=== PATIENT | male | born 1950 | race Caucasian/White ===

== ENCOUNTER → 2016-07-16 | Outpatient (CLI) | payer OTHER ==
[2016-07-16 09:22] LABS: Basophils % (A) 1 %; CH 25.8; CHCM 31.4; Eosinophils # (A) 0.1 k/uL (0-0.7); Eosinophils % (A) 2 %; HDW 3.46; HGB 12.8 gm/dL (13.0-17.5); Hypochromasia Moderate; Luc # (Auto) 0.13; Luc % (Auto) 2; Lymphocytes # (A) 1.3 k/uL (1.0-4.8); Lymphocytes % (A) 25 %; MCH 26.2 pg (25.0-35.0); MCHC 31.9 g/dL (31.0-37.0); MCV 82.2 fL (80.0-100.0); Mean Platelet Volume 7.1; Monocytes # (A) 0.4 k/uL (0-1.0); Monocytes % (A) 8 %; Neutrophils # (A) 3.3 k/uL (1.3-7.7); Neutrophils % (A) 63 %; Poikilocytosis Slight; RBC 4.87 m/uL (4.30-5.90); RDW 13.7 % (11.5-15.5); WBC 5.3 k/uL (3.8-10.6); WBC (Perox) 5.42
[2016-07-16 11:02] LABS: Manual Review Performed
== END | disposition home or self-care (01) ==
LOC: LABWHC1 08:17
PROVIDERS: ATTEND Internal Medicine Gastroenterology
DX: B18.2 Chronic viral hepatitis C (principal)
CPT/HCPCS: 36415; 85025

== ENCOUNTER → 2016-07-23 | Outpatient (CLI) | payer OTHER ==
[2016-07-23 09:00] LABS: ALT 45 U/L (21-72); AST 23 U/L (17-59); Alkaline Phosphatase 80 U/L (38-126); Bilirubin, Delta 0.1 mg/dL (0.0-0.2); Non-African American GFR(MDRD) >60 (>60 ml/min/1.73 sqM); Total Bilirubin 0.6 mg/dL (0.2-1.3); Total Protein 7.1 g/dL (6.3-8.2)
[2016-07-23 09:01] LABS: Basophils % (A) 0 %; CH 25.6; CHCM 31.3; Eosinophils # (A) 0.1 k/uL (0-0.7); Eosinophils % (A) 2 %; HCT 40.2 % (39.0-53.0); HDW 3.36; HGB 12.4 gm/dL (13.0-17.5); Hypochromasia Moderate; Luc # (Auto) 0.19; Luc % (Auto) 4; Lymphocytes # (A) 1.1 k/uL (1.0-4.8); Lymphocytes % (A) 22 %; MCH 25.2 pg (25.0-35.0); MCHC 30.8 g/dL (31.0-37.0); Mean Platelet Volume 6.8; Monocytes # (A) 0.4 k/uL (0-1.0); Monocytes % (A) 8 %; Neutrophils # (A) 3.3 k/uL (1.3-7.7); Neutrophils % (A) 64 %; RDW 13.7 % (11.5-15.5); WBC 5.2 k/uL (3.8-10.6); WBC (Perox) 5.27
[2016-07-24 14:39] LABS: LOG HCV IU/mL 4.34 (<1.08)
== END | disposition home or self-care (01) ==
LOC: LABWHC1 07:53
PROVIDERS: ATTEND Internal Medicine Gastroenterology
DX: B18.2 Chronic viral hepatitis C (principal)
CPT/HCPCS: 36415; 80076; 82565; 85025; 87522

== ENCOUNTER → 2016-07-30 | Outpatient (CLI) | payer OTHER ==
[2016-07-30 08:42] LABS: Basophils % (A) 1 %; CH 25.6; CHCM 31.3; Eosinophils # (A) 0.1 k/uL (0-0.7); Eosinophils % (A) 2 %; HCT 40.4 % (39.0-53.0); HDW 3.29; HGB 12.5 gm/dL (13.0-17.5); Hypochromasia Moderate; Luc # (Auto) 0.25; Luc % (Auto) 4; Lymphocytes # (A) 1.3 k/uL (1.0-4.8); Lymphocytes % (A) 23 %; MCH 25.3 pg (25.0-35.0); MCV 81.6 fL (80.0-100.0); Mean Platelet Volume 6.5; Monocytes # (A) 0.5 k/uL (0-1.0); Monocytes % (A) 9 %; Neutrophils # (A) 3.5 k/uL (1.3-7.7); Neutrophils % (A) 61 %; RBC 4.95 m/uL (4.30-5.90); RDW 14.1 % (11.5-15.5); WBC 5.8 k/uL (3.8-10.6)
== END | disposition home or self-care (01) ==
LOC: LABWHC1 07:33
PROVIDERS: ATTEND Internal Medicine Gastroenterology
DX: B18.2 Chronic viral hepatitis C (principal)
CPT/HCPCS: 36415; 85025

== ENCOUNTER → 2016-08-06 | Outpatient (CLI) | payer OTHER ==
[2016-08-06 08:26] LABS: Basophils % (A) 0 %; CH 26.2; CHCM 31.7; Eosinophils # (A) 0.1 k/uL (0-0.7); Eosinophils % (A) 2 %; HCT 38.7 % (39.0-53.0); HDW 3.06; HGB 12.1 gm/dL (13.0-17.5); Hypochromasia Slight; Luc # (Auto) 0.19; Luc % (Auto) 4; Lymphocytes # (A) 0.9 k/uL (1.0-4.8); Lymphocytes % (A) 20 %; MCH 25.8 pg (25.0-35.0); MCHC 31.2 g/dL (31.0-37.0); MCV 82.9 fL (80.0-100.0); Mean Platelet Volume 7.7; Monocytes # (A) 0.4 k/uL (0-1.0); Monocytes % (A) 9 %; Neutrophils % (A) 64 %; RBC 4.67 m/uL (4.30-5.90); RDW 14.6 % (11.5-15.5); WBC 4.6 k/uL (3.8-10.6); WBC (Perox) 5.24
[2016-08-06 08:47] LABS: ALT 28 U/L (21-72); AST 21 U/L (17-59); Alkaline Phosphatase 81 U/L (38-126); Anion Gap 8 mmol/L; Bilirubin, Delta 0.3 mg/dL (0.0-0.2); Blood Urea Nitrogen 15 mg/dL (9-20); Calcium 8.7 mg/dL (8.4-10.2); Carbon Dioxide 29 mmol/L (22-30); Chloride 106 mmol/L (98-107); Cholesterol 194 mg/dL (<200); Glucose 128 mg/dL (74-99); HDL Cholesterol 46 mg/dL (40-60); Magnesium 1.9 mg/dL (1.6-2.3); Non-African American GFR(MDRD) >60 (>60 ml/min/1.73 sqM); Potassium 4.5 mmol/L (3.5-5.1); Sodium 143 mmol/L (137-145); Total Bilirubin 0.6 mg/dL (0.2-1.3); Triglycerides 148 mg/dL (<150)
[2016-08-07 14:28] LABS: Tacrolimus (FK506) 5.1 ng/mL (5.0-20.0)
[2016-08-08 08:47] LABS: LOG HCV IU/mL 4.02 (<1.08)
[2016-08-09 07:25] LABS: Mis test requested (Blood) Everolimus Level
== END | disposition home or self-care (01) ==
LOC: LABWHC1 07:43
PROVIDERS: ATTEND Internal Medicine Gastroenterology
DX: C22.0 Liver cell carcinoma (principal); B18.2 Chronic viral hepatitis C; B19.20 Unspecified viral hepatitis C without hepatic coma; Z94.4 Liver transplant status
CPT/HCPCS: 36415; 80048; 80061; 80076; 80169; 80197; 82105; 83735; 85025; 87522

== ENCOUNTER → 2016-12-03 | Outpatient (CLI) | payer OTHER | END | disposition home or self-care (01) | LOC: LABWHC1 07:52 | PROVIDERS: ATTEND Internal Medicine | DX: Z48.23 Encounter for aftercare following liver transplant (principal) | CPT/HCPCS: 36415; 87045; 87046; 87497 ==

== ENCOUNTER → 2017-05-01 | Outpatient (CLI) | payer MEDICARE, OTHER ==
[2017-05-01 13:33] LABS: ALT 27 U/L (21-72); AST 18 U/L (17-59); Alkaline Phosphatase 75 U/L (38-126); Anion Gap 7 mmol/L; Blood Urea Nitrogen 18 mg/dL (9-20); Calcium 9.2 mg/dL (8.4-10.2); Carbon Dioxide 29 mmol/L (22-30); Chloride 103 mmol/L (98-107); Glucose 106 mg/dL (74-99); Non-African American GFR(MDRD) >60 (>60 ml/min/1.73 sqM); Potassium 4.5 mmol/L (3.5-5.1); Sodium 139 mmol/L (137-145); Total Bilirubin 0.5 mg/dL (0.2-1.3); Total Protein 7.2 g/dL (6.3-8.2)
[2017-05-01 20:21] LABS: Hepatitis B Surface Antibody Reactive (Non-Reactive)
[2017-05-03 09:28] LABS: Hepatits C Virus RNA, Quant <12 IU/mL (<12); LOG HCV IU/mL <1.08 (<1.08)
== END | disposition home or self-care (01) ==
LOC: LABWHC1 12:39
PROVIDERS: ATTEND Internal Medicine Gastroenterology
DX: Z48.23 Encounter for aftercare following liver transplant (principal); R75 Inconclusive laboratory evidence of human immunodeficiency virus [HIV]; Z94.4 Liver transplant status
CPT/HCPCS: 36415; 80053; 86704; 86706; 87340; 87390; 87522

== ENCOUNTER → 2017-05-08 | Outpatient (CLI) | payer MEDICARE, OTHER ==
--- NOTE | 2017-05-08 18:03 | CT ---
EXAMINATION TYPE: CT abdomen w con DATE OF EXAM: 05/08/2017 COMPARISON: 08/09/2014 HISTORY: Follow-up for liver transplant. CT DLP: 1342.07 mGycm Automated exposure control for dose reduction was used. TECHNIQUE: Helical acquisition of images was performed from the lung bases through the top of iliac crest to include entire abdomen. CONTRAST: Performed with Oral Contrast and with IV Contrast, patient injected with 100 mL of Omnipaque 300. FINDINGS: Lung bases are clear. There is no pleural effusion. Heart size is normal. There is a 5 mm cyst in the left lobe of the liver. Bile ducts are not dilated. Spleen shows no focal defect. There is no sign of pancreatic mass. There is no adrenal mass. Kidneys show satisfactory contrast opacification. There is no hydronephrosi s. There is no retroperitoneal adenopathy. There is no ascites. I see no intestinal wall thickening. There are no dilated loops. I see no bony destructive process. There is slight depression of the supe rior endplate of T12 and T11 without significant loss of height. Gallbladder is absent. IMPRESSION: SMALL CYST IN THE LEFT LOBE OF THE LIVER. I SEE NO COMPLICATING PROCESS OF THE LIVER TRANSPLANT. NO A DVERSE CHANGE COMPARED TO OLD EXAM.
--- NOTE | 2017-05-08 18:06 | CT ---
EXAMINATION TYPE: CT chest wo con DATE OF EXAM: 05/08/2017 COMPARISON: NONE HISTORY: Follow-up for liver transplant. Some chest congestion. CT DLP: 714.39 mGycm. Automated Exposure Control for Dose Reduction was Utilized. TECHNIQUE: CT scan of the thorax is performed without IV contrast. FINDINGS: The lungs are clear of infiltrate. There is no evidence of a pulmonary mass. There is no pleural effu lavelle. There is mild subpleural 1 cm area of interstitial density in the lateral left lower lobe. There is no evidence of aortic aneurysm. There are no hilar masses. There is no pericardial effusion. There are a few mediastinal lymph nodes that measure up to 1 cm. I see no bony destructive process. IMPRESSION: Negative CT scan of the chest. No evidence of metastatic disease.
== END | disposition home or self-care (01) ==
LOC: RADCTMAIN 16:28
DX: K76.89 Other specified diseases of liver (principal); Z85.05 Personal history of malignant neoplasm of liver; Z94.4 Liver transplant status
CPT/HCPCS: 71250; 74160; Q9967

== ENCOUNTER → 2017-08-19 | Outpatient (CLI) | payer MEDICARE, OTHER ==
[2017-08-19 08:12] LABS: Basophils % (A) 0 %; Eosinophils # (A) 0.2 k/uL (0-0.7); Eosinophils % (A) 2 %; HCT 38.8 % (39.0-53.0); HGB 12.8 gm/dL (13.0-17.5); Lymphocytes # (A) 1.5 k/uL (1.0-4.8); Lymphocytes % (A) 20 %; MCH 25.6 pg (25.0-35.0); MCV 77.5 fL (80.0-100.0); Mean Platelet Volume 7.1; Monocytes # (A) 0.6 k/uL (0-1.0); Monocytes % (A) 8 %; Neutrophils % (A) 67 %; Platelet Count 128 k/uL (150-450); RDW 13.6 % (11.5-15.5); WBC 7.4 k/uL (3.8-10.6)
[2017-08-19 08:42] LABS: ALT 26 U/L (21-72); AST 17 U/L (17-59); Albumin 3.8 g/dL (3.5-5.0); Alkaline Phosphatase 70 U/L (38-126); Anion Gap 9 mmol/L; Bilirubin, Delta 0.3 mg/dL (0.0-0.2); Bilirubin,Unconjugated 0.2 mg/dL (0.0-1.1); Blood Urea Nitrogen 22 mg/dL (9-20); Calcium 8.7 mg/dL (8.4-10.2); Carbon Dioxide 29 mmol/L (22-30); Chloride 106 mmol/L (98-107); Cholesterol 151 mg/dL (<200); Glucose 107 mg/dL (74-99); Sodium 144 mmol/L (137-145); Total Bilirubin 0.5 mg/dL (0.2-1.3); Total Protein 6.6 g/dL (6.3-8.2)
== END | disposition home or self-care (01) ==
LOC: LABWHC1 07:44
PROVIDERS: ATTEND Internal Medicine
DX: C22.0 Liver cell carcinoma (principal); I10 Essential (primary) hypertension; E78.5 Hyperlipidemia, unspecified; B18.2 Chronic viral hepatitis C; D89.9 Disorder involving the immune mechanism, unspecified; Z94.4 Liver transplant status
CPT/HCPCS: 36415; 80048; 80076; 80197; 82465; 83735; 85025

== ENCOUNTER → 2017-09-08 | Outpatient (CLI) | payer MEDICARE, OTHER ==
[2017-09-08 09:05] LABS: Basophils % (A) 0 %; Eosinophils # (A) 0.2 k/uL (0-0.7); Eosinophils % (A) 3 %; HCT 36.3 % (39.0-53.0); HGB 12.3 gm/dL (13.0-17.5); Lymphocytes # (A) 1.1 k/uL (1.0-4.8); Lymphocytes % (A) 18 %; MCHC 33.8 g/dL (31.0-37.0); MCV 76.9 fL (80.0-100.0); Mean Platelet Volume 7.1; Monocytes # (A) 0.4 k/uL (0-1.0); Monocytes % (A) 7 %; Neutrophils # (A) 4.3 k/uL (1.3-7.7); Neutrophils % (A) 69 %; Platelet Count 134 k/uL (150-450); RBC 4.72 m/uL (4.30-5.90); RDW 13.8 % (11.5-15.5); WBC 6.3 k/uL (3.8-10.6)
[2017-09-08 09:14] LABS: ALT 20 U/L (21-72); AST 17 U/L (17-59); Albumin 3.7 g/dL (3.5-5.0); Alkaline Phosphatase 72 U/L (38-126); Anion Gap 11 mmol/L; Bilirubin, Delta 0.3 mg/dL (0.0-0.2); Bilirubin,Unconjugated 0.1 mg/dL (0.0-1.1); Blood Urea Nitrogen 20 mg/dL (9-20); Calcium 8.5 mg/dL (8.4-10.2); Carbon Dioxide 27 mmol/L (22-30); Chloride 105 mmol/L (98-107); Cholesterol 141 mg/dL (<200); Glucose 139 mg/dL (74-99); HDL Cholesterol 37 mg/dL (40-60); LDL Cholesterol,Calculated 61 mg/dL (0-99); Magnesium 2.1 mg/dL (1.6-2.3); Potassium 3.9 mmol/L (3.5-5.1); Sodium 143 mmol/L (137-145); Total Bilirubin 0.4 mg/dL (0.2-1.3); Total Protein 6.4 g/dL (6.3-8.2); Triglycerides 213 mg/dL (<150)
== END | disposition home or self-care (01) ==
LOC: LABWHC1 08:20
PROVIDERS: ATTEND Internal Medicine
DX: C22.0 Liver cell carcinoma (principal); D89.9 Disorder involving the immune mechanism, unspecified; I10 Essential (primary) hypertension; E78.1 Pure hyperglyceridemia; R10.9 Unspecified abdominal pain; Z94.4 Liver transplant status
CPT/HCPCS: 36415; 80048; 80061; 80076; 80169; 80197; 82105; 83735; 85025

== ENCOUNTER → 2017-10-12 | Outpatient (CLI) | payer MEDICARE, OTHER ==
--- NOTE | 2017-10-12 22:39 | CT ---
EXAMINATION TYPE: CT chest w con DATE OF EXAM: 10/12/2017 COMPARISON: 05/08/2017 HISTORY: 67-year-old male Hepatocellular carcinoma follow up after liver transplant. Right upper ches t lump marked by BB. TECHNIQUE: Contiguous axial scanning of the chest after the administration of 100 mL of Isovue 300. Coronal/sagittal reconstructions performed. CT DLP: 761.5mGycm. Automatic exposure control utilized for a dose reduction. FINDINGS: Heart is normal size without pericardial effusion. Ectatic ascending aorta 3.8 cm with conventional branching anatomy. Ectatic upper descending thoracic aorta 3.2 cm. Mild diffuse bronchial wall thickening. There may be some subtle centrilobular nodularity in the righ t greater than left upper lobes. Some minimal patchy groundglass at the peripheral left lower lobe is stable, probable scarring. A palpable marker is present along the superior right chest wall. No underlying mass is identified. N o consolidation or pleural effusion. Abdomen reported separately. Bones: Endplate spondylosis lower thoracic spine. No osseous destructive process. Superior endplate S chmorl's node at T11 and T12 are unchanged. IMPRESSION: 1. Palpable marker along the superior right chest wall. No underlying mass or abnormal fluid collecti on is seen to explain the clinically palpable abnormality. 2. Suggestion of some subtle centrilobular nodularity in the right greater than left upper lobes. Sonny e possible considerations include respiratory bronchiolitis and subacute hypersensitivity pneumonitis . 3. Abdomen reported separately.
--- NOTE | 2017-10-12 22:47 | CT ---
EXAMINATION TYPE: CT abdomen wo/w con DATE OF EXAM: 10/12/2017 COMPARISON: 05/08/2017 HISTORY: 67-year-old male Hepatocellular carcinoma follow up after liver transplantation. TECHNIQUE: Contiguous axial scanning of the abdomen before and after administration of 100 ml Isovue 300 IV contrast. Delayed images through the kidneys and coronal/sagittal reconstructions performed. CT DLP: 2499.9 mGycm Automated exposure control for dose reduction was used. FINDINGS: Heart is normal size without pericardial effusion. Strandy atelectasis inferior lingula and posterior left base. No pleural effusion. There are postsurgical changes of liver transplantation. Portal venous system is patent. No biliary d uctal dilatation. Two tiny hypodense lesions in the left liver lobe, largest measuring 7 mm are unch anged from 05/08/2017, refer to axial images 15 and 17 of series 10. No new focal liver lesion identi fied. Adrenal glands, kidneys, spleen, and pancreas appear within normal limits. No dilated small bowel, free fluid, or free air. Tiny periumbilical hernia. Mild to moderate stool burden. No pericolonic mesentery change. Bones: Stable T11 and T12 superior endplate Schmorl's nodes. No osseous destructive process. IMPRESSION: 1. TWO TINY HYPODENSE LESIONS IN THE LEFT LIVER LOBE, LARGEST MEASURING 7 MM. THESE REMAIN UNCHANGED FROM 05/08/2017 AND TINY BENIGN CYSTS ARE SUSPECTED. ADDITIONAL FOLLOW-UP CLINICALLY INDICATED. 2. POSTSURGICAL CHANGES OF LIVER TRANSPLANTATION. NO EVIDENT COMPLICATION.
== END | disposition home or self-care (01) ==
LOC: RADCTMAIN 18:32
DX: C22.0 Liver cell carcinoma (principal); K76.9 Liver disease, unspecified; I10 Essential (primary) hypertension; E78.1 Pure hyperglyceridemia; R91.8 Other nonspecific abnormal finding of lung field; Z94.4 Liver transplant status
CPT/HCPCS: 71260; 74170; Q9967

== ENCOUNTER → 2017-11-11 | Outpatient (CLI) | payer MEDICARE, OTHER | END | disposition home or self-care (01) | LOC: LABWHC1 15:06 | PROVIDERS: ATTEND Family Medicine | DX: Z12.5 Encounter for screening for malignant neoplasm of prostate (principal) | CPT/HCPCS: 36415; 84153 ==

== ENCOUNTER → 2018-03-27 | Outpatient (CLI) | payer MEDICARE, OTHER ==
[2018-03-27 10:17] LABS: Basophils % (A) 0 %; Eosinophils # (A) 0.1 k/uL (0-0.7); Eosinophils % (A) 2 %; HCT 39.7 % (39.0-53.0); HGB 12.8 gm/dL (13.0-17.5); Lymphocytes # (A) 1.3 k/uL (1.0-4.8); Lymphocytes % (A) 21 %; MCH 25.2 pg (25.0-35.0); MCHC 32.1 g/dL (31.0-37.0); MCV 78.3 fL (80.0-100.0); Mean Platelet Volume 7.1; Monocytes # (A) 0.4 k/uL (0-1.0); Monocytes % (A) 6 %; Neutrophils # (A) 4.2 k/uL (1.3-7.7); Neutrophils % (A) 68 %; Platelet Count 143 k/uL (150-450); RBC 5.07 m/uL (4.30-5.90); RDW 14.9 % (11.5-15.5); WBC 6.2 k/uL (3.8-10.6)
[2018-03-27 10:36] LABS: Bilirubin, Delta 0.2 mg/dL (0.0-0.2); Bilirubin,Unconjugated 0.4 mg/dL (0.0-1.1); Calcium 9.2 mg/dL (8.4-10.2); Magnesium 2.1 mg/dL (1.6-2.3); Potassium 4.2 mmol/L (3.5-5.1); Total Bilirubin 0.6 mg/dL (0.2-1.3)
== END | disposition home or self-care (01) ==
LOC: LABWHC1 08:07
PROVIDERS: ATTEND Internal Medicine
DX: Z48.23 Encounter for aftercare following liver transplant (principal); D89.9 Disorder involving the immune mechanism, unspecified; B18.2 Chronic viral hepatitis C; C22.0 Liver cell carcinoma; I10 Essential (primary) hypertension; E78.5 Hyperlipidemia, unspecified; Z94.4 Liver transplant status
CPT/HCPCS: 36415; 80048; 80061; 80076; 80169; 80197; 83735; 85025

== ENCOUNTER → 2018-03-30 | Outpatient (CLI) | payer MEDICARE, OTHER ==
--- NOTE | 2018-03-30 11:38 | CT ---
EXAMINATION TYPE: CT abdomen wo con, CT chest abdomen w con DATE OF EXAM: 03/30/2018 COMPARISON: CT chest and abdomen 10/12/2017 HISTORY: Follow up to liver transplant, history of liver cell carcinoma CT DLP: 612.57 (accession [id number]), 1731.7 (accession [id number]) mGycm Automated exposure control for dose reduction was used. TECHNIQUE: Helical acquisition of images was performed from the lung bases through the top of iliac crest to include entire abdomen pre- and postadministration of intravenous contrast. CT of the chest performed following intravenous contrast CONTRAST: Performed with Oral Contrast and without IV contrast. FINDINGS: Anterior abdominal wall hernia contains fat as on prior. Small umbilical hernia contains fa t as on prior. No evident mediastinal, axillar, or hilar adenopathy. Aorta shows normal caliber. No endobronchial le lavelle, pleural or pericardial effusion. LUNGS: Interstitial changes at the apices show similar appearance, some apical emphysematous change a lso present on the right as on prior, left basilar scarring is noted and stable. LIVER/GB: Patient is post cholecystectomy. Hypodensities within the left lobe of the liver are stable and subcentimeter in size. Surgical clips compatible with patient's history noted at the level of th e intrahepatic portion of the inferior vena cava and nancy. PANCREAS: No significant interval change is seen. SPLEEN: No significant abnormality is seen. ADRENALS: No significant abnormality is seen. KIDNEYS: No significant abnormality is seen. BOWEL: No significant abnormality is seen. LYMPH NODES: No significant abnormality is appreciated. OSSEOUS STRUCTURES: No significant abnormality is seen. FREE AIR: No Free Air visible ASCITES: None visible. RETROPERITONEAL ADENOPATHY: No Retroperitoneal Adenopathy visible. OTHER: Aorta shows atheromatous change as on prior. No aneurysm. IMPRESSION: STABLE EXAM, NO SIGNIFICANT INTERVAL CHANGE. POSTOP CHANGES.
== END | disposition home or self-care (01) ==
LOC: RADCTMAIN 08:40
DX: Z08 Encounter for follow-up examination after completed treatment for malignant neoplasm (principal); Z85.05 Personal history of malignant neoplasm of liver; Z94.4 Liver transplant status
CPT/HCPCS: 71260; 74150; 74160; Q9967

== ENCOUNTER → 2018-07-02 | Outpatient (CLI) | payer MEDICARE, OTHER ==
[2018-07-02 10:36] LABS: Basophils % (A) 0 %; Eosinophils # (A) 0.2 k/uL (0-0.7); Eosinophils % (A) 3 %; HCT 39.8 % (39.0-53.0); HGB 12.9 gm/dL (13.0-17.5); Lymphocytes # (A) 1.2 k/uL (1.0-4.8); Lymphocytes % (A) 22 %; MCHC 32.5 g/dL (31.0-37.0); Mean Platelet Volume 7.8; Monocytes # (A) 0.4 k/uL (0-1.0); Monocytes % (A) 6 %; Neutrophils # (A) 3.7 k/uL (1.3-7.7); Neutrophils % (A) 65 %; Platelet Count 105 k/uL (150-450); RBC 4.62 m/uL (4.30-5.90); RDW 15.8 % (11.5-15.5); WBC 5.7 k/uL (3.8-10.6)
[2018-07-02 16:30] LABS: Albumin 4.3 g/dL (3.80-4.90); Albumin/Globulin Ratio 2.26 (1.20-2.10); Anion Gap 5.9 mmol/L (4.00-12.00); Bilirubin, Conjugated 0.2 mg/dL (0.20-0.40); Bilirubin,Unconjugated 0.5 mg/dL; Calcium 8.8 mg/dL (8.7-10.3); Carbon Dioxide 31.1 mmol/L (21.6-31.8); Globulin 1.9 g/dL (1.6-3.3); LDL Cholesterol,Calculated 64.4 mg/dL (0.0-131.0); Magnesium 1.7 mg/dL (1.5-2.4); Potassium 4.3 mmol/L (3.5-5.5); Total Bilirubin 0.7 mg/dL (0.3-1.2); Total Protein 6.2 g/dL (6.2-8.2); VLDL Calculation 16.6 mg/dL (5.00-40.00)
== END | disposition home or self-care (01) ==
LOC: LABWHC1 09:54
PROVIDERS: ATTEND Internal Medicine Gastroenterology
DX: C22.0 Liver cell carcinoma (principal); Z94.4 Liver transplant status
CPT/HCPCS: 36415; 80048; 80061; 80076; 80169; 80197; 82105; 83735; 85025

== ENCOUNTER 2018-07-07 10:33 | Emergency (ER) | payer MEDICARE, OTHER ==
[2018-07-07 10:41] VITALS: RESP 18; TEMP 97.9
--- NOTE | 2018-07-07 11:21 | ED ---
General Adult HPI - General Chief complaint: Urogenital Stated complaint: Urinating blood Time Seen by Provider: 07/07/18 11:03 Source: patient, family, RN notes reviewed Mode of arrival: ambulatory Limitations: no limitations - History of Present Illness Initial comments: Patient is a pleasant 68-year-old male presenting to the emergency Department with hematuria. Onset was last night. Symptoms have been waxing and waning. Patient has had some blood clots. Hematuria has been painless. No history of similar symptoms previously. Patient has mild discomfort through his upper flank somewhat anteriorly. Patient states discomfort has been extremely mild. No nausea vomiting. No fever. No history of similar symptoms previously. Patient does have history of hernia repair around 1 month ago. Patient also has history of liver transplant. - Related Data Home Medications Medication Instructions Recorded Confirmed Aspirin EC [Ecotrin Low Dose] 81 mg PO DAILY 07/07/18 07/07/18 Atorvastatin [Lipitor] 10 mg PO HS 07/07/18 07/07/18 Everolimus [Zortress] 3 mg PO BID 07/07/18 07/07/18 Furosemide [Lasix] 40 mg PO DAILY 07/07/18 07/07/18 Magnesium Oxide 400 mg PO DAILY 07/07/18 07/07/18 Metoprolol Tartrate [Lopressor] 25 mg PO BID 07/07/18 07/07/18 NIFEdipine [NIFEdipine ER] 30 mg PO DAILY 07/07/18 07/07/18 Tacrolimus [Prograf] 2 mg PO Q12H 07/07/18 07/07/18 Tamsulosin [Flomax] 0.4 mg PO DAILY 07/07/18 07/07/18 Previous Rx's Medication Instructions Recorded Cephalexin [Keflex] 500 mg PO QID #40 cap 07/07/18 Allergies Allergy/AdvReac Type Severity Reaction Status Date / Time No Known Allergies Allergy Verified 07/07/18 10:51 Review of Systems ROS Statement: Those systems with pertinent positive or pertinent negative responses have been documented in the HPI. ROS Other: All systems not noted in ROS Statement are negative. Constitutional: Denies: fever Eyes: Denies: eye pain ENT: Denies: ear pain Respiratory: Denies: cough Cardiovascular: Denies: chest pain Endocrine: Denies: fatigue Gastrointestinal: Reports: as per HPI Genitourinary: Reports: hematuria. 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,hx 2015 liver ca(chemo embolization x 2:Jul), History of Any Multi-Drug Resistant Organisms: None Reported Past Surgical History: Hernia Repair Additional Past Surgical History / Comment(s): cyst removed from rt rib area, liver trasnplant Past Anesthesia/Blood Transfusion Reactions: No Reported Reaction Past Psychological History: No Psychological Hx Reported Smoking Status: Former smoker Past Alcohol Use History: None Reported Past Drug Use History: None Reported - Past Family History Mother Family Medical History: Osteoarthritis (OA) Additional Family Medical History / Comment(s): living in 80's Father Family Medical History: Cancer Additional Family Medical History / Comment(s): prostate,heart problems,living at 91 General Exam Limitations: no limitations General appearance: alert, in no apparent distress Head exam: Present: atraumatic Eye exam: Present: normal appearance, PERRL ENT exam: Present: normal oropharynx Neck exam: Present: normal inspection Respiratory exam: Present: normal lung sounds bilaterally Cardiovascular Exam: Present: regular rate, normal rhythm GI/Abdominal exam: Present: soft, normal bowel sounds. Absent: distended, tenderness, guarding, rebound, rigid, pulsatile mass exam: Present: normal inspection. Absent: testicular tenderness, urethral discharge, scrotal swelling Extremities exam: Present: normal inspection Back exam: Present: normal inspection Neurological exam: Present: alert Psychiatric exam: Present: normal affect, normal mood Skin exam: Present: normal color Course Vital Signs 07/07/18 10:36 Temperature 97.9 F Pulse Rate 65 Respiratory 18 Rate Blood Pressure 133/82 O2 Sat by Pulse 98 Oximetry EKG Findings - EKG Comments: EKG Findings:: Sinus tachycardia 104. [place] 124. QRS 100. QT 302. QTC 397. Left axis. Normal QRS. No acute ST change. Medical Decision Making - Medical Decision Making Patient reevaluated and resting comfortably in bed. Abdomen soft and nontender. Patient has no clinical signs of postoperative infection. Abdomen is soft and nontender, no fever. Patient does look well. Patient states there is surgical clinic at [facility] tomorrow that he can and will follow- up with. Patient is made a copy of the computed tomography scan to bring with him. Patient was placed on antibiotics for hematuria with questionable urinary tract infection. Patient will also need to follow-up with urology for this. - Lab Data Result diagrams: 07/07/18 11:29 07/07/18 11:29 Lab Results 07/07/18 07/07/18 07/07/18 Range/Units 10:55 11:29 11:29 WBC 5.7 (3.8-10.6) k/uL RBC 4.79 (4.30-5.90) m/uL Hgb 12.7 L (13.0-17.5) gm/dL Hct 39.9 (39.0-53.0) % MCV 83.3 (80.0-100.0) fL MCH 26.5 (25.0-35.0) pg MCHC 31.8 (31.0-37.0) g/dL RDW 15.4 (11.5-15.5) % Plt Count 123 L (150-450) k/uL Neutrophils % 57 % Lymphocytes % 28 % Monocytes % 8 % Eosinophils % 4 % Basophils % 0 % Neutrophils # 3.2 (1.3-7.7) k/uL Lymphocytes # 1.6 (1.0-4.8) k/uL Monocytes # 0.5 (0-1.0) k/uL Eosinophils # 0.2 (0-0.7) k/uL Basophils # 0.0 (0-0.2) k/uL PT (9.0-12.0) sec INR (<1.2) APTT (22.0-30.0) sec Sodium 141 (137-145) mmol/L Potassium 4.3 (3.5-5.1) mmol/L Chloride 105 (98-107) mmol/L Carbon Dioxide 27 (22-30) mmol/L Anion Gap 9 mmol/L BUN 21 H (9-20) mg/dL Creatinine 0.96 (0.66-1.25) mg/dL Est GFR (CKD-EPI)AfAm >90 (>60 ml/min/1.73 sqM) Est GFR (CKD-EPI)NonAf 83 (>60 ml/min/1.73 sqM) Glucose 103 H (74-99) mg/dL Calcium 9.0 (8.4-10.2) mg/dL Total Bilirubin 0.7 (0.2-1.3) mg/dL AST 19 (17-59) U/L ALT 24 (21-72) U/L Alkaline Phosphatase 45 (38-126) U/L Total Protein 7.2 (6.3-8.2) g/dL Albumin 4.4 (3.5-5.0) g/dL Urine Color Yellow Urine Appearance Clear (Clear) Urine pH 6.0 (5.0-8.0) Ur Specific [place] 1.006 (1.001-1.035) Urine Protein Negative (Negative) Urine Glucose (UA) Negative (Negative) Urine Ketones Negative (Negative) Urine Blood Large H (Negative) Urine Nitrite Negative (Negative) Urine Bilirubin Negative (Negative) Urine Urobilinogen <2.0 (<2.0) mg/dL Ur Leukocyte Esterase Negative (Negative) Urine RBC >182 H (0-5) /hpf Urine WBC 21 H (0-5) /hpf Urine Bacteria Rare H (None) /hpf 07/07/18 Range/Units 11:29 WBC (3.8-10.6) k/uL RBC (4.30-5.90) m/uL Hgb (13.0-17.5) gm/dL Hct (39.0-53.0) % MCV (80.0-100.0) fL MCH (25.0-35.0) pg MCHC (31.0-37.0) g/dL RDW (11.5-15.5) % Plt Count (150-450) k/uL Neutrophils % % Lymphocytes % % Monocytes % % Eosinophils % % Basophils % % Neutrophils # (1.3-7.7) k/uL Lymphocytes # (1.0-4.8) k/uL Monocytes # (0-1.0) k/uL Eosinophils # (0-0.7) k/uL Basophils # (0-0.2) k/uL PT 9.5 (9.0-12.0) sec INR 0.9 (<1.2) APTT 26.9 (22.0-30.0) sec Sodium (137-145) mmol/L Potassium (3.5-5.1) mmol/L Chloride (98-107) mmol/L Carbon Dioxide (22-30) mmol/L Anion Gap mmol/L BUN (9-20) mg/dL Creatinine (0.66-1.25) mg/dL Est GFR (CKD-EPI)AfAm (>60 ml/min/1.73 sqM) Est GFR (CKD-EPI)NonAf (>60 ml/min/1.73 sqM) Glucose (74-99) mg/dL Calcium (8.4-10.2) mg/dL Total Bilirubin (0.2-1.3) mg/dL AST (17-59) U/L ALT (21-72) U/L Alkaline Phosphatase (38-126) U/L Total Protein (6.3-8.2) g/dL Albumin (3.5-5.0) g/dL Urine Color Urine Appearance (Clear) Urine pH (5.0-8.0) Ur Specific [place] (1.001-1.035) Urine Protein (Negative) Urine Glucose (UA) (Negative) Urine Ketones (Negative) Urine Blood (Negative) Urine Nitrite (Negative) Urine Bilirubin (Negative) Urine Urobilinogen (<2.0) mg/dL Ur Leukocyte Esterase (Negative) Urine RBC (0-5) /hpf Urine WBC (0-5) /hpf Urine Bacteria (None) /hpf - Radiology Data Radiology results: report reviewed (Computed tomography scan of the abdomen pelvis does have is an area of soft tissue thickening which could be from scarring from recent hernia repair. There is some fluid which could represent postoperative fluid or seroma, cannot exclude an abscess. Second area similarly near the umbilicus.) Disposition Clinical Impression: Hematuria Disposition: HOME SELF-CARE Condition: Stable Instructions (If sedation given, give patient instructions): Hematuria (ED) Additional Instructions: Please follow-up tomorrow with your surgeon at [facility]. Please bring copy of her computed tomography scan with you. Please follow-up sooner or return for abdominal pain, fevers, abdominal distention, vomiting, worsening symptoms or other concerns. You will also need to follow-up with urology, number provided, within the next few days. Prescriptions: Cephalexin [Keflex] 500 mg PO QID #40 cap Is patient prescribed a controlled substance at d/c from ED?: No Referrals: Ac Sharif MD [Primary Care Provider] - 1-2 days Time of Disposition: 12:50
[2018-07-07 11:41] LABS: Appearance,Urine Clear (Clear); Bacteria,Urine Rare /hpf; Bilirubin,Urine Negative (Negative); Blood,Urine Large (Negative); Color,Urine Yellow; Glucose,Urine (UA) Negative (Negative); Ketones,Urine Negative (Negative); Leukocyte Esterase,Urine Negative (Negative); Nitrite,Urine Negative (Negative); Protein,Urine Negative (Negative); RBC,Urine >182 /hpf (0-5); Specific Gravity,Urine 1.006 (1.001-1.035); Urobilinogen,Urine <2.0 mg/dL (<2.0); WBC,Urine 21 /hpf (0-5)
[2018-07-07 12:11] LABS: Basophils % (A) 0 %; Eosinophils # (A) 0.2 k/uL (0-0.7); Eosinophils % (A) 4 %; HCT 39.9 % (39.0-53.0); HGB 12.7 gm/dL (13.0-17.5); Lymphocytes # (A) 1.6 k/uL (1.0-4.8); Lymphocytes % (A) 28 %; MCH 26.5 pg (25.0-35.0); MCHC 31.8 g/dL (31.0-37.0); MCV 83.3 fL (80.0-100.0); Mean Platelet Volume 6.7; Monocytes # (A) 0.5 k/uL (0-1.0); Monocytes % (A) 8 %; Neutrophils # (A) 3.2 k/uL (1.3-7.7); Neutrophils % (A) 57 %; Platelet Count 123 k/uL (150-450); RBC 4.79 m/uL (4.30-5.90); RDW 15.4 % (11.5-15.5); WBC 5.7 k/uL (3.8-10.6)
--- NOTE | 2018-07-07 12:12 | CT ---
EXAMINATION TYPE: CT abdomen pelvis wo con DATE OF EXAM: 07/07/2018 COMPARISON: 03/30/2018 HISTORY: 68-year-old male postop Hematuria. Hernia repair on 05/28/2018. Liver transplant [address] DLP: 807.3 mGycm. Automated exposure control for dose reduction was used. TECHNIQUE: Contiguous axial scanning of the abdomen and pelvis without IV contrast. Coronal and sagit cole reconstructions performed. FINDINGS: Heart normal size without pericardial effusion. Ectatic lower descending thoracic aorta at 2.9 cm. So me mild subpleural groundglass peripherally in the lower lungs could represent atelectasis. Some of t his was present on patient's prior exam. No pleural effusion. Interval surgical repair of patient's ventral epigastric abdominal wall hernia. There is extensive soft tissue thickening and fat stranding in this region platelike fluid overlies t he abdominal wall fascia over the site of repair measuring 3.5 cm wide by 5 mm thick and 4.7 cm crani ocaudal, refer to axial image 27 and sagittal image 70. Additional platelike fluid is present deep to the abdominal wall musculature at the site of repair along the mesh measuring 5.0 cm wide and 5.4 cm craniocaudal, referred to axial image 36 and sagittal image 68. Additional scar an postsurgical material relating to patient's hepatic transplant. Subcentimeter hypodensity left liver lobe unchanged, likely cyst. Gallbladder surgically absent. Adrenal glands, kidneys, spleen, pancreas appear within normal limits. No mesenteric or retroperitoneal lymphadenopathy seen. There is additional extensive soft tissue thickening and fat stranding along the region of the umbili cus with some subtle fluid measuring 1 cm just superficial to the abdominal wall musculature, axial i mage 95. Fat stranding extends to the skin surface. No dilated small bowel, free fluid, or free air. Appendix is normal. Scattered moderate stool. No pericolonic inflammatory change. Latter urine distended. Pelvic phleboliths. No abnormal fluid collection in the pelvis or pelvic lymp hadenopathy. Bones: Mild degenerative changes at the hips and mild endplate spondylosis lower thoracic spine. Superior en dplate small nodes are noted at T11 and T12 levels. IMPRESSION: 1. Prominent soft tissue stranding and thickening along both the ventral epigastric region and at the umbilicus. Correlate for any focal symptoms at these sites to exclude cellulitis. Given patient's hi story of hernia repair, extensive scarring is possible. 2. However, there is suggestion of platelike fluid both superficial and deep to the epigastric abdomi nal wall repair. This could represent residual postoperative fluid/seroma. Again, correlation to excl ude any infectious signs/symptoms to include possibility of thin abscess. 3. Similarly, there is suggestion of a 9 mm focus of fluid interposed within the extensive soft tissu e thickening at the umbilicus. 4. No nephrolithiasis or hydronephrosis.
[2018-07-07 12:19] LABS: INR 0.9 (<1.2); Partial Thromboplastin Time 26.9 sec (22.0-30.0); Prothrombin Time 9.5 sec (9.0-12.0)
[2018-07-07 12:20] LABS: ALT 24 U/L (21-72); AST 19 U/L (17-59); Albumin 4.4 g/dL (3.5-5.0); Alkaline Phosphatase 45 U/L (38-126); Anion Gap 9 mmol/L; Blood Urea Nitrogen 21 mg/dL (9-20); Carbon Dioxide 27 mmol/L (22-30); Chloride 105 mmol/L (98-107); Glucose 103 mg/dL (74-99); Potassium 4.3 mmol/L (3.5-5.1); Sodium 141 mmol/L (137-145); Total Bilirubin 0.7 mg/dL (0.2-1.3); Total Protein 7.2 g/dL (6.3-8.2)
--- NOTE | 2018-07-07 13:18 | ED ---
Medical Decision Making - Medical Decision Making Case was discussed with Dr. Bradley from transplant team at [facility] who is in agreement with the plan. - Lab Data Result diagrams: 07/07/18 11:29 07/07/18 11:29 Lab Results 07/07/18 07/07/18 07/07/18 Range/Units 10:55 11:29 11:29 WBC 5.7 (3.8-10.6) k/uL RBC 4.79 (4.30-5.90) m/uL Hgb 12.7 L (13.0-17.5) gm/dL Hct 39.9 (39.0-53.0) % MCV 83.3 (80.0-100.0) fL MCH 26.5 (25.0-35.0) pg MCHC 31.8 (31.0-37.0) g/dL RDW 15.4 (11.5-15.5) % Plt Count 123 L (150-450) k/uL Neutrophils % 57 % Lymphocytes % 28 % Monocytes % 8 % Eosinophils % 4 % Basophils % 0 % Neutrophils # 3.2 (1.3-7.7) k/uL Lymphocytes # 1.6 (1.0-4.8) k/uL Monocytes # 0.5 (0-1.0) k/uL Eosinophils # 0.2 (0-0.7) k/uL Basophils # 0.0 (0-0.2) k/uL PT (9.0-12.0) sec INR (<1.2) APTT (22.0-30.0) sec Sodium 141 (137-145) mmol/L Potassium 4.3 (3.5-5.1) mmol/L Chloride 105 (98-107) mmol/L Carbon Dioxide 27 (22-30) mmol/L Anion Gap 9 mmol/L BUN 21 H (9-20) mg/dL Creatinine 0.96 (0.66-1.25) mg/dL Est GFR (CKD-EPI)AfAm >90 (>60 ml/min/1.73 sqM) Est GFR (CKD-EPI)NonAf 83 (>60 ml/min/1.73 sqM) Glucose 103 H (74-99) mg/dL Calcium 9.0 (8.4-10.2) mg/dL Total Bilirubin 0.7 (0.2-1.3) mg/dL AST 19 (17-59) U/L ALT 24 (21-72) U/L Alkaline Phosphatase 45 (38-126) U/L Total Protein 7.2 (6.3-8.2) g/dL Albumin 4.4 (3.5-5.0) g/dL Urine Color Yellow Urine Appearance Clear (Clear) Urine pH 6.0 (5.0-8.0) Ur Specific Sod 1.006 (1.001-1.035) Urine Protein Negative (Negative) Urine Glucose (UA) Negative (Negative) Urine Ketones Negative (Negative) Urine Blood Large H (Negative) Urine Nitrite Negative (Negative) Urine Bilirubin Negative (Negative) Urine Urobilinogen <2.0 (<2.0) mg/dL Ur Leukocyte Esterase Negative (Negative) Urine RBC >182 H (0-5) /hpf Urine WBC 21 H (0-5) /hpf Urine Bacteria Rare H (None) /hpf 07/07/18 Range/Units 11:29 WBC (3.8-10.6) k/uL RBC (4.30-5.90) m/uL Hgb (13.0-17.5) gm/dL Hct (39.0-53.0) % MCV (80.0-100.0) fL MCH (25.0-35.0) pg MCHC (31.0-37.0) g/dL RDW (11.5-15.5) % Plt Count (150-450) k/uL Neutrophils % % Lymphocytes % % Monocytes % % Eosinophils % % Basophils % % Neutrophils # (1.3-7.7) k/uL Lymphocytes # (1.0-4.8) k/uL Monocytes # (0-1.0) k/uL Eosinophils # (0-0.7) k/uL Basophils # (0-0.2) k/uL PT 9.5 (9.0-12.0) sec INR 0.9 (<1.2) APTT 26.9 (22.0-30.0) sec Sodium (137-145) mmol/L Potassium (3.5-5.1) mmol/L Chloride (98-107) mmol/L Carbon Dioxide (22-30) mmol/L Anion Gap mmol/L BUN (9-20) mg/dL Creatinine (0.66-1.25) mg/dL Est GFR (CKD-EPI)AfAm (>60 ml/min/1.73 sqM) Est GFR (CKD-EPI)NonAf (>60 ml/min/1.73 sqM) Glucose (74-99) mg/dL Calcium (8.4-10.2) mg/dL Total Bilirubin (0.2-1.3) mg/dL AST (17-59) U/L ALT (21-72) U/L Alkaline Phosphatase (38-126) U/L Total Protein (6.3-8.2) g/dL Albumin (3.5-5.0) g/dL Urine Color Urine Appearance (Clear) Urine pH (5.0-8.0) Ur Specific Sod (1.001-1.035) Urine Protein (Negative) Urine Glucose (UA) (Negative) Urine Ketones (Negative) Urine Blood (Negative) Urine Nitrite (Negative) Urine Bilirubin (Negative) Urine Urobilinogen (<2.0) mg/dL Ur Leukocyte Esterase (Negative) Urine RBC (0-5) /hpf Urine WBC (0-5) /hpf Urine Bacteria (None) /hpf Disposition Clinical Impression: Hematuria Disposition: HOME SELF-CARE Condition: Stable Instructions (If sedation given, give patient instructions): Hematuria (ED) Additional Instructions: Please follow-up tomorrow with your surgeon at [facility]. Please bring copy of her computed tomography scan with you. Please follow-up sooner or return for abdominal pain, fevers, abdominal distention, vomiting, worsening symptoms or other concerns. You will also need to follow-up with urology, number provided, within the next few days. Prescriptions: Cephalexin [Keflex] 500 mg PO QID #40 cap Is patient prescribed a controlled substance at d/c from ED?: No Referrals: Ac Sharif MD [Primary Care Provider] - 1-2 days Tapan Tracy MD [STAFF PHYSICIAN] - 1-2 days
[2018-07-07 13:31] VITALS: BP 138/90; PULSE 71
== END 2018-07-07 13:29 | disposition home or self-care (01) ==
LOC: EC 10:33
DX: R31.9 Hematuria, unspecified (principal); Z79.82 Long term (current) use of aspirin; Z79.899 Other long term (current) drug therapy; Z85.05 Personal history of malignant neoplasm of liver; Z94.4 Liver transplant status; Z87.891 Personal history of nicotine dependence
CPT/HCPCS: 36415; 74176; 80053; 81001; 85025; 85610; 85730; 87086; 99284

== ENCOUNTER → 2018-11-29 | Outpatient (CLI) | payer MEDICARE, OTHER ==
[2018-11-29 09:18] LABS: Basophils % (A) 0 %; Eosinophils # (A) 0.2 k/uL (0-0.7); Eosinophils % (A) 3 %; HCT 40.7 % (39.0-53.0); HGB 13.1 gm/dL (13.0-17.5); Lymphocytes # (A) 1.3 k/uL (1.0-4.8); Lymphocytes % (A) 19 %; MCH 26.8 pg (25.0-35.0); MCHC 32.1 g/dL (31.0-37.0); MCV 83.5 fL (80.0-100.0); Mean Platelet Volume 7.3; Monocytes # (A) 0.4 k/uL (0-1.0); Monocytes % (A) 6 %; Neutrophils # (A) 4.7 k/uL (1.3-7.7); Neutrophils % (A) 69 %; Platelet Count 130 k/uL (150-450); RBC 4.88 m/uL (4.30-5.90); WBC 6.8 k/uL (3.8-10.6)
[2018-11-29 16:36] LABS: African American GFR (CKD) 102.8 (60.0-200.0); Albumin 4.1 g/dL (3.80-4.90); Albumin/Globulin Ratio 1.64 (1.60-3.17); Anion Gap 4.9 mmol/L (4.00-12.00); BUN/Creat Ratio 21.11 Ratio (12.00-20.00); Bilirubin, Conjugated 0.2 mg/dL (0.20-0.40); Bilirubin,Unconjugated 0.3 mg/dL; Calcium 8.9 mg/dL (8.7-10.3); Carbon Dioxide 29.1 mmol/L (21.6-31.8); Globulin 2.5 g/dL (1.6-3.3); LDL Cholesterol,Calculated 69.2 mg/dL (0.0-131.0); Magnesium 1.6 mg/dL (1.5-2.4); Potassium 4.1 mmol/L (3.5-5.5); Total Bilirubin 0.5 mg/dL (0.3-1.2); Total Protein 6.6 g/dL (6.2-8.2); VLDL Calculation 16.8 mg/dL (5.00-40.00)
== END | disposition home or self-care (01) ==
LOC: LABWHC1 08:14
PROVIDERS: ATTEND Internal Medicine Gastroenterology
DX: C22.0 Liver cell carcinoma (principal); Z94.4 Liver transplant status
CPT/HCPCS: 36415; 80048; 80061; 80076; 80169; 80197; 82105; 83735; 85025

== ENCOUNTER → 2019-02-15 | Outpatient (CLI) | payer MEDICARE, OTHER ==
[2019-02-15 10:41] LABS: Basophils % (A) 0 %; Eosinophils # (A) 0.2 k/uL (0-0.7); Eosinophils % (A) 3 %; HGB 13.6 gm/dL (13.0-17.5); Lymphocytes # (A) 1.9 k/uL (1.0-4.8); Lymphocytes % (A) 27 %; MCH 27.9 pg (25.0-35.0); MCHC 33.3 g/dL (31.0-37.0); MCV 83.8 fL (80.0-100.0); Mean Platelet Volume 7.7; Monocytes # (A) 0.5 k/uL (0-1.0); Monocytes % (A) 6 %; Neutrophils # (A) 4.4 k/uL (1.3-7.7); Neutrophils % (A) 62 %; Platelet Count 134 k/uL (150-450); RBC 4.89 m/uL (4.30-5.90); RDW 15.1 % (11.5-15.5); WBC 7.1 k/uL (3.8-10.6)
[2019-02-15 16:46] LABS: African American GFR (CKD) 90.5 (60.0-200.0); Albumin 4.2 g/dL (3.80-4.90); Albumin/Globulin Ratio 1.91 (1.60-3.17); Anion Gap 2.7 mmol/L (4.00-12.00); Bilirubin, Conjugated 0.3 mg/dL (0.20-0.40); Bilirubin,Unconjugated 0.5 mg/dL; Carbon Dioxide 28.3 mmol/L (21.6-31.8); Chol/HDL Ratio 3.15; Globulin 2.2 g/dL (1.6-3.3); Magnesium 1.6 mg/dL (1.5-2.4); Potassium 4.6 mmol/L (3.5-5.5); Total Bilirubin 0.8 mg/dL (0.3-1.2); Total Protein 6.4 g/dL (6.2-8.2)
== END ==
LOC: LABWHC1 09:42
PROVIDERS: ATTEND Internal Medicine Gastroenterology
DX: C22.0 Liver cell carcinoma (principal); Z94.4 Liver transplant status
CPT/HCPCS: 36415; 80048; 80061; 80076; 80169; 80197; 82105; 83735; 85025

== ENCOUNTER → 2019-11-30 | Outpatient (CLI) | payer MEDICARE, OTHER ==
[2019-11-30 10:31] LABS: Basophils % (A) 1 %; Eosinophils # (A) 0.3 k/uL (0-0.7); Eosinophils % (A) 4 %; HCT 44.1 % (39.0-53.0); HGB 14.7 gm/dL (13.0-17.5); Lymphocytes # (A) 1.9 k/uL (1.0-4.8); Lymphocytes % (A) 26 %; MCH 29.8 pg (25.0-35.0); MCHC 33.3 g/dL (31.0-37.0); MCV 89.3 fL (80.0-100.0); Mean Platelet Volume 8.1; Monocytes # (A) 0.5 k/uL (0-1.0); Monocytes % (A) 7 %; Neutrophils # (A) 4.4 k/uL (1.3-7.7); Neutrophils % (A) 61 %; Platelet Count 146 k/uL (150-450); RBC 4.94 m/uL (4.30-5.90); RDW 13.5 % (11.5-15.5); WBC 7.2 k/uL (3.8-10.6)
[2019-11-30 18:31] LABS: African American GFR (CKD) 89.9 (60.0-200.0); Albumin 4.4 g/dL (3.80-4.90); Albumin/Globulin Ratio 1.83 (1.60-3.17); Anion Gap 7.4 mmol/L (4.00-12.00); Carbon Dioxide 29.6 mmol/L (21.6-31.8); Globulin 2.4 g/dL (1.6-3.3); Non-African American GFR(CKD) 77.5 (60.0-200.0); Potassium 4.3 mmol/L (3.5-5.5); Total Bilirubin 0.9 mg/dL (0.2-1.2); Total Protein 6.8 g/dL (6.2-8.2)
== END | disposition home or self-care (01) ==
LOC: LABWHC1 09:17
PROVIDERS: ATTEND Family Medicine
DX: I10 Essential (primary) hypertension (principal); Z12.5 Encounter for screening for malignant neoplasm of prostate
CPT/HCPCS: 36415; 80053; 84153; 85025

== ENCOUNTER → 2019-12-06 | Outpatient (CLI) | payer MEDICARE, OTHER ==
[2019-12-06 10:30] LABS: Basophils % (A) 1 %; Eosinophils # (A) 0.3 k/uL (0-0.7); Eosinophils % (A) 4 %; HCT 43.8 % (39.0-53.0); HGB 14.3 gm/dL (13.0-17.5); Lymphocytes # (A) 1.9 k/uL (1.0-4.8); Lymphocytes % (A) 26 %; MCHC 32.6 g/dL (31.0-37.0); Mean Platelet Volume 7.9; Monocytes # (A) 0.5 k/uL (0-1.0); Monocytes % (A) 6 %; Neutrophils # (A) 4.5 k/uL (1.3-7.7); Neutrophils % (A) 61 %; Platelet Count 147 k/uL (150-450); RBC 4.92 m/uL (4.30-5.90); RDW 13.3 % (11.5-15.5); WBC 7.4 k/uL (3.8-10.6)
[2019-12-06 16:26] LABS: African American GFR (CKD) 102.1 (60.0-200.0); Albumin 4.3 g/dL (3.80-4.90); Albumin/Globulin Ratio 1.87 (1.60-3.17); Anion Gap 5.7 mmol/L (4.00-12.00); BUN/Creat Ratio 14.44 Ratio (12.00-20.00); Bilirubin, Conjugated 0.3 mg/dL (0.20-0.40); Bilirubin,Unconjugated 0.7 mg/dL; Calcium 9.1 mg/dL (8.7-10.3); Carbon Dioxide 28.3 mmol/L (21.6-31.8); Globulin 2.3 g/dL (1.6-3.3); Magnesium 1.7 mg/dL (1.5-2.4); Non-African American GFR(CKD) 88.1 (60.0-200.0); Potassium 4.1 mmol/L (3.5-5.5); Total Protein 6.6 g/dL (6.2-8.2)
== END | disposition home or self-care (01) ==
LOC: LABWHC1 09:28
PROVIDERS: ATTEND Internal Medicine Gastroenterology
DX: D89.9 Disorder involving the immune mechanism, unspecified (principal); Z94.4 Liver transplant status
CPT/HCPCS: 36415; 80048; 80076; 80197; 82465; 83735; 85025

== ENCOUNTER 2020-04-02 08:55 | Day surgery (SDC) | payer MEDICARE, OTHER ==
[2020-03-29 09:46] VITALS: BMI 32.1
[2020-04-02] MEDS ORDERED: LACTATED RINGERS 1,000 ML IV SCH (09:06)
[2020-04-02 09:11] VITALS: TEMP 98.2
[2020-04-02] MEDS ORDERED: LIDOCAINE 1% (10MG/ML) FOR IV START INTRADERMA ONE (09:20)
[2020-04-02] MEDS ORDERED: PROPOFOL 10 MG/ML 20 ML VIAL IV ONE (10:07)
--- NOTE | 2020-04-02 10:51 | P.PCN ---
Date of Procedure: 04/02/20 Description of Procedure: BRIEF HISTORY: Patient is a 70-year-old male presenting for outpatient colonoscopy for screening for blood and neoplasm of the colon. The patient believes last colonoscopy was prior to 2016 before his liver transplant. Change in bowel habits, blood per rectum or abdominal pain. No family history of colon cancer. PROCEDURE PERFORMED: Colonoscopy with polypectomy. PREOPERATIVE DIAGNOSIS: Screening for malignant neoplasm of the colon, last colonoscopy in 2016 per patient report. ESTIMATED BLOOD LOSS: Minimal. IV sedation per Anesthesia. PROCEDURE: After informed consent was obtained, the patient, was brought into the endoscopy unit. IV sedation was administered by Anesthesia under continuous monitoring. Digital rectal examination was normal. Initially the Olympus CF-190 flexible video colonoscope was then inserted in the rectum, gradually advanced into the cecum without any difficulty. Careful examination was performed as the scope was gradually being withdrawn. Ileocecal valve and the appendiceal orifice were visualized and appeared normal. Prep was excellent. Mucosa of the cecum, ascending colon, transverse colon, descending colon, sigmoid colon, and rectum appeared normal. 2 diminutive polyps measuring 2-3 mm in size removed with cold forceps polypectomy from the ascending colon and hepatic flexure. Large pedunculated 12 mm transverse colon polyp removed with hot snare polypectomy. 4 mm descending colon polyp removed with cold snare polypectomy. Retroflexion was performed in the rectum and no lesions were seen. The patient tolerated the procedure well. IMPRESSION: Pedunculated transverse colon polyp removed with hot snare polypectomy. Flat descending colon polyp removed with cold snare polypectomy. 2 diminutive polyps removed from the ascending colon and hepatic flexure with cold forcep polypectomy. RECOMMENDATIONS: Findings of this examination were discussed with the patient . Okay to resume diet. Okay to resume medications. Await pathology from polypectomy. Would recommend repeat colonoscopy in 3 years for high risk colon polyps pending pathology from polypectomies.
[2020-04-02 10:53] VITALS: RESP 18
[2020-04-02 11:13] VITALS: BP 119/84; PULSE 53
== END 2020-04-02 12:07 | disposition home or self-care (01) ==
LOC: ORWHC2ENDO 08:55
PROVIDERS: ATTEND Internal Medicine
DX: Z12.11 Encounter for screening for malignant neoplasm of colon (principal); D12.3 Benign neoplasm of transverse colon; D12.4 Benign neoplasm of descending colon; I10 Essential (primary) hypertension; E78.5 Hyperlipidemia, unspecified; N40.0 Benign prostatic hyperplasia without lower urinary tract symptoms; Z85.05 Personal history of malignant neoplasm of liver; Z79.899 Other long term (current) drug therapy; Z87.891 Personal history of nicotine dependence; Z94.4 Liver transplant status
CPT/HCPCS: 88305; 45380; 45385; J2704

== ENCOUNTER 2021-04-02 07:40 | Inpatient (IN) | payer MEDICARE, OTHER ==
[2021-04-02 07:50] LABS: Glucose,Whole Blood 184 mg/dL (75-99)
[2021-04-02 07:59] LABS: Basophils % (A) 0 %; Eosinophils % (A) 1 %; HCT 36.5 % (39.0-53.0); HGB 12.4 gm/dL (13.0-17.5); Lymphocytes # (A) 1.9 k/uL (1.0-4.8); Lymphocytes % (A) 29 %; MCH 29.1 pg (25.0-35.0); MCHC 34.1 g/dL (31.0-37.0); MCV 85.2 fL (80.0-100.0); Mean Platelet Volume 8.1; Monocytes # (A) 0.1 k/uL (0-1.0); Monocytes % (A) 1 %; Neutrophils # (A) 4.5 k/uL (1.3-7.7); Neutrophils % (A) 68 %; Platelet Count 111 k/uL (150-450); RBC 4.28 m/uL (4.30-5.90); RDW 12.7 % (11.5-15.5); WBC 6.6 k/uL (3.8-10.6)
--- NOTE | 2021-04-02 08:01 | ED ---
General Adult HPI - General Chief complaint: Altered Mental Status Stated complaint: AMS Time Seen by Provider: 04/02/21 07:46 Source: patient Mode of arrival: EMS Limitations: no limitations - History of Present Illness Initial comments: Dictation was produced using ME911 dictation software. please excuse any grammatical, word or spelling errors. Chief Complaint: 71-year-old male with past medical history of liver disease, status post liver transplant several years ago presents to the emergency department for episode of altered mental status. History of Present Illness: It is a 71-year-old male who is brought in by EMS. Patient states he's fine and has no complaints. He does not feel like he needs to be in emergency department. According to EMS who provides most of the history of present illness he was brought to the emergency department after noticed that patient had episodes of altered mental status. Allegedly he was having sonorous respirations and diaphoretic with brief episode of respiratory distress. EMS reports that allegedly attempted cardiopulmonary resuscitation. According to EMS during that time patient was breathing and responsive. EMS arrival they report that patient was a little altered and having difficulty answering questions. Is unclear when patient's last known normal was. Patient reports taking immunosuppressive medications. He has no pain complaints. Denies any numbness and paresthesias in the arms or legs. The ROS documented in this emergency department record has been reviewed and confirmed by me. Those systems with pertinent positive or negative responses have been documented in the HPI. All other systems are other negative and/or noncontributory. PHYSICAL EXAM: General Impression: Alert and oriented x3, not in acute distress HEENT: Normocephalic atraumatic, extra-ocular movements intact, pupils equal and reactive to light bilaterally, mucous membranes moist. Cardiovascular: Heart regular rate and rhythm Chest: Able to complete full sentences, no retractions, no tachypnea Abdomen: abdomen soft, non-tender, non-distended, no organomegaly Musculoskeletal: Pulses present and equal in all extremities, no peripheral edema Motor: no focal deficits noted Neurological: CN II-XII grossly intact, no focal motor or sensory deficits noted, NIH 0 Skin: Intact with no visualized rashes Psych: Normal affect and mood ED course: 71-year-old well-appearing male presents to the emergency department after episode of altered mental status. Signs upon arrival are within acceptable limits. Patient's well-appearing at bedside. His physical examination is benign. Patient is alert and oriented. He is not showing any signs of focal neurologic deficits. No signs respiratory distress. More history was obtained from the who is currently at the bedside. She reports that patient had 2 such episodes were he was having sonorous respirations and was unresponsive for several minutes. She did not notice any tonic-clonic activity. According to patient is undergoing chemotherapy for prevention of lung cancer. He has history of elevated lactic acid levels. Given patient's clinical presentation patient be admitted for medical monitoring. Cardiology consulted for elevated troponin. Oncology be consulted for recent chemotherapy. EKG interpretation: Ventricular rate 84, normal sinus rhythm,. Interval 150, QRS 94, QTC 444. No NH prolongation, no QTC prolongation, no ST or T-wave changes noted. No old EKG for comparison.. Overall, this EKG is nonspecific - Related Data Home Medications Medication Instructions Recorded Confirmed Atorvastatin [Lipitor] 10 mg PO HS 07/07/18 04/02/21 Furosemide [Lasix] 40 mg PO DAILY 07/07/18 04/02/21 Metoprolol Tartrate [Lopressor] 25 mg PO BID 07/07/18 04/02/21 NIFEdipine [NIFEdipine ER] 30 mg PO DAILY 07/07/18 04/02/21 Tamsulosin [Flomax] 0.4 mg PO DAILY 07/07/18 04/02/21 Mycophenolate Mofetil [Cellcept] 250 mg PO SUMOTUWETHSA 03/29/20 04/02/21 Tacrolimus [Prograf] 2 mg PO BID@0900,2100 03/29/20 04/02/21 Allergies Allergy/AdvReac Type Severity Reaction Status Date / Time No Known Allergies Allergy Verified 04/02/21 08:59 Review of Systems ROS Statement: Those systems with pertinent positive or pertinent negative responses have been documented in the HPI. ROS Other: All systems not noted in ROS Statement are negative. 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 Liver transplant 04/2016 Past Anesthesia/Blood Transfusion Reactions: No Reported Reaction Past Psychological History: No Psychological Hx Reported Smoking Status: Former smoker Past Alcohol Use History: None Reported Past Drug Use History: Marijuana - Past Family History Mother Family Medical History: Osteoarthritis (OA) Additional Family Medical History / Comment(s): living in 80's Father Family Medical History: Cancer Additional Family Medical History / Comment(s): prostate,heart problems,living at 91 General Exam Limitations: no limitations Course Vital Signs 04/02/21 07:42 Temperature 97.8 F Pulse Rate 84 Respiratory 18 Rate Blood Pressure 141/92 O2 Sat by Pulse 95 Oximetry Medical Decision Making - Lab Data Result diagrams: 04/02/21 07:55 04/02/21 07:54 Lab Results 04/02/21 04/02/21 04/02/21 Range/Units 07:48 07:54 07:54 WBC (3.8-10.6) k/uL RBC (4.30-5.90) m/uL Hgb (13.0-17.5) gm/dL Hct (39.0-53.0) % MCV (80.0-100.0) fL MCH (25.0-35.0) pg MCHC (31.0-37.0) g/dL RDW (11.5-15.5) % Plt Count (150-450) k/uL MPV Neutrophils % % Lymphocytes % % Monocytes % % Eosinophils % % Basophils % % Neutrophils # (1.3-7.7) k/uL Lymphocytes # (1.0-4.8) k/uL Monocytes # (0-1.0) k/uL Eosinophils # (0-0.7) k/uL Basophils # (0-0.2) k/uL PT 9.8 (9.0-12.0) sec INR 0.9 (<1.2) APTT 20.0 L (22.0-30.0) sec Sodium (137-145) mmol/L Potassium (3.5-5.1) mmol/L Chloride (98-107) mmol/L Carbon Dioxide (22-30) mmol/L Anion Gap mmol/L BUN (9-20) mg/dL Creatinine (0.66-1.25) mg/dL Est GFR (CKD-EPI)AfAm (>60 ml/min/1.73 sqM) Est GFR (CKD-EPI)NonAf (>60 ml/min/1.73 sqM) Glucose (74-99) mg/dL POC Glucose (mg/dL) 184 H (75-99) mg/dL POC Glu Drying Room Operator ID Lizzette Barraza Plasma Lactic Acid Joey 5.6 H* (0.7-2.0) mmol/L Calcium (8.4-10.2) mg/dL Ionized Calcium Jsoe Maria (4.5-5.3) mg/dL Magnesium (1.6-2.3) mg/dL Total Bilirubin (0.2-1.3) mg/dL AST (17-59) U/L ALT (4-49) U/L Alkaline Phosphatase (38-126) U/L Ammonia <9 (<30) umol/L Troponin I (0.000-0.034) ng/mL Total Protein (6.3-8.2) g/dL Albumin (3.5-5.0) g/dL Lipase (23-300) U/L Serum Alcohol mg/dL 04/02/21 04/02/21 04/02/21 Range/Units 07:54 07:54 07:55 WBC 6.6 (3.8-10.6) k/uL RBC 4.28 L (4.30-5.90) m/uL Hgb 12.4 L (13.0-17.5) gm/dL Hct 36.5 L (39.0-53.0) % MCV 85.2 (80.0-100.0) fL MCH 29.1 (25.0-35.0) pg MCHC 34.1 (31.0-37.0) g/dL RDW 12.7 (11.5-15.5) % Plt Count 111 L (150-450) k/uL MPV 8.1 Neutrophils % 68 % Lymphocytes % 29 % Monocytes % 1 % Eosinophils % 1 % Basophils % 0 % Neutrophils # 4.5 (1.3-7.7) k/uL Lymphocytes # 1.9 (1.0-4.8) k/uL Monocytes # 0.1 (0-1.0) k/uL Eosinophils # 0.0 (0-0.7) k/uL Basophils # 0.0 (0-0.2) k/uL PT (9.0-12.0) sec INR (<1.2) APTT (22.0-30.0) sec Sodium 138 (137-145) mmol/L Potassium 4.1 (3.5-5.1) mmol/L Chloride 103 (98-107) mmol/L Carbon Dioxide 23 (22-30) mmol/L Anion Gap 12 mmol/L BUN 18 (9-20) mg/dL Creatinine 0.87 (0.66-1.25) mg/dL Est GFR (CKD-EPI)AfAm >90 (>60 ml/min/1.73 sqM) Est GFR (CKD-EPI)NonAf 88 (>60 ml/min/1.73 sqM) Glucose 166 H (74-99) mg/dL POC Glucose (mg/dL) (75-99) mg/dL POC Glu Drying Room Operator ID Plasma Lactic Acid Joey (0.7-2.0) mmol/L Calcium 8.8 (8.4-10.2) mg/dL Ionized Calcium Jose Maria 4.8 (4.5-5.3) mg/dL Magnesium 1.4 L (1.6-2.3) mg/dL Total Bilirubin 0.6 (0.2-1.3) mg/dL AST 25 (17-59) U/L ALT 19 (4-49) U/L Alkaline Phosphatase 67 (38-126) U/L Ammonia (<30) umol/L Troponin I 0.102 H* (0.000-0.034) ng/mL Total Protein 6.9 (6.3-8.2) g/dL Albumin 3.9 (3.5-5.0) g/dL Lipase 145 (23-300) U/L Serum Alcohol <10 mg/dL Critical Care Time Critical Care Time: Yes Total Critical Care Time: 33 Disposition Clinical Impression: Elevated troponin, Lactic acidosis Disposition: ADMITTED IP TO THIS [facility] Condition: Fair Referrals: Ac Sharif MD [Primary Care Provider] - 1-2 days
[2021-04-02 08:13] LABS: Ionized Calcium 4.8 mg/dL (4.5-5.3)
[2021-04-02 08:18] LABS: INR 0.9 (<1.2); Prothrombin Time 9.8 sec (9.0-12.0)
--- NOTE | 2021-04-02 08:19 | CT ---
EXAMINATION TYPE: CT brain wo con DATE OF EXAM: 04/02/2021 COMPARISON: None HISTORY: altered mental status CT DLP: 1099.4 mGycm Automated exposure control for dose reduction was used. Helical imaging through the brain. FINDINGS: There is no hemorrhage or hydrocephalus. Cerebral vascular calcifications are present. Vague white ma tter low-attenuation is scattered within the deep white matter. Minimal inflammatory change present i n the right maxillary sinus. IMPRESSION: NONSPECIFIC WHITE MATTER DEMYELINATION. MRI MAY BE OF BENEFIT.
[2021-04-02 08:22] LABS: ALT 19 U/L (4-49); AST 25 U/L (17-59); African American GFR (CKD) >90 (>60 ml/min/1.73 sqM); Albumin 3.9 g/dL (3.5-5.0); Alcohol <10 mg/dL; Alkaline Phosphatase 67 U/L (38-126); Anion Gap 12 mmol/L; Blood Urea Nitrogen 18 mg/dL (9-20); Calcium 8.8 mg/dL (8.4-10.2); Carbon Dioxide 23 mmol/L (22-30); Chloride 103 mmol/L (98-107); Glucose 166 mg/dL (74-99); Lipase 145 U/L (23-300); Magnesium 1.4 mg/dL (1.6-2.3); Non-African American GFR(CKD) 88 (>60 ml/min/1.73 sqM); Potassium 4.1 mmol/L (3.5-5.1); Sodium 138 mmol/L (137-145); Total Bilirubin 0.6 mg/dL (0.2-1.3); Total Protein 6.9 g/dL (6.3-8.2)
--- NOTE | 2021-04-02 08:26 | XR ---
EXAMINATION TYPE: XR chest 1V portable DATE OF EXAM: 04/02/2021 Comparison: 10/29/2015 Clinical History: 71-year-old male confusion, altered mental status Findings: There is worsening opacity at the left mid and lower lung with some corresponding mild volume loss. P ossible trace left pleural effusion. Heart normal size. Impression: Increasing opacity left mid and lower lung with some corresponding volume loss and possible trace eff usion. Clinical correlation recommended to exclude underlying pneumonia. Follow-up after treatment to ensure clearance.
[2021-04-02 08:34] LABS: Lactic Acid, Venous 5.6 mmol/L (0.7-2.0)
[2021-04-02] MEDS: MAGNESIUM SULFATE-D5W PMX 1 GM in DEXTROSE/WATER 1 100ML.BAG IVPB SCH ×2 (08:35→10:06)
[2021-04-02] MEDS ORDERED: CEFEPIME 2 GM in SODIUM CHLORIDE 0.9% 100 ML IVPB STA (09:20)
[2021-04-02] MEDS: ASPIRIN 81 MG PO STA ×2 (10:06→10:56)
[2021-04-02] MEDS ORDERED: levETIRAcetam IV 1,000 MG in SALINE 1 100ML.BAG IVPB STA (10:29)
[2021-04-02] MEDS: LORazepam 2 MG/ML INJ IV PRN ×2 (10:30→22:43)
--- NOTE | 2021-04-02 10:31 | P.HPIM ---
History of Present Illness This is a pleasant 71 years old male with past medical history of liver cirrhosis, liver cancer in 2015 status post chemoembolization, status post liver transplant In 2016. Presents because of altered mental status. Vitas looks stable. He is slightly tachypneic with a breathing rate 21-22. He is saturating 95% on room air. CBC is unremarkable. INR is 0.9. BMP is unremarkable. Glucose 166 and 184. Plasma lactic acid elevated at 5.6 Serum alcohol is less than 10. Elevated troponin 0.102. EKG showed normal sinus rhythm at [address]-T changes. QTC 447. Chest x-ray: Increasing opacity left mid and lower lung with some corresponding volume loss and possible trace effusion. Cannot exclude underlying pneumonia CT of the brain nonspecific acute event. In the emergency room patient was started on cefepime 1, aspirin 3251. Review of Systems CONSTITUTIONAL: No fever, no malaise, no fatigue. HEENT: No recent visual problems or hearing problems. Denied any sore throat. CARDIOVASCULAR: No orthopnea, PND, no palpitations, no syncope. PULMONARY: No shortness of breath, no cough, no hemoptysis. GASTROINTESTINAL: No diarrhea, no nausea, no vomiting, no abdominal pain. Normoactive bowel sounds. NEUROLOGICAL: No headaches, no weakness, no numbness. HEMATOLOGICAL: Denies any bleeding or petechiae. GENITOURINARY: Denies any burning micturition, frequency, or urgency. MUSCULOSKELETAL/RHEUMATOLOGICAL: Denies any joint pain, swelling, or any muscle pain. ENDOCRINE: Denies any polyuria or polydipsia. 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 Liver transplant 04/2016 Past Anesthesia/Blood Transfusion Reactions: No Reported Reaction Past Psychological History: No Psychological Hx Reported Smoking Status: Former smoker Past Alcohol Use History: None Reported Past Drug Use History: Marijuana - Past Family History Mother Family Medical History: Osteoarthritis (OA) Additional Family Medical History / Comment(s): living in 80's Father Family Medical History: Cancer Additional Family Medical History / Comment(s): prostate,heart problems,living at 91 Medications and Allergies Home Medications Medication Instructions Recorded Confirmed Type Atorvastatin [Lipitor] 10 mg PO HS 07/07/18 04/02/21 History Furosemide [Lasix] 40 mg PO DAILY 07/07/18 04/02/21 History Metoprolol Tartrate [Lopressor] 25 mg PO BID 07/07/18 04/02/21 History NIFEdipine [NIFEdipine ER] 30 mg PO DAILY 07/07/18 04/02/21 History Tamsulosin [Flomax] 0.4 mg PO DAILY 07/07/18 04/02/21 History Mycophenolate Mofetil [Cellcept] 250 mg PO SUMOTUWETHSA 03/29/20 04/02/21 History Tacrolimus [Prograf] 2 mg PO BID@0900,2100 03/29/20 04/02/21 History Allergies Allergy/AdvReac Type Severity Reaction Status Date / Time No Known Allergies Allergy Verified 04/02/21 08:59 Physical Exam Vitals: Vital Signs Temp Pulse Resp BP Pulse Ox 04/02/21 09:30 86 76 H 124/46 99 04/02/21 08:30 70 21 123/79 99 04/02/21 08:00 70 22 141/92 98 04/02/21 07:42 97.8 F 84 18 141/92 95 Intake and Output 04/01/21 04/02/21 04/02/21 22:59 06:59 14:59 Other: Weight 102.965 kg GENERAL: The patient is alert and oriented x3, not in any acute distress. Well developed, well nourished. HEENT: Pupils are round and equally reacting to light. EOMI. No scleral icterus. No conjunctival pallor. Normocephalic, atraumatic. No pharyngeal erythema. No thyromegaly. CARDIOVASCULAR: S1 and S2 present. No murmurs, rubs, or gallops. PULMONARY: Chest is clear to auscultation, no wheezing or crackles. ABDOMEN: Soft, nontender, nondistended, normoactive bowel sounds. No palpable organomegaly. MUSCULOSKELETAL: No joint swelling or deformity. EXTREMITIES: No cyanosis, clubbing, or pedal edema. NEUROLOGICAL: Gross neurological examination did not reveal any focal deficits. SKIN: No rashes. No petechiae Results CBC & Chem 7: 04/02/21 07:55 04/02/21 07:54 Labs: Abnormal Lab Results - Last 24 Hours (Table) 04/02/21 04/02/21 04/02/21 Range/Units 07:48 07:54 07:54 RBC (4.30-5.90) m/uL Hgb (13.0-17.5) gm/dL Hct (39.0-53.0) % Plt Count (150-450) k/uL APTT 20.0 L (22.0-30.0) sec Glucose (74-99) mg/dL POC Glucose (mg/dL) 184 H (75-99) mg/dL Plasma Lactic Acid Joey 5.6 H* (0.7-2.0) mmol/L Magnesium (1.6-2.3) mg/dL Troponin I (0.000-0.034) ng/mL 04/02/21 04/02/21 04/02/21 Range/Units 07:54 07:54 07:55 RBC 4.28 L (4.30-5.90) m/uL Hgb 12.4 L (13.0-17.5) gm/dL Hct 36.5 L (39.0-53.0) % Plt Count 111 L (150-450) k/uL APTT (22.0-30.0) sec Glucose 166 H (74-99) mg/dL POC Glucose (mg/dL) (75-99) mg/dL Plasma Lactic Acid Joey (0.7-2.0) mmol/L Magnesium 1.4 L (1.6-2.3) mg/dL Troponin I 0.102 H* (0.000-0.034) ng/mL Assessment and Plan Assessment: Left lower lobe pneumonia is suspected Altered mental status most likely metabolic encephalopathy Elevated troponin, rule out cardiac causes Elevated lactic acid History of liver cirrhosis and liver transplant in 2016 History of liver cancer status post chemo-embolization 2014. Plan: This is a pleasant 71 years old male who presents with AMS and possible pneumonia. Elevated troponin. Continue with antibiotics, cefepime.Check BNP And procalcitonin. check ammonia level continue with aspirin, ehco , serial troponin, cardiology consult start normal saline Labs and medication were reviewed.. Continue same treatment. Continue with symptomatic treatment. Resume home medication. Monitor lytes and vitals. DVT and GI prophylaxis. Further recommendations depends on the clinical course of the patient DVT prophylaxis: Subcutaneous heparin GI Prophylaxis: Pepcid PT/OT: Pending Prognosis is guarded
--- NOTE | 2021-04-02 10:42 | P.CRDCN ---
History of Present Illness Consult date: 04/02/21 Chief complaint: Change in mental status History of present illness: This is a 71-year-old gentleman with extensive history consistent off liver cirrhosis and status post liver transplant in 2016, lung cancer and status post left lobectomy, as well as multiple comorbid conditions was brought by his to the emergency department because of change in mental status. Currently the patient is agitated with some change in mental status and the history was taken from the patient's was bedside. The patient currently on chemotherapy for history of lung cancer and he is in remission. He was in his usual state according to his told last night when he woke up from sleep not feeling well. He was sitting on the edge of the bed and told his that he is not feeling well but he did not experience any symptoms of chest pain or chest discomfort. His decided to bring the patient to the hospital. In the hospital, in the ER he developed seizure and subsequently change in mental status. We consulted to see the patient mainly because of elevated troponin. The first set of troponin came in to be elevated and below 1. The EKG showed sinus rhythm and without any significant ST or T-wave abnormalities concerning for ischemia. Lactic acid is elevated at 5.6. Serum alcohol level is less than 10. The chest x-ray showed possible pneumonia. Computed tomography scan of the brain was nonspecific but apparently did not show any acute abnormalities. The INR is 0.9. Glucose is 166. Troponin 0.102. No prior history of coronary artery disease or congestive heart failure or cardiac arrhythmia and the patient never seen any craft superintendent before. On examination he does have regular rhythm with distant heart sounds and diminished breathing sounds bilaterally but overall the patient is very difficult to examine because he was extremely agitated. 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 Liver transplant 04/2016 Past Anesthesia/Blood Transfusion Reactions: No Reported Reaction Past Psychological History: No Psychological Hx Reported Smoking Status: Former smoker Past Alcohol Use History: None Reported Past Drug Use History: Marijuana - Past Family History Mother Family Medical History: Osteoarthritis (OA) Additional Family Medical History / Comment(s): living in 80's Father Family Medical History: Cancer Additional Family Medical History / Comment(s): prostate,heart problems,living at 91 Medications and Allergies Home Medications Medication Instructions Recorded Confirmed Type Atorvastatin [Lipitor] 10 mg PO HS 07/07/18 04/02/21 History Furosemide [Lasix] 40 mg PO DAILY 07/07/18 04/02/21 History Metoprolol Tartrate [Lopressor] 25 mg PO BID 07/07/18 04/02/21 History NIFEdipine [NIFEdipine ER] 30 mg PO DAILY 07/07/18 04/02/21 History Tamsulosin [Flomax] 0.4 mg PO DAILY 07/07/18 04/02/21 History Mycophenolate Mofetil [Cellcept] 250 mg PO SUMOTUWETHSA 03/29/20 04/02/21 History Tacrolimus [Prograf] 2 mg PO BID@0900,2100 03/29/20 04/02/21 History Allergies Allergy/AdvReac Type Severity Reaction Status Date / Time No Known Allergies Allergy Verified 04/02/21 08:59 Physical Exam Vitals: Vital Signs Temp Pulse Resp BP Pulse Ox 04/02/21 09:30 86 76 H 124/46 99 04/02/21 08:30 70 21 123/79 99 04/02/21 08:00 70 22 141/92 98 04/02/21 07:42 97.8 F 84 18 141/92 95 Intake and Output 04/01/21 04/02/21 04/02/21 22:59 06:59 14:59 Other: Weight 102.965 kg - Constitutional General appearance: no acute distress - Respiratory Respiratory: bilateral: diminished - Cardiovascular Rhythm: regular Results 04/02/21 07:55 04/02/21 07:54 Cardiac Enzymes 04/02/21 04/02/21 Range/Units 07:54 07:54 AST 25 (17-59) U/L Troponin I 0.102 H* (0.000-0.034) ng/mL Coagulation 04/02/21 Range/Units 07:54 PT 9.8 (9.0-12.0) sec APTT 20.0 L (22.0-30.0) sec CBC 04/02/21 Range/Units 07:55 WBC 6.6 (3.8-10.6) k/uL RBC 4.28 L (4.30-5.90) m/uL Hgb 12.4 L (13.0-17.5) gm/dL Hct 36.5 L (39.0-53.0) % Plt Count 111 L (150-450) k/uL Comprehensive Metabolic Panel 04/02/21 Range/Units 07:54 Sodium 138 (137-145) mmol/L Potassium 4.1 (3.5-5.1) mmol/L Chloride 103 (98-107) mmol/L Carbon Dioxide 23 (22-30) mmol/L BUN 18 (9-20) mg/dL Creatinine 0.87 (0.66-1.25) mg/dL Glucose 166 H (74-99) mg/dL Calcium 8.8 (8.4-10.2) mg/dL AST 25 (17-59) U/L ALT 19 (4-49) U/L Alkaline Phosphatase 67 (38-126) U/L Total Protein 6.9 (6.3-8.2) g/dL Albumin 3.9 (3.5-5.0) g/dL Current Medications Generic Name Dose Route Start Last Admin Trade Name Freq PRN Reason Stop Dose Admin Atorvastatin Calcium 10 mg 04/02/21 21:00 Atorvastatin 10 Mg Tab PO HS CRESENCIO Cefepime HCl 1 gm/ Sodium 50 mls @ 12.5 mls/hr 04/02/21 21:00 Chloride IVPB Q12H CRESENCIO Sodium Chloride 1,000 mls @ 75 mls/hr 04/02/21 10:30 Saline 0.9% IV .[id number] CRESENCIO Levetiracetam 1,000 mg/ IV 100 mls @ 400 mls/hr 04/02/21 10:29 Solution IVPB 04/02/21 10:43 ONCE STA Lorazepam 1 mg 04/02/21 10:28 Lorazepam 2 Mg/Ml Inj IV Q6HR PRN Anxiety Metoprolol Tartrate 25 mg 04/02/21 21:00 Metoprolol Tartrate 25 Mg Tab PO BID CRESENCIO Mycophenolate Mofetil 250 mg 04/02/21 10:30 Mycophenolate Mofetil 250 Mg Cap PO SUMOTUWETHSA CRESENCIO Nifedipine 30 mg 04/03/21 09:00 Nifedipine Xl 30 Mg Tab.Er.24 PO DAILY CRESENCIO Nitroglycerin 0.4 mg 04/02/21 09:06 Nitroglycerin Sl Tabs 0.4 Mg Tab SUBLINGUAL Q5M PRN Chest Pain Tacrolimus 2 mg 04/02/21 21:00 Tacrolimus 1 Mg Cap PO BID@0900,2100 CRESENCIO Tamsulosin HCl 0.4 mg 04/03/21 09:00 Tamsulosin 0.4 Mg Cap.Er.24h PO DAILY CRESENCIO Intake and Output 04/01/21 04/02/21 04/02/21 22:59 06:59 14:59 Other: Weight 102.965 kg Patient Weight 04/03/21 06:59 Weight 102.965 kg 04/02/21 07:55 04/02/21 07:54 Assessment and Plan Assessment: Assessment #1 change in mental status of unknown etiology at this point #2 seizure which seems to be new #3 history of liver transplant #4 lung cancer currently on chemotherapy #5 evidence of myocardial injury without evidence of ischemia clinically or by EKG #5 multiple comorbid conditions Plan #1 follow-up with the serial cardiac enzymes #2 obtain an echocardiogram was Doppler #3 rule out CVA #4 consider conservative medical approach at this point #5 follow-up with the patient
[2021-04-02] MEDS: SODIUM CHLORIDE 0.9% 1,000 ML IV SCH ×2 (11:06→21:56)
[2021-04-02 12:04] LABS: Lactic Acid, Venous 3.5 mmol/L (0.7-2.0)
--- NOTE | 2021-04-02 13:03 | P.CNNES ---
History of Present Illness Consult date: 04/02/21 Requesting physician: Arcadio Moss Reason for Consult: Altered mental status/new onset seizure History of Present Illness: Patient is a 71-year-old male came to the hospital by ambulance early this morning at 7:40 AM for altered mental status and possible seizure-like activity. Patient is severely encephalopathic at this time, not able to provide any history. According to patient's , patient had undergone liver transplant for liver cancer in 2016. It has been in remission. Patient also was diagnosed with left lung cancer for which he underwent left lobectomy in November 2020. He has received 2 sessions of chemotherapy, and two more to go. He follows up with Dr. Andrade. Patient did have an MRI of the brain performed in November 2020 which was normal. No signs of metastasis. Patient's states that last night he was feeling cold. He went to bed at 11:30 PM as usual and was feeling fine. At around 2:30 AM, patient's woke up to patient's breathing snoring, gurgling sounds. She asked him if he was all right, and he could not answer. She asked him if he would like to go to the hospital, as he was foaming from the mouth. When patient made a big sigh, rolled over and put covers on his face. She went to sleep. At 7 AM patient's notices that his feet were dangling on the side of the bed. His legs were stiff. He was foaming from the lips, breathing funny, has not a good color, therefore she called the ambulance and patient was brought to the hospital. He did not complain of any chest pain, vomiting, no temperature and his blood pressure was fine. EMS flow sheet not available in the chart. Patient's vitals on arrival was blood pressure 141/92, pulse rate 84, temperature 97.8. CT head showed nonspecific white matter demyelination. MRI may be of benefit. Chest x-ray reveals increasing opacity left mid and lower lung with some corresponding volume loss and possible trace effusion. Clinical correlation recommended to exclude underlying pneumonia. EKG shows normal sinus rhythm. Inferior infarct, age indeterminate. Patient's blood test shows normal WBC, hemoglobin 12.4, platelets 111. PT/PTT normal, Chem-7 normal. Hepatic panel normal, CPK 94, troponin is borderline 0.102. Blood alcohol level less than 10. At 10:20 AM this morning, patient had an episode of tonic-clonic activity followed by post ictal state. Patient placed on nonrebreather. Seizure-like activity lasted for about 20-30 seconds, witnessed by emergency medicine technicians. Patient was given 1 g of Keppra IV. Patient at present is in post ictal state, very restless. Patient is laying prone, face down in the bed. He would not roll over in the bed to be examined. Patient has been on immune suppressive medication for liver transplant therefore he has not received coronavirus vaccine. Patient has some memory issues going on for last 1-2 years. He was seen by her physician, who did some testing and was fine. He was recommended to see a neurologist. Patient has smoked half p ack per day for 30 years, quit in 2014 when he was diagnosed with liver cancer. He used to be a social drinker, never a heavy drinker. Does not do any drugs. Denies diabetes. Has hypertension. Patient lives with his . They have no children. Patient at baseline does not use any assistive device. Review of Systems Patient complains of whole body hurting. At one time he complained of chest hurting, but later he said "no" for chest pain. Patient denies headache. Rest of the review of systems cannot be obtained. 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 Liver transplant 04/2016 Past Anesthesia/Blood Transfusion Reactions: No Reported Reaction Past Psychological History: No Psychological Hx Reported Smoking Status: Former smoker Past Alcohol Use History: None Reported Past Drug Use History: Marijuana - Past Family History Mother Family Medical History: Osteoarthritis (OA) Additional Family Medical History / Comment(s): living in 80's Father Family Medical History: Cancer Additional Family Medical History / Comment(s): prostate,heart problems,living at 91 Medications and Allergies Home Medications Medication Instructions Recorded Confirmed Type Atorvastatin [Lipitor] 10 mg PO HS 07/07/18 04/02/21 History Furosemide [Lasix] 40 mg PO DAILY 07/07/18 04/02/21 History Metoprolol Tartrate [Lopressor] 25 mg PO BID 07/07/18 04/02/21 History NIFEdipine [NIFEdipine ER] 30 mg PO DAILY 07/07/18 04/02/21 History Tamsulosin [Flomax] 0.4 mg PO DAILY 07/07/18 04/02/21 History Mycophenolate Mofetil [Cellcept] 250 mg PO SUMOTUWETHSA 03/29/20 04/02/21 History Tacrolimus [Prograf] 2 mg PO BID@0900,2100 03/29/20 04/02/21 History Allergies Allergy/AdvReac Type Severity Reaction Status Date / Time No Known Allergies Allergy Verified 04/02/21 08:59 Physical Examination - Vital Signs Vital Signs: Vital Signs Temp Pulse Resp BP Pulse Ox 04/02/21 09:30 86 76 H 124/46 99 04/02/21 08:30 70 21 123/79 99 04/02/21 08:00 70 22 141/92 98 04/02/21 07:42 97.8 F 84 18 141/92 95 Intake and Output 04/01/21 04/02/21 04/02/21 22:59 06:59 14:59 Other: Weight 102.965 kg Patient is an elderly male, who is obviously encephalopathic, delirious, restless, possibly in post ictal state. Patient is delirious. Patient speaks slightly, but mumbles. No obvious aphasia or dysarthria although exam is limited. Attention, concentration and fund of knowledge is very limited due to acute encephalopathy/post ictal state. Patient is laying prone, face down on the bed. I tried multiple times for him to go supine position, but patient would not cooperate. On cranial examination, pupils are round and reacting to light, visual singleton cannot be tested, extraocular muscles are intact with no nystagmus. Face is symmetric, tongue protrudes to the midline. Palatal elevation and sensation normal could not be tested, hearing and shoulder shrug could not be tested. On muscle strength testing, exam was limited because patient was laying face down. His pattern worker was very equal bilaterally. Patient was moving his arms equally. Patient wiggles his feet equally. No obvious focal weakness. Deep tendon reflexes are 1+ to 2 at the knees, absent ankles and plantars are flat. Sensory to touch could not be assessed. Cerebellar function cannot be assessed. Gait not checked. On general examination, there is no carotid bruit or murmur, S1-S2 audible. Abdomen is soft nontender. No edema. Results - Laboratory Findings CBC and BMP: 04/02/21 07:55 04/02/21 07:54 Abnormal Lab Findings: Abnormal Labs 04/02/21 04/02/21 04/02/21 07:48 07:54 07:54 RBC Hgb Hct Plt Count APTT 20.0 L Glucose POC Glucose (mg/dL) 184 H Plasma Lactic Acid Joey 5.6 H* Magnesium Troponin I 04/02/21 04/02/21 04/02/21 07:54 07:54 07:55 RBC 4.28 L Hgb 12.4 L Hct 36.5 L Plt Count 111 L APTT Glucose 166 H POC Glucose (mg/dL) Plasma Lactic Acid Joey Magnesium 1.4 L Troponin I 0.102 H* Assessment and Plan Assessment: * New onset seizure, unclear etiology. * Altered mental status, likely due to postictal state. * History of liver cancer, status post liver transplant in April 2016, currently in remission. * History of lung cancer, currently undergoing chemotherapy. * X tobacco use * Hypertension Plan: * Patient has been started on Keppra. * Await EEG * MRI of the brain with and without contrast. * We will follow clinically. * Discussed with patient's in detail.
--- NOTE | 2021-04-02 17:27 | EEG ---
ELECTROENCEPHALOGRAM REPORT DATE OF SERVICE: 04/02/2021 PREAMBLE: This is a 71-year-old male with altered mental status. This study is performed to evaluate for any epileptiform activity. EEG FINDINGS: This is a 21 channel portable digital EEG recorded with review component, utilizing 10/20 international system with referential and bipolar montages. Background consists of well-developed, poorly regulated, mixed frequencies of alpha, and intermixed moderate to high amplitude generalized theta and delta activity seen in bihemispheric region. The background does not seem to be reactive to eye opening and closing. A lot of movement and myogenic activity was seen during this study. Different stages of sleep were not seen. No focal or generalized epileptiform activity was seen. IMPRESSION: This is an abnormal EEG due to background slowing of at least moderate degree. This is suggestive of generalized cerebral dysfunction as can be seen with toxic metabolic encephalopathy or due to diffuse structural brain abnormality. No epileptiform activity was seen. MMODL / IJN: [id number] /
--- NOTE | 2021-04-02 18:42 | P.CONS ---
History of Present Illness - Reason for Consult Consult date: 04/02/21 On chemo Requesting physician: Jewel Hammond - Chief Complaint AMS - History of Present Illness Mr. Watts is a very pleasant male pt of Dr. 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 He was found to have elevated liver enzymes during routine blood work done on 02/17/14 which revealed AST of 216,ALT of 191,ALK of 135. 02/28/14 hepatitis C antibodies were positive. 03/15/14 liver U/S revealed multiple liver lesions suggestive of possible metastasis. 04/01/[address] CAP 04/06/14 revealed multiple large liver lesions and borderline enlarged mediastinal nodes. U/S guided liver biopsy done on 04/19/14 was positive for hepatocellular carcinoma. Liver MRI done on 05/30/14 revealed multiple liver lesions. He had BED-TACE at [facility] for 3 liver lesions, subsequenly, had a liver transplant at [facility] in 2015 without recurrence of HCC, on transplant antirejection medications tacrolimus and cellcept. August [address] scan for his liver identified a 2.2 cm LLL lung lesion, PET at [facility] showed there was no evidence of disease elsewhere, attempted biopsy was non diagnostic. 11/23/20 he underwent LLL wedge resection and regional nodes biopsy, pathology revealed 5.5 cm invasive squamous cell carcinoma, negative marigins and negative nodes. djuvant chemotherapy was offered, he is s/p cycle 2 days 1 & 8 of adjuvant cisplatin and gemar on 03/29. His reported unusual breathing last night x 2, this resolved spontaneously so she watched him. This AM he was turned sideways in the bed, was not responsive with eyes open and some foam at the corner of his mouth. She called EMS. He has CT head without contrast with no acute finding, pt did have a witnessed seizure, he is on keppra, Neuro has seen and and begun work up, MRI brain pending. After some louder questions pt responded to me, he cannot recall the events of the last day, he denied nausea, chest pain, DENIS, abd pain or needing to go to the bathroom. Review of Systems Most info obtained by at bedside Past Medical History Past Medical History: Cancer, Liver Disease Additional Past Medical History / Comment(s): liver cirrhosis,enlarged vein in esophagus and stomach,hx 2014 liver ca(chemo embolization x 2:Jul),liver transplant History of Any Multi-Drug Resistant Organisms: None Reported Past Surgical History: Hernia Repair Additional Past Surgical History / Comment(s): cyst removed from rt rib area, liver trasnplant. Liver transplant 04/2016 Past Anesthesia/Blood Transfusion Reactions: No Reported Reaction Past Psychological History: No Psychological Hx Reported Smoking Status: Former smoker Past Alcohol Use History: None Reported Past Drug Use History: Marijuana - Past Family History Mother Family Medical History: Osteoarthritis (OA) Additional Family Medical History / Comment(s): living in 80's Father Family Medical History: Cancer Additional Family Medical History / Comment(s): prostate,heart problems,living at 91 Medications and Allergies Home Medications Medication Instructions Recorded Confirmed Type Atorvastatin [Lipitor] 10 mg PO HS 07/07/18 04/02/21 History Furosemide [Lasix] 40 mg PO DAILY 07/07/18 04/02/21 History Metoprolol Tartrate [Lopressor] 25 mg PO BID 07/07/18 04/02/21 History NIFEdipine [NIFEdipine ER] 30 mg PO DAILY 07/07/18 04/02/21 History Tamsulosin [Flomax] 0.4 mg PO DAILY 07/07/18 04/02/21 History Mycophenolate Mofetil [Cellcept] 250 mg PO SUMOTUWETHSA 03/29/20 04/02/21 History Tacrolimus [Prograf] 2 mg PO BID@0900,2100 03/29/20 04/02/21 History Allergies Allergy/AdvReac Type Severity Reaction Status Date / Time No Known Allergies Allergy Verified 04/02/21 08:59 Physical Exam Vitals: Vital Signs Temp Pulse Resp BP Pulse Ox 04/02/21 11:00 91 18 125/90 92 L 04/02/21 09:30 86 76 H 124/46 99 04/02/21 08:30 70 21 123/79 99 04/02/21 08:00 70 22 141/92 98 04/02/21 07:42 97.8 F 84 18 141/92 95 Intake and Output 04/01/21 04/02/21 04/02/21 22:59 06:59 14:59 Other: Weight 102.965 kg - Constitutional laying on stomach, sleeping with heavy breathing, when awake he does answer questions, he does not remember the last day. General appearance: average body habitus, no acute distress - EENT Eyes: anicteric sclerae ENT: hearing grossly normal - Respiratory Respiratory: bilateral: CTA - Cardiovascular Rhythm: regular Heart sounds: normal: S1, S2 Abnormal Heart Sounds: no systolic murmur, no diastolic murmur, no rub, no S3 Gallop, no S4 Gallop, no click, no other - Gastrointestinal General gastrointestinal: normal bowel sounds, soft - Integumentary Integumentary: normal - Neurologic Pt is able to move himself on the bed, no gross motor deficits appreciated - Psychiatric Drifts off to sleep easily, irritable when awake Results CBC & Chem 7: 04/02/21 07:55 04/02/21 07:54 Labs: Abnormal Lab Results - Last 24 Hours (Table) 04/02/21 04/02/21 04/02/21 Range/Units 07:48 07:54 07:54 RBC (4.30-5.90) m/uL Hgb (13.0-17.5) gm/dL Hct (39.0-53.0) % Plt Count (150-450) k/uL APTT 20.0 L (22.0-30.0) sec Glucose (74-99) mg/dL POC Glucose (mg/dL) 184 H (75-99) mg/dL Plasma Lactic Acid Joey 5.6 H* (0.7-2.0) mmol/L Magnesium (1.6-2.3) mg/dL Troponin I (0.000-0.034) ng/mL 04/02/21 04/02/21 04/02/21 Range/Units 07:54 07:54 07:55 RBC 4.28 L (4.30-5.90) m/uL Hgb 12.4 L (13.0-17.5) gm/dL Hct 36.5 L (39.0-53.0) % Plt Count 111 L (150-450) k/uL APTT (22.0-30.0) sec Glucose 166 H (74-99) mg/dL POC Glucose (mg/dL) (75-99) mg/dL Plasma Lactic Acid Joey (0.7-2.0) mmol/L Magnesium 1.4 L (1.6-2.3) mg/dL Troponin I 0.102 H* (0.000-0.034) ng/mL 04/02/21 04/02/21 Range/Units 11:25 11:30 RBC (4.30-5.90) m/uL Hgb (13.0-17.5) gm/dL Hct (39.0-53.0) % Plt Count (150-450) k/uL APTT (22.0-30.0) sec Glucose (74-99) mg/dL POC Glucose (mg/dL) (75-99) mg/dL Plasma Lactic Acid Joey 3.5 H* (0.7-2.0) mmol/L Magnesium (1.6-2.3) mg/dL Troponin I 0.074 H* (0.000-0.034) ng/mL Chest x-ray: report reviewed CT Scan - head: report reviewed (without contrast, no acute changes) Assessment and Plan (1) Non-small cell lung cancer Narrative/Plan: Stage IIB, on adjuvant cisplatin and gemzar, s/p 2/4 cycles. This is his week off of treatment. CBC and CMP look good, cont to monitor while inpt. Cisplatin can interfere with metabolism of tacrolimus-tacrolimus level ordered Current Visit: Yes Status: Acute Priority: High Code(s): C34.90 - MALIGNANT NEOPLASM OF UNSP PART OF UNSP BRONCHUS OR LUNG SNOMED Code(s): 167109264 (2) Hepatocellular carcinoma Narrative/Plan: Stage IIIA, treated with RFA, JULISSA. Current Visit: No Status: Chronic Priority: Low Code(s): C22.0 - LIVER CELL CARCINOMA SNOMED Code(s): 545553827 (3) Seizure Narrative/Plan: Pt has been started on keppra After Neuro evaluation, EEG and MRI results, if non-diagnostic, recommend LP with CSF cytology and infection work up. Ammonia level was <9 Panculture and empiric abx for elevated lactic acid ordered Current Visit: Yes Status: Acute Code(s): R56.9 - UNSPECIFIED CONVULSIONS SNOMED Code(s): 99866039
[2021-04-02] MEDS: TACROLIMUS 1 MG CAP PO SCH (20:27)
[2021-04-02] MEDS: ATORVASTATIN 10 MG TAB PO SCH (20:28)
[2021-04-02] MEDS ORDERED: Magnesium Replacement Protocol 1 EACH MISC MISCELLANE PRN (21:12)
[2021-04-02] MEDS ORDERED: LORazepam 2 MG/ML INJ IV PRN (21:17)
[2021-04-02] MEDS: CEFEPIME 1 GM in SODIUM CHLORIDE 0.9% 50 ML IVPB SCH (21:55)
[2021-04-02] MEDS: levETIRAcetam IV 500 MG in SODIUM CHLORIDE 0.9% 100 ML IVPB SCH (21:55)
[2021-04-02] MEDS: METOPROLOL TARTRATE 25 MG TAB PO SCH (21:55)
[2021-04-02] MEDS: HYDROcodone/APAP 5-325MG 1 EACH TAB PO PRN (22:32)
[2021-04-03] MEDS ORDERED: HYDROmorphone 0.5 MG/0.5 ML SYRINGE IVP ONE (04:32)
[2021-04-03] MEDS: HYDROcodone/APAP 5-325MG 1 EACH TAB PO PRN ×3 (06:08→18:29)
[2021-04-03] MEDS ORDERED: Magnesium Replacement Protocol 1 EACH MISC MISCELLANE PRN (07:13)
[2021-04-03] MEDS ORDERED: MAGNESIUM SULFATE-D5W PMX 1 GM in DEXTROSE/WATER 1 100ML.BAG IVPB SCH (07:15)
--- NOTE | 2021-04-03 08:09 | XR ---
EXAMINATION TYPE: XR chest 1V DATE OF EXAM: 04/03/2021 COMPARISON: 04/02/2021 HISTORY: Shortness of breath TECHNIQUE: Single frontal view of the chest is obtained. FINDINGS: Left lower lobe areas of consolidation are noted with pleural thickening or tiny effusion. Underlying COPD is biapical pleural thickening. Heart size normal. Arthropathy of the shoulders. IMPRESSION: Left-sided area of infiltrate is stable. Correlate for underlying COPD and chronic inter stitial lung disease.
[2021-04-03] MEDS: NIFEdipine XL 30 MG TAB.ER.24 PO SCH (08:38)
[2021-04-03] MEDS: METOPROLOL TARTRATE 25 MG TAB PO SCH ×2 (08:38→19:59)
[2021-04-03] MEDS: levETIRAcetam IV 500 MG in SODIUM CHLORIDE 0.9% 100 ML IVPB SCH (08:38)
[2021-04-03] MEDS: CEFEPIME 1 GM in SODIUM CHLORIDE 0.9% 50 ML IVPB SCH ×2 (08:38→20:00)
[2021-04-03] MEDS: TAMSULOSIN 0.4 MG CAP.ER.24H PO SCH (08:38)
[2021-04-03] MEDS: SODIUM CHLORIDE 0.9% 1,000 ML IV SCH ×2 (10:04→20:00)
[2021-04-03] MEDS: TACROLIMUS 1 MG CAP PO SCH ×2 (10:04→19:59)
--- NOTE | 2021-04-03 10:08 | P.PN ---
Subjective This is a pleasant 71 years old male with multiple medical problems were taken from at bedside as patient is confused and poor historian, as per he had 2 episodes. The morning where he has snoring, frozen his mouth and he was confused not answering questions appropriately, first one was at 3:00 after which he rolled over and covered himself up so was left him, the other episode was 7:00 in the morning and then she decided to bring him to emergency room for confusion. Patient currently awake and answers questions stating that he is in the hospital but he could not say which hospital. He is disoriented to time person. He denies any weakness or numbness, no headache or any specific problem. Patient refused to cooperate more. As per patient has been recently diagnosed with left lower lobe cancer status post lobectomy last joint. He is getting second round of chemotherapy 4. His international recruiter and oncologist Dr. Daigle, are at [facility] at [address] Patient never smoked, occasional alcohol, no illicit drugs. Also on the emergency room patient had witnessed seizure for 30 seconds and patient was started on Keppra. 04/03/2021 Patient is more awake today. He is alert awake and oriented [address] and person[address] However he still confused partially. He denies headache or weakness or numbness. No chest pain or dyspnea. Over he complains from left sided abdominal pain which started last night, patient states is Of Severe However His Abdomen Is Soft. His Pain Is Nonspecific in Character. Patient States He Has No Nausea Vomiting, Able to Eat but No Bowel Movement or Passing Gas. He is hemodynamically stable. Labs from today are pending His EEG is negative. Chest x-ray shows stable left lower lobe infiltrate and COPD and chronic interstitial. Hemoglobin A1c is 6.7 which is only mildly elevated at 3 diabetes. TSH is normal at 2.8. Patient remains on cefepime however may consider stop it if further workup is negative. This procalcitonin is normal at 0.04. He is also normal sinus 75 mm/h. Also he is on Keppra 500 mg IV twice a day. Patient also with elevated lactic acid, he is immunocompromised therefore packed culture is ordered We will await for creatinine today and then consider CT of the abdomen w. Review of systems CONSTITUTIONAL: No fever, no malaise, no fatigue. HEENT: No recent visual problems or hearing problems. Denied any sore throat. CARDIOVASCULAR: No orthopnea, PND, no palpitations, no syncope. PULMONARY: No shortness of breath, no cough, no hemoptysis. GASTROINTESTINAL: No diarrhea, no nausea, no vomiting, no abdominal pain. Normoactive bowel sounds. NEUROLOGICAL: No headaches, no weakness, no numbness. or polydipsia. Active Medications Generic Name Dose Route Start Last Admin Trade Name Freq PRN Reason Stop Dose Admin Hydrocodone Bitart/Acetaminophen 1 each 04/02/21 22:27 04/03/21 06:08 Hydrocodone/Apap 5-325mg 1 Each Tab PO 1 each Q6HR PRN Administration Pain Atorvastatin Calcium 10 mg 04/02/21 21:00 04/02/21 20:28 Atorvastatin 10 Mg Tab PO 10 mg HS CRESENCIO Administration Cefepime HCl 1 gm/ Sodium 50 mls @ 12.5 mls/hr 04/02/21 22:00 04/03/21 08:38 Chloride IVPB 12.5 mls/hr Q12H CRESENCIO Administration Sodium Chloride 1,000 mls @ 75 mls/hr 04/02/21 10:30 04/03/21 10:04 Saline 0.9% IV Not Given .[id number] CRESENCIO Levetiracetam 500 mg/ Sodium 105 mls @ 400 mls/hr 04/02/21 21:30 04/03/21 08:38 Chloride IVPB 400 mls/hr BID CRESENCIO Administration Lorazepam 1 mg 04/02/21 10:28 04/02/21 22:43 Lorazepam 2 Mg/Ml Inj IV 1 mg Q6HR PRN Administration Anxiety Metoprolol Tartrate 25 mg 04/02/21 21:00 04/03/21 08:38 Metoprolol Tartrate 25 Mg Tab PO 25 mg BID CRESENCIO Administration Miscellaneous Information 1 each 04/02/21 21:12 Magnesium Replacement Protocol 1 Each [facility] [place]ISCELLANE DAILY PRN Per Protocol Protocol Miscellaneous Information 1 each 04/03/21 07:13 Magnesium Replacement Protocol 1 Each Mis MISCELLANE DAILY PRN Per Protocol Protocol Mycophenolate Mofetil 250 mg 04/02/21 10:30 04/02/21 20:29 Mycophenolate Mofetil 250 Mg Cap PO 250 mg SUMOTUWETHSA CRESENCIO Administration Nifedipine 30 mg 04/03/21 09:00 04/03/21 08:38 Nifedipine Xl 30 Mg Tab.Er.24 PO 30 mg DAILY CRESENCIO Administration Nitroglycerin 0.4 mg 04/02/21 09:06 Nitroglycerin Sl Tabs 0.4 Mg Tab SUBLINGUAL Q5M PRN Chest Pain Tacrolimus 2 mg 04/02/21 21:00 04/03/21 10:04 Tacrolimus 1 Mg Cap PO Not Given BID@0900,2100 CRESENCIO Tamsulosin HCl 0.4 mg 04/03/21 09:00 04/03/21 08:38 Tamsulosin 0.4 Mg Cap.Er.24h PO 0.4 mg DAILY CRESENCIO Administration Objective - Vital Signs Vital signs: Vital Signs Temp 97.7 F 04/03/21 08:00 Pulse 68 04/03/21 08:00 Resp 18 04/03/21 08:00 BP 132/84 04/03/21 08:00 Pulse Ox 97 04/03/21 08:00 Intake & Output 04/02/21 04/03/21 04/03/21 18:59 06:59 18:59 Output Total 300 Balance -300 Weight 102.965 kg Output: Urine 300 Other: Voiding Method Urinal # Voids 1 - Exam -GENERAL: The patient is alert and oriented x3, somewhat confused, not in any acute distress. Well developed, well nourished. HEENT: Pupils are round and equally reacting to light. EOMI. No scleral icterus. No conjunctival pallor. Normocephalic, atraumatic. No pharyngeal erythema. No thyromegaly. CARDIOVASCULAR: S1 and S2 present. No murmurs, rubs, or gallops. PULMONARY: Chest is clear to auscultation, no wheezing or crackles. -ABDOMEN: SofMild left sided tenderness, no rebound tenderness nondistended, normoactive bowel sounds. No palpable organomegaly. MUSCULOSKELETAL: No joint swelling or deformity. EXTREMITIES: No cyanosis, clubbing, or pedal edema. NEUROLOGICAL: Gross neurological examination did not reveal any focal deficits. SKIN: No rashes. No petechiae - Labs CBC & Chem 7: 04/02/21 07:55 04/02/21 07:54 Labs: Abnormal Lab Results - Last 24 Hours (Table) 04/02/21 04/02/21 04/02/21 Range/Units 11:25 11:30 11:30 Hemoglobin A1c 6.7 H (4.0-6.0) % Plasma Lactic Acid Joey 3.5 H* (0.7-2.0) mmol/L Troponin I 0.074 H* (0.000-0.034) ng/mL 04/02/21 Range/Units 14:55 Hemoglobin A1c (4.0-6.0) % Plasma Lactic Acid Joey (0.7-2.0) mmol/L Troponin I 0.071 H* (0.000-0.034) ng/mL Assessment and Plan Assessment: New-onset seizure Left lower lobeinfiltrate mostly related to his history of lung cancer status post lobectomy in the same area Altered mental status most likely metabolic encephalopathy, Improving Elevated troponin, rule out cardiac causes Elevated lactic acid History of liver cirrhosis and liver transplant in 2015 History of liver cancer status post chemo-embolization 2014. Plan: This is a pleasant 71 years old male who presents with AMS and possible pneumonia. Elevated troponin. Consider discontinuing antibiotics. Monitor creatinine , cefepime.Check BNP And procalcitonin. check ammonia level continue with aspirin, ehco , serial troponin, cardiology consult Continue with normal saline Labs and medication were reviewed.. Continue same treatment. Continue with symptomatic treatment. Resume home medication. Monitor lytes and vitals. DVT and GI prophylaxis. Further recommendations depends on the clinical course of the patient DVT prophylaxis: Subcutaneous heparin GI Prophylaxis: Pepcid Prognosis is guarded
[2021-04-03 10:35] LABS: African American GFR (CKD) >90 (>60 ml/min/1.73 sqM); Anion Gap 4 mmol/L; Blood Urea Nitrogen 18 mg/dL (9-20); Calcium 8.3 mg/dL (8.4-10.2); Carbon Dioxide 30 mmol/L (22-30); Chloride 104 mmol/L (98-107); Glucose 115 mg/dL (74-99); Magnesium 1.7 mg/dL (1.6-2.3); Non-African American GFR(CKD) 89 (>60 ml/min/1.73 sqM); Potassium 3.7 mmol/L (3.5-5.1); Sodium 138 mmol/L (137-145)
[2021-04-03 10:45] LABS: Basophils % (A) 0 %; Eosinophils % (A) 0 %; HCT 33.4 % (39.0-53.0); HGB 11.7 gm/dL (13.0-17.5); Lymphocytes # (A) 0.8 k/uL (1.0-4.8); Lymphocytes % (A) 16 %; MCH 29.2 pg (25.0-35.0); MCHC 35.1 g/dL (31.0-37.0); MCV 83.2 fL (80.0-100.0); Mean Platelet Volume 7.9; Monocytes # (A) 0.1 k/uL (0-1.0); Monocytes % (A) 1 %; Neutrophils # (A) 4.2 k/uL (1.3-7.7); Neutrophils % (A) 82 %; RBC 4.02 m/uL (4.30-5.90); RDW 13.3 % (11.5-15.5); WBC 5.1 k/uL (3.8-10.6)
[2021-04-03 10:55] LABS: Creatine Kinase 3037 U/L (55-170)
--- NOTE | 2021-04-03 13:00 | ECHOF ---
Referral Reason:Rule out heart disease MEASUREMENTS -------- HEIGHT: 180.3 cm WEIGHT: 103.0 kg BP: IVSd: 1.1 cm (0.6 - 1.1) LVIDd: 5.5 cm (3.9 - 5.3) LVPWd: 1.1 cm (0.6 - 1.1) EDV(Teich): 145 ml IVSs: 1.6 cm LVIDs: 3.5 cm LVPWs: 1.3 cm %IVS Thck: 50 % ESV(Teich): 50 ml EF(Teich): 65 % %FS: 36 % SV(Teich): 94 ml MV E Nathaniel: 0.81 m/s MV DecT: 198 ms MV Dec Waldo: 4.1 m/s MV A Nathaniel: 1.15 m/s MV E/A Ratio: 0.71 MV PHT: 58 ms MR Vmax: 1.18 m/s MR maxP.57 mmHg AV Vmax: 1.47 m/s AV maxP.69 mmHg AR Vmax: 1.56 m/s AR maxP.78 mmHg AR PHT: 874 ms AR Dec Time: 3015 ms AR Dec Waldo: 0.5 m/s TR Vmax: 1.28 m/s TR maxP.51 mmHg RAP: 5.00 mmHg RVSP: 11.51 mmHg FINDINGS -------- This was a technically difficult study with suboptimal views. The left ventricular size is normal. Left ventricular wall thickness is normal. Overall left vent ricular systolic function is normal with, an EF between 55 - 60 %. The right ventricle is normal in size. The left atrial size is normal. The right atrial size is normal. Lumason used The aortic valve was not well visualized. Trace amount of aortic regurgitation. The mitral valve is normal. There is trace mitral regurgitation. The tricuspid valve appears structurally normal. Trace tricuspid regurgitation present. Right clara tricular systolic pressure is normal at < 35 mmHg. The pulmonic valve was not well visualized. The aortic root size is normal. There is no pericardial effusion. CONCLUSIONS -------- 1. The left ventricular size is normal. 2. Left ventricular wall thickness is normal. 3. Overall left ventricular systolic function is normal with, an EF between 55 - 60 %. 4. Trace amount of aortic regurgitation. 5. There is trace mitral regurgitation. 6. Trace tricuspid regurgitation present. 7. There is no pericardial effusion. BOX CUTTER: Lalita Kirby RDCS
[2021-04-03 13:28] LABS: Platelet Count 85 k/uL (150-450)
--- NOTE | 2021-04-03 13:28 | P.PN ---
Subjective This is a 71-year-old male with a past medical history of hypertension, liver cirrhosis, liver transplant 2016, lung cancer status post left lobectomy, tobacco use. He does not follow with a special education case manager. We will consult for elevated troponin. Patient was brought to the emergency department because of change of mental status. In the hospital, in the ER he developed seizure and subsequently change in mental status. Lactic acid was elevated at 5.6. Troponin 0.102, 0.07, 0.07. No prior history of coronary artery disease or congestive heart failure or cardiac arrhythmia and the patient never seen any special education case manager before. EKG showed sinus rhythm and without any significant ST or T-wave abnormalities concerning for ischemia. Echocardiogram revealed an EF of 5560%, trace amount of aortic regurgitation, trace mitral regurgitation, trace tr icuspid regurgitation. Patient seen and examined at bedside, no acute distress. He states he is fe eling better compared to yesterday. He denies any chest pain or shortness of breath. He underwent an EEG which showed slowing of at least moderate degree, sugestive of generalized cerebral dysfunction seen with toxic metabolic encephalopathy due to diffuse structural brain abnormality. No epileptiform activity seen. Chest x-ray report revealed left-sided area of infiltrate is stable. Correlate for underlying COPD and chronic interstitial lung disease. Blood pressure 128/50, heart rate 60, afebrile, maintaining oxygen saturation is on room air. GENERAL: Well-appearing, well-nourished and in no acute distress. NECK: Supple without JVD or thyromegaly. LUNGS: Breath sounds clear to auscultation bilaterally. Respiration equal and unlabored. No wheezes, rales or rhonchi. HEART: Regular rate and rhythm without murmurs, rubs or gallops. S1 and S2 heard. EXTREMITIES: Normal range of motion, no edema. No clubbing or cyanosis. Peripheral pulses intact. ASSESSMENT: Alerted mental status Seizure Elevated troponin, not indicative of acute coronary syndrome History of liver cirrhosis History of lung transplant History of lung cancer History of left lobectomy History of hypertension PLAN: -From a cardiology perspective, no further testing indicated at this time EKG showed sinus rhythm and without any significant ST or T-wave abnormalities concerning for ischemia. Echocardiogram revealed an EF of 5560%, with no significant wall motion abnormalities. We will follow the patient as needed. Please reach out with further questions or concerns. Objective - Vital Signs Vital signs: Vital Signs Temp 97.6 F 04/03/21 11:20 Pulse 60 04/03/21 11:20 Resp 18 04/03/21 11:20 BP 128/50 04/03/21 11:20 Pulse Ox 98 04/03/21 11:20 Intake & Output 04/02/21 04/03/21 04/03/21 18:59 06:59 18:59 Output Total 300 Balance -300 Weight 102.965 kg Output: Urine 300 Other: Voiding Method Urinal # Voids 1 - Labs CBC & Chem 7: 04/03/21 08:58 04/03/21 08:58 Labs: Abnormal Lab Results - Last 24 Hours (Table) 04/02/21 04/02/21 04/02/21 Range/Units 11:25 11:30 11:30 RBC (4.30-5.90) m/uL Hgb (13.0-17.5) gm/dL Hct (39.0-53.0) % Glucose (74-99) mg/dL Hemoglobin A1c 6.7 H (4.0-6.0) % Plasma Lactic Acid Joey 3.5 H* (0.7-2.0) mmol/L Calcium (8.4-10.2) mg/dL Creatine Kinase (55-170) U/L Troponin I 0.074 H* (0.000-0.034) ng/mL 04/02/21 04/03/21 04/03/21 Range/Units 14:55 08:58 08:58 RBC 4.02 L (4.30-5.90) m/uL Hgb 11.7 L (13.0-17.5) gm/dL Hct 33.4 L (39.0-53.0) % Glucose 115 H (74-99) mg/dL Hemoglobin A1c (4.0-6.0) % Plasma Lactic Acid Joey (0.7-2.0) mmol/L Calcium 8.3 L (8.4-10.2) mg/dL Creatine Kinase 3037 H* (55-170) U/L Troponin I 0.071 H* (0.000-0.034) ng/mL
--- NOTE | 2021-04-03 13:48 | P.PN ---
Subjective Progress Note Date: 04/03/21 Principal diagnosis: AMS, seizure On f/u pt is a little more alert today then on admit but, he is not able to recite his home address, c/o pain "all over", is not able to qualify it, he had flank pain but that is gone today. Objective - Vital Signs Vital signs: Vital Signs Temp 97.6 F 04/03/21 11:20 Pulse 60 04/03/21 11:20 Resp 18 04/03/21 11:47 BP 128/50 04/03/21 11:20 Pulse Ox 98 04/03/21 11:20 Intake & Output 04/02/21 04/03/21 04/03/21 18:59 06:59 18:59 Output Total 300 Balance -300 Weight 102.965 kg Output: Urine 300 Other: Voiding Method Urinal # Voids 1 - Constitutional General appearance: Present: average body habitus, cooperative, mild distress - EENT Eyes: Present: EOMI ENT: Present: hearing grossly normal - Cardiovascular Rhythm: regular Heart sounds: normal: S1, S2 Abnormal Heart Sounds: Absent: systolic murmur, diastolic murmur, rub, S3 Gallop, S4 Gallop, click, other - Peripheral edema leg Peripheral Edema: bilateral: None - Gastrointestinal General gastrointestinal: Present: normal bowel sounds, soft. Absent: absent bowel sounds, decreased bowel sounds, distended, hepatomegaly, hyperactive bowel sounds, organomegaly, rigid, scaphoid, splenomegaly, tenderness, umbilical hernia, ventral hernia - Psychiatric Psychiatric Comment(s): Alert, oriented to self, place, does not remember events of yesterday, is not able recall his address - Labs CBC & Chem 7: 04/03/21 08:58 04/03/21 08:58 Labs: Abnormal Lab Results - Last 24 Hours (Table) 04/02/21 04/02/21 04/03/21 Range/Units 11:30 14:55 08:58 RBC (4.30-5.90) m/uL Hgb (13.0-17.5) gm/dL Hct (39.0-53.0) % Glucose 115 H (74-99) mg/dL Hemoglobin A1c 6.7 H (4.0-6.0) % Calcium 8.3 L (8.4-10.2) mg/dL Creatine Kinase 3037 H* (55-170) U/L Troponin I 0.071 H* (0.000-0.034) ng/mL 04/03/21 Range/Units 08:58 RBC 4.02 L (4.30-5.90) m/uL Hgb 11.7 L (13.0-17.5) gm/dL Hct 33.4 L (39.0-53.0) % Glucose (74-99) mg/dL Hemoglobin A1c (4.0-6.0) % Calcium (8.4-10.2) mg/dL Creatine Kinase (55-170) U/L Troponin I (0.000-0.034) ng/mL Assessment and Plan (1) Non-small cell lung cancer Narrative/Plan: Stage IIB, on adjuvant cisplatin and gemzar, s/p 2/4 cycles. This is his week off of treatment. CBC and CMP cont to be stable. Cont to monitor while inpt. Cisplatin can interfere with metabolism of tacrolimus-tacrolimus level ordered, still pending Current Visit: Yes Status: Acute Priority: High Code(s): C34.90 - MALIGNANT NEOPLASM OF UNSP PART OF UNSP BRONCHUS OR LUNG SNOMED Code(s): 481917832 (2) Hepatocellular carcinoma Narrative/Plan: Stage IIIA, treated with RFA, JULISSA. Current Visit: No Status: Chronic Priority: Low Code(s): C22.0 - LIVER CELL CARCINOMA SNOMED Code(s): 402453354 (3) Seizure Narrative/Plan: Pt has been started on keppra After Neuro evaluation, EEG and MRI results, if non-diagnostic, recommend LP with CSF cytology and infection work up. Ammonia level was <9 Panculture and empiric abx for elevated lactic acid ordered Current Visit: Yes Status: Acute Code(s): R56.9 - UNSPECIFIED CONVULSIONS SNOMED Code(s): 62383026 Plan: After Neuro evaluation, EEG and MRI results, if non-diagnostic, recommend LP with CSF cytology and infection work up attests: I have seen and examined pt, performed H&P, developed impression and plan of care. Discussed with dictator. Agree with documentation, documented as a scribe.
--- NOTE | 2021-04-03 15:11 | P.PN ---
Subjective Progress Note Date: 04/03/21 Patient was seen for a follow-up. Patient denies headache. States his body hurts, pointing to the sides the trunk. Continues to be somnolent. Denies any numbness tingling or any weakness or visual problems. No headache. Objective - Vital Signs Vital signs: Vital Signs Temp 97.6 F 04/03/21 11:20 Pulse 60 04/03/21 11:20 Resp 18 04/03/21 11:47 BP 128/50 04/03/21 11:20 Pulse Ox 98 04/03/21 11:20 Intake & Output 04/02/21 04/03/21 04/03/21 18:59 06:59 18:59 Output Total 300 Balance -300 Weight 102.965 kg Output: Urine 300 Other: Voiding Method Urinal # Voids 1 - Exam Patient is laying comfortably in the bed. He knows he is in [facility] in [facility]. He states it is April and the year is 2020. Knows name of the current president. Cranial nerves are normal. Muscle strength is normal. - Labs CBC & Chem 7: 04/03/21 08:58 04/03/21 08:58 Labs: Abnormal Lab Results - Last 24 Hours (Table) 04/02/21 04/02/21 04/03/21 Range/Units 11:30 14:55 08:58 RBC (4.30-5.90) m/uL Hgb (13.0-17.5) gm/dL Hct (39.0-53.0) % Plt Count (150-450) k/uL Lymphocytes # (1.0-4.8) k/uL Glucose 115 H (74-99) mg/dL Hemoglobin A1c 6.7 H (4.0-6.0) % Calcium 8.3 L (8.4-10.2) mg/dL Creatine Kinase 3037 H* (55-170) U/L Troponin I 0.071 H* (0.000-0.034) ng/mL 04/03/21 Range/Units 08:58 RBC 4.02 L (4.30-5.90) m/uL Hgb 11.7 L (13.0-17.5) gm/dL Hct 33.4 L (39.0-53.0) % Plt Count 85 L (150-450) k/uL Lymphocytes # 0.8 L (1.0-4.8) k/uL Glucose (74-99) mg/dL Hemoglobin A1c (4.0-6.0) % Calcium (8.4-10.2) mg/dL Creatine Kinase (55-170) U/L Troponin I (0.000-0.034) ng/mL Microbiology - Last 24 Hours (Table) 04/02/21 11:18 Blood Culture - Preliminary Blood No Growth after 24 hours Assessment and Plan Assessment: * Multiple small areas of acute ischemic infarction involving bilateral cerebral and cerebellar hemispheres, suggestive of embolic event. Metastasis is appears less likely. * New onset seizure, probably due to above. * Altered mental status, likely due to postictal state. * History of liver cancer, status post liver transplant in April 2016, currently in remission. * History of lung cancer, currently undergoing chemotherapy. * X tobacco use * Hypertension Plan: * MRI of the brain with and without contrast revealed severely limited exam due to extreme motion artifact. There appears to be multiple subcentimeter areas of abnormal signal involving the left frontal, frontal parietal junction, right parietal lobe, bilateral cerebellar hemispheres, suspicious for ADLs of small acute ischemia. No definite enhancement. Therefore, tiny foci of intraparenchymal metastasis, although not excluded, are less likely. I would suggest repeating MRI of the brain with and without contrast in 2-3 months to rule out metastasis. * EEG was abnormal due to background slowing of at least moderate degree. This is suggestive of generalized cerebral dysfunction as can be seen with toxic metabolic encephalopathy or due to diffuse structural brain abnormality. No epileptiform activity was seen. * Continue Keppra 500 mg twice a day. * 2-D echo shows normal left-ventricular size. Normal left ventricular wall thickness. EF is between 55-60%. Trace AR. Trace MR. * Start dual antiplatelet medications with Plavix 75 mg and aspirin 81 mg for 21 days, then maintain on aspirin 81 mg daily. * Check carotid Doppler. * Hemoglobin A1c 6.7, probable new onset diabetes. IM to address. * Lipid panel with cholesterol 140, LDL 60, HDL 35 and triglycerides 1 and 13. Continue Lipitor 10 mg daily. * B12 is low 258. We will start B12 replacement. * Telemetry monitoring showing sinus rhythm, no other arrhythmia. * PT and OT. * Continue neuro checks.
--- NOTE | 2021-04-03 15:46 | MR ---
EXAMINATION TYPE: MR brain wo/w con DATE OF EXAM: 04/03/2021 COMPARISON: 04/02/2021 HISTORY: New onset seizure, rule out metastasis TECHNIQUE: Multiplanar, multisequence images of the brain and brainstem is performed without and with IV contras t, utilizing 10 mL intravenous Gadavist . FINDINGS: Exam severely limited due to extreme motion artifact. Extreme limitations of the exam due to motion artifact. There does appear to be a small focal areas o f abnormal signal on diffusion within bilateral cerebellar hemisphere left frontal and frontal pariet al junction and right parietal lobe compatible small focal areas of acute ischemia. Mild generalized degenerative change. No midline shift or mass effect. Areas of abnormal signal in th e white matter are nonspecific but suggestive of remote white matter ischemia. Grossly the cranial cervical junction is maintained in the sella turcica is intact. Assessment on pos tcontrast images is nondiagnostic. Grossly the visualized venous structures of the dural sinuses enha nce. No obvious area of mass enhancement is seen. IMPRESSION: 1. Severely limited exam due to extreme motion artifact. There appear to be multiple subcentimeter ar eas of abnormal signal involving the left frontal, frontal parietal junction, right parietal lobe, bi lateral cerebellar hemisphere suspicious for areas of small acute ischemia. No definite enhancement. Therefore, tiny foci of intraparenchymal metastases, although not excluded, are less likely. Report c alled to the patient's nurse 2:49 PM 04/03/2021
[2021-04-03] MEDS: CLOPIDOGREL 75 MG TAB PO SCH (16:03)
[2021-04-03] MEDS: ASPIRIN 325 MG TAB PO SCH (16:03)
--- NOTE | 2021-04-03 16:11 | US ---
EXAMINATION TYPE: US carotid duplex BILAT DATE OF EXAM: 04/03/2021 COMPARISON: NONE CLINICAL HISTORY: CVA. EXAM MEASUREMENTS: RIGHT: Peak Systolic Velocity (PSV) cm/sec ----- Right CCA: 69.0 ----- Right ICA: 85.9 ----- Right ECA: 36.6 ICA/CCA ratio: 1.2 RIGHT: End Diastole cm/sec ----- Right CCA: 12.9 ----- Right ICA: 33.1 ----- Right ECA: 0.0 LEFT: Peak Systolic Velocity (PSV) cm/sec ----- Left CCA: 59.0 ----- Left ICA: 40.7 ----- Left ECA: 41.5 ICA/CCA ratio: 0.7 LEFT: End Diastole cm/sec ----- Left CCA: 16.3 ----- Left ICA: 16.2 ----- Left ECA: 8.4 VERTEBRALS (direction of flow): Right Vertebral: Antegrade Left Vertebral: Antegrade Rhythm: Normal Technically difficult. Patient very uncomfortable and had trouble holding still for examiner. No significant velocities seen bilaterally. IMPRESSION: No significant hemodynamic stenosis as visualized. Criteria for Assigning % of Stenosis / Diameter reduction (Estimation based on the indirect measurements of the internal carotid artery velocities (ICA PSV). 1. Normal (no stenosis)=ICA PSV < 125 cm/s: ratio < 2.0: ICA EDV<40 cm/s. 2. Less than 50% stenosis=ICA PSV < 125 cm/s: ratio < 2.0: ICA EDV<40 cm/s. 3. 50 to 69% stenosis=ICA PSV of 125 to 230 cm/s: ration 2.0 ? 4.0: ICA EDV 40-100 cm/s. 4. Greater than 70% stenosis to near occlusion= ICA PSV > 230 cm/s: ratio > 4.0: ICA EDV > 100 cm/s. 5. Near occlusion= ICA PSV velocities may be low or undetectable: variable ratio and ICA EDV. 6. Total occlusion=unable to detect flow.
[2021-04-03 17:33] LABS: Chol/HDL Ratio 2.36 Ratio; LDL Cholesterol,Calculated 58.1 mg/dL (0.0-131.0); VLDL Calculation 17.48 mg/dL (5.00-40.00)
[2021-04-03] MEDS: CYANOCOBALAMIN 1,000 MCG/ML 1 ML VIAL IM SCH (18:30)
[2021-04-03] MEDS: ATORVASTATIN 10 MG TAB PO SCH (19:59)
[2021-04-03] MEDS: levETIRAcetam 500 MG TAB PO SCH (19:59)
[2021-04-03] MEDS: HEPARIN SODIUM,PORCINE/PF 5,000 UNIT/0.5 ML SYRINGE SQ SCH (19:59)
[2021-04-03] MEDS: FAMOTIDINE 20 MG/2 ML VIAL IV SCH (19:59)
[2021-04-03] MEDS ORDERED: CALCIUM CARBONATE 500 MG CHEWABLE PO PRN (21:50)
[2021-04-04] MEDS: HYDROcodone/APAP 5-325MG 1 EACH TAB PO PRN ×2 (00:32→06:33)
[2021-04-04] MEDS: SODIUM CHLORIDE 0.9% 1,000 ML IV SCH ×3 (04:54→11:57)
[2021-04-04 08:52] LABS: Basophils % (A) 0 %; Eosinophils % (A) 0 %; HCT 33.3 % (39.0-53.0); HGB 11.8 gm/dL (13.0-17.5); Lymphocytes # (A) 0.8 k/uL (1.0-4.8); Lymphocytes % (A) 33 %; MCH 29.1 pg (25.0-35.0); MCHC 35.3 g/dL (31.0-37.0); MCV 82.6 fL (80.0-100.0); Mean Platelet Volume 8.5; Monocytes # (A) 0.1 k/uL (0-1.0); Monocytes % (A) 3 %; Neutrophils # (A) 1.5 k/uL (1.3-7.7); Neutrophils % (A) 63 %; RBC 4.04 m/uL (4.30-5.90); RDW 13.3 % (11.5-15.5); WBC 2.4 k/uL (3.8-10.6)
[2021-04-04 08:56] LABS: Platelet Count 68 k/uL (150-450)
[2021-04-04 09:10] LABS: African American GFR (CKD) >90 (>60 ml/min/1.73 sqM); Anion Gap 7 mmol/L; Blood Urea Nitrogen 19 mg/dL (9-20); Calcium 8.9 mg/dL (8.4-10.2); Carbon Dioxide 29 mmol/L (22-30); Chloride 102 mmol/L (98-107); Glucose 142 mg/dL (74-99); Magnesium 1.4 mg/dL (1.6-2.3); Non-African American GFR(CKD) >90 (>60 ml/min/1.73 sqM); Phosphorus 2.5 mg/dL (2.5-4.5); Potassium 4.1 mmol/L (3.5-5.1); Sodium 138 mmol/L (137-145)
[2021-04-04] MEDS: CEFEPIME 1 GM in SODIUM CHLORIDE 0.9% 50 ML IVPB SCH (09:20)
[2021-04-04] MEDS: TACROLIMUS 1 MG CAP PO SCH ×2 (09:20→19:49)
[2021-04-04] MEDS: FAMOTIDINE 20 MG/2 ML VIAL IV SCH (09:21)
[2021-04-04] MEDS: ASPIRIN 325 MG TAB PO SCH (09:21)
[2021-04-04] MEDS: TAMSULOSIN 0.4 MG CAP.ER.24H PO SCH (09:21)
[2021-04-04] MEDS: NIFEdipine XL 30 MG TAB.ER.24 PO SCH (09:21)
[2021-04-04] MEDS: levETIRAcetam 500 MG TAB PO SCH ×2 (09:21→19:50)
[2021-04-04] MEDS: CYANOCOBALAMIN 1,000 MCG/ML 1 ML VIAL IM SCH (09:21)
[2021-04-04] MEDS: HEPARIN SODIUM,PORCINE/PF 5,000 UNIT/0.5 ML SYRINGE SQ SCH ×2 (09:21→19:50)
[2021-04-04] MEDS: METOPROLOL TARTRATE 25 MG TAB PO SCH ×2 (09:21→19:50)
[2021-04-04] MEDS: CLOPIDOGREL 75 MG TAB PO SCH (09:21)
[2021-04-04 09:48] LABS: Creatine Kinase 6698 U/L (55-170)
[2021-04-04] MEDS ORDERED: Magnesium Replacement Protocol 1 EACH MISC MISCELLANE PRN (10:34)
[2021-04-04] MEDS ORDERED: HYDROmorphone 0.5 MG/0.5 ML SYRINGE IVP PRN (10:44)
[2021-04-04] MEDS: MAGNESIUM SULFATE-D5W PMX 1 GM in DEXTROSE/WATER 1 100ML.BAG IVPB SCH ×3 (12:01→14:53)
--- NOTE | 2021-04-04 12:51 | P.PN ---
Subjective This is a pleasant 71 years old male with multiple medical problems were taken from at bedside as patient is confused and poor historian, as per he had 2 episodes. The morning where he has snoring, frozen his mouth and he was confused not answering questions appropriately, first one was at 3:00 after which he rolled over and covered himself up so was left him, the other episode was 7:00 in the morning and then she decided to bring him to emergency room for confusion. Patient currently awake and answers questions stating that he is in the hospital but he could not say which hospital. He is disoriented to time person. He denies any weakness or numbness, no headache or any specific problem. Patient refused to cooperate more. As per patient has been recently diagnosed with left lower lobe cancer status post lobectomy last joint. He is getting second round of chemotherapy 4. His ostrich farmer and oncologist Dr. Daigle, [facility] [address] Patient never smoked, occasional alcohol, no illicit drugs. Also on the emergency room patient had witnessed seizure for 30 seconds and patient was started on Keppra. 04/03/2021 Patient is more awake today. He is alert awake and oriented [address] and person[address] However he still confused partially. He denies headache or weakness or numbness. No chest pain or dyspnea. Over he complains from left sided abdominal pain which started last night, patient states is Of Severe However His Abdomen Is Soft. His Pain Is Nonspecific in Character. Patient States He Has No Nausea Vomiting, Able to Eat but No Bowel Movement or Passing Gas. He is hemodynamically stable. Labs from today are pending His EEG is negative. Chest x-ray shows stable left lower lobe infiltrate and COPD and chronic interstitial. Hemoglobin A1c is 6.7 which is only mildly elevated at 3 diabetes. TSH is normal at 2.8. Patient remains on cefepime however may consider stop it if further workup is negative. This procalcitonin is normal at 0.04. He is also normal sinus 75 mm/h. Also he is on Keppra 500 mg IV twice a day. Patient also with elevated lactic acid, he is immunocompromised therefore packed culture is ordered We will await for creatinine today and then consider CT of the abdomen w. 04/04/2021 Patient mentation significantly improved [facility] he could recognize his and new the date partially but he could not remember the name of the president, as per at bedside he is mentation is significantly improved. He denies headache and he can moves all his extremities. However he complains from trunk pain of the back and on the sides most likely to elevated creatinine kinase from his seizure. He is already on n ormal saline. Other vitals are stable and patient has been afebrile. Labs looks stable, mild hyperglycemia replaced per protocol. His creatinine kinase increased to 6698. As the [place] down to 2.4, normal hemoglobin and low platelet count and 68. MRI of the brain showing mostly small high signal area suspicious for ischemia less likely metastasis as there is no enhancement however neurologist re commended to repeat MRI of the brain in 2-3 weeks, patient and informed and they agree. However they are refusing the lumbar puncture recommended by oncology team. Risks and benefits are explained. Echocardiogram showed ejection fraction of 55-60%. Carotid Doppler is negative. Aspirin and Plavix were resumed. Also he is on heparin for DVT prophylaxis. He is currently kept on Keppra 500 mg, vitamin B12 been replaced intramuscularly. Objective - Vital Signs Vital signs: Vital Signs Temp 98.0 F 04/04/21 08:45 Pulse 55 L 04/04/21 12:00 Resp 18 04/04/21 12:00 BP 135/74 04/04/21 12:00 Pulse Ox 97 04/04/21 12:00 Intake & Output 04/03/21 04/04/21 04/04/21 18:59 06:59 18:59 Intake Total 200 10 Output Total 200 275 Balance 0 -265 Intake: IV 10 Invasive Line 3 10 Oral 200 0 Output: Urine 200 275 Other: Voiding Method Urinal # Voids 1 - Exam -GENERAL: The patient is alert and oriented x3, somewhat confused, not in any acute distress. Well developed, well nourished. HEENT: Pupils are round and equally reacting to light. EOMI. No scleral icterus. No conjunctival pallor. Normocephalic, atraumatic. No pharyngeal erythema. No thyromegaly. CARDIOVASCULAR: S1 and S2 present. No murmurs, rubs, or gallops. PULMONARY: Chest is clear to auscultation, no wheezing or crackles. -ABDOMEN: SofMild left sided tenderness, no rebound tenderness nondistended, normoactive bowel sounds. No palpable organomegaly. MUSCULOSKELETAL: No joint swelling or deformity. EXTREMITIES: No cyanosis, clubbing, or pedal edema. NEUROLOGICAL: Gross neurological examination did not reveal any focal deficits. SKIN: No rashes. No petechiae - Labs CBC & Chem 7: 04/04/21 08:27 04/04/21 08:27 Labs: Abnormal Lab Results - Last 24 Hours (Table) 04/03/21 04/04/21 04/04/21 Range/Units 08:58 08:27 08:27 WBC 2.4 L (3.8-10.6) k/uL RBC 4.04 L (4.30-5.90) m/uL Hgb 11.8 L (13.0-17.5) gm/dL Hct 33.3 L (39.0-53.0) % Plt Count 85 L 68 L (150-450) k/uL Lymphocytes # 0.8 L 0.8 L (1.0-4.8) k/uL Glucose 142 H (74-99) mg/dL Magnesium 1.4 L (1.6-2.3) mg/dL Creatine Kinase 6698 H* (55-170) U/L Microbiology - Last 24 Hours (Table) 04/02/21 11:18 Blood Culture - Preliminary Blood No Growth after 24 hours Assessment and Plan Assessment: New-onset seizure Rhabdomyolysis Left lower lobe infiltrate mostly related to his history of lung cancer status post lobectomy in the same area Altered mental status most likely metabolic encephalopathy, Improving Elevated troponin, rule out cardiac causes Elevated lactic acid History of liver cirrhosis and liver transplant in 2016 History of liver cancer status post chemo-embolization 2014. Plan: This is a pleasant 71 years old male who presents with AMS and possible pneumonia. Elevated troponin. Consider discontinuing antibiotics. Monitor creatinine , cefepime.Check BNP And procalcitonin. check ammonia level continue with aspirin, ehco , serial troponin, cardiology consult Continue with normal saline Labs and medication were reviewed.. Continue same treatment. Continue with symptomatic treatment. Resume home medication. Monitor lytes and vitals. DVT and GI prophylaxis. Further recommendations depends on the clinical course of the patient DVT prophylaxis: Subcutaneous heparin GI Prophylaxis: Pepcid Prognosis is guarded
[2021-04-04] MEDS: LORazepam 2 MG/ML INJ IV PRN (13:01)
[2021-04-04] MEDS: HYDROmorphone 1 MG/ML 1 ML SYRINGE IVP PRN (14:50)
--- NOTE | 2021-04-04 16:51 | P.PN ---
Subjective Progress Note Date: 04/04/21 Principal diagnosis: AMS, seizure On f/u pt is more alert and oriented, agitated and irritable. Still has c/o pain, now mostly localized to lower back, worse when moving, thinks he may be r/t pt history of sciatica. No reports of another seizure. Objective - Vital Signs Vital signs: Vital Signs Temp 97.6 F 04/04/21 15:13 Pulse 60 04/04/21 15:13 Resp 18 04/04/21 15:13 BP 139/78 04/04/21 15:13 Pulse Ox 95 04/04/21 15:13 Intake & Output 04/03/21 04/04/21 04/04/21 18:59 06:59 18:59 Intake Total 200 20 Output Total 200 275 Balance 0 -255 Intake: IV 20 Invasive Line 3 20 Oral 200 0 Output: Urine 200 275 Stool 0 Other: Voiding Method Urinal # Voids 1 0 # Bowel Movements 0 - Constitutional General appearance: Present: average body habitus, no acute distress - EENT Eyes: Present: anicteric sclerae, EOMI ENT: Present: hearing grossly normal - Respiratory Respiratory: bilateral: CTA - Cardiovascular Rhythm: regular Heart sounds: normal: S1, S2 - Peripheral edema leg Peripheral Edema: bilateral: None - Gastrointestinal General gastrointestinal: Present: normal bowel sounds, soft - Musculoskeletal Musculoskeletal: Present: strength equal bilaterally - Psychiatric Psychiatric: Present: A&O x's 3 - Labs CBC & Chem 7: 04/04/21 08:27 04/04/21 08:27 Labs: Abnormal Lab Results - Last 24 Hours (Table) 04/02/21 04/04/21 04/04/21 Range/Units 07:55 08:27 08:27 WBC 2.4 L (3.8-10.6) k/uL RBC 4.04 L (4.30-5.90) m/uL Hgb 11.8 L (13.0-17.5) gm/dL Hct 33.3 L (39.0-53.0) % Plt Count 68 L (150-450) k/uL Lymphocytes # 0.8 L (1.0-4.8) k/uL Glucose 142 H (74-99) mg/dL Magnesium 1.4 L (1.6-2.3) mg/dL Creatine Kinase 6698 H* (55-170) U/L Tacrolimus 3.0 L (5.0-20.0) ng/mL Microbiology - Last 24 Hours (Table) 04/02/21 11:18 Blood Culture - Preliminary Blood No Growth after 48 hours - Imaging and Cardiology MRI - head: report reviewed (difficult read due to pt movement) Assessment and Plan (1) Non-small cell lung cancer Narrative/Plan: Stage IIB, on adjuvant cisplatin and gemzar, s/p 2/4 cycles. This is his week off of treatment. Plt down to 68,000, ok to cont asa and anticoagulation for now, Hgb stable. WBC down but ANC adequate at 1.5. CMP cont be stable. Cont to monitor while inpt. Cisplatin can interfere with metabolism of tacrolimus-tacrolimus level ordered, still pending Current Visit: Yes Status: Acute Priority: High Code(s): C34.90 - MALIGNANT NEOPLASM OF UNSP PART OF UNSP BRONCHUS OR LUNG SNOMED Code(s): 320401797 (2) Hepatocellular carcinoma Narrative/Plan: Stage IIIA, treated with RFA, JULISSA. Current Visit: No Status: Chronic Priority: Low Code(s): C22.0 - LIVER CELL CARCINOMA SNOMED Code(s): 502359111 (3) Seizure Narrative/Plan: Pt has been started on keppra MRI report reads: severely limited evaluation due to motion artifact, multi- subcentimeter areas of abnormal signal in lt frontal, frontal parietal, rt parietal and bilateral cerebellar suspicious for acute ischemia, tiny foci of intraparenchymal metastasis not excluded, repeat in 3 months. Awaiting Neuro recs after MRI reviewed. May need LP with CSF cytology and infection work up if symptoms persist without other explanation. Panculture and empiric abx for elevated lactic acid ordered Current Visit: Yes Status: Acute Code(s): R56.9 - UNSPECIFIED CONVULSIONS SNOMED Code(s): 18426910
[2021-04-04] MEDS: ATORVASTATIN 10 MG TAB PO SCH (19:49)
[2021-04-04] MEDS: FAMOTIDINE 20 MG TAB PO SCH (19:50)
[2021-04-04] MEDS: CEFEPIME 2 GM in SODIUM CHLORIDE 0.9% 100 ML IVPB SCH (19:50)
--- NOTE | 2021-04-04 21:58 | P.PN ---
Subjective Progress Note Date: 04/04/21 Patient was seen for a follow-up. Patient's was also present today. Patient denies headache. Patient is much more alert and awake, fully oriented. Wants to go home. Objective - Vital Signs Vital signs: Vital Signs Temp 97.6 F 04/04/21 15:13 Pulse 60 04/04/21 15:13 Resp 18 04/04/21 15:13 BP 139/78 04/04/21 15:13 Pulse Ox 95 04/04/21 15:13 Intake & Output 04/03/21 04/04/21 04/04/21 18:59 06:59 18:59 Intake Total 200 20 Output Total 200 275 Balance 0 -255 Intake: IV 20 Invasive Line 3 20 Oral 200 0 Output: Urine 200 275 Stool 0 Other: Voiding Method Urinal # Voids 1 0 # Bowel Movements 0 - Exam Patient is laying comfortably in the bed. H patient is alert and awake, fully oriented. He knows it is March 2021 and that he is in [facility], in [facility]. Speech and language functions are normal. Attention, concentration, fund of knowledge is adequate. On cranial exertion pupils are round and reacting, visual singleton are full on confrontation with no neglect. Extraocular muscles reveal some right exotropia, slight decreased left eye adduction. Patient has lazy eye since . Face is symmetric and tongue protrudes the midline. Muscle strength is not drift and the strength is normal in arms and legs. No ataxia. Sensations are equal. Gait deferred. - Labs CBC & Chem 7: 04/04/21 08:27 04/04/21 08:27 Labs: Abnormal Lab Results - Last 24 Hours (Table) 04/02/21 04/04/21 04/04/21 Range/Units 07:55 08:27 08:27 WBC 2.4 L (3.8-10.6) k/uL RBC 4.04 L (4.30-5.90) m/uL Hgb 11.8 L (13.0-17.5) gm/dL Hct 33.3 L (39.0-53.0) % Plt Count 68 L (150-450) k/uL Lymphocytes # 0.8 L (1.0-4.8) k/uL Glucose 142 H (74-99) mg/dL Magnesium 1.4 L (1.6-2.3) mg/dL Creatine Kinase 6698 H* (55-170) U/L Tacrolimus 3.0 L (5.0-20.0) ng/mL Microbiology - Last 24 Hours (Table) 04/02/21 11:18 Blood Culture - Preliminary Blood No Growth after 48 hours Assessment and Plan Assessment: * Multiple small areas of acute ischemic infarction involving bilateral cerebral and cerebellar hemispheres, suggestive of embolic event. Metastasis is appears less likely. * New onset seizure, probably due to above. * Altered mental status, likely due to postictal state. * History of liver cancer, status post liver transplant in April 2016, currently in remission. * History of lung cancer, currently undergoing chemotherapy. * X tobacco use * Hypertension Plan: * MRI of the brain with and without contrast revealed severely limited exam due to extreme motion artifact. There appears to be multiple subcentimeter areas of abnormal signal involving the left frontal, frontal parietal junction, right parietal lobe, bilateral cerebellar hemispheres, suspicious for ADLs of small acute ischemia. No definite enhancement. Therefore, tiny foci of intraparenchymal metastasis, although not excluded, are less likely. I would suggest repeating MRI of the brain with and without contrast in 2-3 months to rule out metastasis. * EEG was abnormal due to background slowing of at least moderate degree. This is suggestive of generalized cerebral dysfunction as can be seen with toxic metabolic encephalopathy or due to diffuse structural brain abnormality. No epileptiform activity was seen. * Continue Keppra 500 mg twice a day. * 2-D echo shows normal left-ventricular size. Normal left ventricular wall thickness. EF is between 55-60%. Trace AR. Trace MR. * Start dual antiplatelet medications with Plavix 75 mg and aspirin 81 mg for 21 days, then maintain on aspirin 81 mg daily. * Carotid Doppler showed no carotid stenosis. Antegrade flow in both vertebral arteries. * Hemoglobin A1c 6.7, probable new onset diabetes. IM to address. * Lipid panel with cholesterol 140, LDL 60, HDL 35 and triglycerides 113. Continue Lipitor 10 mg daily. * B12 is low 258. We will start B12 replacement. * Telemetry monitoring showing sinus rhythm, sinus bradycardia in the 50s, with some PVC.. * PT and OT. * Consider Holter or an event monitor placement rule out paroxysmal atrial fibrillation. * Recommend follow-up with neurologist as outpatient in 2-4 weeks. * Neurologically clear, if cleared by PT and OT.
[2021-04-05] MEDS: HYDROcodone/APAP 5-325MG 1 EACH TAB PO PRN ×2 (01:40→22:28)
[2021-04-05] MEDS: HYDROmorphone 1 MG/ML 1 ML SYRINGE IVP PRN ×4 (01:41→22:39)
[2021-04-05] MEDS: LORazepam 2 MG/ML INJ IV PRN ×3 (03:18→21:06)
[2021-04-05] MEDS: SODIUM CHLORIDE 0.9% 1,000 ML IV SCH ×6 (04:19→21:21)
[2021-04-05 07:25] LABS: African American GFR (CKD) >90 (>60 ml/min/1.73 sqM); Blood Urea Nitrogen 12 mg/dL (9-20); Calcium 8.5 mg/dL (8.4-10.2); Carbon Dioxide 25 mmol/L (22-30); Glucose 120 mg/dL (74-99); Non-African American GFR(CKD) >90 (>60 ml/min/1.73 sqM); Potassium 3.6 mmol/L (3.5-5.1); Sodium 135 mmol/L (137-145)
[2021-04-05 07:35] LABS: Anion Gap 6 mmol/L; Chloride 104 mmol/L (98-107)
[2021-04-05 07:45] LABS: Basophils % (A) 0 %; Eosinophils % (A) 0 %; HCT 31.8 % (39.0-53.0); HGB 11.2 gm/dL (13.0-17.5); Lymphocytes # (A) 0.7 k/uL (1.0-4.8); Lymphocytes % (A) 28 %; MCH 28.8 pg (25.0-35.0); MCHC 35.2 g/dL (31.0-37.0); MCV 81.9 fL (80.0-100.0); Mean Platelet Volume 7.5; Monocytes # (A) 0.1 k/uL (0-1.0); Monocytes % (A) 4 %; Neutrophils # (A) 1.7 k/uL (1.3-7.7); Neutrophils % (A) 65 %; RBC 3.89 m/uL (4.30-5.90); RDW 13.2 % (11.5-15.5); WBC 2.6 k/uL (3.8-10.6)
[2021-04-05 07:46] LABS: Platelet Count 58 k/uL (150-450)
[2021-04-05 07:59] LABS: Magnesium 1.3 mg/dL (1.6-2.3)
[2021-04-05] MEDS: ASPIRIN 325 MG TAB PO SCH (09:41)
[2021-04-05] MEDS: HEPARIN SODIUM,PORCINE/PF 5,000 UNIT/0.5 ML SYRINGE SQ SCH ×2 (09:41→21:06)
[2021-04-05] MEDS: TACROLIMUS 1 MG CAP PO SCH ×2 (09:42→22:40)
[2021-04-05] MEDS: TAMSULOSIN 0.4 MG CAP.ER.24H PO SCH (09:42)
[2021-04-05] MEDS: METOPROLOL TARTRATE 25 MG TAB PO SCH ×2 (09:42→21:20)
[2021-04-05] MEDS: ISOSORBIDE MONONITRATE ER 30 MG TAB.ER.24H PO SCH (09:42)
[2021-04-05] MEDS: CYANOCOBALAMIN 1,000 MCG/ML 1 ML VIAL IM SCH (09:42)
[2021-04-05] MEDS: NIFEdipine XL 30 MG TAB.ER.24 PO SCH (09:42)
[2021-04-05] MEDS: CLOPIDOGREL 75 MG TAB PO SCH (09:42)
[2021-04-05] MEDS: levETIRAcetam 500 MG TAB PO SCH ×2 (09:42→21:06)
[2021-04-05] MEDS: FAMOTIDINE 20 MG TAB PO SCH ×2 (09:42→21:06)
[2021-04-05] MEDS: CEFEPIME 2 GM in SODIUM CHLORIDE 0.9% 100 ML IVPB SCH ×2 (09:43→21:05)
[2021-04-05] MEDS: MAGNESIUM SULFATE-D5W PMX 1 GM in DEXTROSE/WATER 1 100ML.BAG IVPB SCH ×3 (09:43→13:23)
[2021-04-05 11:07] LABS: APTT 50 Sec(s) (<43); APTT 1:1 Mix 42 Sec(s) (<43); Dilute Russell Viper Venom 43 Sec(s) (<44)
--- NOTE | 2021-04-05 11:50 | P.PN ---
Subjective This is a 71-year-old male with a past medical history of hypertension, liver cirrhosis, liver transplant 2016, lung cancer status post left lobectomy, tobacco use. He does not follow with a glazier helper. We will consult for elevated troponin. Patient was brought to the emergency department because of change of mental status. In the hospital, in the ER he developed seizure and subsequently change in mental status. Lactic acid was elevated at 5.6. Troponin 0.102, 0.07, 0.07. No prior history of coronary artery disease or congestive heart failure or cardiac arrhythmia and the patient never seen any glazier helper before. EKG showed sinus rhythm and without any significant ST or T-wave abnormalities concerning for ischemia. Echocardiogram revealed an EF of 5560%, trace amount of aortic regurgitation, trace mitral regurgitation, trace tr icuspid regurgitation. Patient seen and examined at bedside, no acute distress. Patient had an episode of chest pain yesterday. He describes it as an aching pain. His pain was non- radiating non exertional. It is aggravated by taking a deep breath. His chest pain was relieved with IV Dilaudid. He has had 2 repeat EKGs are reveal normal sinus rhythm no evidence of acute myocardial ischemia. His troponin was repeated and negative. He currently does not have any chest pain. He states he is feeling better compared to yesterday. Laboratory data reviewed sodium 135, potassium 3.6, BUN 12, serum creatinine 0.6, CK 10,328, troponin negative 1, proBNP 72. Blood pressure 135/77, heart rate 71, afebrile, maintaining oxygen saturation is on room air. GENERAL: Well-appearing, well-nourished and in no acute distress. NECK: Supple without JVD or thyromegaly. LUNGS: Breath sounds clear to auscultation bilaterally. Respiration equal and unlabored. No wheezes, rales or rhonchi. HEART: Regular rate and rhythm without murmurs, rubs or gallops. S1 and S2 heard. EXTREMITIES: Normal range of motion, no edema. No clubbing or cyanosis. Peripheral pulses intact. ASSESSMENT: Chest pain, atypical Alerted mental status Seizure Rhabdomyolysis Elevated troponin, trend not indicative of acute coronary syndrome History of liver cirrhosis History of lung transplant History of lung cancer History of left lobectomy History of hypertension PLAN: -From a cardiology perspective, EKG showed sinus rhythm and without any significant ST or T-wave abnormalities concerning for ischemia. Echocardiogram revealed an EF of 5560%, with no significant wall motion abnormalities. His repeat troponin is negative. -We will add Imdur 30mg daily -Continue to monitor patient's chest pain -Recommend a stress test eventually in the future, however, do not believe this is the appropriate time to complete during this admission -Further recommendations based on clinical course Objective - Vital Signs Vital signs: Vital Signs Temp 97.9 F 04/04/21 20:00 Pulse 69 04/05/21 00:00 Resp 16 04/05/21 00:00 BP 137/74 04/05/21 00:00 Pulse Ox 93 L 04/05/21 00:00 Intake & Output 04/04/21 04/05/21 04/05/21 18:59 06:59 18:59 Intake Total 2050 Output Total 1125 110 250 Balance 925 -110 -250 Intake: IV 1870 Cefepime 1 gm In Sodium 50 Chloride 0.9% 50 ml @ 12. 5 mls/hr IVPB Q12H [facility] Rx #:[id number] Invasive Line 3 20 Magnesium Sulfate-D5w Pmx 300 1 gm In Dextrose/Water 1 100ml.bag @ 100 mls/hr IVPB Q1H [facility] Rx#: [id number] Sodium Chloride 0.9% 1, 1500 000 ml @ 150 mls/hr IV . Q6H40M [facility] Rx#:[id number] Oral 180 Output: Urine 1125 110 250 Stool 0 Other: Voiding Method Urinal # Voids 0 1 # Bowel Movements 0 - Labs CBC & Chem 7: 04/05/21 06:51 04/05/21 06:51 Labs: Abnormal Lab Results - Last 24 Hours (Table) 04/02/21 04/04/21 04/04/21 Range/Units 07:55 08:27 08:27 WBC 2.4 L (3.8-10.6) k/uL RBC 4.04 L (4.30-5.90) m/uL Hgb 11.8 L (13.0-17.5) gm/dL Hct 33.3 L (39.0-53.0) % Plt Count 68 L (150-450) k/uL Lymphocytes # 0.8 L (1.0-4.8) k/uL Sodium (137-145) mmol/L Glucose 142 H (74-99) mg/dL Magnesium 1.4 L (1.6-2.3) mg/dL Creatine Kinase 6698 H* (55-170) U/L Tacrolimus 3.0 L (5.0-20.0) ng/mL 04/05/21 04/05/21 Range/Units 06:51 06:51 WBC 2.6 L (3.8-10.6) k/uL RBC 3.89 L (4.30-5.90) m/uL Hgb 11.2 L (13.0-17.5) gm/dL Hct 31.8 L (39.0-53.0) % Plt Count 58 L (150-450) k/uL Lymphocytes # 0.7 L (1.0-4.8) k/uL Sodium 135 L (137-145) mmol/L Glucose 120 H (74-99) mg/dL Magnesium (1.6-2.3) mg/dL Creatine Kinase (55-170) U/L Tacrolimus (5.0-20.0) ng/mL Microbiology - Last 24 Hours (Table) 04/02/21 11:18 Blood Culture - Preliminary Blood No Growth after 48 hours
[2021-04-05 12:04] LABS: Appearance,Urine Clear (Clear); Bilirubin,Urine Negative (Negative); Blood,Urine Large (Negative); Color,Urine Yellow; Glucose,Urine (UA) Negative (Negative); Hyaline Casts,Urine 1 /lpf (0-2); Ketones,Urine 1+ (Negative); Leukocyte Esterase,Urine Negative (Negative); Mucus,Urine Rare /hpf; Nitrite,Urine Negative (Negative); PH, Urine 6.5 (5.0-8.0); Protein,Urine Trace (Negative); RBC,Urine 42 /hpf (0-5); Specific Gravity,Urine 1.018 (1.001-1.035); Squamous Epithelial Cell,Urine <1 /hpf (0-4); WBC,Urine 2 /hpf (0-5)
[2021-04-05] MEDS: NICOTINE 21MG/24HR PATCH TRANSDERM SCH (12:26)
--- NOTE | 2021-04-05 12:29 | P.PN ---
Subjective This is a pleasant 71 years old male with multiple medical problems were taken from at bedside as patient is confused and poor historian, as per he had 2 episodes. The morning where he has snoring, frozen his mouth and he was confused not answering questions appropriately, first one was at 3:00 after which he rolled over and covered himself up so was left him, the other episode was 7:00 in the morning and then she decided to bring him to emergency room for confusion. Patient currently awake and answers questions stating that he is in the hospital but he could not say which hospital. He is disoriented to time person. He denies any weakness or numbness, no headache or any specific problem. Patient refused to cooperate more. As per patient has been recently diagnosed with left lower lobe cancer status post lobectomy last joint. He is getting second round of chemotherapy 4. 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 Patient never smoked, occasional alcohol, no illicit drugs. Also on the emergency room patient had witnessed seizure for 30 seconds and patient was started on Keppra. 04/03/2021 Patient is more awake today. He is alert awake and oriented [address] person[address] However he still confused partially. He denies headache or weakness or numbness. No chest pain or dyspnea. Over he complains from left sided abdominal pain which started last night, patient states is Of Severe However His Abdomen Is Soft. His Pain Is Nonspecific in Character. Patient States He Has No Nausea Vomiting, Able to Eat but No Bowel Movement or Passing Gas. He is hemodynamically stable. Labs from today are pending His EEG is negative. Chest x-ray shows stable left lower lobe infiltrate and COPD and chronic interstitial. Hemoglobin A1c is 6.7 which is only mildly elevated at 3 diabetes. TSH is normal at 2.8. Patient remains on cefepime however may consider stop it if further workup is negative. This procalcitonin is normal at 0.04. He is also normal sinus 75 mm/h. Also he is on Keppra 500 mg IV twice a day. Patient also with elevated lactic acid, he is immunocompromised therefore packed culture is ordered We will await for creatinine today and then consider CT of the abdomen w. 04/04/2021 Patient mentation significantly improved [facility] he could recognize his and new the date partially but he could not remember the name of the president, as per at bedside he is mentation is significantly improved. He denies headache and he can moves all his extremities. However he complains from trunk pain of the back and on the sides most likely to elevated creatinine kinase from his seizure. He is already on n ormal saline. Other vitals are stable and patient has been afebrile. Labs looks stable, mild hyperglycemia replaced per protocol. His creatinine kinase increased to 6698. As the Flaco down to 2.4, normal hemoglobin and low platelet count and 68. MRI of the brain showing mostly small high signal area suspicious for ischemia less likely metastasis as there is no enhancement however neurologist re commended to repeat MRI of the brain in 2-3 weeks, patient and informed and they agree. However they are refusing the lumbar puncture recommended by oncology team. Risks and benefits are explained. Echocardiogram showed ejection fraction of 55-60%. Carotid Doppler is negative. Aspirin and Plavix were resumed. Also he is on heparin for DVT prophylaxis. He is currently kept on Keppra 500 mg, vitamin B12 been replaced intramuscularly. 04/05/2021 Patient awake but per is still off and little confused. Patient states that he has been struggling with memory problem over a year. 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 And possible intracranial lesion. Other than that he looks comfortable, he wants to go home, however I explained for him he is not ready yet. Patient and agree. Hemodynamically he is stable. labs showing pancytopenia most likely from his chemotherapy. He has generalized body aches related to his rhabdomyolysis, his creatinine kinase [place] increased 56770, so we will increase his IV fluids to 200 mL per hour. Nephrology input is appreciated and they recommended to stop his Lipitor as well. He remains on cefepime for oncology team recommendation, we will discussed with oncology team whether to continue or stop antibiotic. Lactic acid back to normal at 1.3. Blood culture showing no growth in 48 hours. He is on Keppra, vitamin B12 replacement. He is on aspirin 81 mg and Plavix. Today dose of aspirin lower down to 81 mg Objective - Vital Signs Vital signs: Vital Signs Temp 98.2 F 04/05/21 08:00 Pulse 71 04/05/21 08:00 Resp 16 04/05/21 08:00 BP 135/77 04/05/21 08:00 Pulse Ox 92 L 04/05/21 08:00 Intake & Output 04/04/21 04/05/21 04/05/21 18:59 06:59 18:59 Intake Total 2050 210 Output Total 1125 110 250 Balance 925 -110 -40 Intake: IV 1870 10 Cefepime 1 gm In Sodium 50 Chloride 0.9% 50 ml @ 12. 5 mls/hr IVPB Q12H [facility] Rx #:[id number] Invasive Line 3 20 10 Magnesium Sulfate-D5w Pmx 300 1 gm In Dextrose/Water 1 100ml.bag @ 100 mls/hr IVPB Q1H [facility] Rx#: [id number] Sodium Chloride 0.9% 1, 1500 000 ml @ 150 mls/hr IV . Q6H40M [facility] Rx#:[id number] Oral 180 200 Output: Urine 1125 110 250 Stool 0 Other: Voiding Method Urinal Urinal # Voids 0 1 # Bowel Movements 0 - Exam -GENERAL: The patient is alert and oriented x3, somewhat confused, not in any acute distress. Well developed, well nourished. HEENT: Pupils are round and equally reacting to light. EOMI. No scleral icterus. No conjunctival pallor. Normocephalic, atraumatic. No pharyngeal erythema. No thyromegaly. CARDIOVASCULAR: S1 and S2 present. No murmurs, rubs, or gallops. PULMONARY: Chest is clear to auscultation, no wheezing or crackles. -ABDOMEN: SofMild left sided tenderness, no rebound tenderness nondistended, normoactive bowel sounds. No palpable organomegaly. MUSCULOSKELETAL: No joint swelling or deformity. EXTREMITIES: No cyanosis, clubbing, or pedal edema. NEUROLOGICAL: Gross neurological examination did not reveal any focal deficits. SKIN: No rashes. No petechiae - Labs CBC & Chem 7: 04/05/21 06:51 04/05/21 06:51 Labs: Abnormal Lab Results - Last 24 Hours (Table) 04/02/21 04/04/21 04/05/21 Range/Units 07:55 12:30 06:51 WBC 2.6 L (3.8-10.6) k/uL RBC 3.89 L (4.30-5.90) m/uL Hgb 11.2 L (13.0-17.5) gm/dL Hct 31.8 L (39.0-53.0) % Plt Count 58 L (150-450) k/uL Lymphocytes # 0.7 L (1.0-4.8) k/uL Lupus Anticoag aPTT 50 H (<43) Sec(s) Sodium (137-145) mmol/L Glucose (74-99) mg/dL Magnesium (1.6-2.3) mg/dL Creatine Kinase (55-170) U/L Urine Protein (Negative) Urine Ketones (Negative) Urine Blood (Negative) Urine RBC (0-5) /hpf Urine Mucus (None) /hpf Tacrolimus 3.0 L (5.0-20.0) ng/mL 04/05/21 04/05/21 04/05/21 Range/Units 06:51 06:51 11:29 WBC (3.8-10.6) k/uL RBC (4.30-5.90) m/uL Hgb (13.0-17.5) gm/dL Hct (39.0-53.0) % Plt Count (150-450) k/uL Lymphocytes # (1.0-4.8) k/uL Lupus Anticoag aPTT (<43) Sec(s) Sodium 135 L (137-145) mmol/L Glucose 120 H (74-99) mg/dL Magnesium 1.3 L (1.6-2.3) mg/dL Creatine Kinase 27927 H* (55-170) U/L Urine Protein Trace H (Negative) Urine Ketones 1+ H (Negative) Urine Blood Large H (Negative) Urine RBC 42 H (0-5) /hpf Urine Mucus Rare H (None) /hpf Tacrolimus (5.0-20.0) ng/mL Microbiology - Last 24 Hours (Table) 04/02/21 11:18 Blood Culture - Preliminary Blood No Growth after 48 hours Assessment and Plan Assessment: New-onset seizure Rhabdomyolysis Left lower lobe infiltrate mostly related to his history of lung cancer status post lobectomy in the same area Altered mental status most likely metabolic encephalopathy, also on the top of memory problem 3-year-old memory problems, mostly Alzheimer dementia Elevated troponin, rule out cardiac causes Elevated lactic acid History of liver cirrhosis and liver transplant in 2016 History of liver cancer status post chemo-embolization 2014. Plan: This is a pleasant 71 years old male who presents with AMS and possible pneumonia. Elevated troponin. Currently on cefepime Monitor creatinine , Continue with Keppra Continue with aspirin and Plavix Neurology, cardiology, oncology and nephrology team on the case Continue with aggressive hydration and monitor creatinine kinase Labs and medication were reviewed.. Continue same treatment. Continue with symptomatic treatment. Resume home medication. Monitor lytes and vitals. DVT and GI prophylaxis. Further recommendations depends on the clinical course of the patient DVT prophylaxis: Subcutaneous heparin GI Prophylaxis: Pepcid Prognosis is guarded
--- NOTE | 2021-04-05 14:32 | CONS ---
CONSULTATION REASON FOR CONSULTATION: Rhabdomyolysis. HISTORY OF PRESENT ILLNESS: Patient is a 71-year-old male who was admitted to the hospital on 04/02/2021 with a history of seizures which is new onset. He has a history of liver transplant about 5 years ago and has had lung cancer, status post left lobectomy, currently receiving chemotherapy. Patient started complaining of increased pain in his legs and back and he was noted to have a CK of 3037, which increased from 94 post admission. There is no history of fall during his hospitalization. Patient has been maintained on Lipitor. His creatinine has been 0.8 mg/dL. Today it is 0.6. Patient was started on IV fluids after his hospitalization; it looks like it was one day after. He is currently maintained on saline, which has been increased to 200 mL/hour. UA shows large blood. PAST MEDICAL HISTORY: Significant for liver cirrhosis, status post liver transplant, history of liver cancer, status post chemoembolization. PAST SURGICAL HISTORY: Liver transplant, removal of cyst from rib area, multiple biopsies, lobectomy. SOCIAL HISTORY: Patient is a former smoker. He does have a history of marijuana use. MEDICATIONS: Medications prior to admission include Lipitor, Lasix, Lopressor, nifedipine, Flomax, CellCept, Prograf. ALLERGIES: NONE. PHYSICAL EXAMINATION: Patient is comfortable. He is complaining of pain in his legs and back area. Examination shows blood pressure 135/77, heart rate 71 per minute. He is afebrile. EXAMINATION OF THE HEART: S1 and S2. EXAMINATION OF LUNGS: Bilateral breath sounds are heard. Abdomen is soft, non-tender. Examination of lower extremities shows no significant edema. PATIENT FLOW COORDINATOR EXAM: Grossly intact. LABS: Sodium 135, potassium 3.6, BUN 12, serum [place] 0[place] [address]. ASSESSMENT: 1. Rhabdomyolysis. Patient's Lipitor is discontinued. I will check a TSH level. His CK levels are currently increasing. Patient will be maintained on IV fluids, which have been appropriately increased. No documented history of fall post admission. Consideration for polymyositis, given his underlying history of malignancy. 2. History of liver cirrhosis, status post liver transplant. 3. History of liver cancer and [id number] lung cancer. PLAN: Continue aggressive IV hydration. Repeat labs in a.m. Discontinue Lipitor. Check TSH levels. Consider underlying polymyositis, given his history of malignancy. CK levels started to increase post hospitalization. Possible side effect of another medication. Thank you for this consultation. Will continue to follow the patient with you during his hospitalization. ROCCO / SHERLYN: [id number] /
--- NOTE | 2021-04-05 18:22 | P.PN ---
Subjective Progress Note Date: 04/05/21 Patient was seen for a follow-up. Patient's was also present today. Patient denies headache. Patient is much more alert and awake, fully oriented. Wants to go home. Patient has developed rhabdomyolysis. Possible due to seizure versus related to side effects of chemotherapy. Telemetry monitoring showing sinus rhythm, sinus bradycardia in the 50s, PACs and PVCs. Objective - Vital Signs Vital signs: Vital Signs Temp 98.6 F 04/05/21 16:00 Pulse 68 04/05/21 16:00 Resp 16 04/05/21 16:00 BP 107/63 04/05/21 16:00 Pulse Ox 93 L 04/05/21 16:00 Intake & Output 04/04/21 04/05/21 04/05/21 18:59 06:59 18:59 Intake Total 2050 3120 Output Total 7113 802 1526 Balance 925 -110 1470 Intake: IV 1870 2720 Cefepime 1 gm In Sodium 50 Chloride 0.9% 50 ml @ 12. 5 mls/hr IVPB Q12H [facility] Rx #:[id number] Invasive Line 3 20 20 Magnesium Sulfate-D5w Pmx 300 300 1 gm In Dextrose/Water 1 100ml.bag @ 100 mls/hr IVPB Q1H [facility] Rx#: [id number] Sodium Chloride 0.9% 1, 1500 2400 000 ml @ 200 mls/hr IV . Q5H [facility] Rx#:[id number] Oral 180 400 Output: Urine 4769 173 8776 Stool 0 Other: Voiding Method Urinal Urinal # Voids 0 1 # Bowel Movements 0 - Exam Patient is laying comfortably in the bed. Patient is alert and awake, fully oriented. He knows it is March 2021 and that he is in [facility], in [facility]. Speech and language functions are normal. Attention, concentration, fund of knowledge is adequate. On cranial exertion pupils are round and reacting, visual singleton are full on confrontation with no neglect. Extraocular muscles reveal some right exotropia, slight decreased left eye adduction. Patient has lazy eye since . Face is symmetric and tongue protrudes the midline. Muscle strength not checked because of rhabdomyolysis - Labs CBC & Chem 7: 04/05/21 06:51 04/05/21 06:51 Labs: Abnormal Lab Results - Last 24 Hours (Table) 04/04/21 04/05/21 04/05/21 Range/Units 12:30 06:51 06:51 WBC 2.6 L (3.8-10.6) k/uL RBC 3.89 L (4.30-5.90) m/uL Hgb 11.2 L (13.0-17.5) gm/dL Hct 31.8 L (39.0-53.0) % Plt Count 58 L (150-450) k/uL Lymphocytes # 0.7 L (1.0-4.8) k/uL Lupus Anticoag aPTT 50 H (<43) Sec(s) Sodium 135 L (137-145) mmol/L Glucose 120 H (74-99) mg/dL Magnesium (1.6-2.3) mg/dL Creatine Kinase (55-170) U/L Urine Protein (Negative) Urine Ketones (Negative) Urine Blood (Negative) Urine RBC (0-5) /hpf Urine Mucus (None) /hpf 04/05/21 04/05/21 Range/Units 06:51 11:29 WBC (3.8-10.6) k/uL RBC (4.30-5.90) m/uL Hgb (13.0-17.5) gm/dL Hct (39.0-53.0) % Plt Count (150-450) k/uL Lymphocytes # (1.0-4.8) k/uL Lupus Anticoag aPTT (<43) Sec(s) Sodium (137-145) mmol/L Glucose (74-99) mg/dL Magnesium 1.3 L (1.6-2.3) mg/dL Creatine Kinase 36950 H* (55-170) U/L Urine Protein Trace H (Negative) Urine Ketones 1+ H (Negative) Urine Blood Large H (Negative) Urine RBC 42 H (0-5) /hpf Urine Mucus Rare H (None) /hpf Microbiology - Last 24 Hours (Table) 04/02/21 11:18 Blood Culture - Preliminary Blood No Growth after 72 hours Assessment and Plan Assessment: * Multiple small areas of acute ischemic infarction involving bilateral cerebral and cerebellar hemispheres, suggestive of embolic event. Metastasis appears m uch less likely. * New onset seizure, probably due to above. * Altered mental status, likely due to postictal state. Mentation back to normal. * Rhabdomyolysis with CPK rising up to 10,238. * Thrombocytopenia likely due to recent chemotherapy. * History of liver cancer, status post liver transplant in April 2016, currently in remission. * History of lung cancer, currently undergoing chemotherapy. * X tobacco use * Hypertension Plan: * MRI of the brain with and without contrast revealed severely limited exam due to extreme motion artifact. There appears to be multiple subcentimeter areas of abnormal signal involving the left frontal, frontal parietal junction, right parietal lobe, bilateral cerebellar hemispheres, suspicious for ADLs of small acute ischemia. No definite enhancement. Therefore, tiny foci of intraparenchymal metastasis, although not excluded, are less likely. I would suggest repeating MRI of the brain with and without contrast in 2-3 months to rule out metastasis. * Continue dual antiplatelet medications with Plavix 75 mg and aspirin 81 mg for 21 days, then maintain on aspirin 81 mg daily. Discussed with oncology, no need to stop Plavix, as platelets are > 50,000 and hemoglobin is stable. Hold off on lumbar puncture because of recent multiple strokes. Repeat MRI of the brain in 2-3 months, earlier if develops any new neurological symptoms in the interim. * EEG was abnormal due to background slowing of at least moderate degree. This is suggestive of generalized cerebral dysfunction as can be seen with toxic metabolic encephalopathy or due to diffuse structural brain abnormality. No epileptiform activity was seen. * Continue Keppra 500 mg twice a day. * 2-D echo shows normal left-ventricular size. Normal left ventricular wall thickness. EF is between 55-60%. Trace AR. Trace MR. * Carotid Doppler showed no carotid stenosis. Antegrade flow in both vertebral arteries. * Hemoglobin A1c 6.7, probable new onset diabetes. IM to address. * Lipid panel with cholesterol 140, LDL 60, HDL 35 and triglycerides 113. Lipitor on hold because of rhabdomyolysis. Follow CPKs closely. Hydration. * B12 is low 258. We will start B12 replacement. * Telemetry monitoring showing sinus rhythm, sinus bradycardia in the 50s, with some PVC.. * PT and OT. * Consider Holter or an event monitor placement rule out paroxysmal atrial fibrillation. * Recommend follow-up with neurologist as outpatient in 2-4 weeks.
[2021-04-05] MEDS: NITROGLYCERIN SL TABS 0.4 MG TAB SUBLINGUAL PRN ×4 (18:42→22:41)
--- NOTE | 2021-04-05 19:59 | P.PN ---
Subjective Progress Note Date: 04/05/21 Principal diagnosis: Mental Status Changes He is more alert today, anxious as he states he is in pain. at bedside. Platelets continue to decrease, 58K today. Heparin antibodies are in progress. DIC work-up ordered as well. Recheck liver function and coags. Objective - Vital Signs Vital signs: Vital Signs Temp 98.3 F 04/05/21 12:00 Pulse 72 04/05/21 12:00 Resp 16 04/05/21 12:00 BP 120/65 04/05/21 12:00 Pulse Ox 92 L 04/05/21 12:00 Intake & Output 04/04/21 04/05/21 04/05/21 18:59 06:59 18:59 Intake Total 2050 220 Output Total 1125 110 250 Balance 925 -110 -30 Intake: IV 1870 20 Cefepime 1 gm In Sodium 50 Chloride 0.9% 50 ml @ 12. 5 mls/hr IVPB Q12H [facility] Rx #:[id number] Invasive Line 3 20 20 Magnesium Sulfate-D5w Pmx 300 1 gm In Dextrose/Water 1 100ml.bag @ 100 mls/hr IVPB Q1H [facility] Rx#: [id number] Sodium Chloride 0.9% 1, 1500 000 ml @ 150 mls/hr IV . Q6H40M [facility] Rx#:[id number] Oral 180 200 Output: Urine 1125 110 250 Stool 0 Other: Voiding Method Urinal Urinal # Voids 0 1 # Bowel Movements 0 - Exam - Constitutional General appearance: Present: average body habitus, no acute distress - EENT Eyes: Present: anicteric sclerae, EOMI ENT: Present: hearing grossly normal - Respiratory Respiratory: bilateral: Rales at bases. - Cardiovascular Rhythm: regular Heart sounds: normal: S1, S2 - Peripheral edema leg Peripheral Edema: bilateral: None - Gastrointestinal General gastrointestinal: Present: normal bowel sounds, soft - Musculoskeletal Musculoskeletal: Present: strength equal bilaterally - Psychiatric Psychiatric: Present: A&O x's 3 today, anxious and more alert - Labs CBC & Chem 7: 04/05/21 06:51 04/05/21 06:51 Labs: Abnormal Lab Results - Last 24 Hours (Table) 04/02/21 04/04/21 04/05/21 Range/Units 07:55 12:30 06:51 WBC 2.6 L (3.8-10.6) k/uL RBC 3.89 L (4.30-5.90) m/uL Hgb 11.2 L (13.0-17.5) gm/dL Hct 31.8 L (39.0-53.0) % Plt Count 58 L (150-450) k/uL Lymphocytes # 0.7 L (1.0-4.8) k/uL Lupus Anticoag aPTT 50 H (<43) Sec(s) Sodium (137-145) mmol/L Glucose (74-99) mg/dL Magnesium (1.6-2.3) mg/dL Creatine Kinase (55-170) U/L Urine Protein (Negative) Urine Ketones (Negative) Urine Blood (Negative) Urine RBC (0-5) /hpf Urine Mucus (None) /hpf Tacrolimus 3.0 L (5.0-20.0) ng/mL 04/05/21 04/05/21 04/05/21 Range/Units 06:51 06:51 11:29 WBC (3.8-10.6) k/uL RBC (4.30-5.90) m/uL Hgb (13.0-17.5) gm/dL Hct (39.0-53.0) % Plt Count (150-450) k/uL Lymphocytes # (1.0-4.8) k/uL Lupus Anticoag aPTT (<43) Sec(s) Sodium 135 L (137-145) mmol/L Glucose 120 H (74-99) mg/dL Magnesium 1.3 L (1.6-2.3) mg/dL Creatine Kinase 12232 H* (55-170) U/L Urine Protein Trace H (Negative) Urine Ketones 1+ H (Negative) Urine Blood Large H (Negative) Urine RBC 42 H (0-5) /hpf Urine Mucus Rare H (None) /hpf Tacrolimus (5.0-20.0) ng/mL Microbiology - Last 24 Hours (Table) 04/02/21 11:18 Blood Culture - Preliminary Blood No Growth after 48 hours Assessment and Plan Assessment: MRI Brain: severely limited evaluation due to motion artifact, multi- subcentimeter areas of abnormal signal in lt frontal, frontal parietal, rt parietal and bilateral cerebellar suspicious for acute ischemia, tiny foci of intraparenchymal metastasis not excluded, repeat in 3 months. Awaiting Neuro recs after MRI reviewed. Plan: - Imaging and Cardiology MRI - head: report reviewed (difficult read due to pt movement) Assessment and Plan Non-small cell lung cancer - Stage IIB, on adjuvant cisplatin and gemzar, s/p 2/4 cycles. - This is his week off of treatment. Pancytopenia: - Multifactorial from chemotherapy, acute inflammation/infectious process, and/or medications - Plt down to 58K Today - Hgb stable. WBC continues to mildly decrease, however within safe range as ANC is >1. - Daily CBC with Differential - Monitoring of Tacrolimus levels due to potential absorption increase with recent cisplatin Current Visit: Yes Status: Acute Priority: High Code(s): C34.90 - MALIGNANT NEOPLASM OF UNSP PART OF UNSP BRONCHUS OR LUNG SNOMED Code(s): 532715045 Hepatocellular carcinoma - Stage IIIA, treated with RFA, JULISSA. Current Visit: No Status: Chronic Priority: Low Code(s): C22.0 - LIVER CELL CARCINOMA SNOMED Code(s): 596550259 Seizure - Continues on Keppra - Consideration of LP with CSF cytology if was not improved, although he ap pears much more alert - Potential - Panculture and empiric abx for elevated lactic acid ordered initially, this has improved and cefepime has been discontinued today (04/05). - Review of MRI of brain does reveal multiple small areas of acute ischemia, neurology is following and patient was started on plavix. Current Visit: Yes Status: Acute Code(s): R56.9 - UNSPECIFIED CONVULSIONS SNOMED Code(s): 96512423 Overall PLan: - Hold anticoagulation id platelets are less than 50K - DIC and HIT studies with thrombocytopenia - Discussed above in detail with Primary team today and cefepime has been discontinuedf - Chest Xray for increased rales at bases and oxygen need (3L from RA) - If worsens will need to assess PE with CTA - Recheck Liver Function and coags Physician Attest: I have completed the full history an dphysical and agree with above dictation, dictated as a scribe
--- NOTE | 2021-04-05 20:08 | XR ---
EXAMINATION TYPE: XR chest 1V portable DATE OF EXAM: 04/05/2021 HISTORY: Shortness of breath. COMPARISON: 04/03/2021 TECHNIQUE: Single view of the chest is submitted. FINDINGS: Demonstrated are scattered senescent parenchymal change. There is no evidence for focal infiltrate. The heart is stable. Pulmonary venous congestion without overt failure. Hilar and mediastinal structures are within normal limits. Degenerative changes are seen of the dorsal spine. IMPRESSION: 1. Chronic changes without evidence for acute pulmonary disease.
[2021-04-05 20:51] LABS: ALT 67 U/L (4-49); AST 125 U/L (17-59); African American GFR (CKD) >90 (>60 ml/min/1.73 sqM); Albumin 3.4 g/dL (3.5-5.0); Alkaline Phosphatase 112 U/L (38-126); Anion Gap 7 mmol/L; Blood Urea Nitrogen 10 mg/dL (9-20); Calcium 8.3 mg/dL (8.4-10.2); Carbon Dioxide 24 mmol/L (22-30); Chloride 104 mmol/L (98-107); Glucose 117 mg/dL (74-99); Magnesium 1.6 mg/dL (1.6-2.3); Non-African American GFR(CKD) >90 (>60 ml/min/1.73 sqM); Potassium 3.4 mmol/L (3.5-5.1); Sodium 135 mmol/L (137-145); Total Bilirubin 0.8 mg/dL (0.2-1.3); Total Protein 6.4 g/dL (6.3-8.2)
[2021-04-05 21:01] LABS: INR 0.9 (<1.2)
[2021-04-05 21:23] LABS: Partial Thromboplastin Time 19.9 sec (22.0-30.0)
[2021-04-05 21:45] LABS: Cardiolipin Ab IgG Interp NEGATIVE (NEGATIVE); Cardiolipin Ab IgM Interp NEGATIVE (NEGATIVE); Cardiolipin IgA Antibody <2.0 U/mL; Cardiolipin IgM Antibody <1.5 U/mL
[2021-04-06] MEDS: LORazepam 2 MG/ML INJ IV PRN ×3 (01:14→19:42)
[2021-04-06] MEDS: HYDROmorphone 1 MG/ML 1 ML SYRINGE IVP PRN ×6 (01:14→22:24)
[2021-04-06] MEDS: SODIUM CHLORIDE 0.9% 1,000 ML IV SCH ×4 (06:11→23:50)
[2021-04-06] MEDS ORDERED: HEPARIN SODIUM,PORCINE 10,000 UNIT in SODIUM CHLORIDE 0.9% 1,000 ML IRRIGATION PRN (07:00)
[2021-04-06] MEDS ORDERED: HEPARIN SODIUM,PORCINE 2,500 UNIT in SODIUM CHLORIDE 0.9% 250 ML IRRIGATION PRN (07:00)
[2021-04-06 08:10] LABS: Basophils % (A) 0 %; Eosinophils % (A) 1 %; HCT 31.1 % (39.0-53.0); HGB 10.7 gm/dL (13.0-17.5); Lymphocytes # (A) 0.9 k/uL (1.0-4.8); Lymphocytes % (A) 24 %; MCH 28.7 pg (25.0-35.0); MCHC 34.3 g/dL (31.0-37.0); MCV 83.8 fL (80.0-100.0); Mean Platelet Volume 8.1; Monocytes # (A) 0.2 k/uL (0-1.0); Monocytes % (A) 4 %; Neutrophils # (A) 2.7 k/uL (1.3-7.7); Neutrophils % (A) 69 %; RBC 3.71 m/uL (4.30-5.90); WBC 3.9 k/uL (3.8-10.6)
[2021-04-06] MEDS: NITROGLYCERIN SL TABS 0.4 MG TAB SUBLINGUAL PRN ×3 (08:21→17:53)
[2021-04-06 08:22] LABS: Platelet Count 52 k/uL (150-450)
[2021-04-06] MEDS: CLOPIDOGREL 75 MG TAB PO SCH (08:22)
[2021-04-06] MEDS: ISOSORBIDE MONONITRATE ER 30 MG TAB.ER.24H PO SCH (08:22)
[2021-04-06] MEDS: FAMOTIDINE 20 MG TAB PO SCH ×2 (08:22→19:42)
[2021-04-06] MEDS: levETIRAcetam 500 MG TAB PO SCH ×2 (08:22→19:42)
[2021-04-06] MEDS: TAMSULOSIN 0.4 MG CAP.ER.24H PO SCH (08:22)
[2021-04-06] MEDS: METOPROLOL TARTRATE 25 MG TAB PO SCH ×2 (08:22→19:43)
[2021-04-06] MEDS: NIFEdipine XL 30 MG TAB.ER.24 PO SCH (08:22)
[2021-04-06] MEDS: NICOTINE 21MG/24HR PATCH TRANSDERM SCH (08:23)
[2021-04-06] MEDS: HEPARIN SODIUM,PORCINE/PF 5,000 UNIT/0.5 ML SYRINGE SQ SCH ×2 (08:23→19:43)
[2021-04-06] MEDS: TACROLIMUS 1 MG CAP PO SCH ×2 (08:27→19:42)
[2021-04-06] MEDS: CYANOCOBALAMIN 1,000 MCG/ML 1 ML VIAL IM SCH (08:27)
--- NOTE | 2021-04-06 08:36 | P.PN ---
Subjective Progress Note Date: 04/06/21 Principal diagnosis: Chest discomfort The patient was seen this morning. Unfortunately he developed another episode of chest discomfort resolved with nitroglycerin sublingual. This is the second time. He did have another episode later on as well. I am concerned about severe underlying coronary artery disease and I recommended proceeding with coronary angiogram for further clarification. The patient and his are in full agreement with that. Otherwise hemodynamically he is stable. His mentation has improved significantly. Objective - Vital Signs Vital signs: Vital Signs Temp 98.0 F 04/06/21 07:58 Pulse 73 04/06/21 08:08 Resp 20 04/06/21 07:58 BP 127/79 04/06/21 08:29 Pulse Ox 95 04/06/21 07:58 Intake & Output 04/05/21 04/06/21 04/06/21 18:59 06:59 18:59 Intake Total 3120 10 Output Total 1650 Balance 1470 10 Intake: IV 2720 10 Invasive Line 3 20 10 Magnesium Sulfate-D5w Pmx 300 1 gm In Dextrose/Water 1 100ml.bag @ 100 mls/hr IVPB Q1H [facility] Rx#: [id number] Sodium Chloride 0.9% 1, 2400 000 ml @ 200 mls/hr IV . Q5H [facility] Rx#:[id number] Oral 400 Output: Urine 1650 Other: Voiding Method Urinal Urinal - Constitutional General appearance: Present: no acute distress - Respiratory Respiratory: bilateral: CTA - Cardiovascular Rhythm: regular Heart sounds: normal: S1, S2 - Labs CBC & Chem 7: 04/06/21 07:37 04/05/21 20:16 Labs: Abnormal Lab Results - Last 24 Hours (Table) 04/04/21 04/05/21 04/05/21 Range/Units 12:30 11:29 20:16 RBC (4.30-5.90) m/uL Hgb (13.0-17.5) gm/dL Hct (39.0-53.0) % Plt Count (150-450) k/uL Lymphocytes # (1.0-4.8) k/uL APTT 19.9 L (22.0-30.0) sec Lupus Anticoag aPTT 50 H (<43) Sec(s) Sodium (137-145) mmol/L Potassium (3.5-5.1) mmol/L Glucose (74-99) mg/dL Calcium (8.4-10.2) mg/dL AST (17-59) U/L ALT (4-49) U/L Albumin (3.5-5.0) g/dL Urine Protein Trace H (Negative) Urine Ketones 1+ H (Negative) Urine Blood Large H (Negative) Urine RBC 42 H (0-5) /hpf Urine Mucus Rare H (None) /hpf 04/05/21 04/06/21 Range/Units 20:16 07:37 RBC 3.71 L (4.30-5.90) m/uL Hgb 10.7 L (13.0-17.5) gm/dL Hct 31.1 L (39.0-53.0) % Plt Count 52 L (150-450) k/uL Lymphocytes # 0.9 L (1.0-4.8) k/uL APTT (22.0-30.0) sec Lupus Anticoag aPTT (<43) Sec(s) Sodium 135 L (137-145) mmol/L Potassium 3.4 L (3.5-5.1) mmol/L Glucose 117 H (74-99) mg/dL Calcium 8.3 L (8.4-10.2) mg/dL AST 125 H (17-59) U/L ALT 67 H (4-49) U/L Albumin 3.4 L (3.5-5.0) g/dL Urine Protein (Negative) Urine Ketones (Negative) Urine Blood (Negative) Urine RBC (0-5) /hpf Urine Mucus (None) /hpf Microbiology - Last 24 Hours (Table) 04/02/21 11:18 Blood Culture - Preliminary Blood No Growth after 72 hours Assessment and Plan Assessment: Assessment #1 change in mental status of unknown etiology at this point #2 seizure which seems to be new #3 history of liver transplant #4 lung cancer currently on chemotherapy #5 abnormal cardiac enzymes Plan #1 I recommended proceeding with coronary angiogram #2 further recommendation to follow that
[2021-04-06 08:39] LABS: ALT 59 U/L (4-49); AST 113 U/L (17-59); African American GFR (CKD) >90 (>60 ml/min/1.73 sqM); Albumin 3.2 g/dL (3.5-5.0); Alkaline Phosphatase 102 U/L (38-126); Anion Gap 5 mmol/L; Blood Urea Nitrogen 10 mg/dL (9-20); Calcium 8.3 mg/dL (8.4-10.2); Carbon Dioxide 25 mmol/L (22-30); Chloride 107 mmol/L (98-107); Glucose 117 mg/dL (74-99); Magnesium 1.4 mg/dL (1.6-2.3); Non-African American GFR(CKD) >90 (>60 ml/min/1.73 sqM); Potassium 3.6 mmol/L (3.5-5.1); Sodium 137 mmol/L (137-145); Total Bilirubin 0.7 mg/dL (0.2-1.3); Total Protein 6.2 g/dL (6.3-8.2)
[2021-04-06] MEDS ORDERED: ATORVASTATIN 80 MG TAB PO STA (08:56)
[2021-04-06] MEDS ORDERED: ASPIRIN 325 MG TAB PO STA (08:56)
[2021-04-06] MEDS ORDERED: ASPIRIN 81 MG PO SCH (09:00)
[2021-04-06 09:32] LABS: Creatine Kinase 6925 U/L (55-170)
[2021-04-06] MEDS ORDERED: VERAPAMIL 2.5 MG/ML 2 ML AMP ONE (09:52)
[2021-04-06] MEDS ORDERED: LIDOCAINE 1% INJ 10MG/ML (20 ML MDV) ONE (09:52)
[2021-04-06] MEDS ORDERED: HYDROmorphone 1 MG/ML 1 ML SYRINGE ONE (09:52)
[2021-04-06] MEDS ORDERED: HEPARIN SODIUM 1,000 UN/ML (10ML VL) ONE (09:52)
[2021-04-06] MEDS ORDERED: IV FLUID CONTINUATION 800 ML IV ONE (10:10)
[2021-04-06] MEDS ORDERED: HYDROmorphone 1 MG/ML 1 ML SYRINGE IVP ONE (10:10)
[2021-04-06] MEDS: MIDAZOLAM 2 MG/2 ML VIAL IV ONE ×2 (10:10→10:35)
[2021-04-06] MEDS ORDERED: LIDOCAINE 1% INJ 10MG/ML (20 ML MDV) SQ ONE (10:25)
[2021-04-06] MEDS ORDERED: VERAPAMIL SYRINGE (5 MG/10 ML) INTRAARTER ONE (10:27)
[2021-04-06] MEDS ORDERED: HYDROmorphone 0.5 MG/0.5 ML SYRINGE IVP ONE (10:37)
[2021-04-06] MEDS ORDERED: IOPAMIDOL-370 125ML BTL INJ ONE (10:39)
[2021-04-06] MEDS ORDERED: RX INFO: IV CONTRAST WAS GIVEN 1 EACH MISC MISCELLANE PRN (10:44)
[2021-04-06] MEDS ORDERED: SODIUM CHLORIDE 0.9% 1,000 ML IV SCH (10:45)
--- NOTE | 2021-04-06 11:26 | CC ---
CARDIAC CATHETERIZATION REPORT DATE OF SERVICE: 04/06/2021. PERFORMING PHYSICIAN: Kp Reddy MD. PROCEDURE PERFORMED: Selective right and left coronary angiogram. INDICATIONS: Intermittent episodes of chest discomfort resolved with nitroglycerin percent. The patient was admitted initially with change in mental status. The troponin came in to be abnormal. Initially, he was treated medically but because he continued to have chest discomfort as a result with nitroglycerin, a heart catheterization was advised. APPROACH: Right radial artery. COMPLICATIONS: None. LEVEL OF SEDATION: Moderate with a sedation length of 15 minutes. PROCEDURE DESCRIPTION: After obtaining informed consent, the patient was brought to the cardiac company laborer. The right radial artery was cannulated using micropuncture technique, the micropuncture wire passed easily then I placed a 6-Tajik sheath in the right radial artery. I gave the patient 2 mg of verapamil IA and 5000 units of heparin IV. Selective right and left coronary angiogram were performed using JR4 and JL3.5 catheters. Left heart catheterization was not performed. SELECTIVE CORONARY ANGIOGRAM: 1. The right coronary artery is a medium caliber vessel. It is a nondominant vessel and appeared to be angiographically normal. 2. The left main is angiographically normal. It bifurcates into left circumflex and left anterior descending artery. 3. The left circumflex is a large caliber vessel and is a dominant vessel. The left circumflex is angiographically normal. It gives rise into a large first obtuse marginal branch worked as ramus intermedius. The left circumflex in the midportion has mild disease only and gives rise into a second OM branch which appeared to be angiographically normal and distally bifurcates into PDA and PLV branches, both appeared to be angiographically normal. 4. The LAD is a large caliber vessel. The LAD is angiographically normal. The LAD gives rise into a large diagonal branch which seems to be angiographically normal. CONCLUSION: 1. Mild nonobstructive coronary artery disease. POSTPROCEDURE MANAGEMENT: Medical treatment and follow up with the patient. MMODL / IJN: [id number] /
[2021-04-06] MEDS: SODIUM CHLORIDE 0.9% 1,000 ML in EMPTY BAG 1 BAG IV SCH ×2 (11:29→19:49)
--- NOTE | 2021-04-06 12:48 | P.PN ---
Subjective This is a pleasant 71 years old male with multiple medical problems were taken from at bedside as patient is confused and poor historian, as per he had 2 episodes. The morning where he has snoring, frozen his mouth and he was confused not answering questions appropriately, first one was at 3:00 after which he rolled over and covered himself up so was left him, the other episode was 7:00 in the morning and then she decided to bring him to emergency room for confusion. Patient currently awake and answers questions stating that he is in the hospital but he could not say which hospital. He is disoriented to time person. He denies any weakness or numbness, no headache or any specific problem. Patient refused to cooperate more. As per patient has been recently diagnosed with left lower lobe cancer status post lobectomy last joint. He is getting second round of chemotherapy 4. His principal network engineer and oncologist Dr. Daigle, are at [facility] at [address] Patient never smoked, occasional alcohol, no illicit drugs. Also on the emergency room patient had witnessed seizure for 30 seconds and patient was started on Keppra. 04/03/2021 Patient is more awake today. He is alert awake and oriented [address] and person[address] However he still confused partially. He denies headache or weakness or numbness. No chest pain or dyspnea. Over he complains from left sided abdominal pain which started last night, patient states is Of Severe However His Abdomen Is Soft. His Pain Is Nonspecific in Character. Patient States He Has No Nausea Vomiting, Able to Eat but No Bowel Movement or Passing Gas. He is hemodynamically stable. Labs from today are pending His EEG is negative. Chest x-ray shows stable left lower lobe infiltrate and COPD and chronic interstitial. Hemoglobin A1c is 6.7 which is only mildly elevated at 3 diabetes. TSH is normal at 2.8. Patient remains on cefepime however may consider stop it if further workup is negative. This procalcitonin is normal at 0.04. He is also normal sinus 75 mm/h. Also he is on Keppra 500 mg IV twice a day. Patient also with elevated lactic acid, he is immunocompromised therefore packed culture is ordered We will await for creatinine today and then consider CT of the abdomen w. 04/04/2021 Patient mentation significantly improved in all he isn't [facility], he could recognize his and new the date partially but he could not remember the name of the president, as per at bedside he is mentation is significantly improved. He denies headache and he can moves all his extremities. However he complains from trunk pain of the back and on the sides most likely to elevated creatinine kinase from his seizure. He is already on n ormal saline. Other vitals are stable and patient has been afebrile. Labs looks stable, mild hyperglycemia replaced per protocol. His creatinine kinase increased to 6698. As the [place] down to 2.4, normal hemoglobin and low platelet count and 68. MRI of the brain showing mostly small high signal area suspicious for ischemia less likely metastasis as there is no enhancement however neurologist re commended to repeat MRI of the brain in 2-3 weeks, patient and informed and they agree. However they are refusing the lumbar puncture recommended by oncology team. Risks and benefits are explained. Echocardiogram showed ejection fraction of 55-60%. Carotid Doppler is negative. Aspirin and Plavix were resumed. Also he is on heparin for DVT prophylaxis. He is currently kept on Keppra 500 mg, vitamin B12 been replaced intramuscularly. 04/05/2021 Patient awake but per is still off and little confused. Patient states that he has been struggling with memory problem over a year. 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 And possible intracranial lesion. Other than that he looks comfortable, he wants to go home, however I explained for him he is not ready yet. Patient and agree. Hemodynamically he is stable. labs showing pancytopenia most likely from his chemotherapy. He has generalized body aches related to his rhabdomyolysis, [place] [address], so we will increase his IV fluids to 200 mL per hour. Nephrology input is appreciated and they recommended to stop his Lipitor as well. He remains on cefepime for oncology team recommendation, we will discussed with oncology team whether to continue or stop antibiotic. Lactic acid back to normal at 1.3. Blood culture showing no growth in 48 hours. He is on Keppra, vitamin B12 replacement. He is on aspirin 81 mg and Plavix. Today dose of aspirin lower down to 81 mg 04/06/2021 Patient looks somewhat confused and complaining of from generalized body aches and also he had 3 episodes of chest pain so bank manager are planning for cardiac cath today. Showed mild nonobstructive coronary artery disease Patient hemodynamically stable. CBC and BMP are unremarkable. Low magnesium to be replaced per protocol. Creatinine kinase trending down 6925 Case was discussed with oncology team and their input appreciated. We can stop cefepime as culture are negative and lactic acid back to normal and patient with no fevers over. Patient continued on aspirin 81 mg daily. Continue with Plavix. Continue with normal saline and aggressive hydration. Continue with pain management. Continue with Keppra Objective - Vital Signs Vital signs: Vital Signs Temp 98.0 F 04/06/21 07:58 Pulse 62 04/06/21 11:59 Resp 16 04/06/21 11:59 BP 150/87 04/06/21 11:59 Pulse Ox 97 04/06/21 11:59 Intake & Output 04/05/21 04/06/21 04/06/21 18:59 06:59 18:59 Intake Total 3120 10 400 Output Total 1650 425 Balance 1470 10 -25 Intake: IV 2720 10 400 Invasive Line 3 20 10 Magnesium Sulfate-D5w Pmx 300 1 gm In Dextrose/Water 1 100ml.bag @ 100 mls/hr IVPB Q1H [facility] Rx#: [id number] Sodium Chloride 0.9% 1, 2400 000 ml @ 200 mls/hr IV . Q5H [facility] Rx#:[id number] Oral 400 0 Output: Urine 1650 425 Stool 0 Other: Voiding Method Urinal Urinal Urinal - Exam -GENERAL: The patient is alert and oriented x3, somewhat confused, not in any acute distress. Well developed, well nourished. HEENT: Pupils are round and equally reacting to light. EOMI. No scleral icterus. No conjunctival pallor. Normocephalic, atraumatic. No pharyngeal erythema. No thyromegaly. CARDIOVASCULAR: S1 and S2 present. No murmurs, rubs, or gallops. PULMONARY: Chest is clear to auscultation, no wheezing or crackles. -ABDOMEN: SofMild left sided tenderness, no rebound tenderness nondistended, normoactive bowel sounds. No palpable organomegaly. MUSCULOSKELETAL: No joint swelling or deformity. EXTREMITIES: No cyanosis, clubbing, or pedal edema. NEUROLOGICAL: Gross neurological examination did not reveal any focal deficits. SKIN: No rashes. No petechiae - Labs CBC & Chem 7: 04/06/21 07:37 04/06/21 07:37 Labs: Abnormal Lab Results - Last 24 Hours (Table) 04/05/21 04/05/21 04/06/21 Range/Units 20:16 20:16 07:37 RBC 3.71 L (4.30-5.90) m/uL Hgb 10.7 L (13.0-17.5) gm/dL Hct 31.1 L (39.0-53.0) % Plt Count 52 L (150-450) k/uL Lymphocytes # 0.9 L (1.0-4.8) k/uL APTT 19.9 L (22.0-30.0) sec Sodium 135 L (137-145) mmol/L Potassium 3.4 L (3.5-5.1) mmol/L Creatinine (0.66-1.25) mg/dL Glucose 117 H (74-99) mg/dL Calcium 8.3 L (8.4-10.2) mg/dL Magnesium (1.6-2.3) mg/dL AST 125 H (17-59) U/L ALT 67 H (4-49) U/L Creatine Kinase (55-170) U/L Total Protein (6.3-8.2) g/dL Albumin 3.4 L (3.5-5.0) g/dL 04/06/21 Range/Units 07:37 RBC (4.30-5.90) m/uL Hgb (13.0-17.5) gm/dL Hct (39.0-53.0) % Plt Count (150-450) k/uL Lymphocytes # (1.0-4.8) k/uL APTT (22.0-30.0) sec Sodium (137-145) mmol/L Potassium (3.5-5.1) mmol/L Creatinine 0.65 L (0.66-1.25) mg/dL Glucose 117 H (74-99) mg/dL Calcium 8.3 L (8.4-10.2) mg/dL Magnesium 1.4 L (1.6-2.3) mg/dL AST 113 H (17-59) U/L ALT 59 H (4-49) U/L Creatine Kinase 6925 H* (55-170) U/L Total Protein 6.2 L (6.3-8.2) g/dL Albumin 3.2 L (3.5-5.0) g/dL Microbiology - Last 24 Hours (Table) 04/02/21 11:18 Blood Culture - Preliminary Blood No Growth after 72 hours Assessment and Plan Assessment: New-onset seizure Rhabdomyolysis Left lower lobe infiltrate mostly related to his history of lung cancer status post lobectomy in the same area Altered mental status most likely metabolic encephalopathy, also on the top of memory problem 3-year-old memory problems, mostly Alzheimer dementia Elevated troponin, rule out cardiac causes Elevated lactic acid History of liver cirrhosis and liver transplant in 2016 History of liver cancer status post chemo-embolization 2014. Plan: This is a pleasant 71 years old male who presents with AMS and possible pneumonia. Elevated troponin. Currently on cefepime Monitor creatinine , Continue with Keppra Continue with aspirin and Plavix Neurology, cardiology, oncology and nephrology team on the case Continue with aggressive hydration and monitor creatinine kinase Labs and medication were reviewed.. Continue same treatment. Continue with symptomatic treatment. Resume home medication. Monitor lytes and vitals. DVT and GI prophylaxis. Further recommendations depends on the clinical course of the patient DVT prophylaxis: Subcutaneous heparin GI Prophylaxis: Pepcid Prognosis is guarded
[2021-04-06] MEDS ORDERED: CEFEPIME 2 GM in SODIUM CHLORIDE 0.9% 100 ML IVPB SCH ×2 (13:00→14:00)
--- NOTE | 2021-04-06 14:44 | P.PN ---
Subjective Progress Note Date: 04/06/21 Follow-up for rhabdomyolysis. Patient angry and agitated. Objective - Vital Signs Vital signs: Vital Signs Temp 98.0 F 04/06/21 07:58 Pulse 65 04/06/21 13:29 Resp 16 04/06/21 13:29 BP 154/87 04/06/21 13:29 Pulse Ox 96 04/06/21 13:29 Intake & Output 04/05/21 04/06/21 04/06/21 18:59 06:59 18:59 Intake Total 3120 10 400 Output Total 1650 875 Balance 1470 10 -475 Intake: IV 2720 10 400 Invasive Line 3 20 10 Magnesium Sulfate-D5w Pmx 300 1 gm In Dextrose/Water 1 100ml.bag @ 100 mls/hr IVPB Q1H [facility] Rx#: [id number] Sodium Chloride 0.9% 1, 2400 000 ml @ 200 mls/hr IV . Q5H [facility] Rx#:[id number] Oral 400 0 Output: Urine 1650 875 Stool 0 Other: Voiding Method Urinal Urinal Urinal - Exam No acute distress S1-S2 heard Decreased breath sounds No edema - Labs CBC & Chem 7: 04/06/21 07:37 04/06/21 07:37 Labs: Abnormal Lab Results - Last 24 Hours (Table) 04/05/21 04/05/21 04/06/21 Range/Units 20:16 20:16 07:37 RBC 3.71 L (4.30-5.90) m/uL Hgb 10.7 L (13.0-17.5) gm/dL Hct 31.1 L (39.0-53.0) % Plt Count 52 L (150-450) k/uL Lymphocytes # 0.9 L (1.0-4.8) k/uL APTT 19.9 L (22.0-30.0) sec Sodium 135 L (137-145) mmol/L Potassium 3.4 L (3.5-5.1) mmol/L Creatinine (0.66-1.25) mg/dL Glucose 117 H (74-99) mg/dL Calcium 8.3 L (8.4-10.2) mg/dL Magnesium (1.6-2.3) mg/dL AST 125 H (17-59) U/L ALT 67 H (4-49) U/L Creatine Kinase (55-170) U/L Total Protein (6.3-8.2) g/dL Albumin 3.4 L (3.5-5.0) g/dL 04/06/21 Range/Units 07:37 RBC (4.30-5.90) m/uL Hgb (13.0-17.5) gm/dL Hct (39.0-53.0) % Plt Count (150-450) k/uL Lymphocytes # (1.0-4.8) k/uL APTT (22.0-30.0) sec Sodium (137-145) mmol/L Potassium (3.5-5.1) mmol/L Creatinine 0.65 L (0.66-1.25) mg/dL Glucose 117 H (74-99) mg/dL Calcium 8.3 L (8.4-10.2) mg/dL Magnesium 1.4 L (1.6-2.3) mg/dL AST 113 H (17-59) U/L ALT 59 H (4-49) U/L Creatine Kinase 6925 H* (55-170) U/L Total Protein 6.2 L (6.3-8.2) g/dL Albumin 3.2 L (3.5-5.0) g/dL Microbiology - Last 24 Hours (Table) 04/02/21 11:18 Blood Culture - Preliminary Blood No Growth after 96 hours Assessment and Plan Assessment: #1 nontraumatic rhabdomyolysis. #2 cirrhosis status post liver transplant #3 non-small cell lung cancer Plan: #1 continue with IV fluids, CPK improving. #2 renal function stable. #3 avoid nephrotoxic agents and hypotensive episodes. #4 on Prograf 2 mg twice a day, repeat labs on Thursday
[2021-04-06] MEDS: HYDROcodone/APAP 5-325MG 1 EACH TAB PO PRN (17:52)
[2021-04-06 22:16] LABS: African American GFR (CKD) >90 (>60 ml/min/1.73 sqM); Blood Urea Nitrogen 8 mg/dL (9-20); Non-African American GFR(CKD) >90 (>60 ml/min/1.73 sqM)
--- NOTE | 2021-04-06 23:13 | CT ---
EXAMINATION TYPE: CT chest abdomen w con DATE OF EXAM: 04/06/2021 COMPARISON: CT scan 07/07/2018 and 03/30/2018 HISTORY: pain CT DLP: 2057.3 mGycm Automated exposure control for dose reduction was used. CONTRAST: Performed with IV Contrast, patient injected with 80 mL of Isovue 300. There is patchy infiltrate and atelectasis in the mid and lower lung singleton. There is left pleural ef fusion. Heart size is normal. There is no pericardial effusion. Liver spleen stomach pancreas appear intact. The bile ducts are not dilated. There are clips from cholecystectomy. There is no adrenal mass. Kidneys show satisfactory contrast opacification. There is no hydronephrosi s. Ureters are not dilated. There is no retroperitoneal adenopathy. There is no sign of ascites. There is no evidence of free air. There is no mesenteric edema. I see no sign of a bowel obstruction. There is compression fractures of L1 and T12 and T11 up to 25%. There is degenerative spurring in the thoracic spine. There is compression fracture of T5 vertebra 30%. IMPRESSION: There is left pleural effusion. There is bilateral lower lobe patchy pulmonary infiltrates and atelec tasis. Pulmonary abnormalities are mostly new compared to CT scan of 07/07/2018. There is a new compression fracture of L1 compared to 07/07/2018. There is a new compression fracture of T5 compared to 03/30/2018 exam.
[2021-04-07] MEDS: LORazepam 2 MG/ML INJ IV PRN ×2 (01:04→06:13)
[2021-04-07] MEDS: HYDROmorphone 1 MG/ML 1 ML SYRINGE IVP PRN ×5 (01:04→21:36)
[2021-04-07] MEDS: SODIUM CHLORIDE 0.9% 1,000 ML in EMPTY BAG 1 BAG IV SCH ×2 (03:38→15:57)
[2021-04-07] MEDS: SODIUM CHLORIDE 0.9% 1,000 ML IV SCH ×4 (03:38→21:43)
[2021-04-07] MEDS: ASPIRIN 81 MG PO SCH (07:59)
[2021-04-07] MEDS: METOPROLOL TARTRATE 25 MG TAB PO SCH ×2 (07:59→21:35)
[2021-04-07] MEDS: FAMOTIDINE 20 MG TAB PO SCH ×2 (07:59→21:35)
[2021-04-07] MEDS: CLOPIDOGREL 75 MG TAB PO SCH (07:59)
[2021-04-07] MEDS: NIFEdipine XL 30 MG TAB.ER.24 PO SCH (08:00)
[2021-04-07] MEDS: HYDROcodone/APAP 5-325MG 1 EACH TAB PO PRN ×2 (08:00→16:18)
[2021-04-07] MEDS: TAMSULOSIN 0.4 MG CAP.ER.24H PO SCH (08:00)
[2021-04-07] MEDS: levETIRAcetam 500 MG TAB PO SCH ×2 (08:00→21:35)
[2021-04-07] MEDS: ISOSORBIDE MONONITRATE ER 30 MG TAB.ER.24H PO SCH (08:00)
[2021-04-07] MEDS: HEPARIN SODIUM,PORCINE/PF 5,000 UNIT/0.5 ML SYRINGE SQ SCH ×2 (08:02→21:35)
[2021-04-07] MEDS: TACROLIMUS 1 MG CAP PO SCH ×2 (08:05→21:35)
[2021-04-07] MEDS: NICOTINE 21MG/24HR PATCH TRANSDERM SCH (08:39)
[2021-04-07] MEDS ORDERED: SENNOSIDES 8.6 MG TAB PO PRN (09:02)
[2021-04-07] MEDS ORDERED: polyethylene glycoL 3350 17 GM POWD.PACK PO PRN (09:02)
--- NOTE | 2021-04-07 09:34 | P.PN ---
Subjective Progress Note Date: 04/07/21 Follow-up for rhabdomyolysis. Family at bedside. Objective - Vital Signs Vital signs: Vital Signs Temp 99.8 F H 04/07/21 07:56 Pulse 100 04/07/21 07:56 Resp 18 04/07/21 07:56 BP 143/83 04/07/21 07:56 Pulse Ox 93 L 04/07/21 07:56 Intake & Output 04/06/21 04/07/21 04/07/21 18:59 06:59 18:59 Intake Total 400 Output Total 1400 900 Balance -1000 -900 Intake: IV 400 Oral 0 Output: Urine 1400 900 Stool 0 Other: Voiding Method Urinal Urinal # Voids 2 - Exam No acute distress S1-S2 heard Decreased breath sounds No edema - Labs CBC & Chem 7: 04/06/21 07:37 04/06/21 21:19 Labs: Abnormal Lab Results - Last 24 Hours (Table) 04/06/21 Range/Units 21:19 BUN 8 L (9-20) mg/dL Creatinine 0.60 L (0.66-1.25) mg/dL Microbiology - Last 24 Hours (Table) 04/02/21 11:18 Blood Culture - Preliminary Blood No Growth after 96 hours Assessment and Plan Assessment: #1 nontraumatic rhabdomyolysis. #2 cirrhosis status post liver transplant #3 non-small cell lung cancer Plan: #1 continue with IV fluids, CPK improving. Repeat CPK in the morning #2 renal function stable. #3 avoid nephrotoxic agents and hypotensive episodes. #4 on Prograf 2 mg twice a day, repeat labs on Thursday
--- NOTE | 2021-04-07 09:59 | P.PN ---
Subjective Progress Note Date: 04/06/21 This is a Tele-neurology follow-up performed today on 04/06/2021. Patient was seen for a follow-up. Patient's was also present today. Patient apparently had 3 episodes of chest pain last night. The chest pain was radiating to the back. He was also agitated, pulling on the cords. He underwent cardiac catheterization today, which came back negative for any significant coronary artery disease. No blockages was identified. No seizures reported. Patient still complains of chest pain. Patient denies any nausea or vomiting. Patient is sleeping at this time. Objective - Vital Signs Vital signs: Vital Signs Temp 98.0 F 04/06/21 07:58 Pulse 65 04/06/21 13:29 Resp 16 04/06/21 13:29 BP 154/87 04/06/21 13:29 Pulse Ox 96 04/06/21 13:29 Intake & Output 04/05/21 04/06/21 04/06/21 18:59 06:59 18:59 Intake Total 3120 10 400 Output Total 1650 875 Balance 1470 10 -475 Intake: IV 2720 10 400 Invasive Line 3 20 10 Magnesium Sulfate-D5w Pmx 300 1 gm In Dextrose/Water 1 100ml.bag @ 100 mls/hr IVPB Q1H CRESENCIO Rx#: [id number] Sodium Chloride 0.9% 1, 2400 000 ml @ 200 mls/hr IV . Q5H CRESENCIO Rx#:[id number] Oral 400 0 Output: Urine 1650 875 Stool 0 Other: Voiding Method Urinal Urinal Urinal - Exam Patient is laying comfortably in the bed. Detailed testing deferred, as he is asleep. Did not sleep well last night. - Labs CBC & Chem 7: 04/06/21 07:37 04/06/21 21:19 Labs: Abnormal Lab Results - Last 24 Hours (Table) 04/05/21 04/05/21 04/06/21 Range/Units 20:16 20:16 07:37 RBC 3.71 L (4.30-5.90) m/uL Hgb 10.7 L (13.0-17.5) gm/dL Hct 31.1 L (39.0-53.0) % Plt Count 52 L (150-450) k/uL Lymphocytes # 0.9 L (1.0-4.8) k/uL APTT 19.9 L (22.0-30.0) sec Sodium 135 L (137-145) mmol/L Potassium 3.4 L (3.5-5.1) mmol/L Creatinine (0.66-1.25) mg/dL Glucose 117 H (74-99) mg/dL Calcium 8.3 L (8.4-10.2) mg/dL Magnesium (1.6-2.3) mg/dL AST 125 H (17-59) U/L ALT 67 H (4-49) U/L Creatine Kinase (55-170) U/L Total Protein (6.3-8.2) g/dL Albumin 3.4 L (3.5-5.0) g/dL 04/06/21 Range/Units 07:37 RBC (4.30-5.90) m/uL Hgb (13.0-17.5) gm/dL Hct (39.0-53.0) % Plt Count (150-450) k/uL Lymphocytes # (1.0-4.8) k/uL APTT (22.0-30.0) sec Sodium (137-145) mmol/L Potassium (3.5-5.1) mmol/L Creatinine 0.65 L (0.66-1.25) mg/dL Glucose 117 H (74-99) mg/dL Calcium 8.3 L (8.4-10.2) mg/dL Magnesium 1.4 L (1.6-2.3) mg/dL AST 113 H (17-59) U/L ALT 59 H (4-49) U/L Creatine Kinase 6925 H* (55-170) U/L Total Protein 6.2 L (6.3-8.2) g/dL Albumin 3.2 L (3.5-5.0) g/dL Microbiology - Last 24 Hours (Table) 04/02/21 11:18 Blood Culture - Preliminary Blood No Growth after 96 hours Assessment and Plan Assessment: * Multiple small areas of acute ischemic infarction involving bilateral cerebral and cerebellar hemispheres, suggestive of embolic event. Metastasis appears much less likely. * New onset seizure, probably due to above. * Altered mental status, likely due to postictal state. Mentation back to normal. * Rhabdomyolysis with CPK rising up to 10,238 yesterday, today much improved 6925. * Thrombocytopenia likely due to recent chemotherapy. Today the platelets are 52,000. * History of liver cancer, status post liver transplant in April 2016, currently in remission. * History of lung cancer, currently undergoing chemotherapy. * X tobacco use * Hypertension Plan: * MRI of the brain with and without contrast revealed severely limited exam due to extreme motion artifact. There appears to be multiple subcentimeter areas of abnormal signal involving the left frontal, frontal parietal junction, right parietal lobe, bilateral cerebellar hemispheres, suspicious for ADLs of small acute ischemia. No definite enhancement. Therefore, tiny foci of intraparenchymal metastasis, although not excluded, are less likely. I would suggest repeating MRI of the brain with and without contrast in 2-3 months to rule out metastasis. * Continue dual antiplatelet medications with Plavix 75 mg and aspirin 81 mg for 21 days, then maintain on aspirin 81 mg daily. Discussed with oncology, no need to stop Plavix, as platelets are > 50,000 and hemoglobin is stable. Hold off on lumbar puncture because of recent multiple strokes. Repeat MRI of the brain in 2-3 months, earlier if develops any new neurological symptoms in the interim. Today the platelets are down to 52,000. Suggested the nurse to touch base with the hematology about safety of continuation of DAP. * EEG was abnormal due to background slowing of at least moderate degree. This is suggestive of generalized cerebral dysfunction as can be seen with toxic metabolic encephalopathy or due to diffuse structural brain abnormality. No epileptiform activity was seen. * Continue Keppra 500 mg twice a day. * 2-D echo shows normal left-ventricular size. Normal left ventricular wall thickness. EF is between 55-60%. Trace AR. Trace MR. * Carotid Doppler showed no carotid stenosis. Antegrade flow in both vertebral arteries. * Hemoglobin A1c 6.7, probable new onset diabetes. IM to address. * Lipid panel with cholesterol 140, LDL 60, HDL 35 and triglycerides 113. Lipitor on hold because of rhabdomyolysis. Follow CPKs closely. Hydration. * B12 is low 258. We will start B12 replacement. * PT and OT. * Consider Holter or an event monitor placement rule out paroxysmal atrial fibrillation. * Recommend follow-up with neurologist as outpatient in 2-4 weeks.
[2021-04-07] MEDS: DOCUSATE 100 MG CAP PO SCH ×2 (10:08→21:35)
--- NOTE | 2021-04-07 10:08 | P.PN ---
Subjective Progress Note Date: 04/07/21 Principal diagnosis: Chest discomfort The patient is a pleasant 71-year-old gentleman with a past medical history significant for lung transplant and lung cancer and liver cirrhosis who was brought to the emergency department by his with a change in mental status and we consulted 4 mildly increased troponin. He was treated medically and conservatively for few days but because he continues to have recurrent chest discomfort I advised the patient to undergo a heart catheterization. He underwent a heart catheterization yesterday and that revealed mild nonobstructive coronary artery disease. He was seen today. The right radial site is soft and nontender. Hemodynamically he is stable. From a cardiovascular standpoint of view, we'll follow-up with the patient on when necessary case. Please note that he underwent an echo which revealed normal left ventricular systolic function without significant valvular abnormalities Objective - Vital Signs Vital signs: Vital Signs Temp 99.8 F H 04/07/21 07:56 Pulse 100 04/07/21 07:56 Resp 18 04/07/21 07:56 BP 143/83 04/07/21 07:56 Pulse Ox 93 L 04/07/21 07:56 Intake & Output 04/06/21 04/07/21 04/07/21 18:59 06:59 18:59 Intake Total 400 118 Output Total 1400 900 950 Balance -1000 900 -832 Intake: IV 400 Oral 0 118 Output: Urine 1400 900 950 Stool 0 Other: Voiding Method Urinal Urinal # Voids 2 - Constitutional General appearance: Present: no acute distress - Respiratory Respiratory: bilateral: CTA - Cardiovascular Rhythm: regular Heart sounds: normal: S1, S2 - Labs CBC & Chem 7: 04/06/21 07:37 04/06/21 21:19 Labs: Abnormal Lab Results - Last 24 Hours (Table) 04/06/21 04/07/21 Range/Units 21:19 08:48 BUN 8 L (9-20) mg/dL Creatinine 0.60 L (0.66-1.25) mg/dL Creatine Kinase 2645 H* (55-170) U/L Microbiology - Last 24 Hours (Table) 04/02/21 11:18 Blood Culture - Preliminary Blood No Growth after 96 hours Assessment and Plan Assessment: Assessment #1 change in mental status of unknown etiology at this point #2 seizure which seems to be new #3 history of liver transplant #4 lung cancer currently on chemotherapy #5 abnormal cardiac enzymes Plan #1 the patient underwent heart catheterization yesterday and that showed mild nonobstructive CAD #2 he remains asymptomatic from a cardiac standpoint #3 he remains hemodynamically stable #4 follow-up with the patient on when necessary case
[2021-04-07 10:13] LABS: Basophils % (A) 0 %; Eosinophils # (A) 0.1 k/uL (0-0.7); Eosinophils % (A) 2 %; HCT 29.1 % (39.0-53.0); HGB 10.4 gm/dL (13.0-17.5); Hyperchromasia Slight; Lymphocytes # (A) 0.7 k/uL (1.0-4.8); Lymphocytes % (A) 23 %; MCHC 35.7 g/dL (31.0-37.0); MCV 81.1 fL (80.0-100.0); Mean Platelet Volume 7.7; Monocytes # (A) 0.2 k/uL (0-1.0); Monocytes % (A) 7 %; Neutrophils # (A) 2.1 k/uL (1.3-7.7); Neutrophils % (A) 65 %; Poikilocytosis Slight; RBC 3.59 m/uL (4.30-5.90); RDW 14.5 % (11.5-15.5); WBC 3.2 k/uL (3.8-10.6)
[2021-04-07 10:16] LABS: Platelet Count 61 k/uL (150-450)
--- NOTE | 2021-04-07 14:55 | P.PN ---
Subjective This is a pleasant 71 years old male with multiple medical problems were taken from at bedside as patient is confused and poor historian, as per he had 2 episodes. The morning where he has snoring, frozen his mouth and he was confused not answering questions appropriately, first one was at 3:00 after which he rolled over and covered himself up so was left him, the other episode was 7:00 in the morning and then she decided to bring him to emergency room for confusion. Patient currently awake and answers questions stating that he is in the hospital but he could not say which hospital. He is disoriented to time person. He denies any weakness or numbness, no headache or any specific problem. Patient refused to cooperate more. As per patient has been recently diagnosed with left lower lobe cancer status post lobectomy last joint. He is getting second round of chemotherapy 4. His jailkeeper and oncologist Dr. Daigle, are at [facility] at [address] Patient never smoked, occasional alcohol, no illicit drugs. Also on the emergency room patient had witnessed seizure for 30 seconds and patient was started on Keppra. 04/03/2021 Patient is more awake today. He is alert awake and oriented [address] and person[address] However he still confused partially. He denies headache or weakness or numbness. No chest pain or dyspnea. Over he complains from left sided abdominal pain which started last night, patient states is Of Severe However His Abdomen Is Soft. His Pain Is Nonspecific in Character. Patient States He Has No Nausea Vomiting, Able to Eat but No Bowel Movement or Passing Gas. He is hemodynamically stable. Labs from today are pending His EEG is negative. Chest x-ray shows stable left lower lobe infiltrate and COPD and chronic interstitial. Hemoglobin A1c is 6.7 which is only mildly elevated at 3 diabetes. TSH is normal at 2.8. Patient remains on cefepime however may consider stop it if further workup is negative. This procalcitonin is normal at 0.04. He is also normal sinus 75 mm/h. Also he is on Keppra 500 mg IV twice a day. Patient also with elevated lactic acid, he is immunocompromised therefore packed culture is ordered We will await for creatinine today and then consider CT of the abdomen w. 04/04/2021 Patient mentation significantly improved in all he isn't [facility], he could recognize his and new the date partially but he could not remember the name of the president, as per at bedside he is mentation is significantly improved. He denies headache and he can moves all his extremities. However he complains from trunk pain of the back and on the sides most likely to elevated creatinine kinase from his seizure. He is already on n ormal saline. Other vitals are stable and patient has been afebrile. Labs looks stable, mild hyperglycemia replaced per protocol. His creatinine kinase increased to 6698. As the [place] down to 2.4, normal hemoglobin and low platelet count and 68. MRI of the brain showing mostly small high signal area suspicious for ischemia less likely metastasis as there is no enhancement however neurologist re commended to repeat MRI of the brain in 2-3 weeks, patient and informed and they agree. However they are refusing the lumbar puncture recommended by oncology team. Risks and benefits are explained. Echocardiogram showed ejection fraction of 55-60%. Carotid Doppler is negative. Aspirin and Plavix were resumed. Also he is on heparin for DVT prophylaxis. He is currently kept on Keppra 500 mg, vitamin B12 been replaced intramuscularly. 04/05/2021 Patient awake but per is still off and little confused. Patient states that he has been struggling with memory problem over a year. 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 And possible intracranial lesion. Other than that he looks comfortable, he wants to go home, however I explained for him he is not ready yet. Patient and agree. Hemodynamically he is stable. labs showing pancytopenia most likely from his chemotherapy. He has generalized body aches related to his rhabdomyolysis, his creatinine kinase is increased 11383, so we will increase his IV fluids to 200 mL per hour. Nephrology input is appreciated and they recommended to stop his Lipitor as well. He remains on cefepime for oncology team recommendation, we will discussed with oncology team whether to continue or stop antibiotic. Lactic acid back to normal at 1.3. Blood culture showing no growth in 48 hours. He is on Keppra, vitamin B12 replacement. He is on aspirin 81 mg and Plavix. Today dose of aspirin lower down to 81 mg 04/06/2021 Patient looks somewhat confused and complaining of from generalized body aches and also he had 3 episodes of chest pain so allied health instructor are planning for cardiac cath today. Showed mild nonobstructive coronary artery disease Patient hemodynamically stable. CBC and BMP are unremarkable. Low magnesium to be replaced per protocol. Creatinine kinase trending down 6925 Case was discussed with oncology team and their input appreciated. We can stop cefepime as culture are negative and lactic acid back to normal and patient with no fevers over. Patient continued on aspirin 81 mg daily. Continue with Plavix. Continue with normal saline and aggressive hydration. Continue with pain management. Continue with Keppra 04/07/2021 Patient remains confused and requires pain medication at times also was concerned that he is getting constipated therefore laxative has been admitted mostly related to his pain medication. Yesterday we discussed the case with oncology team and we stopped his cefepime however he had a low-grade temperature today of 99.8. Head CT of the chest and abdomen with contrast showing bilateral basal infiltrate suspicious for aspiration pneumonia. Which may contribute to worsening patient mentation. Therefore going to resume his antibiotic on Zosyn. Also we will ask for swallow evaluation and an additional consult. Keep the patient nothing by mouth until complete swallow evaluation especially he is confused now. Patient already on Keppra with no more seizure-like activity. Patient came with seizure which is controlled now. Brain MRI showing tiny lesions most likely ischemic spots but metastasis cannot be ruled out completely because thought it is without enhancement. Family refused lumbar puncture. Recommendation for outpatient to undergo repeat MRI in 2-3 months or sooner if worsening mentation. Patient and at bedside informed and they agree CT of the abdomen and pelvis also showed compression fracture of thoracic vertebrae of T5 and L1. Continue with home dose of aspirin and Plavix His rhabdomyolysis is improving and IV fluid lower 150 mL/h, it can be lowered 200 mL per hour tomorrow if he keeps improving. Review of systems CONSTITUTIONAL: No fever, no malaise, no fatigue. HEENT: No recent visual problems or hearing problems. Denied any sore throat. CARDIOVASCULAR: No orthopnea, PND, no palpitations, no syncope. PULMONARY: No shortness of breath, no cough, no hemoptysis. GASTROINTESTINAL: No diarrhea, no nausea, no vomiting, no abdominal pain. Normoactive bowel sounds. Active Medications Generic Name Dose Route Start Last Admin Trade Name Freq PRN Reason Stop Dose Admin Hydrocodone Bitart/Acetaminophen 1 each 04/02/21 22:27 04/07/21 08:00 Hydrocodone/Apap 5-325mg 1 Each Tab PO 1 each Q6HR PRN Administration Pain Aspirin 81 mg 04/07/21 09:00 04/07/21 07:59 Aspirin 81 Mg PO 81 mg DAILY CRESENCIO Administration Calcium Carbonate/Glycine 500 mg 04/03/21 21:50 04/03/21 21:53 Calcium Carbonate 500 Mg Chewable PO 500 mg Q6HR PRN Administration Heartburn Clopidogrel Bisulfate 75 mg 04/03/21 16:00 04/07/21 07:59 Clopidogrel 75 Mg Tab PO 75 mg DAILY CRESENCIO Administration Docusate Sodium 100 mg 04/07/21 09:15 04/07/21 10:08 Docusate 100 Mg Cap PO 100 mg BID CRESENCIO Administration Famotidine 20 mg 04/04/21 21:00 04/07/21 07:59 Famotidine 20 Mg Tab PO 20 mg Q12HR CRESENCIO Administration Heparin Sodium (Porcine) 5,000 unit 04/03/21 21:00 04/07/21 08:02 Heparin Sodium,Porcine/Pf 5,000 Unit/0.5 Ml Syringe SQ 5,000 unit Q12HR CRESENCIO Administration Hydromorphone HCl 0.5 mg 04/04/21 10:44 04/04/21 12:00 Hydromorphone 0.5 Mg/0.5 Ml Syringe IVP 0.5 mg Q3HR PRN Administration Pain Scale 1 to 5 Hydromorphone HCl 1 mg 04/04/21 14:36 04/07/21 10:08 Hydromorphone 1 Mg/Ml 1 Ml Syringe IVP 1 mg Q3HR PRN Administration Pain Scale 6 to 10 Sodium Chloride 1,000 mls @ 150 mls/hr 04/05/21 09:15 04/07/21 08:06 Saline 0.9% IV 200 mls/hr .Q6H40M CRESENCIO Administration Sodium Chloride 1,000 ml/ IV 1,000 mls @ 102.965 mls/hr 04/06/21 09:00 04/07/21 03:38 Solution IV Not Given .Q9H43M CRESENCIO 1 ML/KG/HR Piperacillin Sod/Tazobactam 100 mls @ 25 mls/hr 04/07/21 16:00 Sod 3.375 gm/ Sodium Chloride IVPB Q8HR CRESENCIO Isosorbide Mononitrate 30 mg 04/05/21 09:00 04/07/21 08:00 Isosorbide Mononitrate Er 30 Mg Tab.Er.24h PO 30 mg DAILY CRESENCIO Administration Levetiracetam 500 mg 04/03/21 21:00 04/07/21 08:00 Levetiracetam 500 Mg Tab PO 500 mg Q12HR CRESENCIO Administration Lorazepam 1 mg 04/02/21 10:28 04/07/21 06:13 Lorazepam 2 Mg/Ml Inj IV 1 mg Q6HR PRN Administration Anxiety Metoprolol Tartrate 25 mg 04/02/21 21:00 04/07/21 07:59 Metoprolol Tartrate 25 Mg Tab PO 25 mg BID CRESENCIO Administration Miscellaneous Information 1 each 04/02/21 21:12 Magnesium Replacement Protocol 1 Each Misc MISCELLANE DAILY PRN Per Protocol Protocol Miscellaneous Information 1 each 04/03/21 07:13 Magnesium Replacement Protocol 1 Each Misc MISCELLANE DAILY PRN Per Protocol Protocol Miscellaneous Information 1 each 04/04/21 10:34 Magnesium Replacement Protocol 1 Each Misc MISCELLANE DAILY PRN Per Protocol Protocol Miscellaneous Information 1 each 04/06/21 10:44 Rx Info: Iv Contrast Was Given 1 Each Misc MISCELLANE 04/08/21 10:44 DAILY PRN Per Protocol Mycophenolate Mofetil 250 mg 04/02/21 10:30 04/07/21 08:05 Mycophenolate Mofetil 250 Mg Cap PO 250 mg SUMOTUWETHSA CRESENCIO Administration Nicotine 1 patch 04/05/21 09:30 04/07/21 08:39 Nicotine 21mg/24hr Patch TRANSDERM Not Given DAILY CRESENCIO Nifedipine 30 mg 04/03/21 09:00 04/07/21 08:00 Nifedipine Xl 30 Mg Tab.Er.24 PO 30 mg DAILY CRESENCIO Administration Nitroglycerin 0.4 mg 04/02/21 09:06 04/06/21 17:53 Nitroglycerin Sl Tabs 0.4 Mg Tab SUBLINGUAL 0.4 mg Q5M PRN Administration Chest Pain Polyethylene Glycol 17 gm 04/07/21 09:02 Polyethylene Glycol 3350 17 Gm Powd.Pack PO DAILY PRN Constipation Senna 8.6 mg 04/07/21 09:02 04/07/21 10:08 Sennosides 8.6 Mg Tab PO 8.6 mg BID PRN Administration Constipation Tacrolimus 2 mg 04/02/21 21:00 04/07/21 08:05 Tacrolimus 1 Mg Cap PO 2 mg BID@0900,2100 CRESENCIO Administration Tamsulosin HCl 0.4 mg 04/03/21 09:00 04/07/21 08:00 Tamsulosin 0.4 Mg Cap.Er.24h PO 0.4 mg DAILY CRESENCIO Administration Objective - Vital Signs Vital signs: Vital Signs Temp 98.0 F 04/07/21 14:15 Pulse 84 04/07/21 14:15 Resp 21 04/07/21 14:15 BP 135/79 04/07/21 14:15 Pulse Ox 93 L 04/07/21 14:15 Intake & Output 04/06/21 04/07/21 04/07/21 18:59 06:59 18:59 Intake Total 400 118 Output Total 1400 900 950 Balance -1000 -900 -482 Intake: IV 400 Oral 0 118 Output: Urine 1400 900 950 Stool 0 0 Other: Voiding Method Urinal Urinal Urinal # Voids 2 - Exam --GENERAL: The patient is alert and confused, , not in any acute distress. Well developed, well nourished. HEENT: Pupils are round and equally reacting to light. EOMI. No scleral icterus. No conjunctival pallor. Normocephalic, atraumatic. No pharyngeal erythema. No thyromegaly. CARDIOVASCULAR: S1 and S2 present. No murmurs, rubs, or gallops. PULMONARY: Chest is clear to auscultation, no wheezing or crackles. -ABDOMEN: Soft, no tenderness, no rebound tenderness nondistended, normoactive bowel sounds. No palpable organomegaly. MUSCULOSKELETAL: No joint swelling or deformity. EXTREMITIES: No cyanosis, clubbing, or pedal edema. NEUROLOGICAL: Gross neurological examination did not reveal any focal deficits. SKIN: No rashes. No petechiae - Labs CBC & Chem 7: 04/07/21 08:48 04/06/21 21:19 Labs: Abnormal Lab Results - Last 24 Hours (Table) 04/06/21 04/07/21 04/07/21 Range/Units 21:19 08:48 08:48 WBC 3.2 L (3.8-10.6) k/uL RBC 3.59 L (4.30-5.90) m/uL Hgb 10.4 L (13.0-17.5) gm/dL Hct 29.1 L (39.0-53.0) % Plt Count 61 L (150-450) k/uL Lymphocytes # 0.7 L (1.0-4.8) k/uL BUN 8 L (9-20) mg/dL Creatinine 0.60 L (0.66-1.25) mg/dL Creatine Kinase 2645 H* (55-170) U/L Microbiology - Last 24 Hours (Table) 04/02/21 11:18 Blood Culture - Preliminary Blood No Growth after 120 hours Assessment and Plan Assessment: New-onset seizure, improved with MRI showing tiny lesions less likely metastatic cancer but need to recheck MRI of the brain in 2-3 months Rhabdomyolysis, improving possible aspiration pneumonia Left lower lobe infiltrate mostly related to his history of lung cancer status post lobectomy in the same area Altered mental status most likely metabolic encephalopathy, also on the top of memory problem. Cannot rule out metastasis completely, need to recheck MRI as an outpatient Constipation, mostly secondary to pain medication 3-year-old memory problems, mostly Alzheimer dementia Elevated troponin, rule out cardiac causes Elevated lactic acid History of liver cirrhosis and liver transplant in 2016 History of liver cancer status post chemo-embolization 2014. Plan: This is a pleasant 71 years old male who presents with AMS and possible pneumonia. Elevated troponin. Start antibiotics on Zosyn. Follow-up blood culture, Keep patient nothing by mouth. Swallow evaluation. Dietary consult. Continue with Keppra. Neurology on the case Continue with IV hydration and follow-up creatinine kinase Continue with aspirin and Plavix Neurology, cardiology, oncology and nephrology team on the case Continue with aggressive hydration and monitor creatinine kinase Labs and medication were reviewed.. Continue same treatment. Continue with symptomatic treatment. Resume home medication. Monitor lytes and vitals. DVT and GI prophylaxis. Further recommendations depends on the clinical course of the patient DVT prophylaxis: Subcutaneous heparin GI Prophylaxis: Pepcid Prognosis is guarded
[2021-04-07] MEDS: PIPERACILLIN-TAZOBACTAM 3.375 GM in SODIUM CHLORIDE 0.9% 100 ML IVPB SCH (16:18)
[2021-04-07] MEDS: SENNOSIDES 8.6 MG TAB PO SCH (21:35)
[2021-04-08] MEDS: LORazepam 2 MG/ML INJ IV PRN (00:16)
[2021-04-08] MEDS: PIPERACILLIN-TAZOBACTAM 3.375 GM in SODIUM CHLORIDE 0.9% 100 ML IVPB SCH ×3 (00:16→17:11)
[2021-04-08] MEDS: SODIUM CHLORIDE 0.9% 1,000 ML in EMPTY BAG 1 BAG IV SCH ×3 (00:20→18:11)
[2021-04-08] MEDS: SODIUM CHLORIDE 0.9% 1,000 ML IV SCH ×3 (07:05→17:42)
--- NOTE | 2021-04-08 08:25 | XR ---
EXAMINATION TYPE: XR chest 1V DATE OF EXAM: 04/08/2021 COMPARISON: 04/05/2021 INDICATION: Short of breath TECHNIQUE: Single frontal view of the chest is obtained. FINDINGS: The heart size is normal. The pulmonary vasculature is normal. Mild infiltrate is at the left base with partial silhouetting left diaphragm. Atelectasis and pneumon ia can be considered. IMPRESSION: 1. Left lower lobe infiltrate slightly worsened from comparison. Correlate for pneumonia including at ypical pneumonia. Atelectasis should be considered. Follow up exams can be performed.
[2021-04-08 09:04] LABS: African American GFR (CKD) >90 (>60 ml/min/1.73 sqM); Anion Gap 8 mmol/L; Blood Urea Nitrogen 6 mg/dL (9-20); Calcium 8.8 mg/dL (8.4-10.2); Carbon Dioxide 30 mmol/L (22-30); Chloride 99 mmol/L (98-107); Glucose 117 mg/dL (74-99); Non-African American GFR(CKD) >90 (>60 ml/min/1.73 sqM); Potassium 3.3 mmol/L (3.5-5.1); Sodium 137 mmol/L (137-145)
[2021-04-08 09:09] LABS: Basophils % (A) 0 %; Eosinophils % (A) 1 %; HCT 29.3 % (39.0-53.0); HGB 10.5 gm/dL (13.0-17.5); Hyperchromasia Slight; Lymphocytes # (A) 0.6 k/uL (1.0-4.8); Lymphocytes % (A) 17 %; MCH 29.1 pg (25.0-35.0); MCHC 35.8 g/dL (31.0-37.0); MCV 81.2 fL (80.0-100.0); Mean Platelet Volume 8.4; Monocytes # (A) 0.3 k/uL (0-1.0); Monocytes % (A) 9 %; Neutrophils # (A) 2.4 k/uL (1.3-7.7); Neutrophils % (A) 70 %; Poikilocytosis Slight; RBC 3.61 m/uL (4.30-5.90); RDW 15.2 % (11.5-15.5); WBC 3.5 k/uL (3.8-10.6)
[2021-04-08 09:13] LABS: Creatine Kinase 1172 U/L (55-170); Magnesium 0.8 mg/dL (1.6-2.3)
[2021-04-08 09:16] LABS: Platelet Count 93 k/uL (150-450)
[2021-04-08] MEDS ORDERED: Potassium Replacement Protocol 1 EACH MISC MISCELLANE PRN (09:25)
[2021-04-08] MEDS: TAMSULOSIN 0.4 MG CAP.ER.24H PO SCH (09:31)
[2021-04-08] MEDS: HEPARIN SODIUM,PORCINE/PF 5,000 UNIT/0.5 ML SYRINGE SQ SCH (09:31)
[2021-04-08] MEDS: METOPROLOL TARTRATE 25 MG TAB PO SCH (09:31)
[2021-04-08] MEDS: ISOSORBIDE MONONITRATE ER 30 MG TAB.ER.24H PO SCH (09:31)
[2021-04-08] MEDS: TACROLIMUS 1 MG CAP PO SCH (09:32)
[2021-04-08] MEDS: DOCUSATE 100 MG CAP PO SCH (09:32)
[2021-04-08] MEDS: levETIRAcetam 500 MG TAB PO SCH ×2 (09:32→20:10)
[2021-04-08] MEDS: NIFEdipine XL 30 MG TAB.ER.24 PO SCH (09:32)
[2021-04-08] MEDS: NICOTINE 21MG/24HR PATCH TRANSDERM SCH (09:33)
[2021-04-08] MEDS: FAMOTIDINE 20 MG TAB PO SCH (09:33)
[2021-04-08] MEDS ORDERED: MAGNESIUM SULFATE-D5W PMX 1 GM in DEXTROSE/WATER 1 100ML.BAG IVPB ONE (09:41)
[2021-04-08] MEDS: POTASSIUM CHLORIDE ER 20 MEQ TAB.ER PO SCH ×2 (09:50→11:04)
[2021-04-08] MEDS: ASPIRIN 81 MG PO SCH (09:50)
[2021-04-08] MEDS: CLOPIDOGREL 75 MG TAB PO SCH (09:51)
[2021-04-08] MEDS: SENNOSIDES 8.6 MG TAB PO SCH (09:51)
[2021-04-08] MEDS ORDERED: Magnesium Replacement Protocol 1 EACH MISC MISCELLANE PRN (10:06)
--- NOTE | 2021-04-08 10:09 | P.PN ---
Subjective Progress Note Date: 04/07/21 This is a Tele-neurology follow-up performed today on 04/07/2021. Patient was seen for a follow-up. Patient's was also present today. Patient admits to having back pain "terrible" he describes. He is also constipated due to the pain medications. Patient had cardiac catheterization 04/06/2021, which came back negative for any significant coronary artery disease. No blockages was identified. No seizures reported. Objective - Vital Signs Vital signs: Vital Signs Temp 98.0 F 04/07/21 14:15 Pulse 84 04/07/21 14:15 Resp 21 04/07/21 14:15 BP 135/79 04/07/21 14:15 Pulse Ox 93 L 04/07/21 14:15 Intake & Output 04/06/21 04/07/21 04/07/21 18:59 06:59 18:59 Intake Total 400 118 Output Total 1400 900 950 Balance -1000 900 832 Intake: IV 400 Oral 0 118 Output: Urine 1400 900 950 Stool 0 0 Other: Voiding Method Urinal Urinal Urinal # Voids 2 - Exam Patient is sitting in the recliner. Speech and language functions are normal. CN normal, Muscle strength normal. Sensations equal. - Labs CBC & Chem 7: 04/08/21 07:37 04/08/21 07:51 Labs: Abnormal Lab Results - Last 24 Hours (Table) 04/06/21 04/07/21 04/07/21 Range/Units 21:19 08:48 08:48 WBC 3.2 L (3.8-10.6) k/uL RBC 3.59 L (4.30-5.90) m/uL Hgb 10.4 L (13.0-17.5) gm/dL Hct 29.1 L (39.0-53.0) % Plt Count 61 L (150-450) k/uL Lymphocytes # 0.7 L (1.0-4.8) k/uL BUN 8 L (9-20) mg/dL Creatinine 0.60 L (0.66-1.25) mg/dL Creatine Kinase 2645 H* (55-170) U/L Microbiology - Last 24 Hours (Table) 04/02/21 11:18 Blood Culture - Preliminary Blood No Growth after 120 hours Assessment and Plan Assessment: * Multiple small areas of acute ischemic infarction involving bilateral cerebral and cerebellar hemispheres, suggestive of embolic event. Metastasis appears much less likely. * New onset seizure, probably due to above. * Altered mental status, likely due to postictal state, now resolved. Mentation back to normal. * Rhabdomyolysis with CPK rising up to 10,238 yesterday, today even more improved 2645. * Thrombocytopenia likely due to recent chemotherapy. Today the platelets are 61,000. * History of liver cancer, status post liver transplant in April 2016, currently in remission. * History of lung cancer, currently undergoing chemotherapy. * X tobacco use * Hypertension Plan: * MRI of the brain with and without contrast revealed severely limited exam due to extreme motion artifact. There appears to be multiple subcentimeter areas of abnormal signal involving the left frontal, frontal parietal junction, right parietal lobe, bilateral cerebellar hemispheres, suspicious for ADLs of small acute ischemia. No definite enhancement. Therefore, tiny foci of intraparenchymal metastasis, although not excluded, are less likely. I would suggest repeating MRI of the brain with and without contrast in 2-3 months to rule out metastasis. * Continue dual antiplatelet medications with Plavix 75 mg and aspirin 81 mg for 21 days, then maintain on aspirin 81 mg daily. Discussed with oncology, no need to stop Plavix, as platelets are > 50,000 and hemoglobin is stable. Hold off on lumbar puncture because of recent multiple strokes. Repeat MRI of the brain in 2-3 months, earlier if develops any new neurological symptoms in the interim. Today the platelets are are improved at 61,000. * EEG was abnormal due to background slowing of at least moderate degree. This is suggestive of generalized cerebral dysfunction as can be seen with toxic metabolic encephalopathy or due to diffuse structural brain abnormality. No epileptiform activity was seen. * Continue Keppra 500 mg twice a day. * CT abdomen and pelvis shwoedpleural effusion, bilateral lower lobe pulmonary infiltrates and atelectasis. There is new compression fracture of L1 compared to 07/07/2018 study. There is new compression fracture of T5 compared to 03/30/2018 study. Will consult Orthopedic spine for compression fracture. Patient or his not aware of any history of compression fracture. Consider bone scan/dexa scan. * 2-D echo shows normal left-ventricular size. Normal left ventricular wall thickness. EF is between 55-60%. Trace AR. Trace MR. * Carotid Doppler showed no carotid stenosis. Antegrade flow in both vertebral arteries. * Hemoglobin A1c 6.7, probable new onset diabetes. IM to address. * Lipid panel with cholesterol 140, LDL 60, HDL 35 and triglycerides 113. Lipitor on hold because of rhabdomyolysis. Follow CPKs closely, trend improving. Hydration. * B12 is low 258. We will start B12 replacement. * PT and OT. * Consider Holter or an event monitor placement rule out paroxysmal atrial fibr illation. * Recommend follow-up with neurologist as outpatient in 2-4 weeks. * Dr Miller Mckeon to resume neurology service from tomorrow am.
--- NOTE | 2021-04-08 10:35 | P.CNOR ---
History of Present Illness - [facility] Consult date: 04/08/21 Consult reason: back pain History of present illness: Patient is a pleasant 71-year-old gentleman who is accompanied by his at bedside. He was admitted almost a week ago regard to new onset seizure activity. Currently the patient had 2 seizures at home and then had another one here at the Hospital. He has been seen by neurology has been treated closely for this. He is also found have an acute cardiac ischemia at the time and has been treated cardiology as well. Patient has a history of lung cancer with metastasis as well as history of lobectomy. He also has history of liver transplant the past. Apparently the patient is normally noticeably active and denies past history of neck pain. He says the back pain started about a week ago and is at the middle and lower part of his back. He says he does not have problems down his legs he denies any numbness tingling in his lower extremities denies new weakness in his lower extremities. Denies any changes in bowel bladder function. He denies any new problems in his arms. Apparently he did have a fall last year while shoveling some snow denies any specific back pain at that point. Review of Systems As he denies any current chest pain or abdominal pain. He denies any numbness tingling in his lower extremity. Denies any lower extremity pain or weakness. Denies changes in bowel bladder function. He says the pain is currently doing pretty well and has been making some progress over the past week. The pain is primarily located at his mid and lower back. He denies pain with coughing her deep inspiration. Denies problems his upper extremity. 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 Liver transplant 04/2016 Past Anesthesia/Blood Transfusion Reactions: No Reported Reaction Past Psychological History: No Psychological Hx Reported Smoking Status: Former smoker Past Alcohol Use History: None Reported Past Drug Use History: Marijuana - Past Family History Mother Family Medical History: Osteoarthritis (OA) Additional Family Medical History / Comment(s): living in 80's Father Family Medical History: Cancer Additional Family Medical History / Comment(s): prostate,heart problems,living at 91 Medications and Allergies Home Medications Medication Instructions Recorded Confirmed Type Atorvastatin [Lipitor] 10 mg PO HS 07/07/18 04/02/21 History Furosemide [Lasix] 40 mg PO DAILY 07/07/18 04/02/21 History Metoprolol Tartrate [Lopressor] 25 mg PO BID 07/07/18 04/02/21 History NIFEdipine [NIFEdipine ER] 30 mg PO DAILY 07/07/18 04/02/21 History Tamsulosin [Flomax] 0.4 mg PO DAILY 07/07/18 04/02/21 History Mycophenolate Mofetil [Cellcept] 250 mg PO SUMOTUWETHSA 03/29/20 04/02/21 History Tacrolimus [Prograf] 2 mg PO BID@0900,2100 03/29/20 04/02/21 History Allergies Allergy/AdvReac Type Severity Reaction Status Date / Time No Known Allergies Allergy Verified 04/02/21 08:59 Physical Examination Osteopathic Statement: *. No significant issues noted on an osteopathic structural exam other than those noted in the History and Physical/Consult. - L Spine: dermatomal strength & reflexes bilateral Strength: hip flexion: 5/5 (At his back he does not have specific point tenderness over his thoracic or lumbar spine. There is no open wounds lacerations or abrasions. Currently he is nontender to percussion. His lower extremity is have sustained dorsal flexion plantar flexion and EHL intact. Positive nontender) Strength: hip extension: 5/5 (Hips are nonpainful to palpation range of motion in internal/external rotation. His upper extremities have good active passive range motion. Neck isNontender to palpation and range of motion.) Results - Labs Labs: Abnormal Lab Results - Last 24 Hours (Table) 04/08/21 04/08/21 Range/Units 07:37 07:51 WBC 3.5 L (3.8-10.6) k/uL RBC 3.61 L (4.30-5.90) m/uL Hgb 10.5 L (13.0-17.5) gm/dL Hct 29.3 L (39.0-53.0) % Plt Count 93 L D (150-450) k/uL Lymphocytes # 0.6 L (1.0-4.8) k/uL Potassium 3.3 L (3.5-5.1) mmol/L BUN 6 L (9-20) mg/dL Creatinine 0.62 L (0.66-1.25) mg/dL Glucose 117 H (74-99) mg/dL Magnesium 0.8 L* (1.6-2.3) mg/dL Creatine Kinase 1172 H* (55-170) U/L Microbiology - Last 24 Hours (Table) 04/02/21 11:18 Blood Culture - Preliminary Blood No Growth after 120 hours H & H 04/02/21 04/03/21 04/04/21 Range/Units 07:55 08:58 08:27 Hgb 12.4 L 11.7 L 11.8 L (13.0-17.5) gm/dL Hct 36.5 L 33.4 L 33.3 L (39.0-53.0) % 04/05/21 04/06/21 04/07/21 Range/Units 06:51 07:37 08:48 Hgb 11.2 L 10.7 L 10.4 L (13.0-17.5) gm/dL Hct 31.8 L 31.1 L 29.1 L (39.0-53.0) % 04/08/21 Range/Units 07:37 Hgb 10.5 L (13.0-17.5) gm/dL Hct 29.3 L (39.0-53.0) % Coagulation 04/02/21 04/05/21 Range/Units 07:54 20:16 INR 0.9 0.9 (<1.2) Result Diagrams: 04/08/21 07:37 04/08/21 07:51 - Diagnostic results CT Scan - lumbar: report reviewed (Significant spondylosis of the lumbar spine. There is diffuse disc degeneration and facet arthrosis.), image reviewed (Computed tomography scan done on this admission as compared to CT his abdomen and pelvis in 2018 2017. It shows evidence of compression fracture at T5 and L1. These were not present on prior CT scans 2014 and . There is no significant bony retropulsion. He does have significant disc degenerati) Assessment and Plan Assessment: Multiple medical issues including new onset seizures History of liver cirrhosis status post liver transpire with from liver cancer New cardiac incident New thoracic and lower back pain with findings of compression deformities at T5 and L1 without neurologic compromise from the spine Plan: Multiple medical issues including new onset seizures History of liver cirrhosis status post liver transpire with from liver cancer New cardiac incident New thoracic and lower back pain with findings of compression deformities at T5 and L1 without neurologic compromise from the spine The patient is being managed appropriately returned to his multiple medical issues including his seizure and cardiac incident and history of cancers. He is continuing management with medicine as well as neurology and cardiology. We are involved in the case in regards to his new compression deformities. It is difficult to fully determine the chronicity of the compression deformities as he is not having significant symptoms today while in bed. Apparently he is having regular soreness over this past week particularly with his mobilization. He does have findings of new compression deformities at T5 and L1 but is not having any neurologic compromise from those fractures. Fracture patterns overall appear to Be stable. I think we can plan conservative treatment for his compression fractures. We will order him a spinal medicine TLSO brace to be worn when he is ambulatory. His okay for him to be without the brace while in bed or up in a recliner type chair and bathing. We'll place an order and a prescription for the TLSO brace for him. I did discuss the possibility of kyphoplasty and surgical intervention for him with him and with his at bedside. They're hopeful to avoid any sort of surgical intervention and with his improvement of his symptoms and that overall stable pattern of fractures I think that we can continue to treat this conservatively for now. It is okay for him to mobilize with the brace intact. From an orthopedic standpoint is okay for her to be discharged when he is stable with medicine and he can follow up in outpatient in approximately 3 weeks. Time with Patient: Greater than 30
[2021-04-08] MEDS: MAGNESIUM SULFATE-D5W PMX 1 GM in DEXTROSE/WATER 1 100ML.BAG IVPB SCH ×4 (11:05→16:00)
--- NOTE | 2021-04-08 12:37 | P.PN ---
Subjective Patient is seen in follow-up for rhabdomyolysis. CK levels trending down. Oral intake fair. Good urine output. No vomiting or diarrhea. Vital signs are stable. General: The patient appeared well nourished and normally developed. HEENT: Head exam is unremarkable. LUNGS: Breath sounds decreased. HEART: Rate and Rhythm are regular. ABDOMEN: Soft, no distention. EXTREMITITES: No edema. Objective - Vital Signs Vital signs: Vital Signs Temp 98.1 F 04/08/21 11:26 Pulse 82 04/08/21 11:26 Resp 19 04/08/21 11:26 BP 116/72 04/08/21 11:26 Pulse Ox 94 L 04/08/21 11:26 Intake & Output 04/07/21 04/08/21 04/08/21 18:59 06:59 18:59 Intake Total 326 Output Total 2200 1240 475 Balance -1874 -1240 -475 Weight 103.5 kg Intake: Oral 326 Output: Urine 2200 1240 475 Stool 0 Other: Voiding Method Urinal Urinal Urinal Diaper Diaper # Voids 2 - Labs CBC & Chem 7: 04/08/21 07:37 04/08/21 07:51 Labs: Abnormal Lab Results - Last 24 Hours (Table) 04/08/21 04/08/21 Range/Units 07:37 07:51 WBC 3.5 L (3.8-10.6) k/uL RBC 3.61 L (4.30-5.90) m/uL Hgb 10.5 L (13.0-17.5) gm/dL Hct 29.3 L (39.0-53.0) % Plt Count 93 L D (150-450) k/uL Lymphocytes # 0.6 L (1.0-4.8) k/uL Potassium 3.3 L (3.5-5.1) mmol/L BUN 6 L (9-20) mg/dL Creatinine 0.62 L (0.66-1.25) mg/dL Glucose 117 H (74-99) mg/dL Magnesium 0.8 L* (1.6-2.3) mg/dL Creatine Kinase 1172 H* (55-170) U/L Microbiology - Last 24 Hours (Table) 04/02/21 11:18 Blood Culture - Preliminary Blood No Growth after 120 hours Assessment and Plan Plan: Assessment: 1. Rhabdomyolysis. CK levels trending down. On IV fluids. 2. Status post liver transplant maintained on immunosuppressive medications. 3. Lung cancer. 4. Hypokalemia from poor intake and hypomagnesemia. 5. Hypomagnesemia from poor intake as well as calcineurin inhibitor use. Plan: Maintain IV fluids. Decrease rate to 100 mL an hour. Potassium and magnesium being replaced. Follow-up tacrolimus level. Continue to monitor renal function and urine output.
[2021-04-08 13:36] VITALS: BMI 30.9
--- NOTE | 2021-04-08 14:22 | FL ---
Modified barium swallow. HISTORY: Dysphagia. Modified barium swallow was performed with the department of speech pathology. The patient was prese nted with various consistencies of barium. There is no evidence for aspiration or penetration. Full report is to follow from the department of speech pathology. Impression: Normal study.
--- NOTE | 2021-04-08 14:45 | P.PN ---
Subjective Progress Note Date: 04/08/21 I am seeing the patient for the first time for neurological management. Please refer to Dr. Will's note for further details. He states he is doing well and denies of any focal weakness, numbness, visual di sturbance. He denies of any slurred speech, difficulty getting his words out or any new neurological problems. Objective - Vital Signs Vital signs: Vital Signs Temp 98.1 F 04/08/21 11:26 Pulse 82 04/08/21 11:26 Resp 19 04/08/21 11:26 BP 116/72 04/08/21 11:26 Pulse Ox 94 L 04/08/21 11:26 Intake & Output 04/07/21 04/08/21 04/08/21 18:59 06:59 18:59 Intake Total 326 Output Total 2200 1240 475 Balance -1874 -1240 -475 Weight 103.5 kg Intake: Oral 326 Output: Urine 2200 1240 475 Stool 0 Other: Voiding Method Urinal Urinal Urinal Diaper Diaper # Voids 2 - Exam GENERAL: The patient is lying in bed and is not in acute distress. CHEST: The heart rate is regular rate rhythm. No murmurs to auscultation. No carotid bruit bilaterally. LUNG: Clear to auscultation bilaterally no wheezing noted throughout. Not labored breathing. ABDOMEN/GI: Bowel sounds present in all 4 quadrants. No tenderness to palpation throughout. NEUROLOGICAL: Higher mental function: The patient is awake, alert, oriented to self, place and time. Patient is following simple commands. No aphasia and no neglect. Cranial nerves: The pupils are round, equal and reactive to light and accommodation. Visual singleton are full to confrontation throughout. Extraocular movement is intact no nystagmus is noted. Facial sensation is normal to touch throughout. The facial strength is normal throughout. Hearing is normal bilaterally to hand rub. Tongue is midline and moved [id number] without any difficulty. No dysarthria is noted. Shoulder shrug is normal bilaterally. Motor: Gait is deferred. The strength is 5 over 5 throughout. Normal tone and bulk. Cerebellum: Normal finger to nose bilaterally. Sensation: Sensation is normal to touch throughout. Reflexes (right/left): 2+ throughout. Plantars are downgoing bilaterally. WORK-UP: * MRI of the brain with and without contrast revealed severely limited exam due to extreme motion artifact. There appears to be multiple subcentimeter areas of abnormal signal involving the left frontal, frontal parietal junction, right parietal lobe, bilateral cerebellar hemispheres, suspicious for ADLs of small acute ischemia. No definite enhancement. Therefore, tiny foci of intraparenchymal metastasis, although not excluded, are less likely. * EEG is reported as abnormal due to background slowing of at least moderate degree. This is suggestive of generalized cerebral dysfunction as can be seen with toxic metabolic encephalopathy or due to diffuse structural brain abnormality. No epileptiform activity was seen. * CT abdomen and pelvis shwoedpleural effusion, bilateral lower lobe pulmonary infiltrates and atelectasis. * 2-D echo shows normal left-ventricular size. Normal left ventricular wall thickness. EF is between 55-60%. Trace AR. Trace MR. * Carotid Doppler showed no carotid stenosis. Antegrade flow in both vertebral arteries. * Hemoglobin A1c 6.7, probable new onset diabetes. * Lipid panel with cholesterol 140, LDL 60, HDL 35 and triglycerides 113. * AST of 513 and ALTs 59 which is the slightly trending down on the day prior of 04/05/2021 * TSH is 2.890 * B12 is low 258. - Labs CBC & Chem 7: 04/08/21 07:37 04/08/21 07:51 Labs: Abnormal Lab Results - Last 24 Hours (Table) 04/08/21 04/08/21 Range/Units 07:37 07:51 WBC 3.5 L (3.8-10.6) k/uL RBC 3.61 L (4.30-5.90) m/uL Hgb 10.5 L (13.0-17.5) gm/dL Hct 29.3 L (39.0-53.0) % Plt Count 93 L D (150-450) k/uL Lymphocytes # 0.6 L (1.0-4.8) k/uL Potassium 3.3 L (3.5-5.1) mmol/L BUN 6 L (9-20) mg/dL Creatinine 0.62 L (0.66-1.25) mg/dL Glucose 117 H (74-99) mg/dL Magnesium 0.8 L* (1.6-2.3) mg/dL Creatine Kinase 1172 H* (55-170) U/L Microbiology - Last 24 Hours (Table) 04/02/21 11:18 Blood Culture - Preliminary Blood No Growth after 120 hours Assessment and Plan Assessment: * Multiple small areas of acute ischemic infarction involving bilateral cerebral and cerebellar hemispheres, suggestive of embolic event. Metastasis appears much less likely. * New onset seizure, probably due to above. * Altered mental status, likely due to postictal state, now resolved. Mentation back to normal. * Rhabdomyolysis with CPK rising up to 10,238 currently is 1172 * Thrombocytopenia likely due to recent chemotherapy. It is trending up * History of liver cancer, status post liver transplant in April 2016, c urrently in remission. * History of lung cancer, currently undergoing chemotherapy. * X tobacco use * Hypertension Plan: * Continue dual antiplatelet medications with Plavix 75 mg and aspirin 81 mg for 21 days, then after that time maintain only on aspirin [address] Will has discussion with oncology, no need to stop Plavix, as platelets are > 50,000 and hemoglobin is stable. Hold off on lumbar puncture because of recent multiple strokes. Recommend Repeat MRI of the brain in 2-3 months (per Dr. Will's recommendation to rule out metastasis), earlier if develops any new neurological symptoms in the interim. * Lipitor on hold because of rhabdomyolysis. Follow CPKs closely, trend improving. Hydration. I ordered AST and ALT. Once the AST and ALT is normalized O Pl. the patient on the Lipitor 10 mg daily at bedtime (will avoid high dose because of elevated LFT's). * Recommend Holter or an event monitor placement rule out paroxysmal atrial fibrillation. Consider LAURIE as outpatient. * Continue Keppra 500 mg 1 tab twice a day. * There is new compression fracture of T5 compared to 03/30/2018 study. Orthopedic team is consulted and they recommended conservative management. They'll given a prescription for TLSO brace. Also discussed possibility of ky phoplasty and surgical intervention down the line. Consider bone scan/dexa scan. * Because of low B12 258. Continue B12 replacement. * PT and OT. * For DVT prophylaxis: On subq heparin. * Will defer the rest of medical management to the primary team. * Recommend follow-up with neurologist as outpatient in 1-2 weeks. There is no further neurolgoical work-up. Miller Mckeon MD Neuro-Hospitalist Time with Patient: Less than 30
--- NOTE | 2021-04-08 15:51 | P.DS ---
Providers Date of admission: 04/02/21 09:06 Attending physician: Arcadio Blanton MD Consults: 04/02/21 08:52 Consult Physician Routine Consulting Provider: Corona Patino Consult Reason/Comments: elevated troponin Do you want consulting provider notified?: Yes 04/02/21 09:06 Consult Physician Routine Consulting Provider: Barbara Andrade Consult Reason/Comments: chemotherapy Do you want consulting provider notified?: Yes 04/02/21 10:28 Consult Physician Urgent Consulting Provider: Emerita Will Consult Reason/Comments: ams Do you want consulting provider notified?: Yes 04/02/21 10:29 Consult Physician Routine Consulting Provider: Emerita Will Consult Reason/Comments: new onset seizure Do you want consulting provider notified?: Yes 04/05/21 09:23 Consult Physician Urgent Consulting Provider: Jessica Villalobos Consult Reason/Comments: rhabdomyolysis Do you want consulting provider notified?: Yes 04/07/21 15:08 Consult Physician Routine Consulting Provider: Nolberto Chaves Consult Reason/Comments: compression fractures noted on CT and severe back pain Do you want consulting provider notified?: Yes Primary care physician: Josiah B. Thomas Hospital Course: Patient is [id number] male came in confused underwent extensive evaluation believed to have the either metabolic or toxic encephalopathy most probably from possible aspiration pneumonia patient underwent extensive workup including EEG which was within normal limits and MRI did not show any significant abnormality except for suspicion for a small area of metastatic disease which is less likely. Patient metabolic encephalopathy may be related to rhabdomyolysis for which patient was treated for. Patient was started on Keppra and the neurologist recommended to continue Keppra and patient will need a Holter monitor which is being arranged. Patient wants to go home and doesn't want to go to rehab patient will be discharged to home with home care. Patient had history of cirrhosis status post liver transplant on tacrolimus and mycophenolate leading to hypomagnesemia magnesium is being replaced patient will be discharged on magnesium supplementation to home. And repeat magnesium and basic metabolic profile will be ordered. Patient potassium was also low secondary to hypomagnesemia which is being replaced as well. Patient had mild stable elevation of troponin urology evaluated the patient this is a noncardiac elevation of troponin intervention at this time patient is also being continued on aspirin and Plavix as recommended by neurology. Patient had history of liver cancer with chemoembolization in 2014 PHYSICAL EXAMINATION: GENERAL: The patient is alert and oriented x3, not in any acute distress. Well developed, well nourished. HEENT: Pupils are round and equally reacting to light. EOMI. No scleral icterus. No conjunctival pallor. Normocephalic, atraumatic. No pharyngeal erythema. No thyromegaly. CARDIOVASCULAR: S1 and S2 present. No murmurs, rubs, or gallops. PULMONARY: Chest is clear to auscultation, no wheezing or crackles. ABDOMEN: Soft, nontender, nondistended, normoactive bowel sounds. No palpable organomegaly. MUSCULOSKELETAL: No joint swelling or deformity. EXTREMITIES: No cyanosis, clubbing, or pedal edema. NEUROLOGICAL: Gross neurological examination did not reveal any focal deficits. SKIN: No rashes. Present medical problems and the rest of the hospital physician course please refer to documentation from Dr. blanton from yesterday Patient Condition at Discharge: Fair Plan - Discharge Summary Discharge Rx Participant: Yes New Discharge Prescriptions: New Aspirin 81 mg PO DAILY #30 tab Magnesium Oxide [Magox 400] 400 mg PO BID #60 tablet Clopidogrel [Plavix] 75 mg PO DAILY #30 tab Nicotine 21Mg/24Hr Patch [Habitrol] 1 patch TRANSDERM DAILY #14 patch levETIRAcetam [Keppra] 500 mg PO Q12HR #60 tab Continue Tamsulosin [Flomax] 0.4 mg PO DAILY Metoprolol Tartrate [Lopressor] 25 mg PO BID Atorvastatin [Lipitor] 10 mg PO HS Tacrolimus [Prograf] 2 mg PO BID@0900,2100 Mycophenolate Mofetil [Cellcept] 250 mg PO SUMOTUWETHSA Discontinued NIFEdipine [NIFEdipine ER] 30 mg PO DAILY Furosemide [Lasix] 40 mg PO DAILY Discharge Medication List Atorvastatin [Lipitor] 10 mg PO HS 07/07/18 [History] Metoprolol Tartrate [Lopressor] 25 mg PO BID 07/07/18 [History] Tamsulosin [Flomax] 0.4 mg PO DAILY 07/07/18 [History] Mycophenolate Mofetil [Cellcept] 250 mg PO SUMOTUWETHSA 03/29/20 [History] Tacrolimus [Prograf] 2 mg PO BID@0900,2100 03/29/20 [History] Aspirin 81 mg PO DAILY #30 tab 10/25/21 [Rx] Clopidogrel [Plavix] 75 mg PO DAILY #30 tab 04/08/21 [Rx] Magnesium Oxide [Magox 400] 400 mg PO BID #60 tablet 04/08/21 [Rx] Nicotine 21Mg/24Hr Patch [Habitrol] 1 patch TRANSDERM DAILY #14 patch 04/08/21 [Rx] levETIRAcetam [Keppra] 500 mg PO Q12HR #60 tab 04/08/21 [Rx] Follow up Appointment(s)/Referral(s): Nolberto Chaves DO [Doctor of Osteopathic Medicine] - 3 Weeks Kp Reddy MD [STAFF PHYSICIAN] - 2 Weeks Ac Sharif MD [Primary Care Provider] - 1-2 days Tejas Bartlett DO [STAFF PHYSICIAN] - 1 Week Ambulatory/Diagnostic Orders: Basic Metabolic Panel [LAB.AMB] Time Frame: 3 Days, Location: None Selected Magnesium [LAB.AMB] Time Frame: 3 Days, Location: None Selected Patient Instructions/Handouts: Seizure/Epilepsy Discharge Instructions & Follow-Up Activity/Diet/Wound Care/Special Instructions: TLSO brace to be worn during ambulation. May remove brace and went in a fully supportive recliner type tear. May remove for bathing. Discharge Disposition: HOME WITH HOME HEALTH SERVICES
[2021-04-08 16:51] LABS: Potassium 3.1 mmol/L (3.5-5.1)
[2021-04-08] MEDS ORDERED: POTASSIUM CHLORIDE ER 20 MEQ TAB.ER PO STA (17:03)
--- NOTE | 2021-04-08 18:26 | P.PN ---
Subjective Progress Note Date: 04/08/21 Principal diagnosis: AMS, seizure On f/u pt is more alert and oriented, much less agitated and irritable. Pain is better, he was found to have some compression fractures of the spine and has brace. He is eating with c/o odynophagia after several bites, he is having video fluoroscopy. No reports of another seizure. Objective - Vital Signs Vital signs: Vital Signs Temp 98.1 F 04/08/21 15:59 Pulse 88 04/08/21 15:59 Resp 16 04/08/21 15:59 BP 108/59 04/08/21 15:59 Pulse Ox 92 L 04/08/21 15:59 Intake & Output 04/07/21 04/08/21 04/08/21 18:59 06:59 18:59 Intake Total 326 780 Output Total 2200 1240 475 Balance -1874 -1240 305 Weight 103.5 kg 103.5 kg Intake: Oral 326 780 Output: Urine 2200 1240 475 Stool 0 Other: Voiding Method Urinal Urinal Urinal Diaper Diaper # Voids 2 2 - Constitutional General appearance: Present: average body habitus, cooperative, no acute distress - EENT Eyes: Present: anicteric sclerae, EOMI ENT: Present: hearing grossly normal - Respiratory Details: resp even and unlabored - Psychiatric Psychiatric: Present: A&O x's 3, appropriate affect, intact judgment & insight - Labs CBC & Chem 7: 04/08/21 07:37 04/08/21 16:10 Labs: Abnormal Lab Results - Last 24 Hours (Table) 04/08/21 04/08/21 04/08/21 Range/Units 07:37 07:51 16:10 WBC 3.5 L (3.8-10.6) k/uL RBC 3.61 L (4.30-5.90) m/uL Hgb 10.5 L (13.0-17.5) gm/dL Hct 29.3 L (39.0-53.0) % Plt Count 93 L D (150-450) k/uL Lymphocytes # 0.6 L (1.0-4.8) k/uL Potassium 3.3 L 3.1 L (3.5-5.1) mmol/L BUN 6 L (9-20) mg/dL Creatinine 0.62 L (0.66-1.25) mg/dL Glucose 117 H (74-99) mg/dL Magnesium 0.8 L* (1.6-2.3) mg/dL AST 68 H (17-59) U/L ALT 52 H (4-49) U/L Creatine Kinase 1172 H* (55-170) U/L Microbiology - Last 24 Hours (Table) 04/07/21 14:45 Blood Culture - Preliminary Blood No Growth after 24 hours 04/02/21 11:18 Blood Culture - Final Blood No Growth after 144 hours Assessment and Plan (1) Non-small cell lung cancer Narrative/Plan: Stage IIB, on adjuvant cisplatin and gemzar, s/p 2/4 cycles. Last week was his week off of treatment. His CBC fluctuated but he never required transfusion or GCSF. Cisplatin can interfere with metabolism of tacrolimus-tacrolimus level ordered, it was actually low. Message sent to Oncologist about next cycle of chemo due this week. RNs from [facility] will f/u with pt. Current Visit: Yes Status: Acute Priority: High Code(s): C34.90 - MALIGNANT NEOPLASM OF UNSP PART OF UNSP BRONCHUS OR LUNG SNOMED Code(s): 446011804 (2) Hepatocellular carcinoma Narrative/Plan: Stage IIIA, treated with RFA, JULISSA. Current Visit: No Status: Chronic Priority: Low Code(s): C22.0 - LIVER CELL CARCINOMA SNOMED Code(s): 297182319 (3) Seizure Narrative/Plan: Pt has been started on keppra, asa, plavix. Pt will follow up with Neurologist. Agree with short term f/u brain imaging Current Visit: Yes Status: Acute Code(s): R56.9 - UNSPECIFIED CONVULSIONS SNOMED Code(s): 75074489
[2021-04-08 19:37] VITALS: BP 143/69; PULSE 84; RESP 20; TEMP 98.3
--- NOTE | 2021-05-10 12:46 | EM ---
EVENT MONITOR EVENT MONITOR: The patient wore the event monitor just for one day. This was supposed to be a 30-day event monitor. Predominant rhythm is sinus with sinus tachycardia. No other significant arrhythmia was reported. FINAL IMPRESSION: Recording was only for one day. Sinus rhythm and sinus tachycardia were noted. No significant arrhythmia. ROCCO / SHERLYN: [id number] /
== END 2021-04-08 20:15 | disposition home health service (06) | DRG 64 ==
LOC: EC 07:40 → 3SCARD 09:06
PROVIDERS: ADMIT Internal Medicine; ATTEND Internal Medicine
PROC: B2111ZZ Fluoroscopy of Multiple Coronary Arteries using Low Osmolar Contrast (ICD-10-PCS; principal; 2021-04-06 09:27)
DX: I63.443 Cerebral infarction due to embolism of bilateral cerebellar arteries (principal); G93.41 Metabolic encephalopathy; D61.810 Antineoplastic chemotherapy induced pancytopenia; J69.0 Pneumonitis due to inhalation of food and vomit; C34.92 Malignant neoplasm of unspecified part of left bronchus or lung; C22.0 Liver cell carcinoma; M62.82 Rhabdomyolysis; E87.2 Acidosis; J44.0 Chronic obstructive pulmonary disease with (acute) lower respiratory infection; M48.55XA Collapsed vertebra, not elsewhere classified, thoracolumbar region, initial encounter for fracture; Z94.4 Liver transplant status; I63.40 Cerebral infarction due to embolism of unspecified cerebral artery; Z20.822 Contact with and (suspected) exposure to COVID-19; I63.89 Other cerebral infarction; I08.3 Combined rheumatic disorders of mitral, aortic and tricuspid valves; R56.9 Unspecified convulsions; T45.1X5A Adverse effect of antineoplastic and immunosuppressive drugs, initial encounter; Z85.05 Personal history of malignant neoplasm of liver; K74.60 Unspecified cirrhosis of liver; Z92.21 Personal history of antineoplastic chemotherapy; R79.89 Other specified abnormal findings of blood chemistry; I10 Essential (primary) hypertension; E87.6 Hypokalemia; E83.42 Hypomagnesemia; D69.59 Other secondary thrombocytopenia; E11.65 Type 2 diabetes mellitus with hyperglycemia; F02.80 Dementia in other diseases classified elsewhere, unspecified severity, without behavioral disturbance, psychotic disturbance, mood disturbance, and anxiety; G30.9 Alzheimer's disease, unspecified; G93.89 Other specified disorders of brain; I25.10 Atherosclerotic heart disease of native coronary artery without angina pectoris; M46.96 Unspecified inflammatory spondylopathy, lumbar region; M51.36 Other intervertebral disc degeneration, lumbar region; I49.3 Ventricular premature depolarization; K59.00 Constipation, unspecified; R13.10 Dysphagia, unspecified; Z79.02 Long term (current) use of antithrombotics/antiplatelets; Y83.0 Surgical operation with transplant of whole organ as the cause of abnormal reaction of the patient, or of later complication, without mention of misadventure at the time of the procedure; Z79.82 Long term (current) use of aspirin; Z79.899 Other long term (current) drug therapy; Z90.2 Acquired absence of lung [part of]; Z79.4 Long term (current) use of insulin
CPT/HCPCS: 36415; 70450; 70553; 71045; 71260; 74160; 74230; 80048; 80053; 80061; 80197; 80320; 81001; 82140; 82330; 82550; 82565; 82607; 83036; 83605; 83690; 83735; 83880; 84100; 84132; 84145; 84443; 84450; 84460; 84484; 84520; 85025; 85384; 85610; 85613; 85730; 85732; 86022; 86146; 86147; 87040; 87635; 93005; 93270; 93306; 93454; 93880; 95816; 99291

== ENCOUNTER 2021-04-09 16:55 | Observation (INO) | payer MEDICARE, OTHER ==
[2021-04-09] MEDS ORDERED: MORPHINE SULFATE 4 MG/ML SYRINGE IV STA (17:39)
[2021-04-09 17:48] LABS: HCT 33.3 % (39.0-53.0); HGB 11.5 gm/dL (13.0-17.5); MCH 28.9 pg (25.0-35.0); MCHC 34.5 g/dL (31.0-37.0); MCV 83.7 fL (80.0-100.0); Mean Platelet Volume 8.1; Poikilocytosis Slight; RBC 3.98 m/uL (4.30-5.90); RDW 15.4 % (11.5-15.5); WBC 4.6 k/uL (3.8-10.6)
[2021-04-09 17:55] LABS: Platelet Count 172 k/uL (150-450)
[2021-04-09 17:59] LABS: Partial Thromboplastin Time 24.3 sec (22.0-30.0); Prothrombin Time 10.9 sec (9.0-12.0)
[2021-04-09 18:01] LABS: ALT 48 U/L (4-49); AST 51 U/L (17-59); African American GFR (CKD) >90 (>60 ml/min/1.73 sqM); Albumin 3.7 g/dL (3.5-5.0); Alkaline Phosphatase 78 U/L (38-126); Anion Gap 8 mmol/L; Blood Urea Nitrogen 9 mg/dL (9-20); Carbon Dioxide 29 mmol/L (22-30); Chloride 101 mmol/L (98-107); Glucose 129 mg/dL (74-99); Magnesium 1.2 mg/dL (1.6-2.3); Non-African American GFR(CKD) >90 (>60 ml/min/1.73 sqM); Potassium 3.2 mmol/L (3.5-5.1); Sodium 138 mmol/L (137-145); Total Bilirubin 0.8 mg/dL (0.2-1.3); Total Protein 6.8 g/dL (6.3-8.2)
[2021-04-09 18:29] LABS: Lymphocytes # (M) 1.43 k/uL (1.0-4.8); Neutrophils # (M) 2.58 k/uL (1.3-7.7); Neutrophils % (M) 56 %; Nucleated Red Blood Cells 0 /100 WBC (0-0); Total Cells Counted 100
--- NOTE | 2021-04-09 18:35 | XR ---
EXAMINATION TYPE: XR chest 2V DATE OF EXAM: 04/09/2021 COMPARISON: 04/08/2021 HISTORY: Short of breath TECHNIQUE: 2 views FINDINGS: Heart and mediastinum are shifted to the left side. There is increased density over the lef t lung that could relate to significant atelectasis of the left upper lobe. Right lung is fairly karen r. There is slight blunting of the left costophrenic angle. There are chest leads. IMPRESSION: Since exam yesterday there is development of significant volume loss on the left side jay t could be left upper lobe atelectasis. Follow-up is recommended.
[2021-04-09] MEDS ORDERED: NALOXONE 0.4 MG/ML 1 ML VIAL IV PRN (19:14)
[2021-04-09] MEDS ORDERED: TEMAZEPAM 15 MG CAP PO PRN (19:14)
[2021-04-09] MEDS ORDERED: ONDANSETRON 4 MG/2 ML VIAL IVP PRN (19:14)
[2021-04-09] MEDS ORDERED: ALPRAZolam 0.25 MG TAB PO PRN (19:14)
--- NOTE | 2021-04-09 19:14 | ED ---
Chest Pain HPI - General Chief Complaint: Chest Pain Stated Complaint: Chest Pain/Revisit Time Seen by Provider: 04/09/21 17:14 Source: patient Mode of arrival: wheelchair Limitations: no limitations - History of Present Illness Initial Comments: Patient complains of chest pain. Pain is all over his chest. It doesn't radiate to her. Nothing makes it better or worse. He was discharged in the hospital yesterday. He denies any travel and that time. He has no palpitations. He has no swelling in the arms or legs. He wasn't doing anything in the chest pain began. He has no fevers or chills. - Related Data Home Medications Medication Instructions Recorded Confirmed Atorvastatin [Lipitor] 10 mg PO HS 07/07/18 04/09/21 Metoprolol Tartrate [Lopressor] 25 mg PO BID 07/07/18 04/09/21 Tamsulosin [Flomax] 0.4 mg PO DAILY 07/07/18 04/09/21 Mycophenolate Mofetil [Cellcept] 250 mg PO SUMOTUWETHSA 03/29/20 04/09/21 Tacrolimus [Prograf] 2 mg PO BID@0900,2100 03/29/20 04/09/21 Previous Rx's Medication Instructions Recorded Aspirin 81 mg PO DAILY #30 tab 04/08/21 Clopidogrel [Plavix] 75 mg PO DAILY #30 tab 04/08/21 Magnesium Oxide [Magox 400] 400 mg PO BID #60 tablet 04/08/21 Nicotine 21Mg/24Hr Patch [Habitrol] 1 patch TRANSDERM DAILY #14 patch 04/08/21 levETIRAcetam [Keppra] 500 mg PO Q12HR #60 tab 04/08/21 Allergies Allergy/AdvReac Type Severity Reaction Status Date / Time No Known Allergies Allergy Verified 04/09/21 18:59 Review of Systems ROS Statement: Those systems with pertinent positive or pertinent negative responses have been documented in the HPI. ROS Other: All systems not noted in ROS Statement are negative. EKG Findings - EKG Comments: EKG Findings:: Twelve-lead EKG shows ventricular rate 85 bpm, normal TN interval and QRS complexes, no ST elevation or depression, interpreted by me as normal sinus rhythm. 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 Liver transplant 04/2016 Past Anesthesia/Blood Transfusion Reactions: No Reported Reaction Past Psychological History: No Psychological Hx Reported Smoking Status: Former smoker Past Alcohol Use History: None Reported Past Drug Use History: Marijuana - Past Family History Mother Family Medical History: Osteoarthritis (OA) Additional Family Medical History / Comment(s): living in 80's Father Family Medical History: Cancer Additional Family Medical History / Comment(s): prostate,heart problems,living at 91 General Exam Limitations: no limitations General appearance: alert, in no apparent distress Head exam: Present: atraumatic, normocephalic, normal inspection Eye exam: Present: normal appearance, PERRL, EOMI. Absent: scleral icterus, conjunctival injection, periorbital swelling ENT exam: Present: normal exam, mucous membranes moist Neck exam: Present: normal inspection. Absent: tenderness, meningismus, lymphadenopathy Respiratory exam: Present: normal lung sounds bilaterally. Absent: respiratory distress, wheezes, rales, rhonchi, stridor Cardiovascular Exam: Present: regular rate, normal rhythm, normal heart sounds. Absent: systolic murmur, diastolic murmur, rubs, gallop, clicks GI/Abdominal exam: Present: soft, normal bowel sounds. Absent: distended, tenderness, guarding, rebound, rigid Extremities exam: Present: normal inspection, full ROM, normal capillary refill. Absent: tenderness, pedal edema, joint swelling, calf tenderness Back exam: Present: normal inspection Neurological exam: Present: alert, oriented X3, CN II-XII intact Psychiatric exam: Present: normal affect, normal mood Skin exam: Present: warm, dry, intact, normal color. Absent: rash Course Vital Signs 04/09/21 17:06 Temperature 97.8 F Pulse Rate 96 Respiratory 19 Rate Blood Pressure 117/66 O2 Sat by Pulse 95 Oximetry Chest Pain MDM - Core Measures AMI Core Measures Followed: Yes - MDM Patient presents with chest pain. He was discharged yesterday. He doesn't feel comfortable being home. He is to me. He will be admitted to the hospital. Disposition Clinical Impression: Chest pain Disposition: ADMITTED IP TO THIS HOSP Condition: Fair Referrals: Ac Sharif MD [Primary Care Provider] - 1-2 days
[2021-04-09] MEDS ORDERED: ATORVASTATIN 10 MG TAB PO SCH (21:00)
[2021-04-09] MEDS: METOPROLOL TARTRATE 25 MG TAB PO SCH (21:05)
[2021-04-09] MEDS: MAGNESIUM OXIDE 400 MG TAB PO SCH (21:05)
[2021-04-09] MEDS: levETIRAcetam 500 MG TAB PO SCH (21:05)
[2021-04-09] MEDS: TACROLIMUS 1 MG CAP PO SCH (21:42)
[2021-04-09] MEDS: MORPHINE SULFATE 4 MG/ML SYRINGE IV PRN (23:06)
[2021-04-10] MEDS: MORPHINE SULFATE 4 MG/ML SYRINGE IV PRN ×2 (04:15→09:35)
[2021-04-10] MEDS: MAGNESIUM OXIDE 400 MG TAB PO SCH (07:10)
[2021-04-10] MEDS: METOPROLOL TARTRATE 25 MG TAB PO SCH (07:10)
[2021-04-10] MEDS: levETIRAcetam 500 MG TAB PO SCH (07:11)
[2021-04-10] MEDS: NICOTINE 21MG/24HR PATCH TRANSDERM SCH ×2 (07:11→11:30)
[2021-04-10] MEDS: TACROLIMUS 1 MG CAP PO SCH (07:11)
[2021-04-10 08:20] VITALS: BP 122/72; PULSE 67; RESP 16; TEMP 97.4
--- NOTE | 2021-04-10 08:53 | P.CRDCN ---
History of Present Illness Consult date: 04/10/21 History of present illness: HISTORY OF PRESENT ILLNESS: This is a 71-year-old male with a past medical history significant for hyperlipidemia, liver cirrhosis, liver cancer, liver transplant, nicotine dependence, and marijuana use. 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 We have been asked to see the patient in consultation for chest pain. Patient examined at the bedside. Patient states he has been having chest pain on and off for the past week. He was recently admitted to the hospital for chest pain and underwent cardiac cath on 04/06/[address] Reddy revealing mild coronary artery disease. Echo completed at that time revealed EF 55-60%. The patient currently denies chest pain or pressure. He states the pain is in his lower back this morning. He reports receiving IV morphine which helped the pain. EKG reveals sinus mechanism with no signs of acute ischemia Chest xray since exam yesterday there is development of significant volume loss in the left side that could be left upper lobe atelectasis. Laboratory data: WBC 4.6. Hemoglobin 11.5. Platelet count 172. Sodium 138. Potassium 3.2. BUN 9. Creatine 0.73. Magnesium 1.2. Troponin 0.012. 0.037. 0.018. 0.012. Current home cardiac medications include aspirin 81 mg daily, Plavix 75 mg daily, metoprolol tartrate 25 mg twice a day, and Lipitor 10 mg daily REVIEW OF SYSTEMS: At the time of my exam: CONSTITUTIONAL: Denies fever or chills. HEENT: Denies blurred vision, vision changes, or eye pain. Denies hemoptysis CARDIOVASCULAR: Denies chest pain. Denies orthopnea. Denies PND. Denies palpitations RESPIRATORY: Denies shortness of breath. GASTROINTESTINAL: Denies abdominal pain. Denies nausea or vomiting. HEMATOLOGIC: Denies bleeding disorders. GENITOURINARY: Denies any blood in urine. SKIN: Denies pruitis. Denies rash. PHYSICAL EXAM: VITAL SIGNS: Reviewed. GENERAL: Well-developed in no acute distress. HEENT: Head is normocephalic. Pupils are equal, round. Sclerae anicteric. Mucous membranes of the mouth are moist. Neck supple. No JVD or thyromegaly LUNGS: Respirations even and unlabored. Lungs essentially clear to auscultation bilaterally. HEART: Regular rate and rhythm. S1 and S2 heard. ABDOMEN: Soft. Nondistended. Nontender. EXTREMITIES: Normal range of motion. No clubbing or cyanosis. Peripheral pulses intact. No lower extremity edema NEUROLOGIC: Awake and alert. Oriented x 3. ASSESSMENT: Chest pain, with recent cardiac catheterization on 04/06/2021 Abnormal troponin, may be secondary to recent cardiac catheterization, overall unclear significance Hyperlipidemia Liver cirrhosis History of liver cancer History of liver transplant Nicotine dependence Marijuana use PLAN: An acute coronary been has been ruled out Patient underwent cardiac cath on 04/06/21 revealing mild CAD No further cardiac workup at this time Patient may be discharged home today Nurse practitioner note has been reviewed by physician. Signing provider agrees with the documented findings, assessment, and plan of care. 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 Liver transplant 04/2016 Past Anesthesia/Blood Transfusion Reactions: No Reported Reaction Past Psychological History: No Psychological Hx Reported Smoking Status: Former smoker Past Alcohol Use History: None Reported Additional Past Alcohol Use History / Comment(s): trying to quit, stated in last month smoked 3 cigarettes. smoked approx 40 yrs 1ppd has now quit Past Drug Use History: Marijuana - Past Family History Mother Family Medical History: Osteoarthritis (OA) Additional Family Medical History / Comment(s): living in 80's Father Family Medical History: Cancer Additional Family Medical History / Comment(s): prostate,heart problems,living at 91 Medications and Allergies Home Medications Medication Instructions Recorded Confirmed Type Atorvastatin [Lipitor] 10 mg PO HS 07/07/18 04/09/21 History Metoprolol Tartrate [Lopressor] 25 mg PO BID 07/07/18 04/09/21 History Tamsulosin [Flomax] 0.4 mg PO DAILY 07/07/18 04/09/21 History Mycophenolate Mofetil [Cellcept] 250 mg PO SUMOTUWETHSA 03/29/20 04/09/21 History Tacrolimus [Prograf] 2 mg PO BID@0900,2100 03/29/20 04/09/21 History Aspirin 81 mg PO DAILY #30 tab 04/08/21 04/09/21 Rx Clopidogrel [Plavix] 75 mg PO DAILY #30 tab 04/08/21 04/09/21 Rx Magnesium Oxide [Magox 400] 400 mg PO BID #60 tablet 04/08/21 04/09/21 Rx Nicotine 21Mg/24Hr Patch [Habitrol] 1 patch TRANSDERM DAILY #14 patch 04/08/21 04/09/21 Rx levETIRAcetam [Keppra] 500 mg PO Q12HR #60 tab 04/08/21 04/09/21 Rx Allergies Allergy/AdvReac Type Severity Reaction Status Date / Time No Known Allergies Allergy Verified 04/09/21 18:59 Physical Exam Vitals: Vital Signs Temp Pulse Pulse Resp BP BP BP 04/10/21 08:00 16 04/10/21 07:00 97.4 F L 67 16 122/72 04/10/21 01:30 97.6 F 71 18 108/69 04/10/21 01:27 78 18 04/09/21 21:27 98.1 F 78 18 147/77 04/09/21 20:53 75 16 143/79 04/09/21 17:06 97.8 F 96 19 117/66 Pulse Ox 04/10/21 08:00 04/10/21 07:00 96 04/10/21 01:30 94 L 04/10/21 01:27 04/09/21 21:27 96 04/09/21 20:53 04/09/21 17:06 95 Intake and Output 04/09/21 04/10/21 04/10/21 22:59 06:59 14:59 Other: # Voids 1 2 Weight 104.326 kg Results 04/09/21 17:20 04/09/21 17:20 Cardiac Enzymes 04/09/21 04/09/21 04/09/21 Range/Units 17:20 17:20 21:00 AST 51 (17-59) U/L Troponin I <0.012 0.037 H* (0.000-0.034) ng/mL 04/10/21 04/10/21 Range/Units 00:41 06:47 AST (17-59) U/L Troponin I 0.018 <0.012 (0.000-0.034) ng/mL Coagulation 04/09/21 Range/Units 17:20 PT 10.9 (9.0-12.0) sec APTT 24.3 (22.0-30.0) sec CBC 04/09/21 Range/Units 17:20 WBC 4.6 (3.8-10.6) k/uL RBC 3.98 L (4.30-5.90) m/uL Hgb 11.5 L (13.0-17.5) gm/dL Hct 33.3 L (39.0-53.0) % Plt Count 172 D (150-450) k/uL Comprehensive Metabolic Panel 04/09/21 Range/Units 17:20 Sodium 138 (137-145) mmol/L Potassium 3.2 L (3.5-5.1) mmol/L Chloride 101 (98-107) mmol/L Carbon Dioxide 29 (22-30) mmol/L BUN 9 (9-20) mg/dL Creatinine 0.73 (0.66-1.25) mg/dL Glucose 129 H (74-99) mg/dL Calcium 9.0 (8.4-10.2) mg/dL AST 51 (17-59) U/L ALT 48 (4-49) U/L Alkaline Phosphatase 78 (38-126) U/L Total Protein 6.8 (6.3-8.2) g/dL Albumin 3.7 (3.5-5.0) g/dL Current Medications Generic Name Dose Route Start Last Admin Trade Name Freq PRN Reason Stop Dose Admin Alprazolam 0.25 mg 04/09/21 19:14 Alprazolam 0.25 Mg Tab PO Q6HR PRN Anxiety Aspirin 81 mg 04/10/21 09:00 04/10/21 07:11 Aspirin 81 Mg PO 81 mg DAILY CRESENCIO Administration Atorvastatin Calcium 10 mg 04/09/21 21:00 04/09/21 21:05 Atorvastatin 10 Mg Tab PO 10 mg HS CRESENCIO Administration Clopidogrel Bisulfate 75 mg 04/10/21 09:00 04/10/21 07:10 Clopidogrel 75 Mg Tab PO 75 mg DAILY CRESENCIO Administration Levetiracetam 500 mg 04/09/21 21:00 04/10/21 07:11 Levetiracetam 500 Mg Tab PO 500 mg Q12HR CRESENCIO Administration Magnesium Oxide 400 mg 04/09/21 21:00 04/10/21 07:10 Magnesium Oxide 400 Mg Tab PO 400 mg BID CRESENCIO Administration Metoprolol Tartrate 25 mg 04/09/21 21:00 04/10/21 07:10 Metoprolol Tartrate 25 Mg Tab PO 25 mg BID CRESENCIO Administration Morphine Sulfate 4 mg 04/09/21 19:14 04/10/21 04:15 Morphine Sulfate 4 Mg/Ml Syringe IV 4 mg Q4HR PRN Administration Severe Pain Mycophenolate Mofetil 250 mg 04/09/21 20:15 04/10/21 07:11 Mycophenolate Mofetil 250 Mg Cap PO 250 mg [id number]@0900 CRESENCIO Administration Naloxone HCl 0.2 mg 04/09/21 19:14 Naloxone 0.4 Mg/Ml 1 Ml Vial IV Q2M PRN Opioid Reversal Nicotine 1 patch 04/10/21 09:00 04/10/21 07:11 Nicotine 21mg/24hr Patch TRANSDERM Not Given DAILY CRESENCIO Ondansetron HCl 4 mg 04/09/21 19:14 Ondansetron 4 Mg/2 Ml Vial IVP Q8HR PRN Nausea And Vomiting Tacrolimus 2 mg 04/09/21 21:00 04/10/21 07:11 Tacrolimus 1 Mg Cap PO 2 mg BID@0900,2100 CRESENCIO Administration Tamsulosin HCl 0.4 mg 04/10/21 09:00 04/10/21 07:10 Tamsulosin 0.4 Mg Cap.Er.24h PO 0.4 mg DAILY CRESENCIO Administration Temazepam 15 mg 04/09/21 19:14 04/09/21 23:05 Temazepam 15 Mg Cap PO 15 mg HS PRN Administration Insomnia Intake and Output 04/09/21 04/10/21 04/10/21 22:59 06:59 14:59 Other: # Voids 1 2 Weight 104.326 kg 04/09/21 17:20 04/09/21 17:20
[2021-04-10] MEDS ORDERED: TAMSULOSIN 0.4 MG CAP.ER.24H PO SCH (09:00)
[2021-04-10] MEDS ORDERED: CLOPIDOGREL 75 MG TAB PO SCH (09:00)
[2021-04-10] MEDS ORDERED: ASPIRIN 81 MG PO SCH (09:00)
[2021-04-10] MEDS: MAGNESIUM SULFATE-D5W PMX 1 GM in DEXTROSE/WATER 1 100ML.BAG IVPB SCH ×3 (09:33→11:34)
[2021-04-10 13:11] LABS: Anisocytosis Slight; HCT 32.2 % (39.0-53.0); HGB 11.1 gm/dL (13.0-17.5); MCH 29.3 pg (25.0-35.0); MCHC 34.3 g/dL (31.0-37.0); MCV 85.3 fL (80.0-100.0); Mean Platelet Volume 8.8; Platelet Count 193 k/uL (150-450); Poikilocytosis Slight; RBC 3.78 m/uL (4.30-5.90); WBC 3.7 k/uL (3.8-10.6)
[2021-04-10 13:16] LABS: African American GFR (CKD) >90 (>60 ml/min/1.73 sqM); Anion Gap 8 mmol/L; Blood Urea Nitrogen 15 mg/dL (9-20); Calcium 8.7 mg/dL (8.4-10.2); Carbon Dioxide 28 mmol/L (22-30); Chloride 102 mmol/L (98-107); Glucose 117 mg/dL (74-99); Magnesium 1.2 mg/dL (1.6-2.3); Non-African American GFR(CKD) >90 (>60 ml/min/1.73 sqM); Potassium 3.1 mmol/L (3.5-5.1); Sodium 138 mmol/L (137-145)
--- NOTE | 2021-04-10 13:19 | XR ---
EXAMINATION TYPE: XR chest 2V DATE OF EXAM: 04/10/2021 COMPARISON: 04/09/2021 HISTORY: Shortness of breath TECHNIQUE: Frontal and lateral views of the chest are obtained. FINDINGS: Scattered senescent parenchymal changes noted. Hyperinflation compatible with COPD. Left lower lobe atelectasis and/or infiltrate. Heart size is stable. Mediastinal structures are stable and grossly unremarkable. No evidence for hilar prominence. Degenerative changes dorsal spine. IMPRESSION: 1. Left lower lobe atelectasis and/or infiltrate.
[2021-04-10] MEDS ORDERED: Potassium Replacement Protocol 1 EACH MISC MISCELLANE PRN (13:20)
[2021-04-10] MEDS: POTASSIUM CHLORIDE ER 20 MEQ TAB.ER PO SCH (13:28)
--- NOTE | 2021-04-10 13:35 | P.HPIM ---
History of Present Illness H&P Date: 04/10/21 This is a 71-year-old male who presents to the with complaints of lower back pain that is chronic in nature as well as some epigastric discomfort. He denies any chest pain, arm pain, jaw pain. He denies any palpitations. He denies any cough or shortness of breath. He does report that he has a history of reflux and does experience heartburn. He stopped taking medication for this. He was recently evaluated at this hospital for a history of new onset seizures. Additional past medical history includes lung cancer with metastases with lobectomy, liver cirrhosis liver cancer in 2015 with chemoembolization 2 with a liver transplant in 2016. Patient did suffer a fall last she is and in the last month or so has noticed some back pain is new in nature to the middle and lower part of his back. He denies any numbness or tingling in his lower extremities, weakness that is new he denies any changes bowel or bladder function. He was evaluated by Dr. Chaves previous admission. A computed tomography scan of lumbar region revealed diffuse disc degeneration and facet arthrosis. There is also compression fracture at T5 and L1 that is new compared to computed tomography scan in 2019. Dr. Chaves recommended a TLSO brace for when he is ambulatory and had discussed kyphoplasty and surgical intervention the patient and his are hoping to avoid any surgery as of 2 days ago. He was scheduled to follow-up with Dr. Chaves in 3 weeks. Patient had a heart catheterization completed on Mar which showed mild nonobstructive coronary artery disease and will follow-up as needed with cardiology. Chest x-ray this admission shows development of significant volume loss in the left side that could be left upper lobe atelectasis. Follow-up is recommended. We will repeat a chest x-ray. Labs reviewed this admission included a hemoglobin of 11.5 which is stable, white blood cell, 4.6. His potassium 3.2 replace per protocol and mag is 1.2 we will also replace per protocol. Cardiology has evaluated and cleared the patient this admission for an elevated troponin of 0.037, repeats were negative. REVIEW OF SYSTEMS: CONSTITUTIONAL: No fever, no malaise, no fatigue. HEENT: No recent visual problems or hearing problems. Denied any sore throat. CARDIOVASCULAR: No chest pain, orthopnea, PND, no palpitations, no syncope. PULMONARY: No shortness of breath, no cough, no hemoptysis. GASTROINTESTINAL: No diarrhea, no nausea, no vomiting, reports mild epigastric abdominal pain with heartburn. NEUROLOGICAL: No headaches, no weakness, no numbness. HEMATOLOGICAL: Denies any bleeding or petechiae. GENITOURINARY: Denies any burning micturition, frequency, or urgency. MUSCULOSKELETAL/RHEUMATOLOGICAL: Denies any joint pain, swelling, reports lower back pain ENDOCRINE: Denies any polyuria or polydipsia. The rest of the 14-point review of systems is negative. PHYSICAL EXAMINATION: GENERAL: The patient is alert and oriented x3, not in any acute distress. Well developed, well nourished. HEENT: Pupils are round and equally reacting to light. EOMI. No scleral icterus. No conjunctival pallor. Normocephalic, atraumatic. No pharyngeal erythema. No thyromegaly. CARDIOVASCULAR: S1 and S2 present. No murmurs, rubs, or gallops. PULMONARY: Chest is clear to auscultation, no wheezing or crackles. Lungs are diminished. ABDOMEN: Soft, epigastric tenderness with palpation, nondistended, normoactive bowel sounds. No palpable organomegaly. MUSCULOSKELETAL: No joint swelling or deformity. EXTREMITIES: No cyanosis, clubbing, or pedal edema. NEUROLOGICAL: Gross neurological examination did not reveal any focal deficits. SKIN: No rashes. Assessment and plan Assessment Chest pain, nonspecific, ACS ruled out by cardiology Elevated troponin, ACS ruled out by cardiology, mostly related to recent cath Mild coronary artery disease status post cardiac catheterization on April 06 Acute thoracic and lower back pain with findings of compression deformities at T5 and L1 seen on previous imaging Recent new-onset seizure on Keppra, recent EEG was negative for any epileptiform activity Epigastric pain with heartburn Hypokalemia Hypomagnesemia Non-small cell lung cancer stage IIB, receiving therapy with cisplatin and Gemzar Left lower lobe atelectasis History of liver cirrhosis status post liver transplant for liver cancer GI prophylaxis PPI DVT prophylaxis subcu heparin Plan Continue with current pain management. We will order a TLSO brace. Patient will follow-up with Dr. Chaves in the office as previously recommended. Patient also needs a follow-up with neurology outpatient. We would also like to consider a LAURIE outpatient as well as a Holter or event monitor placed to rule out any paroxysmal atrial fibrillation as recommended by neurology 2 days ago. Patient will follow-up with his oncologist. Amanda man. 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 Liver transplant 04/2016 Past Anesthesia/Blood Transfusion Reactions: No Reported Reaction Past Psychological History: No Psychological Hx Reported Smoking Status: Former smoker Past Alcohol Use History: None Reported Additional Past Alcohol Use History / Comment(s): trying to quit, stated in last month smoked 3 cigarettes. smoked approx 40 yrs 1ppd has now quit Past Drug Use History: Marijuana - Past Family History Mother Family Medical History: Osteoarthritis (OA) Additional Family Medical History / Comment(s): living in 80's Father Family Medical History: Cancer Additional Family Medical History / Comment(s): prostate,heart problems,living at 91 Medications and Allergies Home Medications Medication Instructions Recorded Confirmed Type Atorvastatin [Lipitor] 10 mg PO HS 07/07/18 04/09/21 History Metoprolol Tartrate [Lopressor] 25 mg PO BID 07/07/18 04/09/21 History Tamsulosin [Flomax] 0.4 mg PO DAILY 07/07/18 04/09/21 History Mycophenolate Mofetil [Cellcept] 250 mg PO SUMOTUWETHSA 03/29/20 04/09/21 History Tacrolimus [Prograf] 2 mg PO BID@0900,2100 03/29/20 04/09/21 History Aspirin 81 mg PO DAILY #30 tab 04/08/21 04/09/21 Rx Clopidogrel [Plavix] 75 mg PO DAILY #30 tab 04/08/21 04/09/21 Rx Magnesium Oxide [Magox 400] 400 mg PO BID #60 tablet 04/08/21 04/09/21 Rx Nicotine 21Mg/24Hr Patch [Habitrol] 1 patch TRANSDERM DAILY #14 patch 04/08/21 04/09/21 Rx levETIRAcetam [Keppra] 500 mg PO Q12HR #60 tab 04/08/21 04/09/21 Rx Allergies Allergy/AdvReac Type Severity Reaction Status Date / Time No Known Allergies Allergy Verified 04/09/21 18:59 Physical Exam Vitals: Vital Signs Temp Pulse Pulse Resp BP BP BP 04/10/21 08:00 16 04/10/21 07:00 97.4 F L 67 16 122/72 04/10/21 01:30 97.6 F 71 18 108/69 04/10/21 01:27 78 18 04/09/21 21:27 98.1 F 78 18 147/77 04/09/21 20:53 75 16 143/79 04/09/21 17:06 97.8 F 96 19 117/66 Pulse Ox 04/10/21 08:00 04/10/21 07:00 96 04/10/21 01:30 94 L 04/10/21 01:27 04/09/21 21:27 96 04/09/21 20:53 04/09/21 17:06 95 Intake and Output 04/09/21 04/10/21 04/10/21 22:59 06:59 14:59 Other: # Voids 1 2 Weight 104.326 kg Results CBC & Chem 7: 04/09/21 17:20 04/10/21 06:47 Labs: Abnormal Lab Results - Last 24 Hours (Table) 04/09/21 04/09/21 04/09/21 Range/Units 17:20 17:20 18:41 RBC 3.98 L (4.30-5.90) m/uL Hgb 11.5 L (13.0-17.5) gm/dL Hct 33.3 L (39.0-53.0) % Potassium 3.2 L (3.5-5.1) mmol/L Glucose 129 H (74-99) mg/dL Magnesium 1.2 L (1.6-2.3) mg/dL Creatine Kinase 410 H (55-170) U/L Troponin I (0.000-0.034) ng/mL 04/09/21 Range/Units 21:00 RBC (4.30-5.90) m/uL Hgb (13.0-17.5) gm/dL Hct (39.0-53.0) % Potassium (3.5-5.1) mmol/L Glucose (74-99) mg/dL Magnesium (1.6-2.3) mg/dL Creatine Kinase (55-170) U/L Troponin I 0.037 H* (0.000-0.034) ng/mL Thrombosis Risk Factor Assmnt - Choose All That Apply Each Factor Represents 1 point: Obesity (BMI >25) Each Risk Factor Represents 2 Points: Age 61-74 years Other congenital or acquired thrombophilia - If yes, enter type in comment: No Thrombosis Risk Factor Assessment Total Risk Factor Score: 3 Thrombosis Risk Factor Assessment Level: Moderate Risk Assessment and Plan Time with Patient: Greater than 30
[2021-04-10 14:20] LABS: Eosinophils # (M) 0.07 k/uL (0-0.7); Lymphocytes # (M) 1.26 k/uL (1.0-4.8); Monocytes # (M) 0.44 k/uL (0-1.0); Neutrophils # (M) 1.92 k/uL (1.3-7.7); Neutrophils % (M) 52 %; Nucleated Red Blood Cells 0 /100 WBC (0-0); Total Cells Counted 100
[2021-04-10 14:21] LABS: Poikilocytosis (M) Present
--- NOTE | 2021-04-10 21:51 | P.DS ---
Providers Date of admission: 04/09/21 19:14 Attending physician: Leslie Urbano Consults: 04/09/21 19:14 Consult Physician Routine Consulting Provider: Kp Reddy Consult Reason/Comments: chest pain Do you want consulting provider notified?: Yes Primary care physician: Ac Sharif Hospital Course: Final diagnoses Chest pain, nonspecific, ACS ruled out by cardiology Elevated troponin, ACS ruled out by cardiology, mostly related to recent cath Mild coronary artery disease status post cardiac catheterization on April 06 Acute thoracic and lower back pain with findings of compression deformities at T5 and L1 seen on previous imaging, TLSO brace received this admission Recent new-onset seizure on Keppra, recent EEG was negative for any epileptiform activity Epigastric pain with heartburn Hypokalemia Hypomagnesemia Non-small cell lung cancer stage IIB, receiving therapy with cisplatin and Gemzar Left lower lobe atelectasis History of liver cirrhosis status post liver transplant for liver cancer Discharge Disposition Patient is discharged home to f/u with PCP, cardiology, neurology, and Dr Chaves. He received a TLSO brace this admission to wear for support while ambulatory. He will f/u with repeat labs in 3 days. He will discharged home with self care. Hospital Course This is a pleasant 71 year old male who presented to [facility] ER with c/o back pain and chest pain. Patient was recently admitted with new onset seizure like activity and had a complete workup with neurology and cardiology. He was evaluated by Dr. Chaves previous admission as well. A computed tomography scan of lumbar region revealed diffuse disc degeneration and facet arthrosis. There is also compression fracture at T5 and L1 that is new compared to computed tomography scan in 2019. Dr. Chaves recommended a TLSO brace for when he is ambulatory and had discussed kyphoplasty and surgical intervention the patient and his are hoping to avoid any surgery as of 2 days ago. He was scheduled to follow-up with Dr. Chaves in 3 weeks. Patient had a heart catheterization completed on April 06 which showed mild nonobstructive coronary artery disease and will follow-up as needed with cardiology. Chest x-ray this admission shows development of significant volume loss in the left side that could be left upper lobe atelectasis. A follow-up chest xray showed stable left lower lobe atelectasis, after reviewing images, an IS was ordered and recommended for patient. There is no fever or elevated white blood cell count. Labs reviewed this admission include a stable hgb of 11.1, potassium of 3.1, magnesium of 1.2. He was replaced per protocol and discharged on oral potassium and megnesium supplements to recheck in 2 days. His troponin was elevated this admission at 0.037, subsequently negative x2. Cardiology was consulted who ruled out acute coronary syndrome and recommended f/u with Dr Mckee. Patient was discharged on a pepcid for GI prophylaxis. Vital signs this admission have remained stable, afebrile, HR of 76 NSR, and a BP of 122/72, he has maintained oxygen saturation 96% on room air. Pt was discharged on norco for back pain control, he was recommended to f/u with PCP for ongoing pain management. 04/10/2021 Please see H and P Please see medication reconciliation for a list of current medications. Thank you for allowing us to participate in the care of this patient. Patient Condition at Discharge: Fair Plan - Discharge Summary Discharge Rx Participant: No New Discharge Prescriptions: New HYDROcodone/APAP 5-325MG [[place] 5] 1 each PO Q6HR PRN 2 Days #8 tab PRN Reason: Pain Continue Tamsulosin [Flomax] 0.4 mg PO DAILY Metoprolol Tartrate [Lopressor] 25 mg PO BID Atorvastatin [Lipitor] 10 mg PO HS Tacrolimus [Prograf] 2 mg PO BID@0900,2100 Mycophenolate Mofetil [Cellcept] 250 mg PO SUMOTUWETHSA Aspirin 81 mg PO DAILY #30 tab Magnesium Oxide [Magox 400] 400 mg PO BID #60 tablet Clopidogrel [Plavix] 75 mg PO DAILY #30 tab Nicotine 21Mg/24Hr Patch [Habitrol] 1 patch TRANSDERM DAILY #14 patch levETIRAcetam [Keppra] 500 mg PO Q12HR #60 tab Discharge Medication List Atorvastatin [Lipitor] 10 mg PO HS 07/07/18 [History] Metoprolol Tartrate [Lopressor] 25 mg PO BID 07/07/18 [History] Tamsulosin [Flomax] 0.4 mg PO DAILY 07/07/18 [History] Mycophenolate Mofetil [Cellcept] 250 mg PO SUMOTUWETHSA 03/29/20 [History] Tacrolimus [Prograf] 2 mg PO BID@0900,2100 03/29/20 [History] Aspirin 81 mg PO DAILY #30 tab 04/08/21 [Rx] Clopidogrel [Plavix] 75 mg PO DAILY #30 tab 04/08/21 [Rx] Magnesium Oxide [Magox 400] 400 mg PO BID #60 tablet 04/08/21 [Rx] Nicotine 21Mg/24Hr Patch [Habitrol] 1 patch TRANSDERM DAILY #14 patch 04/08/21 [Rx] levETIRAcetam [Keppra] 500 mg PO Q12HR #60 tab 04/08/21 [Rx] HYDROcodone/APAP 5-325MG [[place] 5] 1 each PO Q6HR PRN 2 Days #8 tab 04/10/21 [Rx] Follow up Appointment(s)/Referral(s): Nolberto Chaves DO [Doctor of Osteopathic Medicine] - 1 Week Ac Sharif MD [Primary Care Provider] - 3 Days Patient Instructions/Handouts: Chest Pain (DC), Hypomagnesemia (DC) Activity/Diet/Wound Care/Special Instructions: Keep your scheduled Cardiology appt. TLSO brace to be worn during ambulation. May remove brace and went in a fully supportive recliner type tear. May remove for bathing. Discharge Disposition: HOME SELF-CARE
== END 2021-04-10 15:35 | disposition home or self-care (01) ==
LOC: EC 16:55 → 6NMEDSUR 19:14
PROVIDERS: ADMIT Internal Medicine; ATTEND Internal Medicine
DX: R07.89 Other chest pain (principal); I25.10 Atherosclerotic heart disease of native coronary artery without angina pectoris; R79.89 Other specified abnormal findings of blood chemistry; E87.6 Hypokalemia; E83.42 Hypomagnesemia; E78.5 Hyperlipidemia, unspecified; J98.11 Atelectasis; K21.9 Gastro-esophageal reflux disease without esophagitis; C34.90 Malignant neoplasm of unspecified part of unspecified bronchus or lung; R56.9 Unspecified convulsions; G89.29 Other chronic pain; M51.36 Other intervertebral disc degeneration, lumbar region; M47.819 Spondylosis without myelopathy or radiculopathy, site unspecified; S22.059A Unspecified fracture of T5-T6 vertebra, initial encounter for closed fracture; S32.019A Unspecified fracture of first lumbar vertebra, initial encounter for closed fracture; R10.13 Epigastric pain; I87.8 Other specified disorders of veins; E66.9 Obesity, unspecified; Z68.31 Body mass index [BMI] 31.0-31.9, adult; F17.210 Nicotine dependence, cigarettes, uncomplicated; Z20.822 Contact with and (suspected) exposure to COVID-19; Z79.82 Long term (current) use of aspirin; Z79.02 Long term (current) use of antithrombotics/antiplatelets; Z79.899 Other long term (current) drug therapy; Z94.4 Liver transplant status; Z92.21 Personal history of antineoplastic chemotherapy; Z87.19 Personal history of other diseases of the digestive system; Z90.2 Acquired absence of lung [part of]; Z87.81 Personal history of (healed) traumatic fracture; Z91.81 History of falling; Z85.05 Personal history of malignant neoplasm of liver; Z98.890 Other specified postprocedural states; Z80.42 Family history of malignant neoplasm of prostate; Z82.61 Family history of arthritis; Z82.49 Family history of ischemic heart disease and other diseases of the circulatory system
CPT/HCPCS: 96376 ×2; 96365; 96366; 96375; 99285; 36415; 93005; 80053; 80048; 82550; 83735 ×2; 84484 ×2; 85025 ×2; 85610; 85730; 87635; 71046 ×2; G0378 ×2; J2270 ×2; J7517 ×2; J7507 ×2; J3475

== ENCOUNTER 2021-04-11 14:59 | Emergency (ER) | payer MEDICARE, OTHER ==
--- NOTE | 2021-04-11 16:53 | ED ---
General Adult HPI - General Chief complaint: Back Pain/Injury Stated complaint: Back Pain Time Seen by Provider: 04/11/21 15:33 Source: patient Mode of arrival: ambulatory Limitations: no limitations - History of Present Illness Initial comments: Dictation was produced using [employer] dictation software. please excuse any grammatical, word or spelling errors. Chief Complaint: 71-year-old male with recently diagnosed compression fracture to the lower back presents emergency department for back pain History of Present Illness: Patient is a 71-year-old male he was diagnosed with a compression fracture in his lower back on April 06. He had a computed tomography scan that showed no compression fracture of L1 and T5. Patient denie s any trauma. He does not know when he may have injured his back. He had the scan performed during her inpatient hospitalization for chest pain. Patient is discharged and told to follow up with primary care doctor and orthopedic spine surgery. Patient states that his PCP was not able to see him until April. He states he cannot wait that long given that his pain is so bad. He was discharged from the hospital yesterday he was discharged with a TLSO brace. States his pain is so severe. He has pain medications states that his pain medication is not really helping. States pain is severe. Nonradiating. No urinary or bowel symptoms. No fevers. No saddle anesthesia. Pain is nonradiating. The ROS documented in this emergency department record has been reviewed and confirmed by me. Those systems with pertinent positive or negative responses have been documented in the HPI. All other systems are other negative and/or noncontributory. PHYSICAL EXAM: General Impression: Alert and oriented x3, acute distress secondary to pain HEENT: Normocephalic atraumatic, extra-ocular movements intact, pupils equal and reactive to light bilaterally, mucous membranes moist. Cardiovascular: Heart regular rate and rhythm Chest: Able to complete full sentences, no retractions, no tachypnea Abdomen: abdomen soft, non-tender, non-distended, no organomegaly Musculoskeletal: Pulses present and equal in all extremities, no peripheral edema Motor: no focal deficits noted Neurological: CN II-XII grossly intact, no focal motor or sensory deficits noted Skin: Intact with no visualized rashes Psych: Normal affect and mood ED course: 71-year-old male presents with persistent back pain. He was recently diagnosed with compression fractures of the lower thoracic and upper lumbar spine. Vital signs upon arrival are within acceptable limits. He was evaluated by orthopedic surgery 3 days ago. He was prescribed a TLSO brace. Patient given 5 mg of oral oxycodone. He is reevaluated 30 minutes later with improvement of symptoms. Patient is agreeable for discharge. He does appear to be stable he feels much better. He is told to follow-up with his primary care doctor or spine surgeon. - Related Data Home Medications Medication Instructions Recorded Confirmed Atorvastatin [Lipitor] 10 mg PO HS 07/07/18 04/11/21 Metoprolol Tartrate [Lopressor] 25 mg PO BID 07/07/18 04/11/21 Tamsulosin [Flomax] 0.4 mg PO DAILY 07/07/18 04/11/21 Mycophenolate Mofetil [Cellcept] 250 mg PO SUMOTUWETHSA 03/29/20 04/11/21 Tacrolimus [Prograf] 2 mg PO BID@0900,2100 03/29/20 04/11/21 HYDROcodone/APAP 5-325MG [[place] 5] 1 tab PO Q6HR PRN 04/11/21 04/11/21 Previous Rx's Medication Instructions Recorded Aspirin 81 mg PO DAILY #30 tab 04/08/21 Clopidogrel [Plavix] 75 mg PO DAILY #30 tab 04/08/21 Magnesium Oxide [Magox 400] 400 mg PO BID #60 tablet 04/08/21 levETIRAcetam [Keppra] 500 mg PO Q12HR #60 tab 04/08/21 Famotidine [Pepcid] 20 mg PO DAILY #30 tablet 04/10/21 Potassium Chloride ER [K-[place] 20] 20 meq PO DAILY #30 tab 04/10/21 oxyCODONE HCL [OxyIR] 5 mg PO Q4H PRN 3 Days #18 tab 04/11/21 Allergies Allergy/AdvReac Type Severity Reaction Status Date / Time No Known Allergies Allergy Verified 04/11/21 16:57 Review of Systems ROS Statement: Those systems with pertinent positive or pertinent negative responses have been documented in the HPI. ROS Other: All systems not noted in ROS Statement are negative. 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 Liver transplant 04/2016 Past Anesthesia/Blood Transfusion Reactions: No Reported Reaction Past Psychological History: No Psychological Hx Reported Smoking Status: Former smoker Past Alcohol Use History: None Reported Past Drug Use History: Marijuana - Past Family History Mother Family Medical History: Osteoarthritis (OA) Additional Family Medical History / Comment(s): living in 80's Father Family Medical History: Cancer Additional Family Medical History / Comment(s): prostate,heart problems,living at 91 General Exam Limitations: no limitations Course Vital Signs 04/11/21 15:22 Temperature 97.6 F Pulse Rate 95 Respiratory 20 Rate Blood Pressure 138/84 O2 Sat by Pulse 96 Oximetry Disposition Clinical Impression: Back pain Disposition: HOME SELF-CARE Condition: Fair Instructions (If sedation given, give patient instructions): Vertebral Compression Fracture (ED) Prescriptions: oxyCODONE HCL [OxyIR] 5 mg PO Q4H PRN 3 Days #18 tab PRN Reason: Pain Is patient prescribed a controlled substance at d/c from ED?: Yes If prescribed controlled substance>3 days was MAPS reviewed?: Prescribed <3 Days Referrals: Ac Sharif MD [Primary Care Provider] - 1-2 days
[2021-04-11 18:27] VITALS: BP 136/82; PULSE 90; RESP 18; TEMP 97.8
== END 2021-04-11 18:01 | disposition home or self-care (01) ==
LOC: EC 14:59
DX: M54.5 Low back pain (principal); F12.90 Cannabis use, unspecified, uncomplicated; Z79.82 Long term (current) use of aspirin; Z79.02 Long term (current) use of antithrombotics/antiplatelets; Z85.05 Personal history of malignant neoplasm of liver; Z94.4 Liver transplant status; Z87.891 Personal history of nicotine dependence
CPT/HCPCS: 99283

== ENCOUNTER → 2021-04-12 | Outpatient (CLI) | payer MEDICARE, OTHER | END | disposition home or self-care (01) | LOC: LABWHC1 08:17 | PROVIDERS: ATTEND Internal Medicine | DX: E87.6 Hypokalemia (principal); E83.42 Hypomagnesemia | CPT/HCPCS: 36415; 83735 ==

== ENCOUNTER 2021-04-16 10:31 | Emergency (ER) | payer MEDICARE, OTHER ==
[2021-04-16 10:38] VITALS: RESP 18; TEMP 97
[2021-04-16] MEDS ORDERED: HYDROmorphone 1 MG/ML 1 ML SYRINGE IVP STA ×2 (10:47→12:12)
--- NOTE | 2021-04-16 10:47 | ED ---
Back Pain HPI - General Chief Complaint: Back Pain/Injury Stated Complaint: back pain Time Seen by Provider: 04/16/21 10:41 Source: patient, EMS, RN notes reviewed - History of Present Illness Initial Comments: Patient is a 71-year-old male that presents to emergency department complaining of lower back pain. Patient was recently diagnosed with a upper lumbar and lower thoracic spine compression fracture. He was initially discharged from the hospital with a TSLO brace. He was recently seen in the emergency Department on 04/03/2021 for pain control. He notes that last night he rolled over in bed felt a pop and head pain. He notes he ran out of pain medication at home. He notes that he is having significant 10 out of 10 pain with no relief. He denied any saddle anesthesia lower extremity weakness, bladder or bowel incontinence/retention. Patient was otherwise well-appearing. He notes that he is not follow-up with a spinal surgeon yet. He denied chest pain shortness of breath headache nausea vomiting diarrhea constipation fever fatigue chills. - Related Data Home Medications Medication Instructions Recorded Confirmed Atorvastatin [Lipitor] 10 mg PO HS 07/07/18 04/16/21 Metoprolol Tartrate [Lopressor] 25 mg PO BID 07/07/18 04/16/21 Tamsulosin [Flomax] 0.4 mg PO DAILY 07/07/18 04/16/21 Mycophenolate Mofetil [Cellcept] 250 mg PO DAILY 03/29/20 04/16/21 Tacrolimus [Prograf] 2 mg PO BID@0900,2100 03/29/20 04/16/21 NIFEdipine [NIFEdipine ER] 30 mg PO DAILY 04/16/21 04/16/21 Previous Rx's Medication Instructions Recorded Aspirin 81 mg PO DAILY #30 tab 04/08/21 Clopidogrel [Plavix] 75 mg PO DAILY #30 tab 04/08/21 Magnesium Oxide [Magox 400] 400 mg PO BID #60 tablet 04/08/21 levETIRAcetam [Keppra] 500 mg PO Q12HR #60 tab 04/08/21 Famotidine [Pepcid] 20 mg PO DAILY #30 tablet 04/10/21 Potassium Chloride ER [K-Dur 20] 20 meq PO DAILY #30 tab 04/10/21 Allergies Allergy/AdvReac Type Severity Reaction Status Date / Time No Known Allergies Allergy Verified 04/16/21 11:25 Review of Systems ROS Statement: Those systems with pertinent positive or pertinent negative responses have been documented in the HPI. ROS Other: All systems not noted in ROS Statement are negative. 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 Liver transplant 04/2016 Past Anesthesia/Blood Transfusion Reactions: No Reported Reaction Past Psychological History: No Psychological Hx Reported Smoking Status: Former smoker Past Alcohol Use History: None Reported Past Drug Use History: Marijuana - Past Family History Mother Family Medical History: Osteoarthritis (OA) Additional Family Medical History / Comment(s): living in 80's Father Family Medical History: Cancer Additional Family Medical History / Comment(s): prostate,heart problems,living at 91 General Exam Limitations: physical limitation General appearance: alert, in no apparent distress Head exam: Present: atraumatic, normocephalic, normal inspection Eye exam: Present: normal appearance, PERRL, EOMI. Absent: scleral icterus, conjunctival injection, periorbital swelling ENT exam: Present: normal exam, mucous membranes moist Neck exam: Present: normal inspection Respiratory exam: Present: normal lung sounds bilaterally. Absent: respiratory distress, wheezes, rales, rhonchi, stridor Cardiovascular Exam: Present: regular rate, normal rhythm, normal heart sounds. Absent: systolic murmur, diastolic murmur, rubs, gallop, clicks Extremities exam: Present: normal inspection, full ROM, normal capillary refill. Absent: tenderness, pedal edema, joint swelling, calf tenderness Back exam: Present: normal inspection, tenderness (mid-Lower back) Neurological exam: Present: alert, oriented X3 Psychiatric exam: Present: normal affect, normal mood Skin exam: Present: warm, dry, intact, normal color. Absent: rash Course Vital Signs 04/16/21 10:33 Temperature 97 F L Pulse Rate 67 Respiratory 18 Rate Blood Pressure 139/96 O2 Sat by Pulse 97 Oximetry Medical Decision Making - Medical Decision Making 71-year-old male with recently diagnosed upper lumbar lower thoracic compression fracture complaining of continuing pain. X-ray lumbar and thoracic spine, 1 mg of Dilaudid ordered. X-ray imaging negative for any acute changes from previous studies. Patient is agreeable with discharge home until follow-up with his specialist on Thursday. Tramadol starter pack ordered. Case discussed with Dr. Bah, patient can discharge home. - Radiology Data Radiology results: report reviewed, image reviewed X-ray of the thoracic spine: Thoracic spines shows stable and satisfactory alignment moderate height loss involving the T5 vertebra is more lucent component on recent CT suggesting could be acute/subacute etiology. No significant posterior retropulsion. Moderate multilevel anterior and lateral spurring in the mid to lower thoracic spine redemonstrated. Persistent left basilar linear scarring and/or atelectasis. X-ray lumbar spine: There are 5 lumbar type vertebral bodies redemonstrate. Persistent mild to moderate height loss with sclerosis horizontally through the L1 vertebrae suggesting subacute fracture. Alignment stable and satisfactory. Disc space heights are maintained. Contrast from recent swallow study in portions of the overlying colon noted. Surgical clips central right upper abdomen redemonstrated. Disposition Clinical Impression: Back pain Disposition: HOME SELF-CARE Condition: Stable Instructions (If sedation given, give patient instructions): Acute Low Back Pain (ED) Additional Instructions: Please return to the Emergency Department if symptoms worsen or any other c oncerns. Follow-up primary care 1-2 days. Follow-up with specialists as planned. Take tramadol as prescribed. Is patient prescribed a controlled substance at d/c from ED?: No Referrals: Ac Sharif MD [Primary Care Provider] - 1-2 days Time of Disposition: 13:07
--- NOTE | 2021-04-16 12:14 | XR ---
EXAMINATION TYPE: XR lumbar spine 2 or 3V DATE OF EXAM: 04/16/2021 CLINICAL HISTORY: Severe back pain. TECHNIQUE: Frontal and lateral images of the lumbar spine are obtained. COMPARISON: CT chest and abdomen April 06 FINDINGS: There are 5 lumbar type vertebral bodies redemonstrated. Persistent mild to moderate heigh t loss with sclerosis horizontally through the L1 vertebra suggesting subacute fracture. Alignment st able and satisfactory. Disc space heights are maintained. Contrast from recent swallow study in porti ons of the overlying colon noted. Surgical clips central right upper abdomen are redemonstrated. IMPRESSION: As above.
--- NOTE | 2021-04-16 12:16 | XR ---
EXAMINATION TYPE: XR thoracic spine 2V DATE OF EXAM: 04/16/2021 CLINICAL HISTORY: Severe back pain. TECHNIQUE: Frontal, lateral, and swimmer's view of thoracic spine are obtained. COMPARISON: CT chest and abdomen April 06, 2021. FINDINGS: Thoracic spine show stable and satisfactory alignment. Moderate height loss involving the T 5 vertebra is more lucent component on recent CT suggesting could be acute/subacute in etiology. No s ignificant posterior retropulsion. Moderate multilevel anterior and lateral spurring in the mid to lo wer thoracic spine redemonstrated. Persistent left basilar linear scarring and/or atelectasis. IMPRESSION: As above.
[2021-04-16] MEDS ORDERED: traMADol 50 MG STARTER PACK 3 TAB BTL PO STA (13:04)
[2021-04-16 13:40] VITALS: BP 125/97; PULSE 92
== END 2021-04-16 13:48 | disposition home or self-care (01) ==
LOC: EC 10:31
DX: M54.5 Low back pain (principal); F12.90 Cannabis use, unspecified, uncomplicated; Z79.82 Long term (current) use of aspirin; Z79.02 Long term (current) use of antithrombotics/antiplatelets; Z87.891 Personal history of nicotine dependence; Z94.4 Liver transplant status
CPT/HCPCS: 99283; 96374; 96376; 72070; 72100; J1170

== ENCOUNTER → 2021-04-19 | Outpatient (CLI) | payer MEDICARE, OTHER ==
[2021-04-19 12:01] LABS: Basophils # (A) 0.1 k/uL (0-0.2); Basophils % (A) 1 %; Eosinophils # (A) 0.1 k/uL (0-0.7); Eosinophils % (A) 1 %; HCT 39.5 % (39.0-53.0); HGB 12.8 gm/dL (13.0-17.5); Lymphocytes % (A) 28 %; MCH 28.5 pg (25.0-35.0); MCHC 32.4 g/dL (31.0-37.0); MCV 87.9 fL (80.0-100.0); Mean Platelet Volume 7.3; Monocytes # (A) 0.7 k/uL (0-1.0); Monocytes % (A) 10 %; Neutrophils % (A) 55 %; Platelet Count 386 k/uL (150-450); RBC 4.49 m/uL (4.30-5.90); RDW 15.1 % (11.5-15.5); WBC 7.2 k/uL (3.8-10.6)
[2021-04-19 12:11] LABS: Amorphous Sediment,Urine Rare /hpf; Appearance,Urine Cloudy (Clear); Bilirubin,Urine Negative (Negative); Blood,Urine Negative (Negative); Color,Urine Yellow; Glucose,Urine (UA) Negative (Negative); Ketones,Urine Negative (Negative); Leukocyte Esterase,Urine Negative (Negative); Mucus,Urine Few /hpf; Nitrite,Urine Negative (Negative); Protein,Urine Trace (Negative); RBC,Urine 7 /hpf (0-5); Specific Gravity,Urine 1.023 (1.001-1.035); Urobilinogen,Urine <2.0 mg/dL (<2.0); WBC,Urine 1 /hpf (0-5)
[2021-04-19 12:12] LABS: Partial Thromboplastin Time 25.5 sec (22.0-30.0); Prothrombin Time 10.6 sec (9.0-12.0)
[2021-04-19 12:22] LABS: African American GFR (CKD) >90 (>60 ml/min/1.73 sqM); Anion Gap 5 mmol/L; Blood Urea Nitrogen 19 mg/dL (9-20); Calcium 10.1 mg/dL (8.4-10.2); Carbon Dioxide 30 mmol/L (22-30); Chloride 103 mmol/L (98-107); Glucose 128 mg/dL (74-99); Non-African American GFR(CKD) 86 (>60 ml/min/1.73 sqM); Potassium 5.2 mmol/L (3.5-5.1); Sodium 138 mmol/L (137-145)
== END | disposition home or self-care (01) ==
LOC: LABPAT 11:18
PROVIDERS: ATTEND Orthopaedic Surgery Orthopaedic Surgery of the Spine
DX: Z01.812 Encounter for preprocedural laboratory examination (principal)
CPT/HCPCS: 36415; 80048; 81001; 85025; 85610; 85730; 87070

== ENCOUNTER 2021-05-01 07:02 | Day surgery (SDC) | payer MEDICARE, OTHER ==
[2021-04-30 10:57] VITALS: BMI 29.2
[~2021-05-01 07:02] MED LIST: ceFAZolin 1,000 MG in SODIUM CHLORIDE 0.9% IRRIGATIO 1,000 ML IRRIGATION PRN
[2021-05-01] MEDS ORDERED: LIDOCAINE 1% (10MG/ML) FOR IV START INTRADERMA PRN (07:32)
[2021-05-01] MEDS ORDERED: LACTATED RINGERS 1,000 ML IV SCH (07:32)
[2021-05-01] MEDS ORDERED: HYDROmorphone 0.5 MG/0.5 ML SYRINGE IVP PRN ×2 (07:32→09:38)
[2021-05-01] MEDS ORDERED: ONDANSETRON 4 MG/2 ML VIAL IVP ONE (07:32)
[2021-05-01] MEDS ORDERED: ROCURONIUM 10 MG/ML (5 ML VIAL) IV ONE (08:23)
[2021-05-01] MEDS ORDERED: MIDAZOLAM 2 MG/2 ML VIAL ONE (08:23)
[2021-05-01] MEDS ORDERED: PROPOFOL 10 MG/ML 20 ML VIAL IV ONE (08:23)
[2021-05-01] MEDS ORDERED: GLYCOPYRROLATE 0.2 MG/ML 2 ML VIAL ONE (08:23)
[2021-05-01] MEDS ORDERED: fentaNYL (PF) 50 MCG/ML 2 ML AMP ONE (08:23)
[2021-05-01] MEDS ORDERED: NEOSTIGMINE 1 MG/ML 10 ML VIAL ONE (08:23)
[2021-05-01] MEDS ORDERED: PHENYLEPHRINE-0.9% NACL SYG 1,000 MCG/10 ML SYRINGE ONE (08:23)
[2021-05-01] MEDS ORDERED: LIDOCAINE 1% INJ 10MG/ML (20 ML MDV) ONE (08:23)
[2021-05-01] MEDS ORDERED: BUPIVACAIN-EPI 0.25%-1:200,000 30 ML VIAL SQ ONE ×2 (08:27→08:57)
[2021-05-01] MEDS ORDERED: IOPAMIDOL M200 10 ML VIAL MISCELLANE ONE ×2 (08:27→08:57)
[2021-05-01] MEDS ORDERED: LACTATED RINGERS 1,000 ML IV ONE (09:14)
[2021-05-01] MEDS ORDERED: diazePAM 5 MG TAB PO PRN (09:38)
[2021-05-01] MEDS ORDERED: ONDANSETRON 4 MG/2 ML VIAL IVP PRN (09:38)
[2021-05-01] MEDS ORDERED: HYDROmorphone 1 MG/ML 1 ML SYRINGE IVP PRN (09:38)
[2021-05-01] MEDS ORDERED: BENZOCAINE/MENTHOL LOZENG 1 EACH LOZENGE MUCOUS MEM PRN (09:38)
[2021-05-01] MEDS ORDERED: KETOROLAC 15 MG/ML 1 ML VIAL IVP PRN (09:38)
[2021-05-01] MEDS ORDERED: HYDROmorphone 2 MG TAB PO PRN (09:42)
[2021-05-01] MEDS ORDERED: SODIUM CHLORIDE 0.9% 1,000 ML IV SCH (09:45)
--- NOTE | 2021-05-01 09:50 | P.OP ---
Date of Procedure: 05/01/21 Preoperative Diagnosis: Subacute T5 compression fracture, traumatic Subacute L1 compression fracture, traumatic Osteoporosis Thoracic and lumbar back pain Postoperative Diagnosis: Same Anesthesia: GETA Pathology: other (T5 vertebral body and L1 vertebral body sent separately to pathology) Condition: stable Disposition: PACU Description of Procedure: BRIEF OPERATIVE NOTE Preoperative Diagnosis: Subacute T5 compression fracture, traumatic Subacute L1 compression fracture, traumatic Osteoporosis Thoracic and lumbar back pain Postoperative Diagnosis: Same Procedure: Kyphoplasty of T5 and L1 Vertebral body biopsy of T5 and L1 Use of biplanar fluoroscopic guidance Surgeon: Dr. Chaves Art Supervisor: Greg WADE Anesthesia: General anesthesia per Dr. Grady Estimated blood loss: Less than 10 mL Specimen: Vertebral body biopsy of T5 and L1 sent to pathology in formalin Complications: None apparent Components implanted: Bone cement approximately 3 mL in T5 and 4-1/2 mL and L1 Disposition: To recovery room in good stable condition. OPERATIVE INDICATIONS The patient has been having issues in their back ever since sustaining an injury. He is found have compression deformities at T5 and L1 both of which were giving her significant symptoms at his thoracic and his lumbar spine. The patient has been through conservative treatment. They attempted conservative care with bracing however they're not having any benefit despite brace use. We tried to treat him with expected management and conservative care but he was not having any benefit and was having significant debility due to the pain in his back from the fractures. They continue to have significant pain and debility due to their fracture. We discussed various treatment options including surgery, and the patient wishes to proceed with surgery We discussed the risk, patient's alternatives and benefits of surgery including but not limited to, risk of bleeding risk of infection, risk of need for further surgery, risk of decreased, loss of motion, loss of function, cement extravasation, nerve damage, paralysis, heart attack, blindness and . OPERATIVE SUMMARY After discussing all the risks, patient alternatives and benefits at length, the patient elected to proceed with surgical intervention, signed informed consent, and presented for their procedure. The patient was seen and examined in the preoperative holding area and the surgical site was marked. The patient was given antibiotics and brought to the operating room. The patient was sedated and intubated by anesthesia in standard fashion. The patient was positioned on to the operating room table in a prone position on the appropriate well-padded and well molded bilateral chest rolls. We were careful to pad any bony prominences and pressure points. We were careful to maintain the patient's cervical spine and good neutral alignment and position throughout. We used 2 C-arm machines to establish biplanar fluoroscopic guidance in AP and lateral positions. We were able to localize the fractures appropriately both at T5 and L1. The patient was prepped and draped in a normal standard fashion. An appropriate timeout and keystone protocol performed. We were able to proceed with the surgery. The local wound area was infiltrated with local anesthetic. An incision was made over the lateral aspect of the pedicle over the appropriate levels first at L1 and then at T5 with a small 2 mm stab incision. Intraoperative fluoroscopy was taken which showed a marker at the appropriate level. With the appropriate level positively confirmed, I was able to position a sharp trocar over the lateral aspect of the pedicle. As able to advance the trocar into the pedicle and into the posterior aspect of vertebral body being careful to avoid penetration cephalad caudad or medially. The trocar was placed appropriately into the posterior aspect of vertebral body at the appropriate levels at each of the levels at L1 and at T5. This was confirmed with C-arm guidance. With the trocar intact I was then able to take a bone biopsy with a biopsy punch or a bony drill. The biopsy specimen was passed off to be sent to pathology in formalin. I was then able to place the kyphoplasty balloon within the vertebral body. The position was checked on C-arm. I was able to inflate the balloon under low pressure and visualization with C-arm. The balloon was well enclosed within the vertebral body. The balloon had easy expansion in the vertebral bodies both at L1 and T5. The cement was prepared. With the cement at appropriate working condition the balloons were deflated and removed. I was able to place bony cement with trocar with the cement delivery device under low pressure. It had good fill within the vertebral body at each of the levels. There is no evidence of any extravasation of the cement posteriorly toward the canal. The cement was well contained at the appropriate levels. The cement was allowed to cure appropriately. The trochars removed and final images were taken on C-arm. This showed the cement at the appropriate levels. We were able to proceed with closure. The wound was cleaned and dried and dressed with the appropriate dressing. The drapes were broken down. The patient was gently rolled back onto their hospital bed being careful to maintain their cervical spine and good neutral alignment and position. They were woken up by anesthesia, extubated, and brought to the recovery room in good stable condition. The patient will be admitted to the hospital for observation and for appropriate postoperative care, medical management and monitoring. We will continue to follow them closely about the postoperative course.
[2021-05-01 09:52] VITALS: TEMP 96.9
[2021-05-01] MEDS ORDERED: HYDROmorphone 0.5 MG/0.5 ML SYRINGE IVP ONE ×2 (09:57→10:07)
--- NOTE | 2021-05-01 10:36 | XR ---
EXAMINATION TYPE: XR lumbar spine 2 or 3V, FL guidance operating room, XR thoracic spine 2V DATE OF EXAM: 05/01/2021 CLINICAL HISTORY: Osteoporosis with compression fractures. TECHNIQUE: Fluoroscopy. Intraoperative 2 views thoracic and lumbar spine. COMPARISON: Prior thoracic and lumbar spine x-rays April 16, 2021. FINDINGS: Fluoroscopic guidance was provided during multilevel kyphoplasty procedure performed by Dr. Chaves. A total of 1.18 minute s and 0.19 minutes of fluoroscopic time was utilized during the kyphoplasty procedure at L1 and T5 le vels and four intraoperative spot images are acquired. Images acquired show successful injection of cement material into the upper to midthoracic vertebra w ith mild to moderate height loss suspected T5 level and vertebra thoracolumbar level likely L1 verteb ra with mild height loss. Stable and satisfactory alignment noted on intraoperative images obtained. IMPRESSION: As Above.
[2021-05-01 10:45] VITALS: RESP 16
[2021-05-01 12:20] VITALS: BP 121/80; PULSE 100
== END 2021-05-01 12:41 | disposition home or self-care (01) ==
LOC: OR 07:02
PROVIDERS: ATTEND Orthopaedic Surgery Orthopaedic Surgery of the Spine
DX: S22.050A Wedge compression fracture of T5-T6 vertebra, initial encounter for closed fracture (principal); S32.010A Wedge compression fracture of first lumbar vertebra, initial encounter for closed fracture; M81.0 Age-related osteoporosis without current pathological fracture; Z94.4 Liver transplant status; M47.817 Spondylosis without myelopathy or radiculopathy, lumbosacral region; M47.814 Spondylosis without myelopathy or radiculopathy, thoracic region; R56.9 Unspecified convulsions; Z79.899 Other long term (current) drug therapy; Z87.891 Personal history of nicotine dependence; Z86.718 Personal history of other venous thrombosis and embolism; Z20.822 Contact with and (suspected) exposure to COVID-19
CPT/HCPCS: 88307; 88311; 87635; 72070; 72100; 22514; 22515; J2250; J2710; J0690 ×2; J2405; J2001; J3010; J2370; J2704; J1170; Q9966

== ENCOUNTER 2021-07-14 07:43 | Inpatient (IN) | payer MEDICARE, OTHER ==
--- NOTE | 2021-07-14 08:06 | ED ---
General Adult HPI - General Chief complaint: Seizure Stated complaint: seizures Time Seen by Provider: 07/14/21 07:44 Source: patient, family, EMS Mode of arrival: EMS Limitations: no limitations - History of Present Illness Initial comments: Dictation was produced using [employer] dictation software. please excuse any grammatical, word or spelling errors. Chief Complaint: 71-year-old male brought in by EMS from home for concerns of possible seizure. History of Present Illness: Is a 71-year-old male he wasn't brought in by EMS. EMS was called by patient's who is currently at the bedside. According to EMS patient allegedly had 2 or 3 episodes of seizure. Seizures were described as foaming at the mouth and difficulty to arouse. reports that she was in bed when she noticed patient was foaming at the mouth. He had had similar episodes like this in March. He was allegedly diagnosed with seizure at the time. Patient was prescribed Keppra however or patient did not fill the prescription has not been on the medications he is supposed to be on for seizures. Patient was recently in the hospital and diagnosed with describes as blood clots on the brain. They have a scheduled MRI on Thursday for further evaluation. Over the last several days patient has had mental decline described as confusion when asked detailed questions like who is the president. Patient has history of liver transplant and lobectomy of the left lobe to treat cancer. Patient has a complaints at this time he feels at baseline. The ROS documented in this emergency department record has been reviewed and confirmed by me. Those systems with pertinent positive or negative responses have been documented in the HPI. All other systems are other negative and/or noncontributory. PHYSICAL EXAM: General Impression: Alert and oriented x3, not in acute distress HEENT: Normocephalic atraumatic, extra-ocular movements intact, pupils equal and reactive to light bilaterally, mucous membranes moist. Cardiovascular: Heart regular rate and rhythm Chest: Able to complete full sentences, no retractions, no tachypnea Abdomen: abdomen soft, non-tender, non-distended, no organomegaly Musculoskeletal: Pulses present and equal in all extremities, no peripheral edema Motor: no focal deficits noted Neurological: CN II-XII grossly intact, no focal motor or sensory deficits noted Skin: Intact with no visualized rashes Psych: Normal affect and mood ED course: 71-year-old well-appearing male presents emergency department for episode described by as "foaming at the mouth" episode. denies any sort of convulsion associated with these episodes. Vital signs upon arrival shows 80% on room air. He is placed on 2 L nasal cannula. He has history of lobectomy. Patient has no focal neurologic deficits. He is confused however reports that patient is confused at baseline which is why he has a MRI scheduled next week. Chart review was performed. Patient had MRI in March of last year that showed severely limited exam however concerning findings for small areas of acute ischemia versus intraparenchymal metastases which is less likely according to radiology report. He supposedly prescribed Keppra however his seizure medicines were never filled according to . Laboratory evaluation obtained. CBC unremarkable. Coag panel is negative. Metabolic panel shows non-gap acidosis there is a lactic acidosis 3.0. Cover test negative. Computed tomography scan of the brain is unremarkable. Chest x- ray shows small left effusion which could relate to possible CHF. Patient has a lobectomy on that side. Patient reevaluated bedside at 9:30 AM. Given that there were 3 episodes of this within the span of the last couple hours with some concern of a acute neurologic process. I believe patient would benefit from observation or inpatient admission for neurologic monitoring. Case discussed with patient's primary care doctor was went except his care. Neurology will be on consult. EKG interpretation: Ventricular rate 89, normal sinus rhythm, CT interval 162, QRS 80, QTc 433. No CT prolongation, no QTC prolongation, no ST or T-wave changes noted. Overall, this EKG is unremarkable Patient mildly hypoxic upon arrival. 80% on room air. He is satting well with 2 L nasal cannula. He is not reporting any dyspnea. He is not showing any signs of respiratory distress. His COVID-19 is negative. His chest x-ray shows perhaps small left pleural effusion. Pending brain natruretic peptide. - Related Data Home Medications Medication Instructions Recorded Confirmed Atorvastatin [Lipitor] 10 mg PO HS@2100 07/07/18 07/14/21 Metoprolol Tartrate [Lopressor] 25 mg PO BID@0900,2100 07/07/18 07/14/21 Tamsulosin [Flomax] 0.4 mg PO DAILY@0900 07/07/18 07/14/21 Mycophenolate Mofetil [Cellcept] 250 mg PO SUMOTUWETHSA@0900 03/29/20 07/14/21 Tacrolimus [Prograf] 2 mg PO HS@209904/22/21 07/14/21 Tacrolimus [Prograf] 3 mg PO DAILY@0900 04/22/21 07/14/21 Magnesium Oxide [Magox 400] 400 mg PO BID@0900,209907/14/21 07/14/21 levETIRAcetam [Keppra] 500 mg PO BID@0900,209907/14/21 07/14/21 Allergies Allergy/AdvReac Type Severity Reaction Status Date / Time acetaminophen AdvReac LIVER Verified 07/14/21 08:19 TRANSPLANT Review of Systems ROS Statement: Those systems with pertinent positive or pertinent negative responses have been documented in the HPI. ROS Other: All systems not noted in ROS Statement are negative. Past Medical History Past Medical History: Cancer, Hyperlipidemia, Liver Disease Additional Past Medical History / Comment(s): 04/16/21 EC, BACK PAIN. LUNG CA. 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 Hx 2014 HEPATITIS C TO CIRRHOSIS, LIVER CANCER TO TRANSPLANT, (chemo embolization x 2:Jul) History of Any Multi-Drug Resistant Organisms: None Reported Past Surgical History: Heart Catheterization, Hernia Repair Additional Past Surgical History / Comment(s): LEFT LOBECTOMY IN NOVEMBER 2020 @ [facility], [place] Cyst removed from rt rib area. Liver transplant 04/2016 @ [facility] ,[place]. heart cath 04/02/21 Past Anesthesia/Blood Transfusion Reactions: No Reported Reaction Past Psychological History: No Psychological Hx Reported Smoking Status: Former smoker Past Alcohol Use History: None Reported Past Drug Use History: None Reported - Past Family History Father Family Medical History: Cancer Additional Family Medical History / Comment(s): prostate General Exam Limitations: no limitations Course Vital Signs 07/14/21 07/14/21 07/14/21 07:45 07:59 09:20 Temperature 98.4 F Pulse Rate 87 77 Respiratory 18 18 Rate Blood Pressure 140/89 110/73 O2 Sat by Pulse 88 L 94 L 98 Oximetry Medical Decision Making - Lab Data Result diagrams: 07/14/21 08:20 07/14/21 08:20 Lab Results 07/14/21 07/14/21 07/14/21 Range/Units 08:20 08:20 08:20 WBC 9.1 (3.8-10.6) k/uL RBC 4.64 (4.30-5.90) m/uL Hgb 13.5 (13.0-17.5) gm/dL Hct 40.9 (39.0-53.0) % MCV 88.0 (80.0-100.0) fL MCH 29.0 (25.0-35.0) pg MCHC 33.0 (31.0-37.0) g/dL RDW 13.5 (11.5-15.5) % Plt Count 179 (150-450) k/uL MPV 7.9 Neutrophils % 64 % Lymphocytes % 22 % Monocytes % 5 % Eosinophils % 5 % Basophils % 0 % Neutrophils # 5.9 (1.3-7.7) k/uL Lymphocytes # 2.0 (1.0-4.8) k/uL Monocytes # 0.5 (0-1.0) k/uL Eosinophils # 0.5 (0-0.7) k/uL Basophils # 0.0 (0-0.2) k/uL PT 10.7 (9.0-12.0) sec INR 1.0 (<1.2) APTT 23.8 (22.0-30.0) sec Sodium 137 (137-145) mmol/L Potassium 4.0 (3.5-5.1) mmol/L Chloride 105 (98-107) mmol/L Carbon Dioxide 25 (22-30) mmol/L Anion Gap 7 mmol/L BUN 14 (9-20) mg/dL Creatinine 0.82 (0.66-1.25) mg/dL Est GFR (CKD-EPI)AfAm >90 (>60 ml/min/1.73 sqM) Est GFR (CKD-EPI)NonAf >90 (>60 ml/min/1.73 sqM) Glucose 169 H (74-99) mg/dL Plasma Lactic Acid Joey (0.7-2.0) mmol/L Calcium 9.0 (8.4-10.2) mg/dL Magnesium 1.4 L (1.6-2.3) mg/dL Total Bilirubin 0.8 (0.2-1.3) mg/dL AST 22 (17-59) U/L ALT 14 (4-49) U/L Alkaline Phosphatase 65 (38-126) U/L Troponin I (0.000-0.034) ng/mL NT-Pro-B Natriuret Pep pg/mL Total Protein 7.0 (6.3-8.2) g/dL Albumin 3.9 (3.5-5.0) g/dL Coronavirus (PCR) (Not Detectd) 07/14/21 07/14/21 07/14/21 Range/Units 08:20 08:20 08:20 WBC (3.8-10.6) k/uL RBC (4.30-5.90) m/uL Hgb (13.0-17.5) gm/dL Hct (39.0-53.0) % MCV (80.0-100.0) fL MCH (25.0-35.0) pg MCHC (31.0-37.0) g/dL RDW (11.5-15.5) % Plt Count (150-450) k/uL MPV Neutrophils % % Lymphocytes % % Monocytes % % Eosinophils % % Basophils % % Neutrophils # (1.3-7.7) k/uL Lymphocytes # (1.0-4.8) k/uL Monocytes # (0-1.0) k/uL Eosinophils # (0-0.7) k/uL Basophils # (0-0.2) k/uL PT (9.0-12.0) sec INR (<1.2) APTT (22.0-30.0) sec Sodium (137-145) mmol/L Potassium (3.5-5.1) mmol/L Chloride (98-107) mmol/L Carbon Dioxide (22-30) mmol/L Anion Gap mmol/L BUN (9-20) mg/dL Creatinine (0.66-1.25) mg/dL Est GFR (CKD-EPI)AfAm (>60 ml/min/1.73 sqM) Est GFR (CKD-EPI)NonAf (>60 ml/min/1.73 sqM) Glucose (74-99) mg/dL Plasma Lactic Acid Joey 3.0 H* (0.7-2.0) mmol/L Calcium (8.4-10.2) mg/dL Magnesium (1.6-2.3) mg/dL Total Bilirubin (0.2-1.3) mg/dL AST (17-59) U/L ALT (4-49) U/L Alkaline Phosphatase (38-126) U/L Troponin I <0.012 (0.000-0.034) ng/mL NT-Pro-B Natriuret Pep 36 pg/mL Total Protein (6.3-8.2) g/dL Albumin (3.5-5.0) g/dL Coronavirus (PCR) (Not Detectd) 07/14/21 Range/Units 08:20 WBC (3.8-10.6) k/uL RBC (4.30-5.90) m/uL Hgb (13.0-17.5) gm/dL Hct (39.0-53.0) % MCV (80.0-100.0) fL MCH (25.0-35.0) pg MCHC (31.0-37.0) g/dL RDW (11.5-15.5) % Plt Count (150-450) k/uL MPV Neutrophils % % Lymphocytes % % Monocytes % % Eosinophils % % Basophils % % Neutrophils # (1.3-7.7) k/uL Lymphocytes # (1.0-4.8) k/uL Monocytes # (0-1.0) k/uL Eosinophils # (0-0.7) k/uL Basophils # (0-0.2) k/uL PT (9.0-12.0) sec INR (<1.2) APTT (22.0-30.0) sec Sodium (137-145) mmol/L Potassium (3.5-5.1) mmol/L Chloride (98-107) mmol/L Carbon Dioxide (22-30) mmol/L Anion Gap mmol/L BUN (9-20) mg/dL Creatinine (0.66-1.25) mg/dL Est GFR (CKD-EPI)AfAm (>60 ml/min/1.73 sqM) Est GFR (CKD-EPI)NonAf (>60 ml/min/1.73 sqM) Glucose (74-99) mg/dL Plasma Lactic Acid Joey (0.7-2.0) mmol/L Calcium (8.4-10.2) mg/dL Magnesium (1.6-2.3) mg/dL Total Bilirubin (0.2-1.3) mg/dL AST (17-59) U/L ALT (4-49) U/L Alkaline Phosphatase (38-126) U/L Troponin I (0.000-0.034) ng/mL NT-Pro-B Natriuret Pep pg/mL Total Protein (6.3-8.2) g/dL Albumin (3.5-5.0) g/dL Coronavirus (PCR) Not Detected (Not Detectd) Disposition Clinical Impression: Seizure, Hypoxia Disposition: ADMITTED IP TO THIS HOSP Condition: Fair Referrals: None,Stated [REFERRING] - 1-2 days
[2021-07-14 08:44] LABS: Basophils % (A) 0 %; Eosinophils # (A) 0.5 k/uL (0-0.7); Eosinophils % (A) 5 %; HCT 40.9 % (39.0-53.0); HGB 13.5 gm/dL (13.0-17.5); Lymphocytes % (A) 22 %; Mean Platelet Volume 7.9; Monocytes # (A) 0.5 k/uL (0-1.0); Monocytes % (A) 5 %; Neutrophils # (A) 5.9 k/uL (1.3-7.7); Neutrophils % (A) 64 %; Platelet Count 179 k/uL (150-450); RBC 4.64 m/uL (4.30-5.90); RDW 13.5 % (11.5-15.5); WBC 9.1 k/uL (3.8-10.6)
[2021-07-14 08:45] LABS: ALT 14 U/L (4-49); AST 22 U/L (17-59); African American GFR (CKD) >90 (>60 ml/min/1.73 sqM); Albumin 3.9 g/dL (3.5-5.0); Alkaline Phosphatase 65 U/L (38-126); Anion Gap 7 mmol/L; Blood Urea Nitrogen 14 mg/dL (9-20); Carbon Dioxide 25 mmol/L (22-30); Chloride 105 mmol/L (98-107); Glucose 169 mg/dL (74-99); Magnesium 1.4 mg/dL (1.6-2.3); Non-African American GFR(CKD) >90 (>60 ml/min/1.73 sqM); Sodium 137 mmol/L (137-145); Total Bilirubin 0.8 mg/dL (0.2-1.3)
--- NOTE | 2021-07-14 08:46 | XR ---
EXAMINATION TYPE: XR chest 1V portable DATE OF EXAM: 07/14/2021 COMPARISON: 04/10/2021 HISTORY: Seizure TECHNIQUE: Single frontal view of the chest is obtained. FINDINGS: There is a mild left lower lobe near opacity most likely representing mild atelectasis. Co mpared to previous, there is less atelectasis/density in the retrocardiac region. There is diffuse interstitial markings which were seen previously representing either chronic or acut e diffuse interstitial infiltrate such as pulmonary edema. The heart size is normal. There is no pneumothorax. A small left effusion is not excluded. The osseous structures are intact. IMPRESSION: Chronic interstitial changes versus mild diffuse interstitial edema with possible small left effusion. The findings could possibly represent mild CHF..
[2021-07-14 08:48] LABS: Partial Thromboplastin Time 23.8 sec (22.0-30.0); Prothrombin Time 10.7 sec (9.0-12.0)
--- NOTE | 2021-07-14 08:48 | CT ---
EXAMINATION TYPE: CT brain wo con DATE OF EXAM: 07/14/2021 COMPARISON: 04/02/2021 HISTORY: Seizure CT DLP: 1096.4 mGycm Automated exposure control for dose reduction was used. FINDINGS: The ventricles, basal cisterns and sulci over the convexities are within normal limits and there is n o mass effect or shift of midline structures. No abnormal density is seen throughout the brain parenchyma and there is no acute intra or extra-axia l hemorrhage. The posterior fossa and the brainstem, fourth ventricle and cerebellar pontine angles appear grossly normal. The intraorbital contents appear normal and symmetric. Visualized paranasal sinuses and mastoid air c ells are well aerated. IMPRESSION: No significant abnormality seen with no interval change. IMPRESSION:
[2021-07-14] MEDS ORDERED: NALOXONE 0.4 MG/ML 1 ML VIAL IV PRN (09:33)
[2021-07-14] MEDS: SODIUM CHLORIDE 0.9% 1,000 ML IV SCH (09:54)
[2021-07-14] MEDS ORDERED: LORazepam 2 MG/ML INJ IV PRN ×2 (10:06→12:31)
[2021-07-14] MEDS: METOPROLOL TARTRATE 25 MG TAB PO SCH (20:57)
[2021-07-14] MEDS: MAGNESIUM OXIDE 400 MG TAB PO SCH (20:57)
[2021-07-14] MEDS ORDERED: TACROLIMUS 1 MG CAP PO SCH (21:00)
[2021-07-14] MEDS ORDERED: ATORVASTATIN 10 MG TAB PO SCH (21:00)
[2021-07-14] MEDS ORDERED: levETIRAcetam 500 MG TAB PO SCH ×2 (21:00)
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
[2021-07-15] MEDS: MAGNESIUM OXIDE 400 MG TAB PO SCH (08:39)
[2021-07-15] MEDS: METOPROLOL TARTRATE 25 MG TAB PO SCH (08:39)
[2021-07-15] MEDS ORDERED: levETIRAcetam 500 MG TAB PO SCH (09:00)
[2021-07-15] MEDS ORDERED: TAMSULOSIN 0.4 MG CAP.ER.24H PO SCH (09:00)
[2021-07-15] MEDS ORDERED: TACROLIMUS 1 MG CAP PO SCH (09:00)
[2021-07-15] MEDS ORDERED: ASPIRIN 81 MG PO SCH (09:00)
[2021-07-15 12:43] VITALS: RESP 17; TEMP 97.8
[2021-07-15] MEDS: SODIUM CHLORIDE 0.9% 1,000 ML IV SCH (13:16)
--- NOTE | 2021-07-15 13:24 | P.CNPUL ---
History of Present Illness Consult date: 07/15/21 Reason for consult: COPD, hypoxemia History of present illness: I was asked to evaluate this patient for hypoxemia. The patient currently carries a pulse ox of 94-96%. He is not having any respiratory difficulties. No reported cough sputum production chest that is so wheezing. No reported aspiration. He was hospitalized for seizure activity. The patient is known to have epilepsy. The patient is also known to have stage III a hepatocellular carcinoma and previous history of stage IIb non-small cell lung cancer. Patient undergone a left lower lobe resection. He is also known to have history of hepatitis C virus infection. The patient was diagnosed having A similar carcinoma back in 2013. He was found to have multiple liver lesions. At that point, he underwent liver transplantation [facility] back in 2015. The left lower lobe wedge resection/lobectomy was done on 11/23/2020 and the pathology was consistent with a 5.5 cm invasive squamous cell carcinoma with negative margins and negative lymph nodes. Adjuvant chemotherapy was offered to the patient receives 2 cycles of systemic chemotherapy with cis-sun'aq and Gemzar which she completed on 03/29/2021. Currently, the patient is the hospital because of seizures. Apparently went to bed at around 11 PM. He woke up an ambulance people were putting him on a stretcher he was being transferred to the hospital. He has seizures occurred while he was sleeping. No seizure activity since. The patient will be seen by neurology. He did have a breakthrough seizure and for that reason the patient was hospitalized Review of Systems Constitutional: Denies chills, Denies fever Eyes: denies as per HPI, denies blurred vision, denies bulging eye, denies decreased vision, denies diplopia, denies discharge, denies dry eye, denies irritation, denies itching, denies pain, denies photophobia, denies loss of peripheral vision, denies loss of vision, denies tunnel vision/blind spots Ears: deny: decreased hearing, ear discharge, earache, tinnitus Ears, nose, mouth and throat: Reports as per HPI Breasts: absent: as per HPI, gynecomastia Cardiovascular: Reports as per HPI Respiratory: Reports as per HPI Gastrointestinal: Reports as per HPI Genitourinary: Reports as per HPI Musculoskeletal: Reports as per HPI Musculoskeletal: absent: ankle pain, ankle stiffness, ankle swelling, as per HPI, elbow pain, elbow stiffness, elbow swelling, foot pain, foot stiffness, foot swelling, hand pain, hand stiffness, hand swelling, hip pain, hip stiffness, hip swelling, knee pain, knee stiffness, knee swelling, shoulder pain, shoulder stiffness, shoulder swelling, wrist pain, wrist stiffness, wrist swelling Integumentary: Reports as per HPI Neurological: Reports seizures Psychiatric: Reports as per HPI Endocrine: Reports as per HPI Hematologic/Lymphatic: Reports as per HPI Allergic/Immunologic: Reports as per HPI Past Medical History Past Medical History: Cancer, Hyperlipidemia, Liver Disease Additional Past Medical History / Comment(s): 04/16/21 EC, BACK PAIN. Left LUNG CA. 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 Hx 2014 HEPATITIS C TO CIRRHOSIS, LIVER CANCER (chemo embolization x 2:Jul) History of Any Multi-Drug Resistant Organisms: None Reported Past Surgical History: Heart Catheterization, Hernia Repair Additional Past Surgical History / Comment(s): LEFT lower LOBECTOMY IN NOVEMBER 2020 @ [facility] [place] Cyst removed from rt rib area. Liver transplant 04/2016 @ [facility]. heart cath 04/02/21 Past Anesthesia/Blood Transfusion Reactions: No Reported Reaction Past Psychological History: No Psychological Hx Reported Smoking Status: Former smoker Past Alcohol Use History: None Reported Past Drug Use History: Marijuana Additional Drug Use History / Comment(s): one "joint" every couple weeks to a month. - Past Family History Father Family Medical History: Cancer Additional Family Medical History / Comment(s): prostate Medications and Allergies Home Medications Medication Instructions Recorded Confirmed Type Atorvastatin [Lipitor] 10 mg PO HS@209907/07/18 07/14/21 History Metoprolol Tartrate [Lopressor] 25 mg PO BID@0900,209907/07/18 07/14/21 History Tamsulosin [Flomax] 0.4 mg PO DAILY@89907/07/18 07/14/21 History Mycophenolate Mofetil [Cellcept] 250 mg PO SUMOTUWETHSA@0900 03/29/20 07/14/21 History Tacrolimus [Prograf] 2 mg PO HS@209904/22/21 07/14/21 History Tacrolimus [Prograf] 3 mg PO DAILY@0900 04/22/21 07/14/21 History Magnesium Oxide [Magox 400] 400 mg PO BID@0900,209907/14/21 07/14/21 History levETIRAcetam [Keppra] 500 mg PO BID@0900,2100 07/14/21 07/14/21 History Allergies Allergy/AdvReac Type Severity Reaction Status Date / Time acetaminophen AdvReac LIVER Verified 07/14/21 08:19 TRANSPLANT Physical Exam Vitals: Vital Signs Temp Pulse Resp BP Pulse Ox 07/15/21 12:42 97.8 F 75 17 154/79 94 L 07/15/21 08:41 71 102/62 07/15/21 04:20 98.0 F 73 16 123/77 93 L 07/14/21 20:42 98.0 F 78 16 117/76 96 Intake and Output 07/14/21 07/15/21 07/15/21 22:59 06:59 14:59 Intake Total 250 Output Total 475 400 Balance -475 -150 Intake: Oral 250 Output: Urine 475 400 Other: # Voids 3 Results - Laboratory Findings CBC and BMP: 07/14/21 08:20 07/14/21 08:20 PT/INR, D-dimer PT 10.7 sec (9.0-12.0) 07/14/21 08:20 INR 1.0 (<1.2) 07/14/21 08:20 Abnormal lab findings: Abnormal Labs 07/14/21 07/14/21 08:20 08:20 Glucose 169 H Plasma Lactic Acid Joey 3.0 H* Magnesium 1.4 L Assessment and Plan Plan: 1 hypoxemia, limited, pulse ox on room air is ranging between 94-96% and the patient does not show any signs of any respiratory distress. Chest x-ray showing chronic interstitial changes with possibly a small left-sided pleural effusion. Could be related to an early infiltrate. COVID 19 testing was negative and the patient has not receives: 19 vaccination. Clinically asymptomatic. No signs of any respiratory distress. Aspiration cannot be completely ruled out 2 history of non-small cell lung cancer stage IIb with a previous left lower lobe wedge resection along with mediastinal lymph node dissection treated with 2 sessions of adjuvant chemotherapy with cis-sun'aq and Gemzar 3 stage III hepatocellular carcinoma post liver transportation 4 breakthrough seizure in a patient with a known history of epilepsy 5 hyperlipidemia 6 compression fracture of the T-spine 7 history of hepatitis C 8 chronic back pain 9 chronic immunosuppression and the patient is currently on Prograf for liver transportation Plan No retractions supplementation Give the patient 5 day course of Augmentin 875 mg by mouth twice a day covering for any aspiration pneumonia Monitor pulse ox Continue surveillance CAT scan of the chest post lung cancer. Most recent CAT scan of the chest was done on 04/05/2021 and it showed no evidence of tumor re currence along with that there was some atelectatic changes and infiltration small effusion left lung base. We'll continue to follow and recommend a follow- up CAT scan on a six-month interval. Neurology regarding the breakthrough seizure
[2021-07-15] MEDS ORDERED: AMOXIC-POT CLAV 875-125MG 1 EACH TAB PO SCH (13:30)
[2021-07-15 17:29] VITALS: BP 168/72; PULSE 78
--- NOTE | 2021-07-15 20:13 | HP ---
HISTORY AND PHYSICAL This 71-year-old white male came to the hospital with multiple seizures and hypoxemia, foaming at the mouth. Neurology did a telehealth conference on him today. Chest x-ray showed chronic interstitial changes with mild diffuse edema, small pleural effusion. He was in a postictal state, started on Keppra last year 04/02/21. He was found to have multiple small areas of acute ischemia and infarction last fall, so possibly embolic event. History of liver and lung cancers. He is not taking antiplatelet medicines. He is on Cellcept, Lipitor, Lopressor, Keppra. PAST MEDICAL HISTORY: As mentioned, cancer, dyslipidemia, liver disease, hepatitis C, liver transplant. FAMILY HISTORY: Father with cancer of the prostate. Home medicines as mentioned above. ALLERGIES: ACETAMINOPHEN. Temperature 98.4, blood pressure 110 to 140 over 70s to 80s, O2 88 to 98, respiratory rate 18 to 20. Psych fair mood and affect. Neurologic alert and oriented x3. Cardiovascular S1-S2. Hematology negative Homans. Lungs with mild wheezes x4. Labs were reviewed. He had lactic acid high on admission, improved with fluids. ASSESSMENT: 1. Breakthrough seizure with a new-onset seizure disorder from March 2021. 2. 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 3. History of liver cancer, April 2016, in remission. 4. Hypertension. 5. Nicotine addiction. 6. Hypoxemia, unclear etiology; possibly postictal. Neurology and pulmonary consults. Prognosis guarded. Increase his Keppra from 500 to 750 b.i.d. Apparently he has not been taking his Keppra at home. MMODL / IJN: [id number] /
== END 2021-07-15 18:08 | disposition home or self-care (01) | DRG 101 ==
LOC: EC 07:43 → 5NMEDONC 09:34
PROVIDERS: ADMIT Family Medicine; ATTEND Family Medicine
DX: G40.909 Epilepsy, unspecified, not intractable, without status epilepticus (principal); Z94.4 Liver transplant status; E87.2 Acidosis; E78.5 Hyperlipidemia, unspecified; Z85.05 Personal history of malignant neoplasm of liver; Z85.118 Personal history of other malignant neoplasm of bronchus and lung; Z87.891 Personal history of nicotine dependence; J44.9 Chronic obstructive pulmonary disease, unspecified; Z86.19 Personal history of other infectious and parasitic diseases; R09.02 Hypoxemia; Z20.822 Contact with and (suspected) exposure to COVID-19; Z79.899 Other long term (current) drug therapy; Z80.42 Family history of malignant neoplasm of prostate; Z86.73 Personal history of transient ischemic attack (TIA), and cerebral infarction without residual deficits; Z98.890 Other specified postprocedural states; Z92.21 Personal history of antineoplastic chemotherapy; Z88.6 Allergy status to analgesic agent; I50.9 Heart failure, unspecified; I11.0 Hypertensive heart disease with heart failure; Z90.2 Acquired absence of lung [part of]
CPT/HCPCS: 36415; 70450; 71045; 80053; 83605; 83735; 83880; 84484; 85025; 85610; 85730; 87635; 93005; 99285

== ENCOUNTER → 2021-12-18 | Outpatient (CLI) | payer MEDICARE, OTHER | END | disposition home or self-care (01) | LOC: LABWHC1 07:10 | PROVIDERS: ATTEND Psychiatry & Neurology Neurology | DX: R56.9 Unspecified convulsions (principal) | CPT/HCPCS: 36415; 80177 ==

== ENCOUNTER → 2022-01-16 | Outpatient (CLI) | payer MEDICARE, OTHER ==
[2022-01-16 10:40] LABS: Basophils # (A) 0.04 X 10*3/uL (0.00-0.10); Basophils % (A) 0.5 %; Eosinophils % (A) 7.5 %; HCT 43.6 % (39.6-50.0); HGB 13.6 g/dL (13.0-17.0); Immature Grans, Automated 0.3 %; Lymphocytes # (A) 2.27 X 10*3/uL (0.90-5.00); Lymphocytes % (A) 28.6 %; MCH 27.3 pg (27.0-32.0); MCHC 31.2 g/dL (32.0-37.0); MCV 87.6 fL (80.0-97.0); Mean Platelet Volume 10.1 fL (9.5-12.2); Monocytes # (A) 0.61 X 10*3/uL (0.20-1.00); Monocytes % (A) 7.7 %; NRBC Per 100 WBC 0 /100 WBCS (0.0-0.0); Neutrophils # (A) 4.41 X 10*3/uL (1.80-7.70); Neutrophils % (A) 55.4 %; Platelet Count 167 X 10*3/uL (140-440); RBC 4.98 X 10*6/uL (4.40-5.60); RDW 13.2 % (11.5-14.5); WBC 7.95 X 10*3/uL (4.50-10.00)
[2022-01-16 10:55] LABS: ALT 18 U/L (10-49); AST 16 U/L (14-35); African American GFR (CKD) 88.6 (60.0-200.0); Albumin 4.2 g/dL (3.8-4.9); Alkaline Phosphatase 63 U/L (41-126); Bilirubin, Conjugated <0.20 mg/dL (0.20-0.40); Blood Urea Nitrogen 15.3 mg/dL (9.0-27.0); Calcium 9.2 mg/dL (8.7-10.3); Carbon Dioxide 30.7 mmol/L (20.0-27.5); Chloride 105 mmol/L (96-109); Globulin 2.8 g/dL (1.6-3.3); Glucose 112 mg/dL (70-110); Magnesium 1.7 mg/dL (1.5-2.4); Non-African American GFR(CKD) 76.5 (60.0-200.0); Potassium 4.6 mmol/L (3.5-5.5); Sodium 143 mmol/L (135-145)
== END | disposition home or self-care (01) ==
LOC: LABWHC1 08:14
PROVIDERS: ATTEND Internal Medicine Transplant Hepatology
DX: Z94.4 Liver transplant status (principal)
CPT/HCPCS: 36415; 80048; 80076; 80197; 82105; 82465; 83735; 85025

== ENCOUNTER 2022-03-22 18:14 | Inpatient (IN) | payer MEDICARE, OTHER ==
--- NOTE | 2022-03-22 19:30 | XR ---
EXAMINATION TYPE: XR chest 2V DATE OF EXAM: 03/22/2022 COMPARISON: 07/14/2021 HISTORY: Short of breath TECHNIQUE: FINDINGS: There is coarsening of interstitial markings. Heart size is normal. There are no hilar mass es. Mediastinum is normal. Bony thorax is intact. There is vertebroplasty of upper thoracic vertebra as well as L1 vertebra. IMPRESSION: Moderate coarse interstitial markings are increased compared to the old exam and consiste nt with interstitial pneumonia and pulmonary fibrosis.
[2022-03-22 20:09] LABS: Basophils % (A) 0 %; Eosinophils # (A) 0.2 k/uL (0-0.7); Eosinophils % (A) 2 %; HCT 44.9 % (39.0-53.0); HGB 14.8 gm/dL (13.0-17.5); Lymphocytes # (A) 2.2 k/uL (1.0-4.8); Lymphocytes % (A) 20 %; MCH 28.1 pg (25.0-35.0); MCV 85.3 fL (80.0-100.0); Mean Platelet Volume 7.7; Monocytes # (A) 0.9 k/uL (0-1.0); Monocytes % (A) 8 %; Neutrophils # (A) 7.5 k/uL (1.3-7.7); Neutrophils % (A) 68 %; Platelet Count 156 k/uL (150-450); RBC 5.26 m/uL (4.30-5.90); RDW 13.1 % (11.5-15.5)
[2022-03-22 20:26] LABS: ALT 19 U/L (4-49); AST 22 U/L (17-59); African American GFR (CKD) >90 (>60 ml/min/1.73 sqM); Albumin 4.6 g/dL (3.5-5.0); Alkaline Phosphatase 77 U/L (38-126); Anion Gap 15 mmol/L; Blood Urea Nitrogen 19 mg/dL (9-20); Calcium 9.4 mg/dL (8.4-10.2); Carbon Dioxide 24 mmol/L (22-30); Chloride 99 mmol/L (98-107); Glucose 106 mg/dL (74-99); Non-African American GFR(CKD) 85 (>60 ml/min/1.73 sqM); Potassium 4.2 mmol/L (3.5-5.1); Sodium 138 mmol/L (137-145); Total Bilirubin 1.6 mg/dL (0.2-1.3); Total Protein 8.1 g/dL (6.3-8.2)
--- NOTE | 2022-03-22 21:40 | ED ---
SOB HPI - General Chief Complaint: Shortness of Breath Stated Complaint: low O2 Time Seen by Provider: 03/22/22 21:10 Source: patient Mode of arrival: ambulatory Limitations: no limitations - History of Present Illness Initial Comments: This patient is a 72-year-old man who presents to have evaluation for constellation of symptoms starting approximately 2 days ago. Patient does have history of metastatic lung cancer. He is status post liver transplant related to that. He has also had left lung lower lobectomy. He is not using oxygen at home. He states that starting 2 days ago he began to have chills, body aches, cough and over the course of today has been feeling short of breath. The patient has not had a covid vaccination. MD Complaint: shortness of breath, cough Onset/Timin -: days(s) Consistency: constant Improves With: nothing Worsens With: nothing Known History Of: other Associated Symptoms: cough Treatments Prior to Arrival: none - Related Data Home Medications Medication Instructions Recorded Confirmed Atorvastatin [Lipitor] 10 mg PO HS@209907/07/18 07/14/21 Metoprolol Tartrate [Lopressor] 25 mg PO BID@09,209907/07/18 07/14/21 Tamsulosin [Flomax] 0.4 mg PO DAILY@0900 07/07/18 07/14/21 mycophenolate mofetiL [Cellcept] 250 mg PO SUMOTUWETHSA@0900 03/29/20 07/14/21 Tacrolimus [Prograf] 2 mg PO HS@209904/22/21 07/14/21 Tacrolimus [Prograf] 3 mg PO DAILY@0900 04/22/21 07/14/21 Magnesium Oxide [Magox 400] 400 mg PO BID@899,209907/14/21 07/14/21 Previous Rx's Medication Instructions Recorded Amoxic-Pot Clav 875-125Mg 1 each PO Q12HR 7 Days #14 tab 07/15/21 [Augmentin 875-125] Aspirin 81 mg PO DAILY 90 Days #90 07/15/21 levETIRAcetam [Keppra] 500 mg PO BID@0900,2099 30 Days 07/15/21 #60 tab Allergies Allergy/AdvReac Type Severity Reaction Status Date / Time acetaminophen AdvReac LIVER Verified 03/22/22 18:31 TRANSPLANT Review of Systems ROS Statement: Those systems with pertinent positive or pertinent negative responses have been documented in the HPI. ROS Other: All systems not noted in ROS Statement are negative. Constitutional: Reports: fever, chills, weakness Respiratory: Reports: cough, dyspnea. Denies: hemoptysis Cardiovascular: Denies: chest pain, palpitations, orthopnea, edema, syncope Gastrointestinal: Reports: diarrhea. Denies: abdominal pain, nausea, vomiting, melena, hematochezia Genitourinary: Denies: dysuria, hematuria Musculoskeletal: Denies: back pain Skin: Denies: rash Neurological: Denies: headache, weakness Past Medical History Past Medical History: Cancer, Hyperlipidemia, Liver Disease Additional Past Medical History / Comment(s): 04/16/21 EC, BACK PAIN. Left LUNG CA. 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 Hx 2014 HEPATITIS C TO CIRRHOSIS, LIVER CANCER (chemo embolization x 2:Jul) History of Any Multi-Drug Resistant Organisms: None Reported Past Surgical History: Heart Catheterization, Hernia Repair Additional Past Surgical History / Comment(s): LEFT lower LOBECTOMY IN NOVEMBER 2020 @ [facility], [place] Cyst removed from rt rib area. Liver transplant 04/2016 @ [facility]. heart cath 04/02/21 Past Anesthesia/Blood Transfusion Reactions: No Reported Reaction Past Psychological History: No Psychological Hx Reported Smoking Status: Former smoker Past Alcohol Use History: None Reported Past Drug Use History: Marijuana - Past Family History Father Family Medical History: Cancer Additional Family Medical History / Comment(s): prostate General Exam Limitations: no limitations General appearance: alert, in no apparent distress Head exam: Present: atraumatic, normocephalic Eye exam: Present: normal appearance. Absent: scleral icterus, conjunctival injection ENT exam: Present: normal oropharynx Neck exam: Present: normal inspection, full ROM Respiratory exam: Present: normal lung sounds bilaterally, rales. Absent: respiratory distress, wheezes, rhonchi, stridor Cardiovascular Exam: Present: normal rhythm, tachycardia, systolic murmur. Absent: diastolic murmur, rubs, gallop GI/Abdominal exam: Present: soft. Absent: distended, tenderness, guarding, rebound, rigid, mass Extremities exam: Present: normal inspection. Absent: pedal edema, calf tenderness Back exam: Present: normal inspection. Absent: CVA tenderness (R), CVA tenderness (L) Neurological exam: Present: alert Skin exam: Present: warm, dry, intact, normal color. Absent: rash Course Vital Signs 03/22/22 03/22/22 03/22/22 18:31 21:20 22:00 Temperature 98.1 F 98.2 F Pulse Rate 123 H 94 Pulse Rate [ 120 H [employer] ] Respiratory 16 20 20 Rate Blood Pressure 156/81 110/70 O2 Sat by Pulse 91 L 96 Oximetry 03/22/22 23:28 Temperature 98.9 F Pulse Rate 87 Pulse Rate [ [employer] ] Respiratory 20 Rate Blood Pressure 106/58 O2 Sat by Pulse 97 Oximetry Medical Decision Making - Medical Decision Making This patient is 72-year-old man presenting with clinical picture point towards pneumonia. Chest x-ray does show pneumonitis versus fibrosis, given the immunocompromise will admit patient with antibiotic treatment. I discussed transfer to [facility] where the patient's transplant team as and at this point he requests that we call Dr. Patino to see if he can be kept here for a day to see how he is responding. I discussed the risk associated with that and the patient at this point willing to accept that. Case discussed with Dr. Patino who will admit to start therapy with the understanding that patient may require transfer there is any worsening in his clinical condition. Patient understands and accepts this. Antibiotics started, - Lab Data Result diagrams: 03/22/22 19:34 03/22/22 19:34 Lab Results 03/22/22 03/22/22 03/22/22 Range/Units 19:34 19:34 19:34 WBC 11.0 H (3.8-10.6) k/uL RBC 5.26 (4.30-5.90) m/uL Hgb 14.8 (13.0-17.5) gm/dL Hct 44.9 (39.0-53.0) % MCV 85.3 (80.0-100.0) fL MCH 28.1 (25.0-35.0) pg MCHC 33.0 (31.0-37.0) g/dL RDW 13.1 (11.5-15.5) % Plt Count 156 (150-450) k/uL MPV 7.7 Neutrophils % 68 % Lymphocytes % 20 % Monocytes % 8 % Eosinophils % 2 % Basophils % 0 % Neutrophils # 7.5 (1.3-7.7) k/uL Lymphocytes # 2.2 (1.0-4.8) k/uL Monocytes # 0.9 (0-1.0) k/uL Eosinophils # 0.2 (0-0.7) k/uL Basophils # 0.0 (0-0.2) k/uL PT (9.0-12.0) sec INR (<1.2) APTT (22.0-30.0) sec D-Dimer (<0.60) mg/L FEU Sodium 138 (137-145) mmol/L Potassium 4.2 (3.5-5.1) mmol/L Chloride 99 (98-107) mmol/L Carbon Dioxide 24 (22-30) mmol/L Anion Gap 15 mmol/L BUN 19 (9-20) mg/dL Creatinine 0.91 (0.66-1.25) mg/dL Est GFR (CKD-EPI)AfAm >90 (>60 ml/min/1.73 sqM) Est GFR (CKD-EPI)NonAf 85 (>60 ml/min/1.73 sqM) Glucose 106 H (74-99) mg/dL Plasma Lactic Acid Joey (0.7-2.0) mmol/L Calcium 9.4 (8.4-10.2) mg/dL Total Bilirubin 1.6 H (0.2-1.3) mg/dL AST 22 (17-59) U/L ALT 19 (4-49) U/L Alkaline Phosphatase 77 (38-126) U/L Troponin I <0.012 (0.000-0.034) ng/mL NT-Pro-B Natriuret Pep pg/mL Total Protein 8.1 (6.3-8.2) g/dL Albumin 4.6 (3.5-5.0) g/dL Coronavirus (PCR) (Not Detectd) 03/22/22 03/22/22 03/22/22 Range/Units 21:35 21:35 21:35 WBC (3.8-10.6) k/uL RBC (4.30-5.90) m/uL Hgb (13.0-17.5) gm/dL Hct (39.0-53.0) % MCV (80.0-100.0) fL MCH (25.0-35.0) pg MCHC (31.0-37.0) g/dL RDW (11.5-15.5) % Plt Count (150-450) k/uL MPV Neutrophils % % Lymphocytes % % Monocytes % % Eosinophils % % Basophils % % Neutrophils # (1.3-7.7) k/uL Lymphocytes # (1.0-4.8) k/uL Monocytes # (0-1.0) k/uL Eosinophils # (0-0.7) k/uL Basophils # (0-0.2) k/uL PT 10.6 (9.0-12.0) sec INR 1.0 (<1.2) APTT 29.1 (22.0-30.0) sec D-Dimer 0.51 (<0.60) mg/L FEU Sodium (137-145) mmol/L Potassium (3.5-5.1) mmol/L Chloride (98-107) mmol/L Carbon Dioxide (22-30) mmol/L Anion Gap mmol/L BUN (9-20) mg/dL Creatinine (0.66-1.25) mg/dL Est GFR (CKD-EPI)AfAm (>60 ml/min/1.73 sqM) Est GFR (CKD-EPI)NonAf (>60 ml/min/1.73 sqM) Glucose (74-99) mg/dL Plasma Lactic Acid Joey 1.2 (0.7-2.0) mmol/L Calcium (8.4-10.2) mg/dL Total Bilirubin (0.2-1.3) mg/dL AST (17-59) U/L ALT (4-49) U/L Alkaline Phosphatase (38-126) U/L Troponin I (0.000-0.034) ng/mL NT-Pro-B Natriuret Pep 35 pg/mL Total Protein (6.3-8.2) g/dL Albumin (3.5-5.0) g/dL Coronavirus (PCR) (Not Detectd) 03/22/22 Range/Units 22:31 WBC (3.8-10.6) k/uL RBC (4.30-5.90) m/uL Hgb (13.0-17.5) gm/dL Hct (39.0-53.0) % MCV (80.0-100.0) fL MCH (25.0-35.0) pg MCHC (31.0-37.0) g/dL RDW (11.5-15.5) % Plt Count (150-450) k/uL MPV Neutrophils % % Lymphocytes % % Monocytes % % Eosinophils % % Basophils % % Neutrophils # (1.3-7.7) k/uL Lymphocytes # (1.0-4.8) k/uL Monocytes # (0-1.0) k/uL Eosinophils # (0-0.7) k/uL Basophils # (0-0.2) k/uL PT (9.0-12.0) sec INR (<1.2) APTT (22.0-30.0) sec D-Dimer (<0.60) mg/L FEU Sodium (137-145) mmol/L Potassium (3.5-5.1) mmol/L Chloride (98-107) mmol/L Carbon Dioxide (22-30) mmol/L Anion Gap mmol/L BUN (9-20) mg/dL Creatinine (0.66-1.25) mg/dL Est GFR (CKD-EPI)AfAm (>60 ml/min/1.73 sqM) Est GFR (CKD-EPI)NonAf (>60 ml/min/1.73 sqM) Glucose (74-99) mg/dL Plasma Lactic Acid Joey (0.7-2.0) mmol/L Calcium (8.4-10.2) mg/dL Total Bilirubin (0.2-1.3) mg/dL AST (17-59) U/L ALT (4-49) U/L Alkaline Phosphatase (38-126) U/L Troponin I (0.000-0.034) ng/mL NT-Pro-B Natriuret Pep pg/mL Total Protein (6.3-8.2) g/dL Albumin (3.5-5.0) g/dL Coronavirus (PCR) Not Detected (Not Detectd) - EKG Data -: EKG Interpreted by Ut EKG shows normal: sinus rhythm, axis (Normal), intervals (Normal) Rate: tachycardia (Rate 103 bpm) Interpretation: other (Possible old inferior infarct.) Disposition Clinical Impression: Pneumonia Disposition: ADMITTED IP TO THIS HOSP Condition: Serious Is patient prescribed a controlled substance at d/c from ED?: No
[2022-03-22 22:18] LABS: Partial Thromboplastin Time 29.1 sec (22.0-30.0); Prothrombin Time 10.6 sec (9.0-12.0)
[2022-03-22] MEDS ORDERED: AZITHROMYCIN 500 MG TAB PO STA (23:45)
[2022-03-23] MEDS ORDERED: PNEUMONIA PROTOCOL UTILIZED 1 EACH MISC PO PRN (00:14)
[2022-03-23] MEDS: MAGNESIUM OXIDE 400 MG TAB PO SCH ×3 (09:24→20:52)
[2022-03-23] MEDS: CLOPIDOGREL 75 MG TAB PO SCH (09:24)
[2022-03-23] MEDS: METOPROLOL TARTRATE 25 MG TAB PO SCH ×2 (09:24→20:37)
[2022-03-23] MEDS: levETIRAcetam 500 MG TAB PO SCH ×2 (09:24→20:37)
[2022-03-23] MEDS: ASPIRIN 81 MG PO SCH (09:24)
[2022-03-23] MEDS: TAMSULOSIN 0.4 MG CAP.ER.24H PO SCH (09:56)
[2022-03-23] MEDS: TACROLIMUS 1 MG CAP PO SCH ×2 (09:56→20:38)
[2022-03-23] MEDS: AZITHROMYCIN 500 MG TAB PO SCH (12:41)
[2022-03-23] MEDS: ALBUTEROL NEBULIZED 2.5 MG/3 ML INHALATION SCH ×3 (15:17→20:11)
[2022-03-23] MEDS: ATORVASTATIN 10 MG TAB PO SCH (20:37)
[2022-03-23] MEDS ORDERED: RX INFO: IV CONTRAST WAS GIVEN 1 EACH MISC MISCELLANE PRN (22:14)
--- NOTE | 2022-03-23 23:44 | HP ---
HISTORY AND PHYSICAL CHIEF COMPLAINT: Shortness of breath and cough. HISTORY OF PRESENT ILLNESS: This 72-year-old gentleman with the past medical history of chronic liver disease, multiple medical problems, being followed by Dr. Sea Patino in the outpatient. He is complaining of shortness of breath and cough. The patient also had metastatic lung cancer. The patient came to [facility], pneumonia suspected. The patient was admitted for further evaluation and treatment. There is no history of any fever, rigors, or chills. PAST MEDICAL HISTORY: History of lung cancer, history of chronic liver disease. Rest of medical issues noted. HOME MEDICATIONS: Again, reviewed include CellCept. Dose and rest of medications noted. ALLERGIES: Tylenol. FAMILY HISTORY: History of prostate cancer. SOCIAL HISTORY: Previous history of smoking. REVIEW OF SYSTEMS: A 14-point review of systems is negative as mentioned earlier. PHYSICAL EXAMINATION: VITAL SIGNS: Pulse is 89, blood pressure 128/89, respirations 20. HEENT: Conjunctivae normal. NECK: No jugular venous distention. CARDIOVASCULAR: S1, S2 muffled. RESPIRATION: Few scattered rhonchi and crackles. ABDOMEN: Soft, nontender. LEGS: No edema. NERVOUS SYSTEM: Nonfocal. SKIN: No ulcer, rash, bleeding. JOINTS: No active deforming arthropathy. LABORATORY DATA: Reviewed. Chest x-ray reviewed personally. ASSESSMENT: 1. Possibly pneumonia. 2. Lung cancer with mets history. 3. Chronic liver disease. 4. Multiple medical issues. RECOMMENDATIONS AND DISCUSSION: This is a 72-year-old gentleman, who presented with multiple medical issues. At this time, I recommend broad-spectrum IV antibiotics in the form of Rocephin and Zithromax and resume the home medication and bronchodilators. Ensure oxygenation, and Dr. Patino will follow tomorrow. Prognosis is guarded. MMODL / IJN: [id number] /
--- NOTE | 2022-03-23 23:47 | CT ---
EXAMINATION TYPE: CT chest w con DATE OF EXAM: 03/23/2022 COMPARISON: 04/06/2021 HISTORY: CAP hx of lung CA hx of left lower lobectomy and a liver transplant CT DLP: 423.7 mGycm Automated exposure control for dose reduction was used. CONTRAST: Performed with IV Contrast, patient injected with 100 mL of Isovue 370. Images obtained from the thoracic inlet to the diaphragm with the IV contrast. There is extensive peripheral reticular interstitial infiltrate in the lung singleton. This is more on t he right side compared to the left. No pleural effusion. Heart size is normal. No pericardial effusio n. There are no hilar masses. The thoracic aorta is atheromatous. There are some paratracheal lymph n odes up to 1.5 cm. Upper abdominal soft tissues are intact. The thoracic vertebra have normal alignme nt. There is vertebroplasty at T5 vertebra. There is vertebroplasty of L1. IMPRESSION: Extensive interstitial pulmonary infiltrates slightly increased compared to old exam. This is consist ent with multifocal pneumonia. No suspicious pulmonary mass. Bilateral pleural effusions are present on old exam that are mostly cleared on today's exam.
[2022-03-24] MEDS: ALBUTEROL NEBULIZED 2.5 MG/3 ML INHALATION SCH ×4 (07:13→19:11)
--- NOTE | 2022-03-24 08:11 | XR ---
EXAMINATION TYPE: XR chest 1V portable DATE OF EXAM: 03/24/2022 COMPARISON: 03/22/2022 INDICATION: Pneumonia TECHNIQUE: Single frontal view of the chest is obtained. FINDINGS: The heart size is normal. The pulmonary vasculature is normal. Patchy infiltrates within the periphery of the lungs greater on the right. Findings are similar for c omparison. Correlate for atypical pneumonia. IMPRESSION: 1. Scattered bilateral lung infiltrates are nonspecific. Correlate for atypical pneumonia.
[2022-03-24] MEDS: METOPROLOL TARTRATE 25 MG TAB PO SCH ×2 (08:35→20:35)
[2022-03-24] MEDS: MAGNESIUM OXIDE 400 MG TAB PO SCH ×2 (08:35→20:35)
[2022-03-24] MEDS: TAMSULOSIN 0.4 MG CAP.ER.24H PO SCH (08:35)
[2022-03-24] MEDS: ASPIRIN 81 MG PO SCH (08:35)
[2022-03-24] MEDS: levETIRAcetam 500 MG TAB PO SCH ×2 (08:35→20:36)
[2022-03-24] MEDS: CLOPIDOGREL 75 MG TAB PO SCH (08:35)
[2022-03-24] MEDS: AZITHROMYCIN 500 MG TAB PO SCH (08:35)
[2022-03-24] MEDS: TACROLIMUS 1 MG CAP PO SCH ×2 (08:36→20:36)
[2022-03-24 10:37] LABS: Basophils # (A) 0.03 X 10*3/uL (0.00-0.10); Basophils % (A) 0.3 %; Eosinophils # (A) 0.28 X 10*3/uL (0.04-0.35); HCT 39.8 % (39.6-50.0); HGB 13.1 g/dL (13.0-17.0); Immature Grans, Automated 0.3 %; Lymphocytes % (A) 18.4 %; MCH 28.1 pg (27.0-32.0); MCHC 32.9 g/dL (32.0-37.0); MCV 85.4 fL (80.0-97.0); Mean Platelet Volume 10.3 fL (9.5-12.2); Monocytes # (A) 1.04 X 10*3/uL (0.20-1.00); Monocytes % (A) 11.3 %; NRBC Per 100 WBC 0 /100 WBCS (0.0-0.0); Neutrophils # (A) 6.14 X 10*3/uL (1.80-7.70); Neutrophils % (A) 66.7 %; Platelet Count 175 X 10*3/uL (140-440); RBC 4.66 X 10*6/uL (4.40-5.60); RDW 13.2 % (11.5-14.5); WBC 9.22 X 10*3/uL (4.50-10.00)
[2022-03-24 10:53] LABS: African American GFR (CKD) 101.6 (60.0-200.0); Albumin 3.7 g/dL (3.8-4.9); Albumin/Globulin Ratio 1.27 (1.60-3.17); Anion Gap 11.6 mmol/L (10.00-18.00); BUN/Creat Ratio 21.62 Ratio (12.00-20.00); Blood Urea Nitrogen 18.7 mg/dL (9.0-27.0); Calcium 8.7 mg/dL (8.7-10.3); Carbon Dioxide 25.2 mmol/L (20.0-27.5); Globulin 2.9 g/dL (1.6-3.3); Non-African American GFR(CKD) 87.7 (60.0-200.0); Total Bilirubin 0.9 mg/dL (0.30-1.20); Total Protein 6.6 g/dL (6.2-8.2)
[2022-03-24] MEDS: AZITHROMYCIN 500 MG in SODIUM CHLORIDE 0.9% 250 ML IVPB SCH (13:41)
[2022-03-24] MEDS: PIPERACILLIN-TAZOBACTAM 3.375 GM in SODIUM CHLORIDE 0.9% 100 ML IVPB SCH (16:58)
--- NOTE | 2022-03-24 19:17 | P.CNPUL ---
History of Present Illness Consult date: 03/24/22 Reason for consult: dyspnea, cough, hypoxemia, pneumonia Chief complaint: Shortness of breath and cough History of present illness: Patient is a 72-year-old with complex past medical history presented into the hospital with 2 days increase of shortness of breath cough and not feeling well. Patient has significant history of immunosuppression due to medications related to liver transplant for hepatitis C and cancer. Patient also has history of lung cancer status post left lobectomy his other active medical problems include hypertension dyslipidemia. He used to smoke but stopped in the past have a smoked half to 1 pack per day for about 25-30 years on arrival he was tachypneic tachycardic with heart rate of 123, saturations 91%. He had mild leukocytosis with WBC count of 11,000. Kidney functions within normal limit. His score testing was negative. Currently patient is appropriately treated with Zithromax continuation of his home medicine including immunosuppressant and Zosyn. His admit chest x-ray significant for moderate coarse interstitial marking likely pulmonary fibrosis versus interstitial edema that his computed tomography scan positive for extensive interstitial infiltrate consistent with multifocal pneumonia no masses are seen small bilateral pleural effusion. His most recent chest x-ray earlier today consistent with bilateral infiltrate likely atypical pneumonia Past Medical History Past Medical History: Cancer, Liver Disease, Pneumonia, Seizure Disorder Additional Past Medical History / Comment(s): BACK PAIN. Left LUNG CA. 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 Liver transplant 04/2016 @ [facility] [place]. Heart cath 04/02/[address] Reddy, Kyphoplasty by Dr. Chaves Apr 2021 Past Anesthesia/Blood Transfusion Reactions: No Reported Reaction Smoking Status: Former smoker - Past Family History Father Family Medical History: Cancer Additional Family Medical History / Comment(s): prostate Medications and Allergies Home Medications Medication Instructions Recorded Confirmed Type Atorvastatin [Lipitor] 10 mg PO HS 07/07/18 03/23/22 History Metoprolol Tartrate [Lopressor] 25 mg PO BID 07/07/18 03/23/22 History Tamsulosin [Flomax] 0.4 mg PO DAILY 07/07/18 03/23/22 History mycophenolate mofetiL [Cellcept] 250 mg PO DAILY 03/29/20 03/23/22 History Tacrolimus [Prograf] 2 mg PO BID 04/22/21 03/23/22 History Magnesium Oxide [Magox 400] 400 mg PO DAILY 07/14/21 03/23/22 History Aspirin 81 mg PO DAILY 90 Days #90 07/15/21 03/23/22 Rx Clopidogrel [Plavix] 75 mg PO DAILY 03/23/22 03/23/22 History levETIRAcetam [Keppra] 500 mg PO BID 03/23/22 03/23/22 History Allergies Allergy/AdvReac Type Severity Reaction Status Date / Time acetaminophen AdvReac LIVER Verified 03/23/22 11:50 TRANSPLANT Physical Exam Vitals: Vital Signs Temp Pulse Pulse Resp BP Pulse Ox 03/24/22 15:22 76 03/24/22 15:11 76 03/24/22 11:17 97.5 F L 86 17 100/68 95 03/24/22 10:50 88 03/24/22 10:37 86 03/24/22 08:42 86 105/61 03/24/22 05:00 97.6 F 96 20 93/58 96 03/23/22 20:11 92 L 03/23/22 19:16 98.3 F 94 16 110/70 93 L Intake and Output 03/24/22 03/24/22 03/24/22 06:59 14:59 22:59 Other: # Voids 2 1 # Bowel Movements 1 - Constitutional General appearance: average body habitus, cooperative - EENT Eyes: EOMI, PERRLA ENT: normal oropharynx Ears: bilateral: normal - Neck Neck: normal ROM Carotids: bilateral: upstroke normal - Respiratory Respiratory: right: rales, bilateral: rhonchi, wheezing, prolonged expiration - Cardiovascular Rhythm: regular Heart sounds: normal: S1, S2 - Gastrointestinal General gastrointestinal: normal bowel sounds, soft - Integumentary Integumentary: normal turgor - Neurologic Neurologic: CNII-XII intact - Musculoskeletal Musculoskeletal: gait normal, generalized weakness, strength equal bilaterally - Psychiatric Psychiatric: A&O x's 3, appropriate affect, intact judgment & insight Results - Laboratory Findings CBC and BMP: 03/24/22 06:29 03/24/22 06:29 PT/INR, D-dimer PT 10.6 sec (9.0-12.0) 03/22/22 21:35 INR 1.0 (<1.2) 03/22/22 21:35 D-Dimer 0.51 mg/L FEU (<0.60) 03/22/22 21:35 Abnormal lab findings: Abnormal Labs 03/22/22 03/22/22 03/24/22 19:34 19:34 06:29 WBC 11.0 H Monocytes # 1.04 H BUN/Creatinine Ratio Glucose 106 H Total Bilirubin 1.6 H Albumin Albumin/Globulin Ratio 03/24/22 06:29 WBC Monocytes # BUN/Creatinine Ratio 21.62 H Glucose Total Bilirubin Albumin 3.7 L Albumin/Globulin Ratio 1.27 L - Diagnostic Findings Chest x-ray: report reviewed, image reviewed CT scan - chest: report reviewed, image reviewed (As noted above) Assessment and Plan Assessment: Bilateral pneumonia community-acquired versus atypical versus gram-negative related Immunosuppressed status related to liver transplant and immunosuppressive medications History of lung cancer Baseline COPD with possible exacerbation History of hepatitis C History of liver cancer Plan: Agree with broad-spectrum antibiotics with Zosyn and Zithromax Send urine for Legionella antigen Will observe closely if not improve consider doing a bronchoscopy in 48-72 hours Consider trial of IV steroids Time with Patient: Greater than 30
[2022-03-24] MEDS: ATORVASTATIN 10 MG TAB PO SCH (20:35)
[2022-03-24] MEDS: methylPREDNISolone SOD SUCCI 40 MG/ML 1 ML VIAL IV SCH (20:37)
[2022-03-25] MEDS: PIPERACILLIN-TAZOBACTAM 3.375 GM in SODIUM CHLORIDE 0.9% 100 ML IVPB SCH ×3 (00:11→16:59)
[2022-03-25] MEDS: ALBUTEROL NEBULIZED 2.5 MG/3 ML INHALATION SCH ×4 (07:03→19:58)
[2022-03-25] MEDS: TAMSULOSIN 0.4 MG CAP.ER.24H PO SCH (09:30)
[2022-03-25] MEDS: METOPROLOL TARTRATE 25 MG TAB PO SCH ×2 (09:30→21:02)
[2022-03-25] MEDS: levETIRAcetam 500 MG TAB PO SCH ×2 (09:30→21:02)
[2022-03-25] MEDS: CLOPIDOGREL 75 MG TAB PO SCH (09:30)
[2022-03-25] MEDS: TACROLIMUS 1 MG CAP PO SCH ×2 (09:30→21:02)
[2022-03-25] MEDS: methylPREDNISolone SOD SUCCI 40 MG/ML 1 ML VIAL IV SCH ×2 (09:30→21:01)
[2022-03-25] MEDS: MAGNESIUM OXIDE 400 MG TAB PO SCH ×2 (09:30→21:02)
[2022-03-25] MEDS: ASPIRIN 81 MG PO SCH (09:30)
[2022-03-25] MEDS: AZITHROMYCIN 500 MG in SODIUM CHLORIDE 0.9% 250 ML IVPB SCH (11:37)
[2022-03-25] MEDS: ATORVASTATIN 10 MG TAB PO SCH (21:02)
--- NOTE | 2022-03-25 23:41 | P.PN ---
Subjective Progress Note Date: 03/25/22 Principal diagnosis: Bilateral pneumonia community-acquired versus atypical versus gram-negative related Immunosuppressed status related to liver transplant and immunosuppressive m edications History of lung cancer Baseline COPD with possible exacerbation History of hepatitis C History of liver cancer 03/25/2022, patient seen eval examined during the rounds labs reviewed me dications reviewed, is still short of breath on activity and exertion, patient desaturated at room air to 84% with tachycardia after brief physical exertion and activity. Blood cultures have been negative for 48 hours, his sputum culture appeared to be developing normal respiratory lady. Patient remains on azithromycin along with Solu-Medrol and Zosyn shortness of breath and cough are still there, we'll check a follow-up chest x-ray Patient is a 72-year-old with complex past medical history presented into the hospital with 2 days increase of shortness of breath cough and not feeling well. Patient has significant history of immunosuppression due to medications related to liver transplant for hepatitis C and cancer. Patient also has history of lung cancer status post left lobectomy his other active medical problems include hypertension dyslipidemia. He used to smoke but stopped in the past have a smoked half to 1 pack per day for about 25-30 years on arrival he was tachypneic tachycardic with heart rate of 123, saturations 91%. He had mild leukocytosis with WBC count of 11,000. Kidney functions within normal limit. His score testing was negative. Currently patient is appropriately treated with Zithromax continuation of his home medicine including immunosuppressant and Zosyn. His admit chest x-ray significant for moderate coarse interstitial marking likely pulmonary fibrosis versus interstitial edema that his computed tomography scan positive for extensive interstitial infiltrate consistent with multifocal pneumonia no masses are seen small bilateral pleural effusion. His most recent chest x-ray earlier today consistent with bilateral infiltrate likely atypical pneumonia Objective - Vital Signs Vital signs: Vital Signs Temp 97.6 F 03/25/22 17:16 Pulse 92 03/25/22 20:09 Resp 17 03/25/22 17:16 BP 110/68 03/25/22 17:16 Pulse Ox 94 L 03/25/22 19:59 FiO2 Intake & Output 03/25/22 03/25/22 03/26/22 06:59 18:59 06:59 Intake Total 1180 240 Balance 1180 240 Intake: Intake, IV Titration 100 Amount Piperacillin-Tazobactam 3 100 .375 gm In Sodium Chloride 0.9% 100 ml @ 25 mls/hr IVPB Q8HR [facility] Rx# :[id number] Oral 1080 240 Other: Voiding Method Toilet Toilet # Voids 3 2 - Exam - Constitutional General appearance: average body habitus, cooperative - EENT Eyes: EOMI, PERRLA ENT: normal oropharynx Ears: bilateral: normal - Neck Neck: normal ROM Carotids: bilateral: upstroke normal - Respiratory Respiratory: right: rales, bilateral: rhonchi, wheezing, prolonged expiration - Cardiovascular Rhythm: regular Heart sounds: normal: S1, S2 - Gastrointestinal General gastrointestinal: normal bowel sounds, soft - Integumentary Integumentary: normal turgor - Neurologic Neurologic: CNII-XII intact - Musculoskeletal Musculoskeletal: gait normal, generalized weakness, strength equal bilaterally - Psychiatric Psychiatric: A&O x's 3, appropriate affect, intact judgment & insight - Labs CBC & Chem 7: 03/24/22 06:29 03/24/22 06:29 Labs: Microbiology - Last 24 Hours (Table) 03/23/22 14:00 Gram Stain - Preliminary Sputum Sputum Culture - Preliminary 03/23/22 00:15 Blood Culture - Preliminary Blood No Growth after 48 hours 03/23/22 00:00 Blood Culture - Preliminary Blood No Growth after 48 hours Assessment and Plan Assessment: Bilateral pneumonia community-acquired versus atypical versus gram-negative related Acute hypoxic respiratory failure due to pneumonia Immunosuppressed status related to liver transplant and immunosuppressive medica tions History of lung cancer Baseline COPD with possible exacerbation History of hepatitis C History of liver cancer Plan: Continue broad-spectrum antibiotics with Zosyn and Zithromax Send urine for Legionella antigen Will observe closely if not improve consider doing a bronchoscopy in 48-72 hours Continue trial of IV steroids Follow-up chest x-ray tomorrow morning Time with Patient: Greater than 30
--- NOTE | 2022-03-25 23:42 | PN ---
PROGRESS NOTE SUBJECTIVE: A 72-year-old white male, bilateral pneumonia. The patient is slowly improving by 50% improved. Remains on oxygen. His oxygen oxygen. CAT scan shows bilateral pneumonia. OBJECTIVE: CARDIOVASCULAR: S1, S2. LUNGS: Scattered rhonchi and wheeze. HEMATOLOGY: Negative Homans. PSYCH: Fair mood and affect. ASSESSMENT: Chronic obstructive pulmonary disease exacerbation, bilateral pneumonia, acute hypoxemic respiratory failure. Continue current treatment. Follow up in the next 24 to 48 hours for possible discharge. Continue on DuoNeb, Solu-Medrol, Zosyn, azithromycin. Possible discharge home in a few days as he weans off oxygen by 50% better. MMODL / IJN: [id number] /
[2022-03-26] MEDS: PIPERACILLIN-TAZOBACTAM 3.375 GM in SODIUM CHLORIDE 0.9% 100 ML IVPB SCH ×3 (00:47→16:38)
--- NOTE | 2022-03-26 06:51 | PN ---
PROGRESS NOTE SUBJECTIVE: This is a white male who remains in bilateral pneumonia, trying to wean off oxygen. He is remaining on 2 L oxygen. He wants to be sent home with oxygen. We do a 6-minute walk and see if he qualifies for oxygen to 90, is saturating low 90s on 2-3 L. OBJECTIVE: CARDIOVASCULAR: S1, S2. LUNGS: Scattered rhonchi and wheeze. HEMATOLOGY: Negative Homans. GI: Soft. ASSESSMENT: Bilateral pneumonia, acute hypoxemic respiratory failure, history of strokes, hypertension. Prognosis is guarded. for oxygen. Continue broad-spectrum antibiotics x2. MMODL / IJN: [id number] /
[2022-03-26] MEDS: ALBUTEROL NEBULIZED 2.5 MG/3 ML INHALATION SCH ×4 (07:09→19:09)
[2022-03-26] MEDS: AZITHROMYCIN 500 MG in SODIUM CHLORIDE 0.9% 250 ML IVPB SCH (08:09)
[2022-03-26] MEDS: MAGNESIUM OXIDE 400 MG TAB PO SCH ×2 (08:10→21:02)
[2022-03-26] MEDS: TAMSULOSIN 0.4 MG CAP.ER.24H PO SCH (08:10)
[2022-03-26] MEDS: ASPIRIN 81 MG PO SCH (08:10)
[2022-03-26] MEDS: METOPROLOL TARTRATE 25 MG TAB PO SCH ×2 (08:10→21:02)
[2022-03-26] MEDS: CLOPIDOGREL 75 MG TAB PO SCH (08:10)
[2022-03-26] MEDS: levETIRAcetam 500 MG TAB PO SCH ×2 (08:10→21:01)
[2022-03-26] MEDS: methylPREDNISolone SOD SUCCI 40 MG/ML 1 ML VIAL IV SCH ×2 (08:10→21:02)
[2022-03-26] MEDS: TACROLIMUS 1 MG CAP PO SCH ×2 (08:11→21:02)
--- NOTE | 2022-03-26 12:07 | XR ---
EXAMINATION TYPE: XR chest 1V DATE OF EXAM: 03/26/2022 COMPARISON: 03/24/2022 HISTORY: Cough TECHNIQUE: Single frontal view of the chest is obtained. FINDINGS: There is diffuse interstitial pattern with patchy density in the right lower lobe and righ t perihilar region. Biapical pleural thickening. Heart size stable. Sclerosis of a upper lumbar segme nt. Suspect sclerosis or calcification of the mid to upper thoracic segment. Small left pleural effus ion. No pneumothorax. IMPRESSION: 1. Suspect pulmonary fibrosis with bilateral areas of infiltrate and possible tiny left pleural effus ion.
--- NOTE | 2022-03-26 12:38 | P.PN ---
Subjective Progress Note Date: 03/26/22 Principal diagnosis: Bilateral pneumonia community-acquired versus atypical versus gram-negative related Immunosuppressed status related to liver transplant and immunosuppressive m edications History of lung cancer Baseline COPD with possible exacerbation History of hepatitis C History of liver cancer 03/26/2022, patient seen eval examined during the rounds labs reviewed me dications reviewed care plan discussed, respiratory status slightly better however remains hypoxic, I asked patient about bronchoscopy he declined, we'll continue to follow as outpatient, continue antibiotics and steroids however they can be changed to oral discharge, chest x-ray continue show bilateral basilar infiltrate and pneumonia with tiny left-sided effusion and possible lung fibrosis 03/25/2022, patient seen eval examined during the rounds labs reviewed medications reviewed, is still short of breath on activity and exertion, patient desaturated at room air to 84% with tachycardia after brief physical exertion and activity. Blood cultures have been negative for 48 hours, his sputum culture appeared to be developing normal respiratory lady. Patient remains on azithromycin along with Solu-Medrol and Zosyn shortness of breath and cough are still there, we'll check a follow-up chest x-ray Patient is a 72-year-old with complex past medical history presented into the hospital with 2 days increase of shortness of breath cough and not feeling well. Patient has significant history of immunosuppression due to medications related to liver transplant for hepatitis C and cancer. Patient also has history of lung cancer status post left lobectomy his other active medical problems include hypertension dyslipidemia. He used to smoke but stopped in the past have a smoked half to 1 pack per day for about 25-30 years on arrival he was tachypneic tachycardic with heart rate of 123, saturations 91%. He had mild leukocytosis with WBC count of 11,000. Kidney functions within normal limit. His score testing was negative. Currently patient is appropriately treated with Zithromax continuation of his home medicine including immunosuppressant and Zosyn. His admit chest x-ray significant for moderate coarse interstitial marking likely pulmonary fibrosis versus interstitial edema that his computed tomography scan positive for extensive interstitial infiltrate consistent with multifocal pneumonia no masses are seen small bilateral pleural effusion. His most recent chest x-ray earlier today consistent with bilateral infiltrate likely atypical pneumonia Objective - Vital Signs Vital signs: Vital Signs Temp 97.6 F 03/26/22 11:12 Pulse 64 03/26/22 11:13 Resp 18 03/26/22 11:12 BP 112/75 03/26/22 11:12 Pulse Ox 96 03/26/22 11:12 FiO2 Intake & Output 03/25/22 03/26/22 03/26/22 18:59 06:59 18:59 Intake Total 920 Output Total 250 3 Balance 670 -3 Intake: Intake, IV Titration 200 Amount Piperacillin-Tazobactam 3 200 .375 gm In Sodium Chloride 0.9% 100 ml @ 25 mls/hr IVPB Q8HR [facility] Rx# :[id number] Oral 720 Output: Urine 250 3 Other: Voiding Method Toilet Toilet # Voids 2 - Exam - Constitutional General appearance: average body habitus, cooperative - EENT Eyes: EOMI, PERRLA ENT: normal oropharynx Ears: bilateral: normal - Neck Neck: normal ROM Carotids: bilateral: upstroke normal - Respiratory Respiratory: right: rales, bilateral: rhonchi, wheezing, prolonged expiration - Cardiovascular Rhythm: regular Heart sounds: normal: S1, S2 - Gastrointestinal General gastrointestinal: normal bowel sounds, soft - Integumentary Integumentary: normal turgor - Neurologic Neurologic: CNII-XII intact - Musculoskeletal Musculoskeletal: gait normal, generalized weakness, strength equal bilaterally - Psychiatric Psychiatric: A&O x's 3, appropriate affect, intact judgment & insight - Labs CBC & Chem 7: 03/24/22 06:29 03/24/22 06:29 Labs: Microbiology - Last 24 Hours (Table) 03/23/22 00:15 Blood Culture - Preliminary Blood No Growth after 72 hours 03/23/22 00:00 Blood Culture - Preliminary Blood No Growth after 72 hours 03/23/22 14:00 Gram Stain - Preliminary Sputum Sputum Culture - Preliminary Assessment and Plan Assessment: Bilateral pneumonia community-acquired versus atypical versus gram-negative related Acute hypoxic respiratory failure due to pneumonia Immunosuppressed status related to liver transplant and immunosuppressive medications History of lung cancer Baseline COPD with possible exacerbation History of hepatitis C History of liver cancer Plan: Continue broad-spectrum antibiotics with Zosyn and Zithromax Pending urine for Legionella antigen Will observe closely if not improve consider doing a bronchoscopy in 48-72 hours Continue trial of IV steroids Follow-up chest x-ray reviewed
[2022-03-26] MEDS: ATORVASTATIN 10 MG TAB PO SCH (21:01)
[2022-03-27] MEDS: PIPERACILLIN-TAZOBACTAM 3.375 GM in SODIUM CHLORIDE 0.9% 100 ML IVPB SCH ×3 (00:35→16:48)
--- NOTE | 2022-03-27 05:24 | PN ---
PROGRESS NOTE SUBJECTIVE: White male admitted with bilateral pneumonia. He needs to be set up with home oxygen as he is possibly going to be discharged home. I ordered 2 L oxygen to go home on. He wants to go home possibly tomorrow. OBJECTIVE: VITAL SIGNS: Blood pressure 101/65, temp 97.4, pulse 82, respiratory rate 16. CARDIOVASCULAR: S1, S2. LUNGS: Scattered rhonchi and wheeze. HEMATOLOGY: Negative Homans. PSYCH: Fair mood and affect. ASSESSMENT: Bilateral pneumonia, chronic obstructive pulmonary disease. We are going to do a chest x-ray today and possibly switch to oral antibiotics possible to go home. He is status post liver transplant. He has bilateral pneumonia, community-acquired versus atypical pneumonia. As he continues to improve, we will get him home to follow up as an outpatient. Nicotine addiction, renal insufficiency, current antibiotics. Possibly go home in the next day or two with oxygen. MMODL / IJN: [id number] /
[2022-03-27] MEDS: ALBUTEROL NEBULIZED 2.5 MG/3 ML INHALATION SCH ×4 (07:19→19:23)
[2022-03-27] MEDS: CLOPIDOGREL 75 MG TAB PO SCH (09:11)
[2022-03-27] MEDS: METOPROLOL TARTRATE 25 MG TAB PO SCH ×2 (09:11→21:44)
[2022-03-27] MEDS: TAMSULOSIN 0.4 MG CAP.ER.24H PO SCH (09:11)
[2022-03-27] MEDS: levETIRAcetam 500 MG TAB PO SCH ×2 (09:11→21:43)
[2022-03-27] MEDS: ASPIRIN 81 MG PO SCH (09:11)
[2022-03-27] MEDS: TACROLIMUS 1 MG CAP PO SCH ×2 (09:12→21:44)
[2022-03-27] MEDS: methylPREDNISolone SOD SUCCI 40 MG/ML 1 ML VIAL IV SCH ×2 (09:12→21:44)
[2022-03-27] MEDS: MAGNESIUM OXIDE 400 MG TAB PO SCH ×2 (09:13→21:44)
[2022-03-27 19:38] VITALS: RESP 16
[2022-03-27] MEDS: ATORVASTATIN 10 MG TAB PO SCH (21:40)
[2022-03-28] MEDS: PIPERACILLIN-TAZOBACTAM 3.375 GM in SODIUM CHLORIDE 0.9% 100 ML IVPB SCH ×2 (04:59→08:18)
[2022-03-28 06:58] VITALS: BP 113/57; TEMP 97.5
[2022-03-28] MEDS: ALBUTEROL NEBULIZED 2.5 MG/3 ML INHALATION SCH ×2 (06:59→11:03)
[2022-03-28] MEDS: TACROLIMUS 1 MG CAP PO SCH (08:18)
[2022-03-28] MEDS: TAMSULOSIN 0.4 MG CAP.ER.24H PO SCH (08:18)
[2022-03-28] MEDS: levETIRAcetam 500 MG TAB PO SCH (08:18)
[2022-03-28] MEDS: METOPROLOL TARTRATE 25 MG TAB PO SCH (08:18)
[2022-03-28] MEDS: ASPIRIN 81 MG PO SCH (08:18)
[2022-03-28] MEDS: CLOPIDOGREL 75 MG TAB PO SCH (08:18)
[2022-03-28] MEDS: MAGNESIUM OXIDE 400 MG TAB PO SCH (08:18)
[2022-03-28] MEDS: methylPREDNISolone SOD SUCCI 40 MG/ML 1 ML VIAL IV SCH (08:19)
[2022-03-28] MEDS ORDERED: INFLUENZA VACC HIGH-DOSE (65+) 240 MCG/0.7 ML SYRINGE IM ONE (10:43)
[2022-03-28 11:13] VITALS: PULSE 65
[2022-03-28 13:26] VITALS: BMI 31.5
[2022-03-28] MEDS ORDERED: AMOXIC-POT CLAV 875-125MG 1 EACH TAB PO SCH (21:00)
--- NOTE | 2022-03-29 10:32 | PN ---
PROGRESS NOTE A 72-year-old white male, history of lung cancer. He has improved from bilateral pneumonia. He wants to go home on oxygen 2 L, which we will do today and set him up with home oxygen 24 hours a day and was sent home with Augmentin in the morning. Despite I am not getting improvement, I am not sure if Dr. Traylor is going to do bronchoscopy, but it does not appear so. He is on Plavix. Continue on home medicines, send him home in the morning. MMODL / IJN: [id number] /
--- NOTE | 2022-03-31 13:47 | CDI ---
Documentation Clarification Form Date: 03/31/2022 01:30:10 PM From: Ellen Conti Phone: Admit Date: 03/23/2022 12:21:00 AM Patient Name: Nino Watts Visit Number: [id number] Discharge Date: 03/28/2022 01:10:00 PM ATTENTION: The Clinical Documentation Specialists (CDI) and [facility] Coding Staff appreciate your assistance in clarifying documentation. Please respond to the clarification below the line at the bottom and electronically sign. The CDI & [facility] Coding staff will review the response and follow-up if needed. Please note: Queries are made part of the Legal Health Record. If you have any questions, please contact the author of this message via ITS. Dr. Sea Patino Pneumonia is documented per ED Note. Additional clarification regarding the type of pneumonia is requested. History/Risk Factors: 72yo M, pneumonia, Lt lung CA, HLD, Back pain, Hep C d/t cirrhosis, Liver ca sp chemo w/mets, Hx chronic liver disease, Former smoker, pulm fibrosis, AECOPD, anup PNA, acute hypoxemic resp fx. Clinical Indicators: WBC/Left shift: 11.0 H (3.8-10.6) k/uL Microbiology: Sputum Pseudomonas aeruginosa X-ray: Moderate coarse interstitial markings are increased compared to the old exam and consistent with interstitial pneumonia and pulmonary fibrosis. Treatment: Antibiotics: Broad-spectrum IV antibiotics in the form of Rocephin and Zithromax and resume the home medication and bronchodilators; set him up with home oxygen 24 hours a day and was sent home with Augmentin in the morning. Please clarify the type of pneumonia, if known: [ ] Bacterial Pneumonia due to Pseudomonas [ ] Viral Pneumonia, specify casual organism (if known) [ ] Other, please specify [ ] Unable to determine (Template Last Revised: August 2020) MTDD
--- NOTE | 2022-04-01 11:46 | PN ---
PROGRESS NOTE Interstitial pneumonia, pulmonary fibrosis, bacterial pneumonia, unclear etiology on the bacteria, most likely Pseudomonas aeruginosa, which is a bacterial pneumonia due to Pseudomonas. MMODL / IJN: [id number] /
== END 2022-03-28 13:10 | disposition home or self-care (01) | DRG 177 ==
LOC: EC 18:14 → 4SSUR 03-23 00:21 → 5NMEDONC 03-23 11:40
PROVIDERS: ADMIT Family Medicine; ATTEND Family Medicine
DX: J15.1 Pneumonia due to Pseudomonas (principal); J96.01 Acute respiratory failure with hypoxia; D84.821 Immunodeficiency due to drugs; Z94.4 Liver transplant status; J44.1 Chronic obstructive pulmonary disease with (acute) exacerbation; I10 Essential (primary) hypertension; J84.10 Pulmonary fibrosis, unspecified; E78.5 Hyperlipidemia, unspecified; N28.9 Disorder of kidney and ureter, unspecified; R00.0 Tachycardia, unspecified; Z20.822 Contact with and (suspected) exposure to COVID-19; Z79.624 Long term (current) use of inhibitors of nucleotide synthesis; Z28.310 Unvaccinated for COVID-19; Z79.899 Other long term (current) drug therapy; Z87.891 Personal history of nicotine dependence; Z85.118 Personal history of other malignant neoplasm of bronchus and lung; Z90.2 Acquired absence of lung [part of]; Z85.51 Personal history of malignant neoplasm of bladder; Z85.05 Personal history of malignant neoplasm of liver; Z79.82 Long term (current) use of aspirin; Z79.02 Long term (current) use of antithrombotics/antiplatelets; Z88.6 Allergy status to analgesic agent; Z86.19 Personal history of other infectious and parasitic diseases; Z86.73 Personal history of transient ischemic attack (TIA), and cerebral infarction without residual deficits
CPT/HCPCS: 36415; 71045; 71046; 71260; 80053; 83605; 83880; 84484; 85025; 85379; 85610; 85730; 87040; 87070; 87077; 87186; 87205; 87449; 87635; 90662; 93005; 94640; 94760; 96365; 99285

== ENCOUNTER 2023-06-12 15:37 | Emergency (ER) | payer MEDICARE, OTHER ==
--- NOTE | 2023-06-12 16:43 | ED ---
Weakness HPI - General Chief complaint: Fall Stated complaint: hernia,Low O2 Time Seen by Provider: 06/12/23 16:02 Source: patient, RN notes reviewed, old records reviewed Mode of arrival: ambulatory Limitations: no limitations - History of Present Illness Initial comments: This is a 73-year-old male to the emergency department today for evaluation toda y. Patient coming in for back pain and belly pain was maybe difficulty breathing. History of similar. Patient states it's [employer] with activity fell a week ago and is having severe back pain since is also complaining of some foot pain back pain leg pain. Patient has no fevers no travel show sick contacts no chest pain or shortness of breath MD Complaint: generalized weakness, lack of energy, difficulty walking -: days(s) Location: generalized Severity: moderate Severity scale (1-10): 5 Consistency: constant Improves with: none Worsens with: none Context: history of similar Associated Symptoms: denies other symptoms - Related Data Home Medications Medication Instructions Recorded Confirmed Atorvastatin [Lipitor] 10 mg PO HS 07/07/18 06/12/23 Metoprolol Tartrate [Lopressor] 25 mg PO BID 07/07/18 06/12/23 Tamsulosin [Flomax] 0.4 mg PO DAILY 07/07/18 06/12/23 mycophenolate mofetiL [Cellcept] 250 mg PO DAILY 03/29/20 06/12/23 Tacrolimus [Prograf] 2 mg PO BID 04/22/21 06/12/23 Magnesium Oxide [Magox 400] 400 mg PO DAILY 07/14/21 06/12/23 levETIRAcetam [Keppra] 500 mg PO BID 03/23/22 06/12/23 Fluticasone/Umeclidin/Vilanter 1 puff INHALATION RT-DAILY 06/12/23 06/12/23 [Trelegy Ellipta 200-62.5-25] Omeprazole 40 mg PO DAILY 06/12/23 06/12/23 Previous Rx's Medication Instructions Recorded Aspirin 81 mg PO DAILY 90 Days #90 07/15/21 Allergies Allergy/AdvReac Type Severity Reaction Status Date / Time acetaminophen AdvReac LIVER Verified 06/12/23 17:12 TRANSPLANT NSAIDS (Non-Steroidal AdvReac Unknown Verified 06/12/23 17:12 Anti-Inflamma prednisone AdvReac Verified 06/12/23 17:15 steroids AdvReac Uncoded 06/12/23 17:15 Review of Systems ROS Statement: Those systems with pertinent positive or pertinent negative responses have been documented in the HPI. ROS Other: All systems not noted in ROS Statement are negative. Past Medical History Past Medical History: Cancer, Liver Disease, Pneumonia, Seizure Disorder Additional Past Medical History / Comment(s): BACK PAIN. Left LUNG CA. 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 Liver transplant 04/2016 @ [facility],[place]. Heart cath 04/02/[address] Reddy, Kyphoplasty by Dr. Chaves Apr 2021 Past Anesthesia/Blood Transfusion Reactions: No Reported Reaction Past Psychological History: No Psychological Hx Reported Smoking Status: Former smoker - Past Family History Father Family Medical History: Cancer Additional Family Medical History / Comment(s): prostate General Exam Limitations: no limitations General appearance: alert, in no apparent distress, anxious Head exam: Present: atraumatic, normocephalic, normal inspection Eye exam: Present: normal appearance, PERRL, EOMI. Absent: scleral icterus, conjunctival injection, periorbital swelling ENT exam: Present: normal exam, mucous membranes moist Neck exam: Present: normal inspection. Absent: tenderness, meningismus, lymphadenopathy Respiratory exam: Present: normal lung sounds bilaterally. Absent: respiratory distress, wheezes, rales, rhonchi, stridor Cardiovascular Exam: Present: regular rate, normal rhythm, normal heart sounds. Absent: systolic murmur, diastolic murmur, rubs, gallop, clicks GI/Abdominal exam: Present: soft, normal bowel sounds. Absent: distended, te nderness, guarding, rebound, rigid Extremities exam: Present: normal inspection, full ROM, normal capillary refill. Absent: tenderness, pedal edema, joint swelling, calf tenderness Back exam: Present: normal inspection Neurological exam: Present: alert, oriented X3, CN II-XII intact Psychiatric exam: Present: normal affect, normal mood Skin exam: Present: warm, dry, intact, normal color. Absent: rash Course Vital Signs 06/12/23 06/12/23 15:48 18:51 Temperature 98.7 F 98.4 F Pulse Rate 100 81 Respiratory 20 16 Rate Blood Pressure 147/78 130/83 O2 Sat by Pulse 93 L 93 L Oximetry - Reevaluation(s) Reevaluation #1: Medical records reviewed Reevaluation #2: Patient symptoms are dramatically improved here in the ER feels well Reevaluation #3: Patient informed results and questions answered Reevaluation #4: Was pt. sent in by a medical professional or institution (, [facility], [employer], urgent care, hospital, or [facility]...) When possible be specific @ -no Did you speak to anyone other than the patient for history (EMS, parent, family, police, friend...)? What history was obtained from this source @ -no Did you review nursing and triage notes (agree or disagree)? Why? @ -agree Are old charts reviewed (outside hosp., previous admission, EMS record, old EKG, old radiological studies, urgent care reports/EKG's, [facility] records)? Report findings @ -yes Differential Diagnosis (chest pain, altered mental status, abdominal pain women, abdominal pain men, vaginal bleeding, weakness, fever, dyspnea, syncope, headache, dizziness, GI bleed, back pain, seizure, CVA, palpatations, mental health, musculoskeletal)? @ -prior EKG interpreted by me (3pts min.). @ -yes X-rays interpreted by me (1pt min.). @ -yes chronic COPD changes CT interpreted by me (1pt min.). @ -Yes positive for umbilical hernia U/S interpreted by me (1pt. min.). @ -no What testing was considered but not performed or refused? (CT, X-rays, U/S, labs)? Why? @ -none What meds were considered but not given or refused? Why? @ -none Did you discuss the management of the patient with other professionals (professionals i.e. [facility] Ritchie, [employer], lab, RT, psych nurse, elementary school social worker, blindmaker, teacher, corporate compliance officer, case operator)? Give summary @ -no Was smoking cessation discussed for >3mins.? @ -no Was critical care preformed (if so, how long)? @ -no Were there social determinants of health that impacted care today? How? (Homelessness, low income, unemployed, alcoholism, drug addiction, trans portation, low edu. Level, literacy, decrease access to med. care, fdc, rehab)? @ -none Was there de-escalation of care discussed even if they declined (Discuss DNR or withdrawal of care, Hospice)? DNR status @ -no What co-morbidities impacted this encounter? (DM, HTN, Smoking, COPD, CAD, Cancer, CVA, ARF, Chemo, Hep., AIDS, mental health diagnosis, sleep apnea, morbid obesity)? @ -none Was patient admitted / discharged? Hospital course, mention meds given and route, prescriptions, significant lab abnormalities, going to OR and other pertinent info. @ - 73 male with significant fall a 1 week ago. Patient has some abdominal pain here in the ER concerned for hernia which he does have but no strangulation or other findings. Patient feels improved here in the ER and can be discharged home Discharge Undiagnosed new problem with uncertain prognosis? @ -no Drug Therapy requiring intensive monitoring for toxicity (Heparin, Nitro, Insulin, Cardizem)? @ -no Were any procedures done? @ -no Diagnosis/symptom? @ -Fall, back pain, umbilical hernia Acute, or Chronic, or Acute on Chronic? @ -Acute Uncomplicated (without systemic symptoms) or Complicated (systemic symptoms)? @ -Complicated Side effects of treatment? @ -no Exacerbation, Progression, or Severe Exacerbation? @ -exacerbation Poses a threat to life or bodily function? How? (Chest pain, USA, OR, pneumonia, PE, COPD, DKA, ARF, appy, cholecystitis, CVA, Diverticulitis, Homicidal, Suicidal, threat to staff... and all critical care pts) @ -yes with low oxygen levels Reevaluation #5: Differential Back Pain: Strain, zoster, cauda equina syndrome, epidural abscess, vertebral osteomyelitis, discitis, fracture, subluxation, disc herniation, DJD, spinal stenosis, dissection, AAA, pancreatitis, peptic ulcer disease, pyelonephritis, kidney stone, this is not meant to be an all-inclusive list. Differential Weakness: Hypoglycemia, shock, sepsis, hyponatremia, anemia, infection, OR, ETOH, adverse medicine reaction, overdose, stroke, this is not meant to be an all-inclusive list. EKG Findings - EKG Comments: EKG Findings:: EKG is sinus a 87 TX 149 QRS 88 QTc 381 - EKG Results: EKG: interpreted by [facility] Medical Decision Making - Medical Decision Making 73 male with significant fall a 1 week ago. Patient has some abdominal pain here in the ER concerned for hernia which he does have but no strangulation or other findings. Patient feels improved here in the ER and can be discharged home - Lab Data Result diagrams: 06/12/23 18:10 06/12/23 19:38 Lab Results 06/12/23 06/12/23 06/12/23 Range/Units 18:10 18:10 18:10 WBC 12.2 H (3.8-10.6) k/uL RBC 5.14 (4.30-5.90) m/uL Hgb 15.4 (13.0-17.5) gm/dL Hct 45.0 (39.0-53.0) % MCV 87.5 (80.0-100.0) fL MCH 29.9 (25.0-35.0) pg MCHC 34.2 (31.0-37.0) g/dL RDW 12.7 (11.5-15.5) % Plt Count 148 L (150-450) k/uL MPV 9.8 Neutrophils % 74 % Lymphocytes % 16 % Monocytes % 7 % Eosinophils % 1 % Basophils % 0 % Neutrophils # 9.0 H (1.3-7.7) k/uL Lymphocytes # 1.9 (1.0-4.8) k/uL Monocytes # 0.9 (0-1.0) k/uL Eosinophils # 0.1 (0-0.7) k/uL Basophils # 0.0 (0-0.2) k/uL PT 10.9 (10.0-12.5) sec INR 1.0 (<1.2) APTT 28.0 (22.0-30.0) sec Sodium (137-145) mmol/L Potassium (3.5-5.1) mmol/L Chloride (98-107) mmol/L Carbon Dioxide (22-30) mmol/L Anion Gap mmol/L BUN (9-20) mg/dL Creatinine (0.66-1.25) mg/dL Est GFR (CKD-EPI)AfAm (>60 ml/min/1.73 sqM) Est GFR (CKD-EPI)NonAf (>60 ml/min/1.73 sqM) Glucose (74-99) mg/dL Plasma Lactic Acid Joey 1.1 (0.7-2.0) mmol/L Calcium (8.4-10.2) mg/dL Phosphorus (2.5-4.5) mg/dL Magnesium (1.6-2.3) mg/dL Total Bilirubin (0.2-1.3) mg/dL AST (17-59) U/L ALT (4-49) U/L Alkaline Phosphatase (38-126) U/L Troponin I (0.000-0.034) ng/mL NT-Pro-B Natriuret Pep pg/mL Total Protein (6.3-8.2) g/dL Albumin (3.5-5.0) g/dL Influenza Type A (PCR) (Not Detectd) Influenza Type B (PCR) (Not Detectd) RSV (PCR) (Not Detectd) SARS-CoV-2 (PCR) (Not Detectd) 06/12/23 06/12/23 06/12/23 Range/Units 18:10 18:10 19:38 WBC (3.8-10.6) k/uL RBC (4.30-5.90) m/uL Hgb (13.0-17.5) gm/dL Hct (39.0-53.0) % MCV (80.0-100.0) fL MCH (25.0-35.0) pg MCHC (31.0-37.0) g/dL RDW (11.5-15.5) % Plt Count (150-450) k/uL MPV Neutrophils % % Lymphocytes % % Monocytes % % Eosinophils % % Basophils % % Neutrophils # (1.3-7.7) k/uL Lymphocytes # (1.0-4.8) k/uL Monocytes # (0-1.0) k/uL Eosinophils # (0-0.7) k/uL Basophils # (0-0.2) k/uL PT (10.0-12.5) sec INR (<1.2) APTT (22.0-30.0) sec Sodium 137 (137-145) mmol/L Potassium 4.3 (3.5-5.1) mmol/L Chloride 102 (98-107) mmol/L Carbon Dioxide 24 (22-30) mmol/L Anion Gap 11 mmol/L BUN 21 H (9-20) mg/dL Creatinine 0.75 (0.66-1.25) mg/dL Est GFR (CKD-EPI)AfAm >90 (>60 ml/min/1.73 sqM) Est GFR (CKD-EPI)NonAf >90 (>60 ml/min/1.73 sqM) Glucose 123 H (74-99) mg/dL Plasma Lactic Acid Joey (0.7-2.0) mmol/L Calcium 9.1 (8.4-10.2) mg/dL Phosphorus 3.0 (2.5-4.5) mg/dL Magnesium 1.6 (1.6-2.3) mg/dL Total Bilirubin 2.2 H (0.2-1.3) mg/dL AST 47 (17-59) U/L ALT 22 (4-49) U/L Alkaline Phosphatase 93 (38-126) U/L Troponin I 0.017 (0.000-0.034) ng/mL NT-Pro-B Natriuret Pep 41 pg/mL Total Protein 7.7 (6.3-8.2) g/dL Albumin 4.2 (3.5-5.0) g/dL Influenza Type A (PCR) Not Detected (Not Detectd) Influenza Type B (PCR) Not Detected (Not Detectd) RSV (PCR) Not Detected (Not Detectd) SARS-CoV-2 (PCR) Not Detected (Not Detectd) - EKG Data -: EKG Interpreted by [facility] - Radiology Data Radiology results: report reviewed (Chest x-ray LS-spine x-ray and CT of the abdomen and pelvis are negative for significant acute traumatic disease patient does have umbilical hernia), image reviewed Disposition Clinical Impression: Hypoxia, Abdominal pain, Fall Disposition: HOME SELF-CARE Condition: Fair Instructions (If sedation given, give patient instructions): Abdominal Pain (ED) Is patient prescribed a controlled substance at d/c from ED?: No Referrals: Sea Patino MD [Primary Care Provider] - 1-2 days Time of Disposition: 21:20
--- NOTE | 2023-06-12 18:01 | XR ---
EXAMINATION TYPE: XR lumbar spine 2 or 3V DATE OF EXAM: 06/12/2023 5:48 PM CLINICAL INDICATION:Male, 73 years old with history of fall; [facility] COMPARISON: 04/16/2021 TECHNIQUE: XR lumbar spine 2 or 3V - Frontal, lateral and coned in L5-S1 lateral views of the spine. FINDINGS: No evidence of any acute osseous pathology. Vertebroplasty changes present in the L1 verteb ral body. There is height loss within the L1 vertebral body. No evidence of loss of vertebral body he ight is seen. There is straightened alignment of the lumbar vertebral bodies. Mild scattered disc spa ce narrowing. Multilevel marginal osteophyte formation throughout the visualized spine. There is face t joint arthropathy throughout the spine. Scattered at least mild neural foraminal stenosis. Atherosc lerosis of the arterial vasculature. IMPRESSION: 1. No acute fracture. 2. Mild multilevel disc degeneration.
--- NOTE | 2023-06-12 18:03 | XR ---
EXAMINATION TYPE: XR chest 1V DATE OF EXAM: 06/12/2023 5:48 PM CLINICAL INDICATION:Male, 73 years old with history of fall; COMPARISON: Chest radiographs from 03/26/2022. TECHNIQUE: XR chest 1V Frontal view of the chest. FINDINGS: Lungs/Pleura: Bibasilar atelectasis. No evidence for pneumothorax, pleural effusion or focal consolid ation. Pulmonary vascularity: Pulmonary vascular congestion. Heart/mediastinum: Cardiomediastinal silhouette is enlarged and stable. Musculoskeletal: No acute osseous pathology. IMPRESSION: Chronic changes without acute pulmonary process. No significant change from prior. Underlying CHF no t entirely excluded.
[2023-06-12 18:28] LABS: Basophils % (A) 0 %; Eosinophils # (A) 0.1 k/uL (0-0.7); Eosinophils % (A) 1 %; HGB 15.4 gm/dL (13.0-17.5); Lymphocytes # (A) 1.9 k/uL (1.0-4.8); Lymphocytes % (A) 16 %; MCH 29.9 pg (25.0-35.0); MCHC 34.2 g/dL (31.0-37.0); MCV 87.5 fL (80.0-100.0); Mean Platelet Volume 9.8; Monocytes # (A) 0.9 k/uL (0-1.0); Monocytes % (A) 7 %; Neutrophils % (A) 74 %; Platelet Count 148 k/uL (150-450); RBC 5.14 m/uL (4.30-5.90); RDW 12.7 % (11.5-15.5); WBC 12.2 k/uL (3.8-10.6)
[2023-06-12] MEDS: MORPHINE SULFATE 4 MG/ML SYRINGE IV STA (18:47)
[2023-06-12 18:56] VITALS: BP 130/83; PULSE 81; RESP 16; TEMP 98.4
[2023-06-12 19:04] LABS: Prothrombin Time 10.9 sec (10.0-12.5)
[2023-06-12] MEDS ORDERED: HYDROmorphone 1 MG/ML 1 ML SYRINGE IVP STA (19:33)
--- NOTE | 2023-06-12 20:32 | CT ---
EXAMINATION TYPE: CT abdomen pelvis wo con CT DLP: 1036.4 mGycm, Automated exposure control for dose reduction was used. DATE OF EXAM: 06/12/2023 7:49 PM COMPARISON: CT abdomen pelvis most recent from 04/06/2021, 03/23/2022 CLINICAL INDICATION:Male, 73 years old with history of pain; Upper Abdominal pain. Hx of liver transp lant. Left side lobectomy. Hx of umbilical hernia and surgical hernia. TECHNIQUE: Axial CT abdomen pelvis wo con;Sagittal and coronal reformats were created on a separate workstation. Contrast used: mL of , (none if empty) Oral contrast used: without Oral Contrast (none if empty) FINDINGS: LOWER CHEST: Multifocal groundglass opacities throughout the lungs. Mild gynecomastia changes bilater ally. ABDOMEN LIVER: Unremarkable GALLBLADDER AND BILE DUCTS: Gallbladder isn't visualized. PANCREAS: Unremarkable. SPLEEN: Unremarkable. ADRENAL GLANDS: Unremarkable. KIDNEYS AND URETERS: No evidence of hydronephrosis or renal calculus. The ureters are unremarkable. PELVIS BLADDER: Incompletely distended but grossly unremarkable. REPRODUCTIVE: Unremarkable. ABDOMEN & PELVIS STOMACH AND BOWEL: No evidence of bowel obstruction. Small hiatal hernia. The appendix is normal. PERITONEUM/RETROPERITONEUM: No evidence of pneumoperitoneum or free fluid. VASCULATURE: No evidence of aortic aneurysm. MUSCULOSKELETAL: No acute osseous abnormalities The, multilevel degeneration changes throughout the s pine with vertebral plasty changes of the L1 vertebrae. LYMPH NODES: No gross evidence for lymphadenopathy. SOFT TISSUE/ABDOMINAL WALL: Upper abdominal wall hernia mesh appears in appropriate position. Umbilic al hernia containing loops of small bowel. No evidence for obstruction. IMPRESSION: 1. No evidence for acute abdominal process. There is an upper abdominal surgical hernia mesh appears in appropriate position. 2. Umbilical hernia containing loops of small bowel. No evidence for obstruction. 3. Similar multifocal ground glass opacities throughout the lungs likely representing chronic inters titial lung disease versus sequela prior infection.
[2023-06-12 20:55] LABS: ALT 22 U/L (4-49); African American GFR (CKD) >90 (>60 ml/min/1.73 sqM); Albumin 4.2 g/dL (3.5-5.0); Anion Gap 11 mmol/L; Blood Urea Nitrogen 21 mg/dL (9-20); Calcium 9.1 mg/dL (8.4-10.2); Carbon Dioxide 24 mmol/L (22-30); Chloride 102 mmol/L (98-107); Glucose 123 mg/dL (74-99); Non-African American GFR(CKD) >90 (>60 ml/min/1.73 sqM); Sodium 137 mmol/L (137-145); Total Bilirubin 2.2 mg/dL (0.2-1.3); Total Protein 7.7 g/dL (6.3-8.2)
[2023-06-12 21:03] LABS: NT-Pro-B-Type Natriuretic Pept 41 pg/mL
[2023-06-12 21:13] LABS: AST 47 U/L (17-59); Alkaline Phosphatase 93 U/L (38-126); Magnesium 1.6 mg/dL (1.6-2.3); Potassium 4.3 mmol/L (3.5-5.1)
== END 2023-06-12 22:26 | disposition home or self-care (01) ==
LOC: EC 15:37
DX: R10.10 Upper abdominal pain, unspecified (principal); K42.9 Umbilical hernia without obstruction or gangrene; R09.02 Hypoxemia; I25.2 Old myocardial infarction; Z04.3 Encounter for examination and observation following other accident; Z87.891 Personal history of nicotine dependence
CPT/HCPCS: 96374 ×2; 99284 ×2; 36415; 93005; 83880; 80053; 83605; 83735; 84100; 84484; 85025; 85610; 85730; 87636; 72100; 71045; 74176; J2270

== ENCOUNTER → 2024-04-26 | Outpatient (CLI) | payer MEDICARE, OTHER ==
[2024-04-26 14:23] LABS: African American GFR (CKD) >90 (>60 ml/min/1.73 sqM); Blood Urea Nitrogen 15 mg/dL (9-20); Non-African American GFR(CKD) 85 (>60 ml/min/1.73 sqM)
--- NOTE | 2024-04-26 14:52 | CT ---
EXAMINATION TYPE: CT chest w con CT DLP: 546.8 mGycm, Automated exposure control for dose reduction was used. DATE OF EXAM: 04/26/2024 2:43 PM COMPARISON: CT chest 03/23/2022, CT chest abdomen 04/06/2021, CT abdomen and pelvis 06/12/2023 CLINICAL INDICATION:Male, 74 years old with history of C34.9 LUNG CANCER; [facility], lung ca TECHNIQUE: Multiple axial images were obtained through the chest following the administration of 100 cc of Isovue 300. . Coronal and sagittal reformats reviewed. FINDINGS: LUNGS/ PLEURA: No pleural effusion or pneumothorax. No new suspicious pulmonary nodule or mass. Scatt ered regions of peripheral reticular opacities throughout the lungs which is improved from prior CT. Mild centrilobular emphysematous changes. AIRWAY: Patent and unremarkable.. HEART: The heart is mildly increased in size..No pericardial effusion. MEDIASTINUM: No evidence of adenopathy. VASCULATURE: No aortic aneurysm. MUSCULOSKELETAL: No acute osseous abnormalities. No aggressive osseous lesion. Vertebral augmentation from prior compression deformities involving the T5 and L1 vertebral bodies. SOFT TISSUES/LYMPH NODES: Bilateral gynecomastia. LOWER NECK: No significant findings. UPPER ABDOMEN: Gallbladder is not visualized and is assumed to be surgically absent. Surgical clips a t the hepatic IVC. IMPRESSION: Improvement in previously seen interstitial pulmonary infiltrates from prior CT with residual periphe ral reticular opacities likely representing scarring. No definitive evidence for recurrent pulmonary nodule or mass. [facility], , 04/26/2024 2:49 PM
== END | disposition home or self-care (01) ==
LOC: RADCTMAIN 13:36
PROVIDERS: ATTEND Family Medicine
DX: C34.90 Malignant neoplasm of unspecified part of unspecified bronchus or lung (principal); R91.8 Other nonspecific abnormal finding of lung field; N62 Hypertrophy of breast
CPT/HCPCS: 82565; 84520; 71260; 36415; Q9967